=== PATIENT | male | born 1945 | race Caucasian/White ===

== ENCOUNTER → 2018-06-23 | Outpatient (CLI) | payer MEDICARE, BC ==
[2018-06-23 16:16] LABS: Blood Urea Nitrogen 17 mg/dL (9-20)
--- NOTE | 2018-06-24 00:30 | CT ---
EXAMINATION TYPE: CT angio chest DATE OF EXAM: 06/23/2018 COMPARISON: NONE HISTORY: Patient complains of difficulty breathing. Pleural effusion per order. CT DLP: 228.1 mGycm. Automated Exposure Control for Dose Reduction was Utilized. CONTRAST: CTA scan of the thorax is performed with IV Contrast, patient injected with 100 mL of Isovue 370, pul monary embolism protocol. MIP Images are created on CT scanner and reviewed. FINDINGS: LUNGS: There is background underlying emphysematous change. There is moderate to large size left pleu ral effusion confirmed. There is associated compressive atelectasis in the left lung base. There is n onsimple or nonlayering component anteriorly in the left lung base axial image 107 for reference. Sup erior to this there is curvilinear hyperdensity possible pleural consolidation or atelectasis axial i mage 93 extending along the shoulder. There is mosaic attenuation consistent with mild alveolar edema bilaterally. No significant mediastinal shift is present. Right lung is clear. Mild central bronchia l wall thickening is noted. MEDIASTINUM: There is satisfactory enhancement of the pulmonary artery and its branches, there is no CT evidence for pulmonary embolism. There are no greater than 1 cm hilar or mediastinal lymph nodes. No cardiomegaly or pericardial effusion is seen. Coronary artery calcification is present which is noted marker for coronary artery disease. Ascending aorta measures up to 3.5 cm in diameter. OTHER: There are a few simple appearing cysts scattered throughout visualized portion of both kidneys . There is mild multilevel spurring in the thoracic spine. IMPRESSION: 1. No CTA evidence for acute pulmonary embolism. 2. Background underlying mild to moderate emphysematous change with mild bilateral alveolar edema and asymmetric moderate to large size left pleural effusion. Imaging guided thoracentesis for diagnostic and/or therapeutic benefits can be performed to further evaluate. Neoplasm needs to be excluded in u nilateral effusion.
== END | disposition home or self-care (01) ==
LOC: RADCTMAIN 15:41
PROVIDERS: ATTEND Internal Medicine
DX: J90 Pleural effusion, not elsewhere classified (principal); J43.9 Emphysema, unspecified; J81.1 Chronic pulmonary edema
CPT/HCPCS: 82565; 84520; 71275; 36415; Q9967

== ENCOUNTER 2018-06-28 10:44 | Inpatient (IN) | payer MEDICARE, BC ==
[2018-06-28 11:08] LABS: Glucose,Whole Blood 145 mg/dL (75-99)
[2018-06-28] MEDS ORDERED: SODIUM CHLORIDE 0.9% 500 ML IV STA (11:11)
--- NOTE | 2018-06-28 11:17 | ED ---
General Adult HPI - General Chief complaint: Neuro Symptoms/Deficit Stated complaint: Neurological Symptoms Time Seen by Provider: 06/28/18 10:55 Source: patient, RN notes reviewed Mode of arrival: wheelchair Limitations: no limitations - History of Present Illness Initial comments: This is a 72-year-old male who presents emergency Department and family is stating that he has had abnormal movements of his facial muscles and left arm. Patient has had the symptoms for 2-3 days. Patient is not on any new medications. According to family he takes no medications on a regular basis. Family states that jerking of the arm and twitching of facial muscles has never been seen before with this patient. Patient is a smoker. Patient denies any chest pain difficulty breathing shortness of breath. Patient himself does not notice any of these movements and he denies any numbness or weakness. Family denies any speech disturbance. Patient denies any facial droop. Patient denies any fever chills or cough - Related Data Allergies Allergy/AdvReac Type Severity Reaction Status Date / Time No Known Allergies Allergy Verified 06/28/18 11:00 Review of Systems ROS Statement: Those systems with pertinent positive or pertinent negative responses have been documented in the HPI. ROS Other: All systems not noted in ROS Statement are negative. Past Medical History Past Medical History: COPD History of Any Multi-Drug Resistant Organisms: None Reported Past Surgical History: Orthopedic Surgery Additional Past Surgical History / Comment(s): HIP REPLACEMENT Past Psychological History: No Psychological Hx Reported Smoking Status: Current every day smoker Past Alcohol Use History: None Reported Past Drug Use History: None Reported General Exam - General Exam Comments Initial Comments: NGENERAL: Patient is well-developed and well-nourished. Patient is nontoxic and well- hydrated and is in no acute distress. ENT: Neck is soft and supple. No significant lymphadenopathy is noted. Oropharynx is clear. Moist mucous membranes. Neck has full range of motion without eliciting any pain. EYES: The sclera were anicteric and conjunctiva were pink and moist. Extraocular movements were intact and pupils were equal round and reactive to light. Eyelids were unremarkable. PULMONARY: Unlabored respirations. Good breath sounds bilaterally. No audible rales rhonchi or wheezing was noted. CARDIOVASCULAR: There is a regular rate and rhythm without any murmurs gallops or rubs. ABDOMEN: Soft and nontender with normal bowel sounds. No palpable organomegaly was noted. There is no palpable pulsatile mass. SKIN: Skin is clear with no lesions or rashes and otherwise unremarkable. NEUROLOGIC: Patient is alert and oriented x3. Cranial nerves II through XII are grossly intact. Motor and sensory are also intact. Normal speech, volume and content. Symmetrical smile. MUSCULOSKELETAL: Normal extremities with adequate strength and full range of motion. No lower extremity swelling or edema. No calf tenderness. Patient does appear to have involuntary facial movements and left arm movements. LYMPHATICS: No significant lymphadenopathy is noted PSYCHIATRIC: Normal psychiatric evaluation. Limitations: no limitations Course Vital Signs 06/28/18 10:54 Temperature 98.8 F Pulse Rate 85 Respiratory 18 Rate Blood Pressure 134/82 O2 Sat by Pulse 95 Oximetry Medical Decision Making - Medical Decision Making EKG shows sinus rhythm with occasional PVCs at 90 bpm ID interval is 134 QRS is 90 QT interval 352 QTC is 4:30. Patient's EKG shows no ST segment elevation or depression or T wave abnormalities are noted. CT of the brain shows no acute abnormality. Chest x-ray shows no acute abnormality. I spoke with Dr. Brambila she agreed to admit the patient admitted the patient wrote admitting orders I consult the neurology. - Lab Data Result diagrams: 06/28/18 11:09 06/28/18 11:09 Lab Results 06/28/18 06/28/18 06/28/18 Range/Units 11:07 11:09 11:09 WBC 11.4 H (3.8-10.6) k/uL RBC 5.42 (4.30-5.90) m/uL Hgb 16.5 (13.0-17.5) gm/dL Hct 50.6 (39.0-53.0) % MCV 93.3 (80.0-100.0) fL MCH 30.4 (25.0-35.0) pg MCHC 32.6 (31.0-37.0) g/dL RDW 13.3 (11.5-15.5) % Plt Count 198 (150-450) k/uL Neutrophils % 75 % Lymphocytes % 12 % Monocytes % 8 % Eosinophils % 3 % Basophils % 0 % Neutrophils # 8.5 H (1.3-7.7) k/uL Lymphocytes # 1.3 (1.0-4.8) k/uL Monocytes # 0.9 (0-1.0) k/uL Eosinophils # 0.4 (0-0.7) k/uL Basophils # 0.0 (0-0.2) k/uL PT (9.0-12.0) sec INR (<1.2) APTT (22.0-30.0) sec Sodium (137-145) mmol/L Potassium (3.5-5.1) mmol/L Chloride (98-107) mmol/L Carbon Dioxide (22-30) mmol/L Anion Gap mmol/L BUN (9-20) mg/dL Creatinine (0.66-1.25) mg/dL Est GFR (CKD-EPI)AfAm (>60 ml/min/1.73 sqM) Est GFR (CKD-EPI)NonAf (>60 ml/min/1.73 sqM) Glucose (74-99) mg/dL POC Glucose (mg/dL) 145 H (75-99) mg/dL POC Glu Gang Mower Operator ID Joy Marroquin Calcium (8.4-10.2) mg/dL Total Bilirubin (0.2-1.3) mg/dL AST (17-59) U/L ALT (21-72) U/L Alkaline Phosphatase (38-126) U/L Total Creatine Kinase 87 (55-170) U/L CK-MB (CK-2) 2.4 (0.0-2.4) ng/mL CK-MB (CK-2) Rel Index 2.8 Troponin I <0.012 (0.000-0.034) ng/mL Total Protein (6.3-8.2) g/dL Albumin (3.5-5.0) g/dL 06/28/18 06/28/18 Range/Units 11:09 11:09 WBC (3.8-10.6) k/uL RBC (4.30-5.90) m/uL Hgb (13.0-17.5) gm/dL Hct (39.0-53.0) % MCV (80.0-100.0) fL MCH (25.0-35.0) pg MCHC (31.0-37.0) g/dL RDW (11.5-15.5) % Plt Count (150-450) k/uL Neutrophils % % Lymphocytes % % Monocytes % % Eosinophils % % Basophils % % Neutrophils # (1.3-7.7) k/uL Lymphocytes # (1.0-4.8) k/uL Monocytes # (0-1.0) k/uL Eosinophils # (0-0.7) k/uL Basophils # (0-0.2) k/uL PT 10.1 (9.0-12.0) sec INR 1.0 (<1.2) APTT 25.5 (22.0-30.0) sec Sodium 137 (137-145) mmol/L Potassium 4.7 (3.5-5.1) mmol/L Chloride 107 (98-107) mmol/L Carbon Dioxide 23 (22-30) mmol/L Anion Gap 7 mmol/L BUN 16 (9-20) mg/dL Creatinine 0.86 (0.66-1.25) mg/dL Est GFR (CKD-EPI)AfAm >90 (>60 ml/min/1.73 sqM) Est GFR (CKD-EPI)NonAf 88 (>60 ml/min/1.73 sqM) Glucose 148 H (74-99) mg/dL POC Glucose (mg/dL) (75-99) mg/dL POC Glu Gang Mower Operator ID Calcium 9.1 (8.4-10.2) mg/dL Total Bilirubin 0.5 (0.2-1.3) mg/dL AST 24 (17-59) U/L ALT 23 (21-72) U/L Alkaline Phosphatase 88 (38-126) U/L Total Creatine Kinase (55-170) U/L CK-MB (CK-2) (0.0-2.4) ng/mL CK-MB (CK-2) Rel Index Troponin I (0.000-0.034) ng/mL Total Protein 6.1 L (6.3-8.2) g/dL Albumin 3.6 (3.5-5.0) g/dL Disposition Clinical Impression: Involuntary movements Disposition: ADMITTED IP TO THIS HOSP Referrals: Feliciano Motta MD [Primary Care Provider] - 1-2 days Time of Disposition: 12:10
[2018-06-28 11:26] LABS: Basophils % (A) 0 %; Eosinophils # (A) 0.4 k/uL (0-0.7); Eosinophils % (A) 3 %; HCT 50.6 % (39.0-53.0); HGB 16.5 gm/dL (13.0-17.5); Lymphocytes # (A) 1.3 k/uL (1.0-4.8); Lymphocytes % (A) 12 %; MCH 30.4 pg (25.0-35.0); MCHC 32.6 g/dL (31.0-37.0); MCV 93.3 fL (80.0-100.0); Mean Platelet Volume 7.5; Monocytes # (A) 0.9 k/uL (0-1.0); Monocytes % (A) 8 %; Neutrophils # (A) 8.5 k/uL (1.3-7.7); Neutrophils % (A) 75 %; Platelet Count 198 k/uL (150-450); RBC 5.42 m/uL (4.30-5.90); RDW 13.3 % (11.5-15.5); WBC 11.4 k/uL (3.8-10.6)
[2018-06-28 11:41] LABS: ALT 23 U/L (21-72); AST 24 U/L (17-59); Albumin 3.6 g/dL (3.5-5.0); Alkaline Phosphatase 88 U/L (38-126); Anion Gap 7 mmol/L; Blood Urea Nitrogen 16 mg/dL (9-20); Calcium 9.1 mg/dL (8.4-10.2); Carbon Dioxide 23 mmol/L (22-30); Chloride 107 mmol/L (98-107); Glucose 148 mg/dL (74-99); Potassium 4.7 mmol/L (3.5-5.1); Sodium 137 mmol/L (137-145); Total Bilirubin 0.5 mg/dL (0.2-1.3); Total Protein 6.1 g/dL (6.3-8.2)
[2018-06-28 11:45] LABS: Partial Thromboplastin Time 25.5 sec (22.0-30.0); Prothrombin Time 10.1 sec (9.0-12.0)
--- NOTE | 2018-06-28 11:55 | CT ---
EXAMINATION TYPE: CT brain wo con DATE OF EXAM: 06/28/2018 COMPARISON: NONE HISTORY: Lt sided numbness CT DLP: 929.3 mGycm Automated exposure control for dose reduction was used. FINDINGS: There are mild, generalized changes of sulcal prominence and ventriculomegaly, compatible with mild a trophy. There is diffuse periventricular white matter lucency, compatible with small vessel ischemic change. There is no acute focal lesion, mass effect or midline shift identified. I do not see evidenc e of intracranial blood. Visualized portions of the paranasal sinuses and mastoids are clear. The bony calvarium is intact. IMPRESSION: 1. NO ACUTE INTRACRANIAL ABNORMALITY. 2. MILD DEGENERATIVE CHANGE.
[2018-06-28 11:57] LABS: Creatine Kinase 87 U/L (55-170)
--- NOTE | 2018-06-28 11:59 | XR ---
EXAMINATION TYPE: XR chest 2V DATE OF EXAM: 06/28/2018 HISTORY: altered mental status. REFERENCE: NONE. FINDINGS: There is a prominent left-sided pleural effusion. There is associated atelectatic change. T he right lung is overinflated. Heart size appears to be normal. IMPRESSION: 1. COPD. 2. MODERATE LEFT-SIDED PLEURAL EFFUSION WITH CONCOMITANT ATELECTASIS.
[2018-06-28] MEDS ORDERED: diphenhydrAMINE 50 MG/ML 1 ML VIAL IVP STA (12:04)
[2018-06-28 12:09] LABS: Creatine Kinase MB 2.4 ng/mL (0.0-2.4); Troponin I <0.012 ng/mL (0.000-0.034)
[2018-06-28] MEDS ORDERED: ASPIRIN 325 MG TAB PO STA (12:10)
--- NOTE | 2018-06-28 14:46 | P.HPIM ---
History of Present Illness H&P Date: 06/28/18 Chief Complaint: Facial twitching 72-year-old male with past medical history of COPD presents to the ED with complaints of involuntary movement in his left upper extremity and slow speech. Patient reports the symptoms began several days ago. Patient reports the left upper extremity twitching as "something playing with it". Patient denies any dysphagia, difficulty articulating words, facial droop. He denies numbness , weakness, tingling of all 4 extremities. Patient reports no new medications. He denies headache, lower extremity edema, nausea, vomiting, fever, chills, chest pain, palpitations, changes in urination or bowel habits. Patient does currently endorse SOB and cough, ongoing for the past 2 weeks. Patient reports going to his PCP 2 weeks ago for a COPD exacerbation. Patient reports being treated with by prednisone at that time. CTA Chest was ordered when patient didn't show improvement, which revealed no evidence of PE but mild to moderate emphysematous changes with mild bilateral alveolar edema and asymmetric moderate to large size left pleural effusion. In the ED, brain CT showed no acute intracranial abnormality. Chest x-ray showed COPD, moderate left-sided pleural effusion. Patient was loaded with aspirin and admitted for further workup. Review of Systems All systems: negative Past Medical History Past Medical History: COPD History of Any Multi-Drug Resistant Organisms: None Reported Past Surgical History: Orthopedic Surgery Additional Past Surgical History / Comment(s): HIP REPLACEMENT Past Psychological History: No Psychological Hx Reported Smoking Status: Current every day smoker Past Alcohol Use History: None Reported Past Drug Use History: None Reported Medications and Allergies Home Medications Medication Instructions Recorded Confirmed Type Aclidinium Oracle [Tudorza 1 puff INHALATION RT-BID 06/28/18 06/28/18 History Pressair] Albuterol Inhaler [Ventolin Hfa 2 puff INHALATION RT-QID PRN 06/28/18 06/28/18 History Inhaler] Cholecalciferol [Vitamin D3] 1,000 unit PO DAILY 06/28/18 06/28/18 History Mometasone/Formoterol [Dulera 200 2 puff INHALATION RT-BID 06/28/18 06/28/18 History Mcg/5 Mcg Inhaler] Allergies Allergy/AdvReac Type Severity Reaction Status Date / Time No Known Allergies Allergy Verified 06/28/18 12:26 Physical Exam Vitals: Vital Signs Temp Pulse Resp BP Pulse Ox 06/28/18 12:40 97.7 F 69 18 136/74 99 06/28/18 12:11 75 18 128/68 99 06/28/18 10:54 98.8 F 85 18 134/82 95 Intake and Output 06/27/18 06/28/18 06/28/18 22:59 06:59 14:59 Other: Weight 71.214 kg General: non toxic, no distress, appears at stated age Derm: warm, dry Head: atraumatic, normocephalic, symmetric Eyes: EOMI, no lid lag, anicteric sclera Mouth: no lip lesion, mucus membranes moist Cardiovascular: S1S2 reg, no murmur, positive posterior tibial pulse bilateral, Lungs: Decreased breath sounds bilaterally, no rhonchi, no rales , no accessory muscle use Abdominal: soft, nontender to palpation, no guarding, no appreciable organomegaly Ext: no gross muscle atrophy, no edema, no contractures Neuro: CN II-XI grossly intact, strength 5 out of 5 in all 4 extremities, sensation intact to touch in all 4 extremities, finger to nose okay, heel-to- parsons okay. Psych: Alert, oriented, appropriate affect Results CBC & Chem 7: 06/28/18 11:09 06/28/18 11:09 Labs: Abnormal Lab Results - Last 24 Hours (Table) 06/28/18 06/28/18 06/28/18 Range/Units 11:07 11:09 11:09 WBC 11.4 H (3.8-10.6) k/uL Neutrophils # 8.5 H (1.3-7.7) k/uL Glucose 148 H (74-99) mg/dL POC Glucose (mg/dL) 145 H (75-99) mg/dL Total Protein 6.1 L (6.3-8.2) g/dL CT scan - chest: report reviewed CT Scan - head: report reviewed Thrombosis Risk Factor Assmnt - Choose All That Apply Any of the Below Risk Factors Present?: Yes Each Factor Represents 1 point: Abnormal pulmonary function (COPD) Other Risk Factors: Yes Each Risk Factor Represents 2 Points: Age 61-74 years Other congenital or acquired thrombophilia - If yes, enter type in comment: No Thrombosis Risk Factor Assessment Total Risk Factor Score: 3 Thrombosis Risk Factor Assessment Level: Moderate Risk Assessment and Plan Assessment: Assessment and Plan 1. Focal dystonia + Slurred speech: Given long h/o smoking, will need to r/o CVA. Also possible paraneoplastic syndrome given long smoking history. Given Benadryl IV in the ED without much relief. CT brain shows no acute intracranial abnormalities. Telemetry monitoring. FU MRI brain, CUS neck, Echocardiogram, A1c , Lipid panel. Neurochecks Q4H. FU PT/OT/ST, Neurology 2. Pleural effusion: Seen on CTA Chest 06/23. Moderate to large on left side. Given h/o smoking, will need thoracentesis to r/o CA. FU Pulmonology 3. COPD: Stable. DuoNeb Q6 PRN. 4. DVT/GI Prophylaxis: Protonix 40 mg PO QD, Lovenox 40 mg SUBCUT QD.
[2018-06-28 16:08] VITALS: BMI 24.7
--- NOTE | 2018-06-28 17:04 | US ---
EXAMINATION TYPE: US carotid duplex BILAT DATE OF EXAM: 06/28/2018 COMPARISON: NONE CLINICAL HISTORY: Stenosis. Involuntary movements, slurred speech EXAM MEASUREMENTS: RIGHT: Peak Systolic Velocity (PSV) cm/sec ----- Right CCA: 61.1 ----- Right ICA: 103.0 ----- Right ECA: 78.9 ICA/CCA ratio: 1.7 RIGHT: End Diastole cm/sec ----- Right CCA: 21.5 ----- Right ICA: 42.2 ----- Right ECA: 19.0 LEFT: Peak Systolic Velocity (PSV) cm/sec ----- Left CCA: 77.9 ----- Left ICA: 67.2 ----- Left ECA: 74.5 ICA/CCA ratio: 0.9 LEFT: End Diastole cm/sec ----- Left CCA: 24.1 ----- Left ICA: 17.9 ----- Left ECA: 15.2 VERTEBRALS (direction of flow): Right Vertebral: Antegrade Left Vertebral: Antegrade Rhythm: Arrhythmia Bilateral intimal thickening, plaque right bulb, no elevated velocities, no significant stenosis. IMPRESSION: 1. Mild degree of grayscale atheromatous plaquing with no sonographically evident hemodynamically si gnificant stenosis within either visualized carotid arterial system. 2. Incidentally noted cardiac arrhythmia. Correlate with EKG.
[2018-06-28] MEDS: IPRATROPIUM-ALBUTEROL 3 ML NEB INHALATION PRN (21:03)
[2018-06-28 23:54] LABS: Cholesterol 160 mg/dL (<200); HDL Cholesterol 49 mg/dL (40-60); LDL Cholesterol,Calculated 91 mg/dL (0-99); Triglycerides 100 mg/dL (<150)
--- NOTE | 2018-06-29 00:11 | P.CNNES ---
History of Present Illness Consult date: 06/28/18 Reason for Consult: Patient admitted for abnormal involuntary muscle movements. History of Present Illness: This patient is a 72-year-old right-handed white male was brought into the emergency room at [facility] today for evaluation of abnormal movements of his left upper extremity. Patient states that over the past week he has been having uncontrolled involuntary movements of the left arm. He describes it as a twitch which can be quite visible at times. The patient states the symptoms have been progressing over the past 2 weeks. He has no previous history of any left arm difficulties or pain. The patient also today noticing increasing difficulty with his speech and language in that his speech was becoming slurred. He describes it as a type of dysarthria. He had some difficulty with articulation of words which was also noted by his at home over the last week. The patient did not seek medical attention for this condition 2 weeks ago but since his symptoms seem to be worsening today he decided to come to the emergency room. His primary care physician is Dr. Motta who apparently monitors him on a regular basis. The patient denies being started on any new medications by his primary care physician or new antipsychotic medications. He denied any headache or focal weakness but did complain of the left arm movements. The patient is also been having symptoms of shortness of breath for the past 2 weeks. He underwent a CTA of the chest which reveals a large left pleural effusion. Pulmonary medicine has been consulted. The patient was given an aspirin in the emergency room after being evaluated by Dr. Sung. He was sent for a computed tomography scan of the brain which revealed no acute intracranial abnormality. There was mild degenerative change noted. He underwent a carotid Doppler ultrasound which revealed mild degree of plaquing with no significant hemodynamically significant stenosis of either carotid system. Patient denies any previous history of TIA or stroke. He states these involuntary movements have only been noticed by him in the past 2 weeks. He denies ever having these movements previously. The patient states that there is no family history of abnormal movement disorders. He had only one sibling who has passed on. He has no other history of any movement disorders running in the family. The patient was examined at bedside and is noted to have some facial grimacing. He does have occasional movements of the left upper extremity. He seems to be quite restless in bed. He has no evidence on neurological examination of cogwheel rigidity. He does have dysmetria on finger-nose testing in the left upper extremity. The patient will require further evaluation with MRI of the brain as well as a complete stroke evaluation. The patient is now admitted and neurology has been consulted for further evaluation and recommendations. Review of Systems Constitutional: Denies chills, Denies fever Eyes: denies blurred vision, denies pain Ears, nose, mouth and throat: Denies headache, Denies sore throat Cardiovascular: Denies chest pain, Denies shortness of breath Respiratory: Denies cough Gastrointestinal: Denies abdominal pain, Denies diarrhea, Denies nausea, Denies vomiting Musculoskeletal: Reports muscle cramps, Denies myalgias Integumentary: Denies pruritus, Denies rash Neurological: Reports change in mentation, Reports lack of coordination, Reports tingling, Denies numbness, Denies weakness Psychiatric: Denies anxiety, Denies depression Endocrine: Denies fatigue, Denies weight change Past Medical History Past Medical History: COPD History of Any Multi-Drug Resistant Organisms: None Reported Past Surgical History: Orthopedic Surgery Additional Past Surgical History / Comment(s): HIP REPLACEMENT Past Psychological History: No Psychological Hx Reported Smoking Status: Current every day smoker Past Alcohol Use History: None Reported Past Drug Use History: None Reported - Past Family History Mother Family Medical History: Cancer Additional Family Medical History / Comment(s): lung cancer pass away 90 years old Medications and Allergies Home Medications Medication Instructions Recorded Confirmed Type Aclidinium [place] [Tudorza 1 puff INHALATION RT-BID 06/28/18 06/28/18 History Pressair] Albuterol Inhaler [Ventolin Hfa 2 puff INHALATION RT-QID PRN 06/28/18 06/28/18 History Inhaler] Cholecalciferol [Vitamin D3] 1,000 unit PO DAILY 06/28/18 06/28/18 History Mometasone/Formoterol [Dulera 200 2 puff INHALATION RT-BID 06/28/18 06/28/18 History Mcg/5 Mcg Inhaler] Allergies Allergy/AdvReac Type Severity Reaction Status Date / Time No Known Allergies Allergy Verified 06/28/18 12:26 Physical Examination - Vital Signs Vital Signs: Vital Signs Temp Pulse Resp BP Pulse Ox 06/28/18 12:40 97.7 F 69 18 136/74 99 06/28/18 12:11 75 18 128/68 99 06/28/18 10:54 98.8 F 85 18 134/82 95 Intake and Output 06/27/18 06/28/18 06/28/18 22:59 06:59 14:59 Other: Weight 71.214 kg - Constitutional General appearance: average body habitus, cooperative - EENT EENT: PERRL, mucous membranes moist - Respiratory Respiratory: lungs clear, normal breath sounds - Cardiovascular Cardiovascular: regular rate, normal S1, normal S2 Extremities: no peripheral edema bilaterally - Gastrointestinal Gastrointestinal: normoactive bowel sounds - Integumentary Integumentary: normal - Neurologic Cranial nerve examination: PERRL, EOMI, VFF, V1/V2/V3 grossly intact, face symmetric, intact gag reflex, intact corneal reflex, normal palatal elevation Speech examination: intact Sensorimotor examination: intact Motor examination - right side: 4/5: biceps, triceps, wrist flexion, wrist extension, inspector repairer sandstone, hip flexors, knee extensors, dorsiflexion, toe extension (EHL) , plantarflexion Motor examination - left side: 4/5: biceps, triceps, wrist flexion, wrist extension, inspector repairer sandstone, hip flexors, knee extensors, dorsiflexion, toe extension (EHL) , plantarflexion Detailed sensory examination: intact Reflex and gait examination: intact Reflexes: 1+: ankle, bicep, knee, tricep - Musculoskeletal Musculoskeletal: no pain - Psychiatric Psychiatric: mood/affect appropriate, cooperative Results - Laboratory Findings CBC and BMP: 06/28/18 11:09 06/28/18 11:09 Abnormal Lab Findings: Abnormal Labs 06/28/18 06/28/18 06/28/18 11:07 11:09 11:09 WBC 11.4 H Neutrophils # 8.5 H Glucose 148 H POC Glucose (mg/dL) 145 H Total Protein 6.1 L Assessment and Plan (1) Tourette's syndrome Current Visit: Yes Status: Acute Code(s): F95.2 - TOURETTE'S DISORDER SNOMED Code(s): 4583846 (2) TIA (transient ischemic attack) Current Visit: Yes Status: Acute Code(s): G45.9 - TRANSIENT CEREBRAL ISCHEMIC ATTACK, UNSPECIFIED SNOMED Code(s): 525600276 (3) Pleural effusion Current Visit: Yes Status: Acute Code(s): J90 - PLEURAL EFFUSION, NOT ELSEWHERE CLASSIFIED SNOMED Code(s): 58089074 (4) Involuntary movements Current Visit: Yes Status: Acute Code(s): R25.9 - UNSPECIFIED ABNORMAL INVOLUNTARY MOVEMENTS SNOMED Code(s): 764564217 Plan: This patient is a 72-year-old right-handed white male who is being evaluated for recent onset of left arm movements and slurred speech. Symptoms began about a week ago at home which the patient describes as twitching of his left arm. His symptoms worsened and he was brought into the emergency room today for further evaluation. He was seen in the ER by Dr. Sung who ordered a computed tomography scan of the brain which was negative for any acute changes. He was noted to have some involuntary movements and some facial grimacing in the ER and was subsequent admitted to Hospital. His neurological examination at this time suggest possibility of Tourette syndrome given his current clinical findings and symptoms. He may benefit from a trial of treatment with Klonopin to see if this would help alleviate some of the involuntary movements. We would recommend a complete stroke evaluation for this patient as he does have slurred speech as well. He does also demonstrate evidence of dysmetria on his left upper extremity suggesting possibility of cerebellar involvement. Would recommend an MRI of the brain and a complete stroke evaluation for the patient. Patient also has evidence of left pleural effusion and we will await further recommendations from pulmonary medicine. We will continue close neurological follow-up with this patient during this admission. His overall prognosis at this time remains very guarded. We will continue close neurological follow-up for this patient during this admission. Time with Patient: Greater than 30
[2018-06-29] MEDS: PANTOPRAZOLE 40 MG TABLET PO SCH (06:34)
[2018-06-29] MEDS: IPRATROPIUM-ALBUTEROL 3 ML NEB INHALATION PRN (07:35)
[2018-06-29] MEDS ORDERED: ASPIRIN 325 MG TAB PO SCH (09:00)
[2018-06-29] MEDS ORDERED: ENOXAPARIN 40 MG/0.4 ML SYRINGE SQ SCH (09:00)
[2018-06-29] MEDS: clonazePAM 0.5 MG TAB PO SCH ×2 (09:58→21:46)
--- NOTE | 2018-06-29 12:11 | ECHOF ---
Referral Reason:Thrombus MEASUREMENTS -------- HEIGHT: 170.2 cm WEIGHT: 68.0 kg BP: 110/74 RVIDd: 2.9 cm (< 3.3) IVSd: 1.3 cm (0.6 - 1.1) LVIDd: 3.5 cm (3.9 - 5.3) LVPWd: 1.3 cm (0.6 - 1.1) IVSs: 1.5 cm LVIDs: 2.7 cm LVPWs: 1.9 cm LA Diam: 3.6 cm (2.7 - 3.8) LAESV Index (A-L): 27.32 ml/m Ao Diam: 2.2 cm (2.0 - 3.7) MV EXCURSION: 17.570 mm (> 18.000) MV EF SLOPE: 65 mm/s (70 - 150) EPSS: 0.3 cm MV E Dwayne: 1.05 m/s MV DecT: 251 ms MV A Dwayne: 1.07 m/s MV E/A Ratio: 0.98 AV maxP.44 mmHg AV meanP.02 mmHg RAP: 5.00 mmHg RVSP: 51.18 mmHg FINDINGS -------- Sinus rhythm. This was a technically good study. The left ventricular size is normal. There is mild concentric left ventricular hypertrophy. Overa ll left ventricular systolic function is normal with, an EF between 60 - 65 %. The right ventricle is normal in size. Normal LA size by volume 22+/-6 ml/m2. The right atrium is normal in size. There is moderate to severe aortic valve sclerosis. There is severe aortic stenosis present. Peak /mean gradient across the Aortic Valve is 82.44mmHg / 46.02mmHg. Can't exclude possible Bicuspid Ao v. Mild mitral annular calcification present. Mild tricuspid regurgitation present. There is moderate pulmonary hypertension. The right ventric ular systolic pressure, as measured by Doppler, is 51.18mmHg. The pulmonic valve was not well visualized. The aortic root size is normal. Normal inferior vena cava with normal inspiratory collapse consistent with estimated right atrial pre ssure of 5 mmHg. There is no pericardial effusion. Moderate Pleural Effusion. CONCLUSIONS -------- 1. Sinus rhythm. 2. This was a technically good study. 3. The left ventricular size is normal. 4. There is mild concentric left ventricular hypertrophy. 5. Overall left ventricular systolic function is normal with, an EF between 60 - 65 %. 6. The right ventricle is normal in size. 7. Normal LA size by volume 22+/-6 ml/m2. 8. The right atrium is normal in size. 9. There is moderate to severe aortic valve sclerosis. 10. There is severe aortic stenosis present. 11. Peak/mean gradient across the Aortic Valve is 82.44mmHg / 46.02mmHg. 12. Can't exclude possible Bicuspid Aov. 13. Mild mitral annular calcification present. 14. Mild tricuspid regurgitation present. 15. There is moderate pulmonary hypertension. 16. The right ventricular systolic pressure, as measured by Doppler, is 51.18mmHg. 17. The pulmonic valve was not well visualized. 18. The aortic root size is normal. 19. Normal inferior vena cava with normal inspiratory collapse consistent with estimated right atrial pressure of 5 mmHg. 20. There is no pericardial effusion. 21. Moderate Pleural Effusion. COAL GRADER: Taisha Hicks RDCS
--- NOTE | 2018-06-29 12:41 | P.PN ---
Subjective Progress Note Date: 06/29/18 Principal diagnosis: speech difficulties, numbness of the left upper extremity. patient was seen and examined. No acute events overnight. Patient reports no changes in his symptoms since 06/28/2018. Objective - Vital Signs Vital signs: Vital Signs Temp 97.1 F L 06/29/18 12:00 Pulse 82 06/29/18 12:00 Resp 20 06/29/18 12:00 BP 127/62 06/29/18 12:00 Pulse Ox 93 L 06/29/18 12:00 Intake & Output 06/28/18 06/29/18 06/29/18 18:59 06:59 18:59 Intake Total 360 360 Output Total 500 Balance -140 360 Weight 71.5 kg 68.4 kg Intake: Oral 360 360 Output: Urine 500 Other: # Voids 1 - Exam General: non toxic, no distress, appears at stated age Derm: warm, dry Head: atraumatic, normocephalic, symmetric Eyes: EOMI, no lid lag, anicteric sclera, PERRLA Mouth: no lip lesion, mucus membranes moist Cardiovascular: S1S2 reg, no murmur, positive posterior tibial pulse bilateral Lungs: Decreased breath sounds bilaterally, no rhonchi, no rales , no accessory muscle use Abdominal: soft, nontender to palpation, no guarding, no appreciable organomegaly Ext: no gross muscle atrophy, no edema, no contractures Neuro: CN II-XI grossly intact, strength 5 out of 5 in all 4 extremities, sensation intact to touch in all 4 extremities, finger to nose okay, heel-to- parsons okay. Psych: Alert, oriented, appropriate affect - Labs CBC & Chem 7: 06/28/18 11:09 06/28/18 11:09 Assessment and Plan Assessment: Assessment and Plan 1. Focal dystonia + Slurred speech - Given long h/o smoking, will need to r/o CVA. Also possible paraneoplastic syndrome given long smoking history. - Given Benadryl IV in the ED without much relief. - r/o CVA - CT brain shows no acute intracranial abnormalities. - CUS shows no hemodynamic compromise - Lipid panel is within normal limits. - Echo is 60-65% with moderate to severe . - Neurology consult: Recommend trial of Klonopin for possible Tourette, complete CVA workup. - Telemetry monitoring with Neurochecks Q4H. Start ASA 325 mg PO QD. FU MRI brain, Echocardiogram, A1c. FU PT/OT/ST, Neurology 2. Aortic stenosis: Seen on Echo. Moderate to severe. Patient asymptomatic. FU Cardiology. 3. Pleural effusion: Seen on CTA Chest 06/23. Moderate to large on left side. Given h/o smoking, will need thoracentesis to r/o CA. FU Pulmonology 4. COPD: Stable. DuoNeb Q6 PRN. 5. DVT/GI Prophylaxis: Protonix 40 mg PO QD, Lovenox 40 mg SUBCUT QD.
--- NOTE | 2018-06-29 17:39 | P.CNPUL ---
History of Present Illness Consult date: 06/29/18 Requesting physician: Bryanna Bridges Reason for consult: dyspnea, pleural effusion, abnormal CXR/CT Chief complaint: Shortness of breath History of present illness: Mr. German is a 72-year-old white male patient of Dr. Motta, who presented to the emergency department on 06/28/2018 at 10:00 in the morning with complaints of abnormal movements of his facial muscles and left arm. This had been going on for 2-3 days. Patient was experiencing jerking movements of the arm, and twitching of the facial muscles. No facial droop, no unilateral motor weakness. Patient was noted to be dysarthric. Patient is currently undergoing neurological workup for CVA/TIA, and neurology is following. Brain CT no acute intracranial abnormality, and mild degenerative change. EKG showed sinus rhythm with occasional PVCs. Echocardiogram showed EF of 60-65%, moderate pulmonary hypertension, with right-sided pressures of 51 mmHg. There was mild tricuspid regurgitation, there was moderate to severe aortic valve sclerosis and severe aortic stenosis present. Carotid Doppler did not show any hemodynamically significant stenosis. Patient has a past medical history of COPD, chronic and ongoing nicotine dependence, he carries over 55 -pack-year smoking history, has history of service, in the [employer]. Patient is not on oxygen at his baseline, and his maintenance inhalers include Dulera, Tudorza and Ventolin inhaler. Patient has been having increased shortness of breath for the past several weeks, and outpatient CT angiogram from 06/23/2018 negative for PE, but positive for moderate to large sized left pleural effusion and associated compressive atelectasis in the left lung base. Lab work was reviewed and showed WBC of 11.4, hemoglobin of 16.5, coagulation profile was within normal limits, renal profile and electrolytes were normal, LFTs were unremarkable, troponins and cardiac enzymes were negative 1. Clinically patient is awake and alert, oriented 3, in no acute distress, room air pulse ox is 94%, he is afebrile, hemodynamically stable, he is in sinus mechanism with a controlled rate. He does admit to being short of breath, but denies any chest pain, denies any fever or chills, does have an occasional cough with clear sputum production. We are consulted in regards to a large left-sided pleural effusion, for which the patient was supposed to see Dr. Adler on 2017 in the pulmonary office as a new patient. Review of Systems All systems: negative Constitutional: Denies chills, Denies fever Eyes: denies blurred vision, denies pain Ears, nose, mouth and throat: Denies headache, Denies sore throat Cardiovascular: Denies chest pain, Denies shortness of breath Respiratory: Reports cough, Reports cough with sputum, Reports dyspnea Gastrointestinal: Denies abdominal pain, Denies diarrhea, Denies nausea, Denies vomiting Musculoskeletal: Denies myalgias Integumentary: Denies pruritus, Denies rash Neurological: Reports change in speech, Denies numbness, Denies weakness Psychiatric: Denies anxiety, Denies depression Endocrine: Denies fatigue, Denies weight change Past Medical History Past Medical History: COPD History of Any Multi-Drug Resistant Organisms: None Reported Past Surgical History: Orthopedic Surgery Additional Past Surgical History / Comment(s): HIP REPLACEMENT Past Anesthesia/Blood Transfusion Reactions: No Reported Reaction Past Psychological History: No Psychological Hx Reported Smoking Status: Current every day smoker Past Alcohol Use History: None Reported Past Drug Use History: None Reported - Past Family History Mother Family Medical History: Cancer Additional Family Medical History / Comment(s): lung cancer pass away 90 years old Medications and Allergies Home Medications Medication Instructions Recorded Confirmed Type Aclidinium [place] [Tudorza 1 puff INHALATION RT-BID 06/28/18 06/28/18 History Pressair] Albuterol Inhaler [Ventolin Hfa 2 puff INHALATION RT-QID PRN 06/28/18 06/28/18 History Inhaler] Cholecalciferol [Vitamin D3] 1,000 unit PO DAILY 06/28/18 06/28/18 History Mometasone/Formoterol [Dulera 200 2 puff INHALATION RT-BID 06/28/18 06/28/18 History Mcg/5 Mcg Inhaler] Allergies Allergy/AdvReac Type Severity Reaction Status Date / Time No Known Allergies Allergy Verified 06/28/18 12:26 Physical Exam Vitals: Vital Signs Temp Pulse Pulse Resp BP Pulse Ox 06/29/18 16:00 97.5 F L 87 20 125/77 94 L 06/29/18 12:00 97.1 F L 82 20 127/62 93 L 06/29/18 08:00 97.2 F L 93 20 115/70 95 08/13/18 07:45 80 06/29/18 07:35 90 06/29/18 05:10 97.4 F L 89 18 110/74 94 L 06/28/18 23:10 75 16 110/72 94 L 06/28/18 21:14 88 06/28/18 21:05 87 06/28/18 20:30 97.7 F 88 16 131/71 93 L Intake and Output 06/29/18 06/29/18 06/29/18 06:59 14:59 22:59 Intake Total 1017 Balance 1017 Intake: Oral 1017 Other: # Voids 1 3 Weight 68.4 kg GENERAL EXAM: Alert, pleasant 72-year-old white male, tanned, comfortable in no apparent distress. HEAD: Normocephalic/atraumatic. EYES: Normal reaction of pupils, equal size. Conjunctiva pink, sclera white. NOSE: Clear with pink turbinates. THROAT: No erythema or exudates. NECK: No masses, no JVD, no thyroid enlargement, no adenopathy. CHEST: No chest wall deformity. Symmetrical expansion. LUNGS: Diminished breath sounds bilaterally, especially over left lower lobe, and dullness to percussion on the left CVS: Regular rate and rhythm, normal S1 and S2, no gallops, no murmurs, no rubs ABDOMEN: Soft, nontender. No hepatosplenomegaly, normal bowel sounds, no guarding or rigidity. EXTREMITIES: No clubbing, no edema, no cyanosis, 2+ pulses and upper and lower extremities. MUSCULOSKELETAL: Muscle strength and tone normal. SPINE: No scoliosis or deformity SKIN: No rashes CENTRAL NERVOUS SYSTEM: Alert and oriented -3. No focal deficits, tone is normal in all 4 extremities. PSYCHIATRIC: Alert and oriented -3. Appropriate affect. Intact judgment and insight. Results - Laboratory Findings CBC and BMP: 06/28/18 11:09 06/28/18 11:09 PT/INR, D-dimer PT 10.1 sec (9.0-12.0) 06/28/18 11:09 INR 1.0 (<1.2) 06/28/18 11:09 Abnormal lab findings: Abnormal Labs 06/28/18 06/28/18 06/28/18 11:07 11:09 11:09 WBC 11.4 H Neutrophils # 8.5 H Glucose 148 H POC Glucose (mg/dL) 145 H Total Protein 6.1 L - Diagnostic Findings Chest x-ray: report reviewed, image reviewed CT scan - chest: report reviewed, image reviewed Additional studies: EKG, CT brain, carotid ultrasound reviewed Assessment and Plan Plan: Assessment: #1. Dyspnea related to a large left pleural effusion #2. COPD, the severity of which is unknown at this time, appears to be stable #3. TIA, undergoing neurologic evaluation #4. Dysarthria, and involuntary movements secondary to above #5. Moderate to severe aortic stenosis #6. Moderate pulmonary hypertension, with right-sided pressures of 51 mmHg #7. Chronic and ongoing nicotine dependence, carries [id number] smoking history Plan: We'll obtain ultrasound the left chest with markings. We'll set up the patient for left-sided thoracentesis on 06/30/[address] Beck. We will hold morning dose of Lovenox and aspirin, dose can be given after the procedure as long as there is no bleeding. He COPD seems to be stable for now, he can continue with nebulized treatments on an as-needed basis. We will start Symbicort in place of patient is Dulera. We will send the pleural fluid for pleural fluid analysis , cultures, and cytology. This was discussed with the patient and his , who are in agreement with the plan I performed a history & physical examination of the patient and discussed their management with my nurse practitioner, Franny Major. I reviewed the nurse practitioner's note and agree with the documented findings and plan of care. Lung sounds are diminished, with dullness to percussion over left lower base. The findings and the impression was discussed with the patient. I attest to the documentation by the nurse practitioner. Time with Patient: Greater than 30
[2018-06-29] MEDS: NICOTINE 21MG/24HR PATCH TRANSDERM SCH (18:11)
--- NOTE | 2018-06-29 18:20 | CONS ---
CONSULTATION Mr. German is a 72-year-old gentleman who is seen for cardiac evaluation. The patient's medical record is reviewed. This patient came to the emergency room with primary complaint of involuntary movement of his left upper extremity and some slow speech on and off for the last few days. The patient denied any weakness or facial droop. Denied any headache. CT scan was unremarkable. The patient also has a history of COPD and smoking for the last 55 years. The patient had been complaining of exertional shortness of breath for some time and patient had a CTA of the chest done last week which showed a moderate to large-sized pleural effusion. The patient has a known history of heart murmur for many years. Patient denies any definite history of congestive cardiac failure or angina, denies any history of diabetes or hypertension. PAST MEDICAL HISTORY: 1. History of hip replacement. 2. Smoking history. Patient has a history of smoking 1 pack per day for the last 55 years. HOME MEDICATIONS: 1. Tudorza. 2. Ventolin. 3. Vitamin D3. PHYSICAL EXAMINATION: Physical examination at present reveals a 72-year-old gentleman who does not appear to be in any acute distress. Patient's blood pressure is 127/62 mmHg. Patient is afebrile. Oxygen saturation is 93%. Head/ENT examination is negative. NECK: Supple. Jugular venous pressure is not elevated. Both the carotid pulses are felt. There is no bruit. Chest is symmetrical. HEART: The PMI is not felt. First heart sound is normal. Second heart sound is soft. There is a grade 2 to 3 over 6 ejection systolic murmur which peaks in mid systole noted. Lungs reveal significant diminished air entry in left lower and mid lung guzman. Abdomen is negative. EXTREMITIES: There is no evidence of any leg edema. Patient's electrolytes are normal. Patient's echocardiogram shows evidence of calcified aortic valve; possibly bicuspid aortic valve with a peak gradient of 84, and a mean gradient of 46 mmHg is noted, suggestive of severe aortic stenosis. Patient does have some pulmonary hypertension. Patient's left atrium was not significantly dilated. FINAL IMPRESSION: 1. This patient is admitted with involuntary movement of the left upper extremity, for which neurological evaluation is being performed. 2. Patient has evidence of moderate to severe aortic stenosis with a peak gradient of 84 and mean gradient of 46 mmHg, possibly bicuspid aortic valve. 3. Evidence of chronic obstructive pulmonary disease as well as a significant large- sized pleural effusion which needs to be further evaluated. Underlying malignancy needs to be ruled out. After the pulmonary workup is completed, we recommend evaluating the patient with a transesophageal echocardiogram. MMODL / IJN: [id number] /
--- NOTE | 2018-06-29 18:36 | MR ---
EXAMINATION TYPE: MR brain wo/w con DATE OF EXAM: 06/29/2018 COMPARISON: None HISTORY: Speech loss TECHNIQUE: Multiplanar, multisequence images of the brain and brainstem is performed without and with IV contras t, utilizing 7.5 mL intravenous . Gadolinium FINDINGS: There is cerebral cortical atrophy. There is no mass effect nor midline shift. There is no sign of intracranial hemorrhage. There are multiple scattered foci of increased signal at the rodriguez-wh ite matter junction of both cerebral hemispheres. These measure up to 8 mm. Total number is less than 20. The brainstem is intact. The corpus callosum is intact. There is no sellar mass.. There is mild mucosal thickening in the right maxillary sinus. The contrast images show no pathologic enhancement. There is normal contrast appearance of the venous sinuses. The contrast images show some deviation of the pituitary stalk to the left side. There is suggestion of a 5 mm area of decreased enhancement in the sella turcica to the right of midline. IMPRESSION: Mild cerebral atrophy. White matter signal changes likely related to chronic small vessel ischemia. No evidence of cortical infarct. Demyelinating diseases in the differential diagnosis. Possible microadenoma in the right side of the pituitary gland. Dedicated pituitary study would BE us eful for further evaluation if clinically indicated.
[2018-06-29] MEDS: SYMBICORT 160-4.5 MCG INHALER INHALATION SCH (19:27)
--- NOTE | 2018-06-29 20:12 | US ---
EXAMINATION TYPE: US chest DATE OF EXAM: 06/29/2018 COMPARISON: NONE CLINICAL HISTORY: left pleural effusion. SOB TECHNIQUE: Targeted ultrasound of the posterior lower left pleural space EXAM MEASUREMENTS: Left Pleural Effusion pocket size: 10.0 cm Left skin surface to fluid distance: 3.7 cm Left side marked for possible thoracentesis outside the dept. Pulmonologists are able to review the images in the patient?s EMR. IMPRESSIONS: Moderate sized left pleural effusion is demonstrated.
--- NOTE | 2018-06-29 21:34 | P.PN ---
Subjective Progress Note Date: 06/28/18 This patient is a 72-year-old male being evaluated for left-sided movement disorder and tic-like symptoms. He was evaluated yesterday for neurological consultation. His differential diagnosis suggested possibility of Tourette syndrome and he was started on low-dose Klonopin. Patient was sent for MRI of the brain today and results will be reviewed. He also underwent carotid Doppler ultrasound which failed to reveal any carotid artery disease. The patient was started on low-dose Klonopin yesterday evening. There is some slight improvement in his overall condition today. Patient was sent for MRI of the brain which revealed cerebral atrophy with no evidence of cortical infarction or stroke. There was a possible microadenoma noted on the right side of the pituitary gland. The patient seems to have less movement of the left upper extremity today. He did undergo a routine EEG today which is reviewed and fails to reveal any evidence of epileptiform discharges. We reviewed the results of the MRI and EEG today with the patient. He was seen by pulmonary medicine earlier today and is being scheduled for thoracentesis tomorrow for treatment of large pleural effusion. He will need further workup for underlying malignancy as well. He was also seen by cardiology with diagnosed him with moderate to severe aortic stenosis. We will await further recommendations from cardiology. His overall prognosis at this time remains very guarded. Objective - Vital Signs Vital signs: Vital Signs Temp 97.5 F L 06/29/18 16:00 Pulse 87 06/29/18 16:00 Resp 20 06/29/18 16:00 BP 125/77 06/29/18 16:00 Pulse Ox 94 L 06/29/18 16:00 Intake & Output 06/29/18 06/29/18 06/30/18 06:59 18:59 06:59 Intake Total 1017 Balance 1017 Weight 68.4 kg Intake: Oral 1017 Other: # Voids 1 3 - Exam Physical examination: PHYSICAL EXAMINATION: Patient is resting comfortably in bed. VITAL SIGNS: Blood pressure is [125/77]. Heart rate is [87]. Respiration is [20] . Temperature is [97.5]. HEENT: Head is atraumatic, neck is supple, there were no carotid bruits. CHEST: Lungs are clear to auscultation and percussion. CARDIAC: S1, S2 normal rate and rhythm. There is no murmur. ABDOMEN: Soft and nontender. Bowel sounds are present. EXTREMITIES: There is no pedal edema. Peripheral pulses are present. Neurological examination: Patient has a nonfocal neurological examination today. Patient seems to have less involuntary movement of the left upper extremity today on examination. - Labs CBC & Chem 7: 06/28/18 11:09 06/28/18 11:09 Assessment and Plan (1) Tourette's syndrome Current Visit: Yes Status: Acute Code(s): F95.2 - TOURETTE'S DISORDER SNOMED Code(s): 5579661 (2) TIA (transient ischemic attack) Current Visit: Yes Status: Acute Code(s): G45.9 - TRANSIENT CEREBRAL ISCHEMIC ATTACK, UNSPECIFIED SNOMED Code(s): 874053332 (3) Pleural effusion Current Visit: Yes Status: Acute Code(s): J90 - PLEURAL EFFUSION, NOT ELSEWHERE CLASSIFIED SNOMED Code(s): 80552811 (4) Involuntary movements Current Visit: Yes Status: Acute Code(s): R25.9 - UNSPECIFIED ABNORMAL INVOLUNTARY MOVEMENTS SNOMED Code(s): 492018585 Plan: This patient is a 72-year-old right-handed white male who is being evaluated for recent onset of left arm movements and slurred speech. Symptoms began about a week ago at home which the patient describes as twitching of his left arm. His symptoms worsened and he was brought into the emergency room today for further evaluation. He was seen in the ER by Dr. Sung who ordered a computed tomography scan of the brain which was negative for any acute changes. He was noted to have some involuntary movements and some facial grimacing in the ER and was subsequent admitted to Hospital. His neurological examination at this time suggest possibility of Tourette syndrome given his current clinical findings and symptoms. He may benefit from a trial of treatment with Klonopin to see if this would help alleviate some of the involuntary movements. We would recommend a complete stroke evaluation for this patient as he does have slurred speech as well. He does also demonstrate evidence of dysmetria on his left upper extremity suggesting possibility of cerebellar involvement. Would recommend an MRI of the brain and a complete stroke evaluation for the patient. Patient underwent MRI of the brain results of which are noted above. MRI fails to reveal any evidence of acute stroke. There is evidence of a possible microadenoma on the right side of the pituitary gland. Further workup as needed. Patient was seen by cardiology for moderate to severe aortic stenosis. He is also being scheduled for thoracentesis procedure tomorrow by pulmonary medicine. Patient also has evidence of left pleural effusion and we will await further recommendations from pulmonary medicine. We will continue close neurological follow-up with this patient during this admission. We have reviewed the results of the MRI and EEG today with the patient. As noted EEG was negative for any evidence of epileptiform discharges. At this time would recommend to continue the patient on low-dose Klonopin with close monitoring. His overall prognosis at this time remains very guarded. We will continue close neurological follow-up for this patient during this admission.
--- NOTE | 2018-06-29 21:48 | EEG ---
ELECTROENCEPHALOGRAM REPORT DATE OF EE06/29/2018 ELECTROENCEPHALOGRAPHIC EXAMINATION REPORT: INDICATION FOR EXAMINATION: This patient is a 72-year-old male being evaluated for involuntary movements of the left upper extremity. AGE: 72. EEG FINDINGS: A routine 21-channel awake digital EEG recording was accomplished utilizing the 10-20 international system with bipolar and referential montages. The background activity in the most alert resting state consists of a low to medium amplitude, fairly well developed and well sustained 6 Hz activity over the posterior head regions. This posterior rhythm attenuates to eye opening. There is a small amount of low amplitude 18-20 Hz beta activity seen maximally over the anterior head regions. Muscle and movement artifact was observed on a few occasions during the tracing. Hyperventilation was not performed. Photic stimulation at flash frequencies of 2-30 Hz produced a minimal occipital driving response. No epileptiform discharges were seen. IMPRESSION: This EEG is moderately abnormal in a diffuse fashion due to slowing of the EEG background. The EEG failed to reveal any focal, lateralized, or epileptiform abnormalities. Clinical correlation is recommended. MMKATIEL / GÓMEZN: [id number] /
[2018-06-30] MEDS: PANTOPRAZOLE 40 MG TABLET PO SCH (06:33)
[2018-06-30] MEDS: SYMBICORT 160-4.5 MCG INHALER INHALATION SCH (08:21)
[2018-06-30] MEDS: IPRATROPIUM-ALBUTEROL 3 ML NEB INHALATION PRN (08:21)
--- NOTE | 2018-06-30 09:08 | P.PN ---
Subjective Progress Note Date: 06/30/18 Principal diagnosis: Speech difficulties, involuntary movement. Patient seen and examined. No acute events overnight. Condition unchanged from 06/29/2018. Objective - Vital Signs Vital signs: Vital Signs Temp 97.6 F 06/30/18 04:00 Pulse 96 06/30/18 08:35 Resp 16 06/30/18 04:00 BP 113/67 06/30/18 04:00 Pulse Ox 95 06/30/18 04:00 Intake & Output 06/29/18 06/30/18 06/30/18 18:59 06:59 18:59 Intake Total 1017 850 Balance 1017 850 Weight 68.2 kg Intake: Oral 1017 850 Other: # Voids 3 1 - Exam General: non toxic, no distress, appears at stated age Derm: warm, dry Head: atraumatic, normocephalic, symmetric Eyes: EOMI, no lid lag, anicteric sclera, PERRLA Mouth: no lip lesion, mucus membranes moist Cardiovascular: S1S2 reg, no murmur Lungs: Decreased breath sounds bilaterally, no rhonchi, no rales , no accessory muscle use Abdominal: soft, nontender to palpation, no guarding, no appreciable organomegaly Ext: no gross muscle atrophy, no edema, no contractures Neuro: CN II-XI grossly intact, strength 5 out of 5 in all 4 extremities, sensation intact to touch in all 4 extremities, finger to nose okay, heel-to- parsons okay. Psych: Alert, oriented, appropriate affect - Labs CBC & Chem 7: 06/28/18 11:09 06/28/18 11:09 Assessment and Plan Assessment: Assessment and Plan 1. Focal dystonia + Slurred speech - Given long h/o smoking, will need to r/o CVA. Also possible paraneoplastic syndrome given long smoking history. - Given Benadryl IV in the ED without much relief. - r/o CVA - CT brain shows no acute intracranial abnormalities. - CUS shows no hemodynamic compromise - Lipid panel is within normal limits. - A1c 6.0 preDM range - Echo is 60-65% with moderate to severe . - MRI brain: Possible microadenoma R pituitary gland. - EEG: No elliptiform activity. - Neurology consult: Recommend trial of Klonopin for possible Tourette, complete CVA workup. - Telemetry monitoring with Neurochecks Q4H. Continue ASA 325 mg PO QD, Klonopin 0.25 mg PO BID. FU PT/OT/ST, Neurology 2. Pleural effusion: Seen on CTA Chest 06/23. Moderate to large on left side. For thoracentesis today. FU Pulmonology 3. Aortic stenosis: Seen on Echo. Moderate to severe. Patient asymptomatic. FU Cardiology. 4. COPD: Stable. DuoNeb Q6 PRN. Symbicort 2 puff BID. 5. DVT/GI Prophylaxis: Protonix 40 mg PO QD, Lovenox 40 mg SUBCUT QD.
[2018-06-30] MEDS: NICOTINE 21MG/24HR PATCH TRANSDERM SCH (09:24)
[2018-06-30] MEDS: clonazePAM 0.5 MG TAB PO SCH (09:24)
[2018-06-30 10:41] VITALS: RESP 20
[2018-06-30] MEDS ORDERED: LIDOCAINE 1% (PF) 10MG/ML VIAL SQ STA (11:08)
[2018-06-30] MEDS ORDERED: LIDOCAINE 1% INJ 10MG/ML (20 ML MDV) SQ STA (11:42)
[2018-06-30 12:13] LABS: Total Protein 5.6 g/dL (6.3-8.2)
--- NOTE | 2018-06-30 12:41 | XR ---
EXAMINATION TYPE: XR chest 1V portable DATE OF EXAM: 06/30/2018 HISTORY: Status post left-sided thoracentesis. COMPARISON: June 28, 2018 TECHNIQUE: Single view of the chest is submitted. FINDINGS: There is left-sided pneumothorax noted estimated at 15%. No evidence for mediastinal shift. Left basilar atelectasis. The heart is stable. Hilar and mediastinal structures are within normal limits. Degenerative changes are seen of the dorsal spine. IMPRESSION: 1. Left-sided pneumothorax estimated at approximately 15%. A [place] critical message alert has been initiated for Loree Brambila DO via the [facility] Results System on 06/30/2018 12:39 PM. This message alert has been sent to Loree olivera DO via the preferences provided by the clinician for the receipt of Radiology Critical Findings. Mukesh essage ID [id number].
--- NOTE | 2018-06-30 12:43 | PCN ---
PROCEDURE NOTE PROCEDURE: Left thoracentesis. Indication Pleural effusion. A time-out was completed verifying correct patient, procedure, site, positioning, and implant (s) or special equipment if applicable. Ultrasound guidance was used and appropriate fluid pocket was identified and marked. Patient was positioned, prepped and draped in usual sterile fashion. Lidocaine was used to anesthetize the area. A Thoracentesis catheter was introduced into the pleural space and fluid was removed. Blood loss was none. A chest x-ray was ordered to evaluate for pneumothorax. Total Fluid Removed 1650 mL Color of Fluid Fluid was sent for appropriate laboratory tests. Patient tolerated the procedure well and there were no complications. There was 1650 mL removed from the left pleural space. The fluid was sent for analysis. The patient will get a chest x-ray afterwards. There was no immediate complication. Again, the patient tolerated the procedure well and the family members were in the room at the time of the procedure. MMODL / IJN: [id number] /
--- NOTE | 2018-06-30 13:04 | P.PN ---
Subjective Progress Note Date: 06/30/18 Principal diagnosis: Large left pleural effusion Mr. German is a 72-year-old white male patient of Dr. Motta, who presented to the emergency department on 06/28/2018 at 10:00 in the morning with complaints of abnormal movements of his facial muscles and left arm. This had been going on for 2-3 days. Patient was experiencing jerking movements of the arm, and twitching of the facial muscles. No facial droop, no unilateral motor weakness. Patient was noted to be dysarthric. Patient is currently undergoing neurological workup for CVA/TIA, and neurology is following. Brain CT no acute intracranial abnormality, and mild degenerative change. EKG showed sinus rhythm with occasional PVCs. Echocardiogram showed EF of 60-65%, moderate pulmonary hypertension, with right-sided pressures of 51 mmHg. There was mild tricuspid regurgitation, there was moderate to severe aortic valve sclerosis and severe aortic stenosis present. Carotid Doppler did not show any hemodynamically significant stenosis. Patient has a past medical history of COPD, chronic and ongoing nicotine dependence, he carries over 55 -pack-year smoking history, has history of service, in the [employer]. Patient is not on oxygen at his baseline, and his maintenance inhalers include Dulera, Tudorza and Ventolin inhaler. Patient has been having increased shortness of breath for the past several weeks, and outpatient CT angiogram from 06/23/2018 negative for PE, but positive for moderate to large sized left pleural effusion and associated compressive atelectasis in the left lung base. Lab work was reviewed and showed WBC of 11.4, hemoglobin of 16.5, coagulation profile was within normal limits, renal profile and electrolytes were normal, LFTs were unremarkable, troponins and cardiac enzymes were negative 1. Clinically patient is awake and alert, oriented 3, in no acute distress, room air pulse ox is 94%, he is afebrile, hemodynamically stable, he is in sinus mechanism with a controlled rate. He does admit to being short of breath, but denies any chest pain, denies any fever or chills, does have an occasional cough with clear sputum production. We are consulted in regards to a large left-sided pleural effusion, for which the patient was supposed to see Dr. Adler on 2017 in the pulmonary office as a new patient. The patient is seen today 06/30/2018 in follow-up on the selective care unit. He is awake and alert in no acute distress. He did undergo thoracentesis of the left chest this morning by Dr. Beck. 650 MLS of dark serosanguineous fluid was drained. He denies any worsening shortness of breath, cough or congestion. Follow-up chest x-ray shows improvement with no evidence of pneumothorax. He is maintaining good O2 saturations in the 90s on room air. He 's been afebrile. Hemodynamically stable. He is quite anxious to go home. Objective - Vital Signs Vital signs: Vital Signs Temp 96.2 F L 06/30/18 11:25 Pulse 93 06/30/18 11:25 Resp 20 06/30/18 11:25 BP 134/94 06/30/18 11:25 Pulse Ox 93 L 06/30/18 11:25 Intake & Output 06/29/18 06/30/18 06/30/18 18:59 06:59 18:59 Intake Total 1017 850 Balance 1017 850 Weight 68.2 kg Intake: Oral 1017 850 Other: # Voids 3 1 - Exam GENERAL EXAM: Alert, pleasant 72-year-old white male, comfortable in no apparent distress. HEAD: Normocephalic/atraumatic. EYES: Normal reaction of pupils, equal size. Conjunctiva pink, sclera white. NOSE: Clear with pink turbinates. THROAT: No erythema or exudates. NECK: No masses, no JVD, no thyroid enlargement, no adenopathy. CHEST: No chest wall deformity. Symmetrical expansion. LUNGS: Diminished breath sounds bilaterally, especially over left lower lobe, and dullness to percussion on the left CVS: Regular rate and rhythm, normal S1 and S2, no gallops, no murmurs, no rubs ABDOMEN: Soft, nontender. No hepatosplenomegaly, normal bowel sounds, no guarding or rigidity. EXTREMITIES: No clubbing, no edema, no cyanosis, 2+ pulses and upper and lower extremities. MUSCULOSKELETAL: Muscle strength and tone normal. SPINE: No scoliosis or deformity SKIN: No rashes CENTRAL NERVOUS SYSTEM: Alert and oriented -3. No focal deficits, tone is normal in all 4 extremities. PSYCHIATRIC: Alert and oriented -3. Appropriate affect. Intact judgment and insight. - Labs CBC & Chem 7: 06/28/18 11:09 06/28/18 11:09 Labs: Abnormal Lab Results - Last 24 Hours (Table) 06/30/18 Range/Units 05:59 Lactate Dehydrogenase 677 H (313-618) U/L Total Protein 5.6 L (6.3-8.2) g/dL Assessment and Plan Assessment: Assessment: #1. Dyspnea related to a large left pleural effusion, status post thoracentesis with 1650 MLS dark serosanguineous fluid returned. #2. COPD, the severity of which is unknown at this time, appears to be stable #3. TIA, undergoing neurologic evaluation #4. Dysarthria, and involuntary movements secondary to above #5. Moderate to severe aortic stenosis #6. Moderate pulmonary hypertension, with right-sided pressures of 51 mmHg #7. Chronic and ongoing nicotine dependence, carries [id number] smoking history Plan: The patient was seen and evaluated by Dr. Beck. He did go ahead and perform a left-sided thoracentesis with 1650 mL of dark serosanguineous fluid returned. He is currently stable from the pulmonary standpoint. The patient is quite anxious to go home. He'll keep his appointment with Dr. Adler on 07/03/2018. Resume his home pulmonary medications. We should have the results of the pleural fluid back then.
--- NOTE | 2018-06-30 14:01 | P.PN ---
Subjective Progress Note Date: 06/30/18 This is a 72-year-old gentleman who presented to the hospital with slowness of speech and involuntary movements. He has history of COPD, also history of smoking for the past 55 years. On presentation here patient has been quite short of breath as well. A CTA of the chest was performed last week which revealed a moderate to large pleural effusion. Today the patient underwent a thoracentesis by Dr. Beck, total fluid removed 1650. Fluid was dark bloody in appearance. Patient was seen following the procedure, up ambulating in the hallway without any difficulty. He is eager to be discharged home today. From cardiology's perspective, he may be able to be discharged, follow-up appointment will be made in the office for him to see Dr. VC Sprague post discharge. Objective - Vital Signs Vital signs: Vital Signs Temp 96.2 F L 06/30/18 11:25 Pulse 93 06/30/18 11:25 Resp 20 06/30/18 11:25 BP 134/94 06/30/18 11:25 Pulse Ox 93 L 06/30/18 11:25 Intake & Output 06/29/18 06/30/18 06/30/18 18:59 06:59 18:59 Intake Total 1017 850 Balance 1017 850 Weight 68.2 kg Intake: Oral 1017 850 Other: # Voids 3 1 - Exam PHYSICAL EXAMINATION: GENERAL: 72-year-old gentleman in no acute distress at the time of my examination HEENT: Head is atraumatic, normocephalic. Pupils equal, round. Sclera anicteric. Conjunctiva are clear. Mucous membranes of the mouth are moist. Neck is supple. There is no elevated jugular venous pressure.] bruit is heard. HEART EXAMINATION: Heart S1, S2 there is a grade 3/6 systolic ejection murmur normal. No murmur or gallop heard. CHEST EXAMINATION: Lungs reveal diminished breath sounds bilaterally, more so on the left. .] ABDOMEN: Soft, nontender. Bowel sounds are heard. No organomegaly noted. EXTREMITIES: 2+ peripheral pulses with no evidence of peripheral edema and no calf tenderness noted. NEUROLOGIC patient is awake, alert and oriented ?-3. . - Labs CBC & Chem 7: 06/28/18 11:09 06/28/18 11:09 Labs: Abnormal Lab Results - Last 24 Hours (Table) 08/14/18 Range/Units 05:59 Lactate Dehydrogenase 677 H (313-618) U/L Total Protein 5.6 L (6.3-8.2) g/dL Assessment and Plan Plan: Assessment and plan #1 dyspnea, likely secondary to large left-sided pleural effusion, status post thoracentesis with 1650 mils of dark serosanguineous fluid returned #2 COPD #3 TIA #4 moderate to severe aortic stenosis #5 nicotine dependence Plan Patient will be able to be discharged home today from cardiology's perspective, a follow-up appointment will be made with Dr. VC Sprague in the office post discharge. DNP note has been reviewed, I agree with a documented findings and plan of care. Patient was seen and examined.
[2018-06-30 15:11] LABS: Appearance,BF Cloudy; Nucleated Cells, Body Fluid 840 /uL; RBC, Body Fluid 15360 /uL
[2018-06-30 15:14] LABS: Mononuclear WBC,Body Fluid 77 %; Polynuclear WBC,Body Fluid 2 %; Total Cells Counted,Body Fluid 100
--- NOTE | 2018-06-30 15:32 | P.DS ---
Providers Date of admission: 06/30/18 11:40 Expected date of discharge: 06/30/18 Attending physician: Loree Brambila, DO Consults: 06/28/18 12:11 Consult Physician Routine Consulting Provider: Ricardo Pierre Consult Reason/Comments: CVA Do you want consulting provider notified?: Yes 06/28/18 15:45 Consult Physician Routine Consulting Provider: Klaus Pool Consult Reason/Comments: Large pleural effusion on CTA Do you want consulting provider notified?: Yes 06/29/18 12:35 Consult Physician Urgent Consulting Provider: Kari Sprague Consult Reason/Comments: Moderate to severe aortic stenosis seen on Echo Do you want consulting provider notified?: Yes Primary care physician: Feliciano Duncan Diagnosis(es) (1) Focal dystonia Current Visit: Yes Status: Acute (2) Aortic stenosis Current Visit: Yes Status: Acute (3) COPD (chronic obstructive pulmonary disease) Current Visit: Yes Status: Acute (4) Pleural effusion Current Visit: Yes Status: Acute Hospital Course: 72-year-old male with past medical history of COPD presents to the ED with complaints of involuntary movement in his left upper extremity and slow speech. Patient reports the symptoms began several days ago. Patient reports the left upper extremity twitching as "something playing with it". Patient denies any dysphagia, difficulty articulating words, facial droop. He denies numbness , weakness, tingling of all 4 extremities. Patient reports no new medications. He denies headache, lower extremity edema, nausea, vomiting, fever, chills, chest pain, palpitations, changes in urination or bowel habits. Patient does currently endorse SOB and cough, ongoing for the past 2 weeks. Patient reports going to his PCP 2 weeks ago for a COPD exacerbation. Patient reports being treated with by prednisone at that time. CTA Chest was ordered when patient didn't show improvement, which revealed no evidence of PE but mild to moderate emphysematous changes with mild bilateral alveolar edema and asymmetric moderate to large size left pleural effusion. In the ED, brain CT showed no acute intracranial abnormality. Chest x-ray showed COPD, moderate left-sided pleural effusion. For his focal dystonia and slurred speech stroke workup was initiated and neurology was consulted. Given his long history of smoking, there is also a possibility of paraneoplastic syndrome. Patient was given Benadryl IV in the ED without much relief. CT brain showed no acute intracranial abnormality. Carotid ultrasound showed no hemodynamic compromise. Lipid panel was within normal limits. A1c was 6.0 in the prediabetic range. Echocardiogram is 60-65% with moderate to severe aortic stenosis. EEG showed no elliptic form activity. 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 Urology was consulted at this time and recommended a trial of clonazepam for possible Tourette syndrome. Patient was noted to have a large pleural effusion on chest x-ray. Pulmonology was consulted at this time, and patient underwent thoracocentesis which rosaura 1650 mL of seroussanguinous fluid. Cardiology was consulted for the moderate to severe aortic stenosis that was seen on echocardiogram. He remained asymptomatic through his hospital admission. Patient was advised to follow up outpatient. His home medications were resumed for COPD. Patient was advised to follow-up with his primary care provider within one to 2 days of discharge. Patient was advised to follow-up with Dr. Sprague, cardiology within 1 week of discharge. Patient is advised to follow-up with Dr. Pierre, neurologist within 3 weeks of discharge. Patient was advised to follow-up with Dr. Morton, gluing machine operator automatic within 1 week of discharge for results of this pleural fluid analysis. General: non toxic, no distress, appears at stated age Derm: warm, dry Head: atraumatic, normocephalic, symmetric Eyes: EOMI, no lid lag, anicteric sclera, PERRLA Mouth: no lip lesion, mucus membranes moist Cardiovascular: S1S2 reg, no murmur Lungs: Decreased breath sounds bilaterally, no rhonchi, no rales , no accessory muscle use Abdominal: soft, nontender to palpation, no guarding, no appreciable organomegaly Ext: no gross muscle atrophy, no edema, no contractures Neuro: CN II-XI grossly intact, strength 5 out of 5 in all 4 extremities, sensation intact to touch in all 4 extremities, finger to nose okay, heel-to- parsons okay. Psych: Alert, oriented, appropriate affect This complex discharge took greater than 30 minutes. Pertinent Studies: CT brain MRI brain CUS Echo EEG Patient Condition at Discharge: Stable Plan - Discharge Summary Discharge Rx Participant: No New Discharge Prescriptions: New clonazePAM [KlonoPIN] 0.5 mg PO BID #60 tab Continue Mometasone/Formoterol [Dulera 200 Mcg/5 Mcg Inhaler] 2 puff INHALATION RT-BID Albuterol Inhaler [Ventolin Hfa Inhaler] 2 puff INHALATION RT-QID PRN PRN Reason: Shortness Of Breath Aclidinium Challis [Tudorza Pressair] 1 puff INHALATION RT-BID Discontinued Cholecalciferol [Vitamin D3] 1,000 unit PO DAILY Discharge Medication List Aclidinium Challis [Tudorza Pressair] 1 puff INHALATION RT-BID 06/28/18 [History ] Albuterol Inhaler [Ventolin Hfa Inhaler] 2 puff INHALATION RT-QID PRN 06/28/18 [ History] Mometasone/Formoterol [Dulera 200 Mcg/5 Mcg Inhaler] 2 puff INHALATION RT-BID [History] clonazePAM [KlonoPIN] 0.5 mg PO BID #60 tab 06/30/18 [Rx] Follow up Appointment(s)/Referral(s): Ricardo Pierre MD [STAFF PHYSICIAN] - 3 Weeks Ky Beck DO [Doctor of Osteopathic Medicine] - 1 Week Feliciano Motta MD [Primary Care Provider] - 07/08/18 11:00 am (Friday) Kari Sprague MD [STAFF PHYSICIAN] - 1 Week Activity/Diet/Wound Care/Special Instructions: Diet: Regular diet. Please follow-up with your primary care provider within one to 2 days of discharge. Please follow-up with Dr. Sprague, Solidworks Designer within 1 week of discharge for your moderate to severe aortic stenosis. Please follow-up with Dr. Beck, pulmonology regarding the thoracocentesis and analysis of your pleural fluid Please follow-up with Dr. Pierre, neurologist in 3 weeks with regard to your involuntary muscle twitching and slowed speech. Please take all medications as advised. Discharge Disposition: HOME SELF-CARE Pending Studies Pending Results: Patient is to follow-up with Dr. Morton, pulmonology for results of his pleural fluid analysis. He will need follow-up with his primary care provider to evaluate for microadenoma seen in his pituitary on the MRI brain. He will need follow-up with Dr. Sprague, cardiology for evaluation of moderate to severe aortic stenosis.
[2018-06-30 15:59] VITALS: BP 112/63; PULSE 80; TEMP 98.2
--- NOTE | 2018-06-30 16:45 | P.PN ---
Subjective Progress Note Date: 06/30/18 This patient is a 72-year-old male being evaluated for left-sided movement disorder and tic-like symptoms. He was evaluated yesterday for neurological consultation. His differential diagnosis suggested possibility of Tourette syndrome and he was started on low-dose Klonopin. Patient was sent for MRI of the brain today and results will be reviewed. He also underwent carotid Doppler ultrasound which failed to reveal any carotid artery disease. The patient was started on low-dose Klonopin yesterday evening. There is some slight improvement in his overall condition today. Patient was sent for MRI of the brain which revealed cerebral atrophy with no evidence of cortical infarction or stroke. There was a possible microadenoma noted on the right side of the pituitary gland. The patient seems to have less movement of the left upper extremity today. He did undergo a routine EEG today which is reviewed and fails to reveal any evidence of epileptiform discharges. We reviewed the results of the MRI and EEG today with the patient. He was seen by pulmonary medicine earlier today and is being scheduled for thoracentesis tomorrow for treatment of large pleural effusion. He will need further workup for underlying malignancy as well. He was also seen by cardiology with diagnosed him with moderate to severe aortic stenosis. The patient continues to do about the same overall today with no new changes to report. We would recommend the patient to increase his dose of Klonopin to 0.5 mg twice a day. He was evaluated by cardiology for moderate to severe aortic stenosis and does not require any further hospital intervention at this time. Patient is advised to follow-up in the outpatient neurology clinic in 3-4 weeks. All of this testing thus far has come back negative. As mentioned we will follow-up with the patient in the outpatient neurology clinic in 3-4 weeks. The patient underwent a left-sided thoracentesis today and is to follow-up with pulmonary medicine in the outpatient clinic. His overall prognosis at this time remains guarded. We have discussed all of our findings today in detail with the patient. We will continue to follow his progress during this admission. Objective - Vital Signs Vital signs: Vital Signs Temp 98.2 F 06/30/18 14:00 Pulse 80 06/30/18 14:00 Resp 20 06/30/18 14:00 BP 112/63 06/30/18 14:00 Pulse Ox 95 06/30/18 14:00 Intake & Output 06/29/18 06/30/18 06/30/18 18:59 06:59 18:59 Intake Total 1017 975 Balance 1017 975 Weight 68.2 kg Intake: Oral 1017 975 Other: # Voids 3 1 - Exam Physical examination: PHYSICAL EXAMINATION: Patient is resting comfortably in bed. VITAL SIGNS: Blood pressure is [112/63]. Heart rate is [80]. Respiration is [20] . Temperature is [98.2]. HEENT: Head is atraumatic, neck is supple, there were no carotid bruits. CHEST: Lungs are clear to auscultation and percussion. CARDIAC: S1, S2 normal rate and rhythm. There is no murmur. ABDOMEN: Soft and nontender. Bowel sounds are present. EXTREMITIES: There is no pedal edema. Peripheral pulses are present. Neurological examination: Patient has a nonfocal neurological examination today. Patient seems to have less involuntary movement of the left upper extremity today on examination. - Labs CBC & Chem 7: 06/28/18 11:09 06/28/18 11:09 Labs: Abnormal Lab Results - Last 24 Hours (Table) 06/30/18 Range/Units 05:59 Lactate Dehydrogenase 677 H (313-618) U/L Total Protein 5.6 L (6.3-8.2) g/dL Assessment and Plan (1) Tourette's syndrome Status: Acute Code(s): F95.2 - TOURETTE'S DISORDER SNOMED Code(s): 6544345 (2) TIA (transient ischemic attack) Status: Acute Code(s): G45.9 - TRANSIENT CEREBRAL ISCHEMIC ATTACK, UNSPECIFIED SNOMED Code(s): 145401841 (3) Pleural effusion Status: Acute Code(s): J90 - PLEURAL EFFUSION, NOT ELSEWHERE CLASSIFIED SNOMED Code(s): 40492216 (4) Involuntary movements Status: Acute Code(s): R25.9 - UNSPECIFIED ABNORMAL INVOLUNTARY MOVEMENTS SNOMED Code(s): 699883660 Plan: This patient is a 72-year-old right-handed white male who is being evaluated for recent onset of left arm movements and slurred speech. Symptoms began about a week ago at home which the patient describes as twitching of his left arm. His symptoms worsened and he was brought into the emergency room today for further evaluation. He was seen in the ER by Dr. Sung who ordered a computed tomography scan of the brain which was negative for any acute changes. He was noted to have some involuntary movements and some facial grimacing in the ER and was subsequent admitted to Hospital. His neurological examination at this time suggest possibility of Tourette syndrome given his current clinical findings and symptoms. He may benefit from a trial of treatment with Klonopin to see if this would help alleviate some of the involuntary movements. We would recommend a complete stroke evaluation for this patient as he does have slurred speech as well. He does also demonstrate evidence of dysmetria on his left upper extremity suggesting possibility of cerebellar involvement. Would recommend an MRI of the brain and a complete stroke evaluation for the patient. Patient underwent MRI of the brain results of which are noted above. MRI fails to reveal any evidence of acute stroke. There is evidence of a possible microadenoma on the right side of the pituitary gland. Further workup as needed. Patient was seen by cardiology for moderate to severe aortic stenosis. He is also being scheduled for thoracentesis procedure tomorrow by pulmonary medicine. Patient also has evidence of left pleural effusion and we will await further recommendations from pulmonary medicine. We will continue close neurological follow-up with this patient during this admission. We have reviewed the results of the MRI and EEG today with the patient. As noted EEG was negative for any evidence of epileptiform discharges. At this time would recommend to continue the patient on low-dose Klonopin with close monitoring. The patient is advised to try a higher dose of Klonopin today 0.5 mg twice a day with close monitoring. He is being considered for discharge home later today. He did undergo a left-sided thoracentesis due to his pleural effusion. He is to follow up with pulmonary medicine as well. His overall prognosis at this time remains very guarded. Patient advised to follow-up in the outpatient neurology clinic in 3-4 weeks. We will continue close neurological follow-up for this patient during this admission.
[2018-06-30 18:59] LABS: Total Protein, Body Fluid 3800 mg/dL
[2018-06-30 19:15] LABS: Cholesterol,Body Fluid 98 mg/dL
== END 2018-06-30 16:26 | disposition home or self-care (01) | DRG 187 ==
LOC: EC 10:44 → 6SEL 12:10 → INTOOBSV 12:10 → 6SEL 06-29 22:08 → OBSVTOIN 06-30 11:40
PROVIDERS: ADMIT Internal Medicine; ATTEND Internal Medicine
PROC: 0W9B3ZX Drainage of Left Pleural Cavity, Percutaneous Approach, Diagnostic (ICD-10-PCS; principal; 2018-06-30)
DX: J90 Pleural effusion, not elsewhere classified (principal); G24.8 Other dystonia; J93.9 Pneumothorax, unspecified; J98.11 Atelectasis; G45.9 Transient cerebral ischemic attack, unspecified; F17.200 Nicotine dependence, unspecified, uncomplicated; F95.2 Tourette's disorder; I08.2 Rheumatic disorders of both aortic and tricuspid valves; I27.20 Pulmonary hypertension, unspecified; I49.3 Ventricular premature depolarization; J44.9 Chronic obstructive pulmonary disease, unspecified; R73.03 Prediabetes; Z79.51 Long term (current) use of inhaled steroids; Z79.82 Long term (current) use of aspirin; Z80.1 Family history of malignant neoplasm of trachea, bronchus and lung; Z96.649 Presence of unspecified artificial hip joint; D35.2 Benign neoplasm of pituitary gland; R47.1 Dysarthria and anarthria; R47.81 Slurred speech
CPT/HCPCS: 36415; 70450; 70553; 71045; 71046; 76604; 80053; 80061; 82150; 82465; 82550; 82553; 82945; 83036; 83615; 83880; 84155; 84157; 84484; 85025; 85610; 85730; 87070; 87102; 87116; 87205; 87206; 87252; 87496; 87498; 87502; 87529; 87634; 87798; 88108; 88305; 89050; 93005; 93306; 93880; 94640; 95816; 96374; 99285

== ENCOUNTER → 2018-07-22 | Outpatient (CLI) | payer MEDICARE, BC ==
--- NOTE | 2018-07-22 13:54 | XR ---
EXAMINATION TYPE: XR chest 2V DATE OF EXAM: 07/22/2018 COMPARISON: 06/30/2018 INDICATION: COPD, thoracentesis TECHNIQUE: Frontal and lateral views of the chest are obtained. FINDINGS: The heart size is normal. The pulmonary vasculature is normal. There is a small left pleural effusion. Lungs otherwise appear clear. Previous loculated pneumothorax is likely resolved. Fluid or reexpansion of the left pneumothorax likely present. Minimal 5% medial left apical pneumothorax may be present. IMPRESSION: 1. Small left pleural effusion. 2. Minimal apical pneumothorax on the left may be present. 3. Previous loculated pneumothorax left base not clearly identified.
== END | disposition home or self-care (01) ==
LOC: RADXRMAIN 13:31
PROVIDERS: ATTEND Internal Medicine
DX: J90 Pleural effusion, not elsewhere classified (principal); J93.9 Pneumothorax, unspecified; J44.9 Chronic obstructive pulmonary disease, unspecified
CPT/HCPCS: 71046

== ENCOUNTER → 2018-08-06 | Outpatient (CLI) | payer MEDICARE, BC | END | disposition home or self-care (01) | LOC: LABWHC1 11:25 | PROVIDERS: ATTEND Psychiatry & Neurology Neurology | DX: G24.8 Other dystonia (principal); G25.81 Restless legs syndrome | CPT/HCPCS: 36415; 82306 ==

== ENCOUNTER → 2018-08-06 | Outpatient (CLI) | payer MEDICARE, BC ==
[2018-08-06 12:14] LABS: HCT 43.9 % (39.0-53.0); HGB 14.3 gm/dL (13.0-17.5); MCH 30.1 pg (25.0-35.0); MCHC 32.5 g/dL (31.0-37.0); MCV 92.7 fL (80.0-100.0); Mean Platelet Volume 7.6; Platelet Count 215 k/uL (150-450); RBC 4.74 m/uL (4.30-5.90); RDW 13.6 % (11.5-15.5)
[2018-08-06 12:30] LABS: Anion Gap 8 mmol/L; Blood Urea Nitrogen 15 mg/dL (9-20); Carbon Dioxide 25 mmol/L (22-30); Chloride 105 mmol/L (98-107); Potassium 5.1 mmol/L (3.5-5.1); Sodium 138 mmol/L (137-145)
== END | disposition home or self-care (01) ==
LOC: LABPAT 11:23
PROVIDERS: ATTEND Internal Medicine Cardiovascular Disease
DX: Z01.812 Encounter for preprocedural laboratory examination (principal); I35.0 Nonrheumatic aortic (valve) stenosis
CPT/HCPCS: 36415; 80051; 82565; 84520; 85027

== ENCOUNTER 2018-08-11 09:51 | Day surgery (SDC) | payer MEDICARE, BC ==
[2018-08-06 14:39] VITALS: BMI 25.3
[~2018-08-11 09:51] MED LIST: ALPRAZolam 0.25 MG TAB PO PRN; ALPRAZolam 0.5 MG TAB PO PRN; ASPIRIN 325 MG TAB PO STA; ATORVASTATIN 80 MG TAB PO STA; NITROGLYCERIN SL TABS 0.4 MG TAB SUBLINGUAL PRN; SODIUM CHLORIDE 0.9% 1,000 ML in EMPTY BAG 1 BAG IV ONE
[2018-08-11 10:08] VITALS: TEMP 97.9
[2018-08-11] MEDS ORDERED: MIDAZOLAM 2 MG/2 ML VIAL ONE ×2 (10:12→11:10)
[2018-08-11] MEDS ORDERED: fentaNYL (PF) 50 MCG/ML 2 ML AMP ONE (10:12)
[2018-08-11] MEDS ORDERED: LIDOCAINE 1% INJ 10MG/ML (20 ML MDV) ONE (10:27)
[2018-08-11] MEDS ORDERED: MIDAZOLAM 2 MG/2 ML VIAL IVP ONE ×3 (10:37→10:39)
[2018-08-11] MEDS ORDERED: fentaNYL (PF) 50 MCG/ML 2 ML AMP IVP ONE (10:38)
[2018-08-11] MEDS ORDERED: LIDOCAINE 1% INJ 10MG/ML (20 ML MDV) SQ ONE (11:09)
[2018-08-11] MEDS ORDERED: fentaNYL (PF) 50 MCG/ML 2 ML AMP IV ONE (11:14)
[2018-08-11] MEDS ORDERED: MIDAZOLAM 2 MG/2 ML VIAL IV ONE (11:14)
--- NOTE | 2018-08-11 11:29 | ECHOT ---
TRANSESOPHAGEAL ECHOCARDIOGRAM PREOPERATIVE DIAGNOSIS: Severe aortic stenosis. POSTOPERATIVE DIAGNOSIS: Severe aortic stenosis. This transesophageal echocardiogram was performed to evaluate the patient's aortic stenosis. Patient was given intravenous sedation with Versed and fentanyl and transesophageal echocardiogram was performed without any complications. Left ventricular chamber is normal in size with a [id number] degree of left ventricular hypertrophy and normal left ventricular systolic function. Left atrium is moderately enlarged. Mitral valve morphology is normal. Mild mitral regurgitation is noted. Aortic valve is sclerotic and calcified and it is bicuspid aortic valve. The aortic valve area is calculated in the range of 0.8-0.9 cm2. There is a mild aortic regurgitation. Tricuspid valve morphology is normal. Mild tricuspid regurgitation noted. There is no evidence of thrombus in left atrial appendage. Interatrial septum is intact. Descending thoracic aorta shows mild atherosclerotic plaque. FINAL IMPRESSION: 1. This study reveals evidence of bicuspid calcified aortic wall with aortic valve area is calculated in the range of 0.8-0.9 cm2 suggestive of severe aortic stenosis. 2. There is a mild aortic regurgitation noted. 3. There is evidence of left ventricular hypertrophy with normal left ventricular systolic functions. 4. Left atrium is moderately enlarged. There is no evidence of thrombus in left atrium or atrial appendage. 5. Interatrial septum is intact without any evidence of patent foramen ovale. 6. There is a mild atherosclerotic plaque noted in the descending thoracic aorta. MMODL / IJN: [id number] /
[2018-08-11 11:43] LABS: O2 Sat Blood Gas 70.4 %
[2018-08-11 11:50] LABS: O2 Sat Blood Gas 97.1 %
[2018-08-11] MEDS ORDERED: IOPAMIDOL-370 125ML BTL INJ ONE (11:52)
[2018-08-11] MEDS ORDERED: HYDROcodone/APAP 5-325MG 1 EACH TAB PO PRN (12:13)
[2018-08-11] MEDS ORDERED: RX INFO: IV CONTRAST WAS GIVEN 1 EACH MISC MISCELLANE PRN (12:13)
[2018-08-11] MEDS ORDERED: SODIUM CHLORIDE 0.9% 1,000 ML IV SCH (12:15)
--- NOTE | 2018-08-11 12:36 | CC ---
CARDIAC CATHETERIZATION REPORT Mr. German is a 72-year-old gentleman who was recently admitted with the symptoms of shortness of breath. The patient had a pleural effusion. Patient was found to have aortic ejection systolic murmur. The patient's transthoracic echocardiogram showed evidence of severe degree of aortic stenosis. In view of that, the patient was recommended to have further evaluation with a cardiac catheterization. PROCEDURE: The right groin was prepped and draped in the usual manner and the skin was infiltrated with 2% Xylocaine. The right femoral artery was entered using Seldinger technique, a #6- Spanish sheath was placed in. Right femoral vein was entered using micropuncture needle and a #8-Spanish sheath was placed in. Initially, right heart catheterization was performed and subsequently left heart catheterization was performed. HEMODYNAMICS: Right atrial pressure a shows A and V-wave obtained to 11 mmHg. Mean right atrial pressure is 8 mmHg. Right ventricular systolic pressure is 55 mmHg with an end-diastolic pressure is 6 mmHg. Pulmonary artery systolic pressure is 50-55 mmHg with a pulmonary artery diastolic pressure is 20 mmHg. Pulmonary capillary wedge pressure is 16 to 18 mmHg. The left ventricular end-diastolic pressure is 16-20 mmHg. A peak gradient across the aortic wall is 55 - 65 mmHg. Aortic valve area by thermodilution cardiac output is 0.80 cm2. SELECTIVE CORONARY ANGIOGRAPHY: Left main coronary artery is short and there is a [id number] origin of LAD and the circumflex coronary artery. LAD is a good caliber blood vessel and is normal. Circumflex coronary artery is a good caliber blood vessel and gives rise to good size PLV branch. LAD and circumflex coronary artery and its branches are normal. Right coronary artery is relatively a small caliber blood vessel, gives rise to a small size PDA branch. It is normal. FINAL IMPRESSION: This study shows evidence of severe aortic stenosis with aortic valve area calculated in the range of 0.8 cm2. There is a moderate degree of pulmonary hypertension with a PA systolic pressure in the range of 50-55 mmHg. The patient's cardiac output by thermodilution was 6.2. Patient's coronary arteries are normal. RECOMMENDATIONS: In view of the patient's bicuspid valve and severe degree of aortic stenosis, patient would have a surgical evaluation for aortic valve replacement. Moderate sedation was used. Total sedation time is 46 minutes. MMODL / IJN: [id number] /
[2018-08-11 13:02] VITALS: RESP 18
[2018-08-11 14:04] VITALS: BP 142/67; PULSE 87
== END 2018-08-11 16:53 | disposition home or self-care (01) ==
LOC: CATHCVL 09:51
PROVIDERS: ATTEND Internal Medicine Cardiovascular Disease
DX: I35.2 Nonrheumatic aortic (valve) stenosis with insufficiency (principal); J44.9 Chronic obstructive pulmonary disease, unspecified; Z79.51 Long term (current) use of inhaled steroids; Z79.899 Other long term (current) drug therapy
CPT/HCPCS: 93312; 93320; 93325; 93460; 85018; 82810; C1760; C1769 ×4; C1894 ×2; J2250; J2001; J3010; Q9967

== ENCOUNTER → 2018-08-21 | Outpatient (CLI) | payer MEDICARE, BC ==
--- NOTE | 2018-08-21 09:05 | MR ---
EXAMINATION TYPE: MR cervical spine wo con DATE OF EXAM: 08/21/2018 COMPARISON: None HISTORY: Radiculopathy, cervical region TECHNIQUE: Multiplanar, multisequence images of the cervical spine were acquired. C2-C3: No evidence for degenerative disc disease. No disc bulge/herniation or protrusion. No Canal stenosis. Foramina are patent bilaterally. C3-C4: There is posterior broad-based disc bulge, extension of endplate disc complex contacting the a nterior thecal sac, no significant central canal stenosis. Lateral extension endplate disc complex re sults in bilateral foraminal encroachment. C4-C5: Posterior extension endplate disc complex causes anterior mass effect on the thecal sac. No si gnificant central stenosis. Bilateral foraminal encroachment due to hypertrophic changes. C5-C6: Posterior extension of endplate disc complex causes anterior mass effect on the thecal sac, no significant central stenosis, there is bilateral foraminal encroachment due to hypertrophic change. C6-C7: Posterior extension endplate disc complex causes mild anterior mass effect on the thecal sac, lateral extension endplate disc complex causes bilateral foraminal encroachment. C7-T1: No evidence for degenerative disc disease. No disc bulge/herniation or protrusion. No Canal stenosis. Foramina are patent bilaterally. Cervical segments are intact. Cervical vertebral bodies show preserved height. Minimal anterolisthesi s grade 1 C2-3, retrolisthesis grade 1 C3-4, C4-5. There is loss of disc height signal present at C3- 4, C4-5, C5-6 and C6-7, endplate discogenic marrow signal change is present compatible disc desiccati on and degenerative disc disease. Cervical spinal cord is of normal signal. Craniovertebral junction relationships are within normal limits. IMPRESSION: Degenerative disc disease, multilevel foraminal encroachment.
== END ==
LOC: RADMRIMAIN 06:29
PROVIDERS: ATTEND Psychiatry & Neurology Neurology
DX: M50.10 Cervical disc disorder with radiculopathy, unspecified cervical region (principal)
CPT/HCPCS: 72141

== ENCOUNTER → 2018-09-17 | Outpatient (CLI) | payer MEDICARE, BC ==
[2018-09-17 09:31] LABS: Appearance,Urine Clear (Clear); Bilirubin,Urine Negative (Negative); Blood,Urine Negative (Negative); Color,Urine Light Yellow; Glucose,Urine (UA) Negative (Negative); Ketones,Urine Negative (Negative); Leukocyte Esterase,Urine Negative (Negative); Nitrite,Urine Negative (Negative); Protein,Urine Negative (Negative); Specific Gravity,Urine 1.003 (1.001-1.035); Urobilinogen,Urine <2.0 mg/dL (<2.0)
[2018-09-17 09:49] LABS: HCT 43.6 % (39.0-53.0); HGB 13.9 gm/dL (13.0-17.5); MCH 30.3 pg (25.0-35.0); MCHC 31.9 g/dL (31.0-37.0); MCV 95.1 fL (80.0-100.0); Mean Platelet Volume 7.3; Platelet Count 237 k/uL (150-450); RBC 4.59 m/uL (4.30-5.90); RDW 13.8 % (11.5-15.5)
[2018-09-17 09:58] LABS: Partial Thromboplastin Time 25.2 sec (22.0-30.0)
[2018-09-17 10:13] LABS: ALT 39 U/L (21-72); AST 30 U/L (17-59); Albumin 3.8 g/dL (3.5-5.0); Alkaline Phosphatase 101 U/L (38-126); Anion Gap 4 mmol/L; Blood Urea Nitrogen 16 mg/dL (9-20); Calcium 9.4 mg/dL (8.4-10.2); Carbon Dioxide 29 mmol/L (22-30); Chloride 106 mmol/L (98-107); Cholesterol 173 mg/dL (<200); Glucose 85 mg/dL (74-99); HDL Cholesterol 53 mg/dL (40-60); LDL Cholesterol,Calculated 100 mg/dL (0-99); Sodium 139 mmol/L (137-145); Total Bilirubin 0.6 mg/dL (0.2-1.3); Total Protein 6.6 g/dL (6.3-8.2); Triglycerides 98 mg/dL (<150)
--- NOTE | 2018-09-17 14:02 | P.PN ---
Progress Note - Text Progress Note Date: 09/17/18 5 meter walk test done 09/17/18: #1 3.89 sec #2 4.05 sec #3 3.70 sec
--- NOTE | 2018-09-17 15:00 | XR ---
EXAMINATION TYPE: XR chest 2V DATE OF EXAM: 09/17/2018 COMPARISON: Prior chest x-ray 07/22/2018 HISTORY: Preop cardiac surgery TECHNIQUE: Frontal and lateral views of the chest are obtained. FINDINGS: There is blunting of the left costophrenic angle, obscured left hemidiaphragm. No pneumoth orax. Cardiac mediastinal silhouette, pulmonary vascularity and owen are stable. IMPRESSION: Persistent left pleural effusion or pleural reaction with associated atelectasis, correl ate to exclude pneumonia.
[2018-09-17 19:03] LABS: Hepatitis A Antibody IgM Non-Reactive (Non-Reactive); Hepatitis B Core IgM Non-Reactive (Non-Reactive)
[2018-09-17 19:19] LABS: Hemoglobin A1C 5.8 % (4.0-6.0)
--- NOTE | 2018-09-22 09:26 | P.VSCSTY ---
Greater Saphenous Vein Mapping This is bilateral lower extremity greater saphenous vein mapping. Date of service 09/17/2018 Vein quality and ultrasound appearance no visualize intraluminal thrombus or wall changes. Vein size groin right 4 x 5 groin left 6 x 5 High thigh right 4 x 4 high thigh left 5 x 5 Mid thigh right 3 x 3 mid thigh left 5 x 5 Above-knee right 3 x 4 above-knee left 5 x 5 Below knee right 3 x 3 below-knee left 3 x 3 Mid calf right 3 x 3 mid calf left 4 x 4 Ankle right 2 x 3 ankle left 2 x 2 Impression usable bilateral greater saphenous vein.
== END | disposition home or self-care (01) ==
LOC: LABPAT 07:27
PROVIDERS: ATTEND Surgery
DX: Z01.810 Encounter for preprocedural cardiovascular examination (principal); Z01.818 Encounter for other preprocedural examination; J90 Pleural effusion, not elsewhere classified
CPT/HCPCS: 36415; 71046; 80053; 80061; 80074; 81003; 83036; 83735; 84443; 85027; 85610; 85730; 86850; 86900; 86901; 86920; 87070; 87086; 93005; 93970

== ENCOUNTER 2018-09-22 08:00 | Inpatient (IN) | payer MEDICARE, BC ==
[~2018-09-22 08:00] MED LIST changes: -ALPRAZolam 0.25 MG TAB PO PRN; -ALPRAZolam 0.5 MG TAB PO PRN; -ASPIRIN 325 MG TAB PO STA; -ATORVASTATIN 80 MG TAB PO STA; +LIDOCAINE 1% 20 ML VIAL (10MG/ML) FOR IV START INTRADERMA PRN; +MIDAZOLAM 2 MG/2 ML VIAL IV PRN; -NITROGLYCERIN SL TABS 0.4 MG TAB SUBLINGUAL PRN; -SODIUM CHLORIDE 0.9% 1,000 ML in EMPTY BAG 1 BAG IV ONE; +fentaNYL (PF) 50 MCG/ML 2 ML AMP IVP PRN
[2018-09-29] MEDS ORDERED: CHLORHEXIDINE GLUCONATE 15 ML CUP MUCOUS MEM ONE (05:00)
[2018-09-29] MEDS ORDERED: NOREPINEPHRINE 4 MG in SODIUM CHLORIDE 0.9% 250 ML IV ONE (05:00)
[2018-09-29] MEDS ORDERED: ALBUMIN HUMAN 5% 500 ML IVPB ONE (05:00)
[2018-09-29] MEDS ORDERED: DEXTROSE 5% IN WATER 1,000 ML with POTASSIUM CHLORIDE 110 MEQ, MAGNESIUM SULFATE 16 MEQ... IV ONE ×5 (05:00)
[2018-09-29] MEDS ORDERED: ceFAZolin 1,000 MG in DEXTROSE/WATER 1 50ML.BAG IVPB ONE (05:00)
[2018-09-29] MEDS ORDERED: CLEVIDIPINE BUTYRATE 25 MG in EMPTY BAG 1 BAG IV ONE (05:00)
[2018-09-29] MEDS ORDERED: HEPARIN SODIUM 1,000 UN/ML (10ML VL) IV ONE (05:00)
[2018-09-29] MEDS ORDERED: INSULIN REGULAR 100 UNIT in SODIUM CHLORIDE 0.9% 100 ML IV ONE (05:00)
[2018-09-29] MEDS ORDERED: DEXTROSE 5% IN WATER 1,000 ML with POTASSIUM CHLORIDE 25 MEQ, SODIUM CHLORIDE 2.5MEQ/ML... IRRIGATION ONE ×6 (05:00)
[2018-09-29] MEDS ORDERED: SODIUM CHLORIDE IRRIG IRRIGATION ONE (05:00)
[2018-09-29] MEDS ORDERED: CEFAZOLIN IRRIGATION ONE (05:00)
[2018-09-29] MEDS ORDERED: ceFAZolin 2,000 MG in SODIUM CHLORIDE 0.9% 30 ML IVPB ONE ×4 (05:00)
[2018-09-29] MEDS ORDERED: NITROGLYCERIN-D5W PMX 50 MG in DEXTROSE/WATER 1 250ML.BAG IV ONE (05:00)
[2018-09-29] MEDS ORDERED: NITROGLYCERIN-D5W PMX 25 MG/250 ML BTL IV ONE (05:00)
[2018-09-29] MEDS ORDERED: ATORVASTATIN 10 MG TAB PO ONE (05:00)
[2018-09-29] MEDS ORDERED: PROTAMINE SULFATE 10 MG/ML 25 ML VIAL IV ONE ×2 (05:00→08:05)
[2018-09-29] MEDS ORDERED: ASPIRIN 325 MG TAB PO ONE (05:00)
[2018-09-29] MEDS ORDERED: TRANEXAMIC ACID 2,000 MG in SODIUM CHLORIDE 0.9% 180 ML IV ONE (05:00)
[2018-09-29] MEDS ORDERED: LACTATED RINGERS 1,000 ML IV ONE (05:00)
[2018-09-29] MEDS ORDERED: SODIUM BICARB 8.4% 50 ML SYR (1 MEQ/ML) IV ONE (05:00)
[2018-09-29] MEDS ORDERED: PROTAMINE SULFATE 250 MG in EMPTY BAG 1 BAG IV ONE (05:00)
[2018-09-29] MEDS ORDERED: PHENYLEPHRINE 40 MG in SODIUM CHLORIDE 0.9% 250 ML IV ONE (05:00)
[2018-09-29] MEDS ORDERED: PHENYLEPHRINE-0.9% NACL SYG 1 MG/10 ML SYRINGE IV ONE (05:00)
[2018-09-29] MEDS ORDERED: PROPOFOL 1,000 MG/100 ML VIAL IV ONE (05:00)
[2018-09-29] MEDS ORDERED: MAGNESIUM SULFATE MG 500 MG/ML IV ONE (05:00)
[2018-09-29] MEDS ORDERED: MANNITOL 25% 12.5 GM/50 ML VIAL IV ONE (05:00)
[2018-09-29] MEDS ORDERED: METOPROLOL TARTRATE 12.5 MG TAB PO ONE (05:00)
[2018-09-29] MEDS ORDERED: CALCIUM CHLORIDE 100 MG/ML 10 ML SYRINGE IV ONE (05:00)
[2018-09-29] MEDS ORDERED: SODIUM CHLORIDE 0.9% 1,000 ML IV ONE (05:00)
[2018-09-29] MEDS ORDERED: HEPARIN SODIUM,PORCINE 5,000 UNIT in SODIUM CHLORIDE 0.9% 500 ML 500 ML IV ONE (05:00)
[2018-09-29] MEDS ORDERED: ALBUMIN HUMAN 25% 50 ML IV ONE (05:00)
[2018-09-29] MEDS ORDERED: LACTATED RINGERS 1,000 ML IV SCH (05:22)
[2018-09-29] MEDS ORDERED: MIDAZOLAM 2 MG/2 ML VIAL IV PRN (05:22)
[2018-09-29] MEDS ORDERED: LIDOCAINE 2% SYG (PF) 100 MG/5 ML ONE (08:05)
[2018-09-29] MEDS ORDERED: HEPARIN SODIUM,PORCINE 10,000 UNIT/ML 1 ML VIAL ONE (08:05)
[2018-09-29] MEDS ORDERED: TRANEXAMIC ACID 1,000 MG/10 ML VIAL ONE (08:05)
[2018-09-29] MEDS ORDERED: MAGNESIUM SULFATE 4 MEQ/ML 10ML VIAL ONE (08:05)
[2018-09-29] MEDS ORDERED: PROPOFOL 10 MG/ML 20 ML VIAL IV ONE (08:05)
[2018-09-29] MEDS ORDERED: fentaNYL (PF) 50 MCG/ML 2 ML AMP ONE (08:05)
[2018-09-29] MEDS ORDERED: SODIUM CHLORIDE 0.9% 250 ML BAG ONE (08:05)
[2018-09-29] MEDS ORDERED: MIDAZOLAM 2 MG/2 ML VIAL ONE (08:05)
[2018-09-29] MEDS ORDERED: WATER FOR INJECTION, STERILE 10 ML VIAL IV ONE (08:05)
[2018-09-29] MEDS ORDERED: VECURONIUM 10 MG VIAL IV ONE (08:05)
[2018-09-29] MEDS ORDERED: SODIUM CHLORIDE 0.9% IRRIG 1,000 ML BTL IRRIGATION ONE (08:05)
[2018-09-29] MEDS ORDERED: fentaNYL (PF) 50 MCG/ML 50 ML VIAL ONE (08:05)
[2018-09-29] MEDS ORDERED: ELECTROLYTE-R (PH 7.4) 1,000 ML IV.SOLN IV ONE (08:05)
[2018-09-29 08:41] LABS: ABG Base Excess 1.6 mmol/L; ABG HCO3 27 mmol/L (21-25); ABG PCO2 44 mmHg (35-45); ABG PH 7.39 (7.35-7.45); ABG PO2 311 mmHg (83-108); ABG Potassium Whole Blood 4.6 mmol/L (3.4-4.5); ABG Sodium Whole Blood 139 mmol/L (135-146); ABG TCO2 28 mmol/L (19-24)
[2018-09-29 09:14] LABS: ABG Base Excess -1.7 mmol/L; ABG HCO3 24 mmol/L (21-25); ABG Oxygen Saturation 99.9 % (94-97); ABG PCO2 44 mmHg (35-45); ABG PH 7.35 (7.35-7.45); ABG PO2 255 mmHg (83-108); ABG Potassium Whole Blood 4.2 mmol/L (3.4-4.5); ABG Sodium Whole Blood 140 mmol/L (135-146); ABG TCO2 25 mmol/L (19-24)
[2018-09-29 09:44] LABS: ABG Base Excess 0.2 mmol/L; ABG HCO3 26 mmol/L (21-25); ABG PCO2 45 mmHg (35-45); ABG PH 7.37 (7.35-7.45); ABG PO2 295 mmHg (83-108); ABG Sodium Whole Blood 130 mmol/L (135-146); ABG TCO2 27 mmol/L (19-24)
[2018-09-29 10:14] LABS: ABG Base Excess -0.5 mmol/L; ABG HCO3 25 mmol/L (21-25); ABG Oxygen Saturation 99.9 % (94-97); ABG PCO2 43 mmHg (35-45); ABG PH 7.37 (7.35-7.45); ABG PO2 289 mmHg (83-108); ABG Potassium Whole Blood 5.2 mmol/L (3.4-4.5); ABG Sodium Whole Blood 135 mmol/L (135-146); ABG TCO2 26 mmol/L (19-24)
[2018-09-29 10:32] LABS: ABG Potassium Whole Blood 6.8 mmol/L (3.4-4.5)
[2018-09-29 10:39] LABS: ABG Base Excess -0.4 mmol/L; ABG HCO3 25 mmol/L (21-25); ABG PCO2 45 mmHg (35-45); ABG PH 7.36 (7.35-7.45); ABG PO2 362 mmHg (83-108); ABG Potassium Whole Blood 5.4 mmol/L (3.4-4.5); ABG Sodium Whole Blood 136 mmol/L (135-146); ABG TCO2 27 mmol/L (19-24)
[2018-09-29 11:50] LABS: ABG Base Excess -2.1 mmol/L; ABG HCO3 24 mmol/L (21-25); ABG Oxygen Saturation 99.9 % (94-97); ABG PCO2 46 mmHg (35-45); ABG PH 7.33 (7.35-7.45); ABG PO2 381 mmHg (83-108); ABG Potassium Whole Blood 4.6 mmol/L (3.4-4.5); ABG Sodium Whole Blood 139 mmol/L (135-146); ABG TCO2 25 mmol/L (19-24)
[2018-09-29] MEDS ORDERED: Phosphorus Replacement Protoco 1 EACH MISC MISCELLANE PRN (12:26)
[2018-09-29] MEDS ORDERED: ONDANSETRON 4 MG/2 ML VIAL IVP PRN (12:26)
[2018-09-29] MEDS ORDERED: Magnesium Replacement Protocol 1 EACH MISC MISCELLANE PRN (12:26)
[2018-09-29] MEDS ORDERED: MORPHINE SULFATE 2 MG/ML SYRINGE IVP PRN (12:26)
[2018-09-29] MEDS ORDERED: Potassium Replacement Protocol 1 EACH MISC MISCELLANE PRN (12:26)
[2018-09-29] MEDS ORDERED: IPRATROPIUM-ALBUTEROL 3 ML NEB INHALATION PRN (12:26)
[2018-09-29] MEDS ORDERED: BENZOCAINE/MENTHOL LOZENG 1 EACH LOZENGE MUCOUS MEM PRN (12:26)
[2018-09-29] MEDS ORDERED: CALCIUM CHLORIDE 1,000 MG in SODIUM CHLORIDE 0.9% 100 ML IV PRN (12:26)
[2018-09-29] MEDS ORDERED: METOCLOPRAMIDE 5 MG/ML 2 ML VIAL IVP PRN (12:26)
[2018-09-29] MEDS ORDERED: INSULIN REGULAR 100 UNIT in SODIUM CHLORIDE 0.9% 100 ML IV SCH (12:30)
[2018-09-29] MEDS ORDERED: PROPOFOL 1,000 MG in EMPTY BAG 1 BAG IV SCH (12:30)
[2018-09-29 13:00] LABS: Glucose,Whole Blood 86 mg/dL (75-99)
--- NOTE | 2018-09-29 13:09 | OP ---
OPERATIVE REPORT DATE OF SURGERY: 09/29/2018 SURGEON: Dr. Mitul Wadsworth. STAMPING OPERATOR: 1. Xavier Leong, Physician Plasma Processing Centrifuge Operator. 2. Saurabh Ribeiro, Nurse Practitioner. PREOPERATIVE DIAGNOSES: Severely stenotic bicuspid aortic valve, COPD, osteoarthritis, congestive heart failure. POSTOPERATIVE DIAGNOSES: Severely stenotic bicuspid aortic valve, COPD, osteoarthritis, congestive heart failure. PROCEDURE: 1. Aortic valve replacement using a 23 mm Inspiris-Resilia bovine pericardial bioprosthesis. 2. Exclusion of the left atrial appendage using a 35 mm AtriClip. 3. Intraoperative transesophageal echocardiogram and epiaortic scanning. INDICATION FOR SURGERY: Patient is a 72-year-old gentleman with history of severe COPD, who has severe bicuspid aortic valve stenosis. The patient is brought in today for surgical aortic valve replacement. The SDS risk was discussed with him. He understood it and agreed to proceed. A TAVR procedure was deemed relatively contraindicated in view of his severely bicuspid aortic valve stenosis. DESCRIPTION OF THE PROCEDURE: Patient in supine position. Right internal jugular Bradford-Ila catheter and right radial arterial line were placed. His opening PA pressure was 44/19 and cardiac index of 3.1. Subsequently, general endotracheal anesthesia was induced uneventfully. Patient received 2 g of cefazolin intravenously. Reveles catheter was inserted. The chest, abdomen and both lower extremities were prepped and draped using ChloraPrep. Ioban was used to cover the skin. Transesophageal echocardiogram confirmed the preoperative finding of severe aortic valve stenosis with preserved left ventricular function. Midline sternotomy was performed and the bone was very mildly osteoporotic. Both pleura were opened on either side and there was no effusion at this point, and each pleura was drained with a 19-[place] Jon drain. Mediastinal fat was transected between 2 ties and epiaortic scanning revealed concentric thickening mainly posteriorly, but no protruding atheroma in the ascending aorta. Pericardium was opened in an inverted T-fashion and a pericardial cradle was created. Findings included a normal soft aorta and a normal size heart. After systemic heparinization and after placement of respective pledgeted pursestring, aortic cannulation with a 21-[place] soft flow cannula and venous cannulation via the right atrial appendage was performed. Antegrade as well as retrograde cardioplegia catheter were placed respectively. Cardiopulmonary bypass was initiated and the patient temperature was allowed to drift down to 34 degrees Celsius. During aortic clamping, myocardial protection was achieved during the initial dose of 800 mL of antegrade cold blood cardioplegia with adequate arrest at 200 mL. followed by 400 mL of retrograde cold blood cardioplegia. All subsequent doses were given retrograde at 15 minute interval. We started by excluding the left atrial appendage by deploying an AtriClip 35 mm at its base. Aorta was opened in a transverse fashion around 1 cm above the sinotubular junction. Inspection revealed severely stenotic bicuspid aortic valve with fusion off the right and the noncoronary cusp. We proceeded at resecting that valve and removing all the calcium that extended deep into the septum especially at the level of the RFA between the right and non coronary. Thorough irrigation was 1 L of cold saline was performed. The anulus was sized to a 23 mm bovine pericardial bioprosthesis inspires which was pulled and prepared on the back table. We passed a total of 15 sutures of pledgeted Tycron 2-0 in a horizontal mattress fashion with the pledgets on the ventricular side. All the sutures were passed symmetrically into the valve cuff, which seated nicely in a supra-annular position. All the needles cut and the suture tied using the Cor-Knot device. Both coronary ostia were clear. Thorough irrigation performed. There was no obvious paravalvular gap. Mitral valve was intact. Rewarming was started as we closed the aorta using Prolene 3-0 in 2 layers, first layer in a horizontal mattress pledgeted on each corner and the second layer in an over and over technique. . CO2 was flowing over the field as long as the aorta was opened. Patient was given lidocaine and magnesium. Standard de-airing maneuvers were performed and the aorta was unclamped with the head down. The patient regained spontaneous slow junctional rhythm. Two monopolar atrial pacing wires were affixed to the respective pursing of the right atrium and 1 bipolar ventricular pacing wire was driven via the inferior aspect of the right ventricle. Two Blakes 19-Sen[place]e were placed, one in the posterior pericardium and one substernally. After a period of reperfusion and DDD paced at 80 and after checking with SHIRLEY, the aortic valve showing no paravalvular leak. We were able to wean off cardiopulmonary bypass. De-airing was adequate. Test was then full dose protamine was given. There was no paravalvular leak and no VSD. There was minimal gradient across the valve. Left ventricular function was preserved. There was no air. If decannulation followed. The venous cannulation site required running Prolene 4-0 to close the appendage. The pericardium was loosely approximated over the right ventricle. After ensuring adequate hemostasis and hemodynamic and after correct sponge, instrument, and needle count, the sternum was closed using 6 [id number] pineal cable after interposing fibular between the sternal edges. Thorough irrigation of cefazolin followed. The rest of the closure proceeded in layers. Skin glue was applied. Patient did not receive any blood bank product but received 900 mL of Cell Saver blood. He was transferred to the ICU AV paced at 80 with a baseline of junctional rhythm and a mean arterial pressure of 78, PA pressure 38/15 and cardiac index of 2.5. MMESTEFANIA / GÓMEZN: [id number] /
--- NOTE | 2018-09-29 13:17 | XR ---
EXAMINATION TYPE: XR chest 1V portable DATE OF EXAM: 09/29/2018 COMPARISON: 09/17/2018 HISTORY: Postop. TECHNIQUE: Single frontal view of the chest is obtained. FINDINGS: ET tube is somewhat low approximately 1 cm above tea. NG tube seen coursing into the ab domen. Numerous leads or wires are overlying the mediastinum some of which are likely superficial loc ation should be correlated clinically. Chest tube is noted with no sizable pneumothorax. [place]la ca theter the tip overlying the pulmonary proximal outflow tract. There are areas of bilateral solid aeration. Underlying COPD suspected. Small bilateral effusions gre ater on the left. Arthropathy of the shoulders. IMPRESSION: 1. Postsurgical change with suspected postoperative atelectasis. Bilateral small effusions and basila r consolidation are noted. 2. ET tube is somewhat low in position approximately 1 cm above tea.
[2018-09-29 13:25] LABS: Glucose,Whole Blood 111 mg/dL (75-99)
[2018-09-29 13:36] LABS: ABG Base Excess -2.4 mmol/L; ABG HCO3 25 mmol/L (21-25); ABG Oxygen Saturation 99.3 % (94-97); ABG PCO2 60 mmHg (35-45); ABG PH 7.25 (7.35-7.45); ABG PO2 414 mmHg (83-108)
[2018-09-29] MEDS: CLEVIDIPINE BUTYRATE 25 MG in EMPTY BAG 1 BAG IV SCH ×2 (14:07→15:02)
[2018-09-29 14:29] LABS: ABG Base Excess -1.9 mmol/L; ABG HCO3 24 mmol/L (21-25); ABG Oxygen Saturation 97.1 % (94-97); ABG PCO2 45 mmHg (35-45); ABG PH 7.34 (7.35-7.45); ABG PO2 96 mmHg (83-108); ABG TCO2 25 mmol/L (19-24)
[2018-09-29 14:39] LABS: Glucose,Whole Blood 129 mg/dL (75-99)
[2018-09-29 14:47] LABS: Ionized Calcium 5.3 mg/dL (4.5-5.3)
[2018-09-29 14:48] LABS: Basophils % (A) 0 %; Eosinophils # (A) 0.1 k/uL (0-0.7); Eosinophils % (A) 1 %; HCT 30.6 % (39.0-53.0); Lymphocytes # (A) 0.7 k/uL (1.0-4.8); Lymphocytes % (A) 7 %; MCH 31.2 pg (25.0-35.0); MCHC 32.7 g/dL (31.0-37.0); MCV 95.3 fL (80.0-100.0); Mean Platelet Volume 7.3; Monocytes # (A) 0.5 k/uL (0-1.0); Monocytes % (A) 5 %; Neutrophils # (A) 7.9 k/uL (1.3-7.7); Neutrophils % (A) 85 %; Platelet Count 128 k/uL (150-450); RBC 3.21 m/uL (4.30-5.90); RDW 13.4 % (11.5-15.5); WBC 9.4 k/uL (3.8-10.6)
[2018-09-29 14:57] LABS: INR 1.3 (<1.2); Partial Thromboplastin Time 33.5 sec (22.0-30.0); Prothrombin Time 12.1 sec (9.0-12.0)
[2018-09-29 14:59] LABS: ALT 35 U/L (21-72); AST 25 U/L (17-59); Alkaline Phosphatase 41 U/L (38-126); Anion Gap 4 mmol/L; Blood Urea Nitrogen 18 mg/dL (9-20); Calcium 8.4 mg/dL (8.4-10.2); Carbon Dioxide 25 mmol/L (22-30); Chloride 110 mmol/L (98-107); Glucose 91 mg/dL (74-99); Magnesium 2.8 mg/dL (1.6-2.3); Sodium 139 mmol/L (137-145); Total Bilirubin 0.6 mg/dL (0.2-1.3); Total Protein 4.7 g/dL (6.3-8.2)
[2018-09-29] MEDS: DEXMEDETOMIDINE/0.9% NACL(PMX) 400 MCG in EMPTY BAG 1 BAG IV SCH ×2 (15:05→21:57)
[2018-09-29] MEDS: IPRATROPIUM-ALBUTEROL 3 ML NEB INHALATION SCH ×4 (15:17→19:27)
[2018-09-29 15:19] LABS: Glucose,Whole Blood 138 mg/dL (75-99)
--- NOTE | 2018-09-29 15:32 | P.CNPUL ---
<Franny Major M - Last Filed: 09/29/18 14:51> History of Present Illness Consult date: 09/29/18 Requesting physician: Mitul Wadsworth Reason for consult: other Chief complaint: Aortic valve stenosis, bicuspid aortic valve, s/p aortic valve replacement History of present illness: This is 72-year-old white male patient of Dr. Adler with a known history of aortic valve stenosis. SHIRLEY by Dr. Sprague showed a bicuspid calcified aortic valve with severe stenosis. Previous echocardiogram showed EF between 60 and 65 % and moderate pulmonary hypertension with right-sided pressures at 51 mmHg. Recent heart catheterization was negative for any significant coronary artery disease. Patient had a recent hospitalization in June 2018 for neurological symptoms and his workup for CVA and TIA was negative negative brain CAT scan, and MRI. During that same admission patient was found to have a large left pleural effusion and he is status post left thoracentesis, cytology ruled out malignancy, but it showed an exudative effusion, with negative cultures, likely parapneumonic in nature. Patient has a [id number] smoking history, has underlying COPD, his preop PFT showed severe COPD with FEV1 of 1.19 L or 43% of predicted, FVC of 1.99 L or 53%, and diffusion capacity of 45%, the response to bronchodilators indicated reversible component. Patient was recommended to undergo surgical intervention for aortic valve stenosis, and patient underwent elective aortic valve replacement using ovine pericardial bioprosthetic valve, exclusion of left atrial appendage today on 09/29/[address] Wadsworth. Patient is seen postoperative period in the intensive care unit, he is intubated, on mechanical ventilator. His maintenance IV fluid is LR iterated 50 ML per hour, clear proximal is currently at 4 mg per hour, Diprivan at 50 mics per kilo per minute. PA pressures 48/26, CVP of 14, cardiac output and cardiac index is 5.9 3.2. Postop blood gas showed pO2 414, pCO2 of 60, pH of 7.25, and this was done on SIMV of 12, tidal volume 550, FiO2 of 100%, and PEEP of 5. We switched the ventilator settings to assist control mode with a rate of 20, same tidal volume, FiO2 down to 50%, and PEEP of 5. And subsequent blood gases showed improvement with pO2 of 96, pCO2 45, and pH of 7.34. Patient has 2 mediastinal and right and left pleural chest tubes in place with moderate amount of sanguinous drainage. Stop labs showed WBC of 9.4, hemoglobin of 10.0, platelet count was 128, INR of 1.3, electrolytes were unremarkable, BUN of 18, creatinine 0.73. Postoperative chest x-ray has been reviewed by Dr. Pool, and showed postsurgical changes with suspected postop atelectasis, small bilateral pleural effusions. Review of Systems All systems: negative Constitutional: Denies chills, Denies fever Eyes: denies blurred vision, denies pain Ears, nose, mouth and throat: Denies headache, Denies sore throat Cardiovascular: Denies chest pain, Denies shortness of breath Respiratory: Reports dyspnea, Denies cough Gastrointestinal: Denies abdominal pain, Denies diarrhea, Denies nausea, Denies vomiting Musculoskeletal: Denies myalgias Integumentary: Denies pruritus, Denies rash Neurological: Denies numbness, Denies weakness Psychiatric: Denies anxiety, Denies depression Endocrine: Denies fatigue, Denies weight change Past Medical History Past Medical History: COPD Additional Past Medical History / Comment(s): "stroke-like" episode 06-28-18, jerky type movements left arm & leg, mostly resolved, recent hx. pleural effusion, left shoulder pain-hasn't had evaluated yet, accidentally put screw through nose over weekend-dr. sebastian, mostly healed History of Any Multi-Drug Resistant Organisms: None Reported Past Surgical History: Heart Catheterization, Orthopedic Surgery Additional Past Surgical History / Comment(s): left HIP REPLACEMENT Past Anesthesia/Blood Transfusion Reactions: No Reported Reaction Past Psychological History: No Psychological Hx Reported Smoking Status: Former smoker Past Alcohol Use History: None Reported Additional Past Alcohol Use History / Comment(s): quit smoking June 2018, smoked 1ppd for 50 yrs., quit drinking 20 yrs. ago Past Drug Use History: None Reported - Past Family History Mother Family Medical History: Cancer Additional Family Medical History / Comment(s): lung cancer pass away 90 years old Medications and Allergies Home Medications Medication Instructions Recorded Confirmed Type Aclidinium [place] [Tudorza 1 puff INHALATION RT-BID 06/28/18 09/29/18 History Pressair] Mometasone/Formoterol [Dulera 200 2 puff INHALATION RT-BID 06/28/18 09/29/18 History Mcg/5 Mcg Inhaler] Ibuprofen [Motrin] 800 mg PO Q6H PRN 08/06/18 09/29/18 History Aspirin EC [Ecotrin Low Dose] 81 mg PO DAILY 09/17/18 09/29/18 History Cholecalciferol [Vitamin D3] 2,000 unit PO DAILY 09/17/18 09/29/18 History Ipratropium-Albuterol Nebulize 3 ml INHALATION RT-QID PRN 09/17/18 09/29/18 History [Duoneb 0.5 mg-3 mg/3 ml Soln] Tetrabenazine 12.5 mg PO BID 09/17/18 09/29/18 History Allergies Allergy/AdvReac Type Severity Reaction Status Date / Time No Known Allergies Allergy Verified 09/29/18 15:28 Physical Exam Vitals: Vital Signs Temp Pulse Pulse Resp BP BP Pulse Ox 09/29/18 14:15 80 20 100 09/29/18 14:00 80 20 99 09/29/18 13:45 80 7 L 100 09/29/18 13:30 80 14 100 09/29/18 13:15 80 12 100 09/29/18 13:00 80 13 100 09/29/18 12:45 80 14 100 09/29/18 12:30 82 18 09/29/18 12:26 100 09/29/18 05:57 97.8 F 62 18 123/68 126/83 94 L Intake and Output 09/28/18 09/29/18 09/29/18 22:59 06:59 14:59 Intake Total 126.415 Output Total 3187 Balance -3060.585 Intake: IV 120 Lactated Ringers @ 50 ML/ 100 HR Pressure Bag 18 Intake, IV Titration 6.415 Amount Clevidipine Butyrate 25 0.9 mg In Empty Bag 1 bag @ 1 MG/HR 2 mls/hr IV .Q24H [facility] Rx#:[id number] Propofol 1,000 mg In 5.515 Empty Bag 1 bag @ Titrate IV .Q0M [facility] Rx#: [id number] Output: Chest Tube Drainage 512 Left Pleural 194 Mediastinal X 2 174 Right Pleural 144 Urine 675 Estimated Blood Loss 1999 Other: Weight 73.573 kg ABP, PAP, CO, CI - Last 8 Hours Arterial Blood Pressure 126/61 Arterial Blood Pressure 119/62 Arterial Blood Pressure 118/62 Arterial Blood Pressure 120/60 Arterial Blood Pressure 121/59 Arterial Blood Pressure 143/66 Arterial Blood Pressure 127/59 Pulmonary Artery Pressure 46/25 Pulmonary Artery Pressure 46/25 Pulmonary Artery Pressure 47/30 Pulmonary Artery Pressure 49/26 Pulmonary Artery Pressure 48/26 Pulmonary Artery Pressure 48/23 Pulmonary Artery Pressure 41/20 Cardiac Output 7.2 Cardiac Output 7.2 Cardiac Output 6.0 Cardiac Output 7.2 Cardiac Output 6.6 Cardiac Output 5.9 Cardiac Index 3.3 Cardiac Index 3.9 Cardiac Index 3.6 Cardiac Index 3.2 GENERAL EXAM: Sedated, 72-year-old white male patient, intubated, comfortable in no apparent distress. HEAD: Normocephalic/atraumatic. EYES: Normal reaction of pupils, equal size. Conjunctiva pink, sclera white. NOSE: Clear with pink turbinates. THROAT: No erythema or exudates. NECK: No masses, no JVD, no thyroid enlargement, no adenopathy. CHEST: No chest wall deformity. Symmetrical expansion. Midsternal incision is clean dry and intact, 2 mediastinal, right pleural and left pleural chest tubes are in place with moderate amount of sanguinous output in the Pleur-evac, epicardial wires in place, and patient is being externally paced at a mode of AAI with a rate of 80, underlying rhythm is junctional bradycardia LUNGS: Equal air entry with no crackles, wheeze, rhonchi or dullness. CVS: Regular rate and rhythm, normal S1 and S2, no gallops, no murmurs, no rubs ABDOMEN: Soft, nontender. No hepatosplenomegaly, normal bowel sounds, no guarding or rigidity. EXTREMITIES: No clubbing, no edema, no cyanosis, 2+ pulses and upper and lower extremities. MUSCULOSKELETAL: Muscle strength and tone normal. SPINE: No scoliosis or deformity SKIN: No rashes CENTRAL NERVOUS SYSTEM: Sedated, intubated on mechanical ventilator No focal deficits, tone is normal in all 4 extremities. Results - Laboratory Findings ABG ABG pH 7.34 (7.35-7.45) L 09/29/18 14:21 ABG pCO2 45 mmHg (35-45) 09/29/18 14:21 ABG pO2 96 mmHg (83-108) 09/29/18 14:21 ABG O2 Saturation 97.1 % (94-97) H 09/29/18 14:21 Abnormal lab findings: Abnormal Labs 09/17/18 09/29/18 09/29/18 09:00 08:39 09:12 ABG pH ABG pCO2 ABG pO2 311 H 255 H ABG HCO3 27 H ABG Total CO2 28 H 25 H ABG O2 Saturation 100.0 H 99.9 H ABG Hematocrit ABG Sodium ABG Potassium 4.6 H ABG Ionized Calcium 4.3 L ABG Glucose 103 H 111 H ABG Lactic Acid Hemoglobin 12.9 L 11.4 L POC Glucose (mg/dL) Arterial Blood Potassium 4.6 H Arterial Blood Glucose 103 H 111 H Crossmatch See Detail 09/29/18 09/29/18 09/29/18 09:42 10:12 10:37 ABG pH ABG pCO2 ABG pO2 295 H 289 H 362 H ABG HCO3 26 H ABG Total CO2 27 H 26 H 27 H ABG O2 Saturation 100.0 H 99.9 H 100.0 H ABG Hematocrit 27 L 28 L 29 L ABG Sodium 130 L ABG Potassium 6.8 H* 5.2 H 5.4 H ABG Ionized Calcium 4.2 L 4.1 L 4.3 L ABG Glucose 245 H 169 H 131 H ABG Lactic Acid 1.7 H Hemoglobin 8.6 L 9.1 L 9.3 L POC Glucose (mg/dL) Arterial Blood Potassium 6.8 H* 5.2 H 5.4 H Arterial Blood Glucose 245 H 169 H 131 H Crossmatch 09/29/18 09/29/18 09/29/18 11:48 13:23 13:24 ABG pH 7.33 L 7.25 L ABG pCO2 46 H 60 H ABG pO2 381 H 414 H ABG HCO3 ABG Total CO2 25 H ABG O2 Saturation 99.9 H 99.3 H ABG Hematocrit 29 L ABG Sodium ABG Potassium 4.6 H ABG Ionized Calcium ABG Glucose 104 H ABG Lactic Acid Hemoglobin 9.4 L POC Glucose (mg/dL) 111 H Arterial Blood Potassium 4.6 H Arterial Blood Glucose 104 H Crossmatch 09/29/18 09/29/18 14:05 14:21 ABG pH 7.34 L ABG pCO2 ABG pO2 ABG HCO3 ABG Total CO2 25 H ABG O2 Saturation 97.1 H ABG Hematocrit ABG Sodium ABG Potassium ABG Ionized Calcium ABG Glucose ABG Lactic Acid Hemoglobin POC Glucose (mg/dL) 129 H Arterial Blood Potassium Arterial Blood Glucose Crossmatch - Diagnostic Findings Chest x-ray: report reviewed, image reviewed Assessment and Plan Plan: Assessment: #1. Severe symptomatic aortic valve stenosis, with bicuspid aortic valve, status post aortic valve replacement with bioprosthetic valve, left atrial appendage exclusion, postop day 0 #2. Acute blood loss anemia, an expected outcome of cardiothoracic surgery #3. Routine postoperative ventilator management #4. Severe COPD, gold stage III, with preop FEV1 of 43% of predicted #5. History of nicotine dependence, currently in remission, patient carries 55- pack-year smoking history, quit in June 2018 #6. Previous left-sided thoracentesis, that showed exudative pleural effusion, cytology negative for malignancy, cultures were negative, was likely parapneumonic in nature #7. Moderate pulmonary hypertension, with right-sided pressures of 51 mmHg #8. Left upper extremity neurological dysfunction and patient is following with neurology. Previous workup for CVA/TIA in June 2018 was negative for the brain scan and MRI of the brain Plan: Ventilator settings were adjusted, and subsequent blood gases showed improvement in respiratory acidosis, hypercapnia. Chest x-ray has been reviewed by Dr. Pool, just showed postoperative changes, atelectasis, and small pleural effusions. We'll proceed with weaning and extubation once the patient is awake and following commands, hemodynamically patient is stable. Edema close hemodynamic monitoring, continue chest tube output, urine output, heart rhythm. Continue with nebulized bronchodilators, and a spirometry to the bedside after extubation. Continue to closely follow I performed a history & physical examination of the patient and discussed their management with my nurse practitioner, Franny Major. I reviewed the nurse practitioner's note and agree with the documented findings and plan of care. Lung sounds are positive for clear lungs. The findings and the impression was discussed with the patient. I attest to the documentation by the nurse practitioner. Time with Patient: Greater than 30 <Klaus Pool - Last Filed: 09/30/18 09:53> Physical Exam Vitals: Vital Signs Pulse Resp Pulse Ox 09/30/18 08:07 80 09/30/18 07:56 80 09/30/18 07:30 80 20 97 11/14/18 07:00 80 18 98 14/18 06:30 80 20 97 14/18 06:00 80 20 93 L 14/18 05:30 80 16 96 14/18 05:00 80 26 H 96 14/18 04:30 80 16 98 14/18 04:00 80 15 99 14/18 03:30 80 15 99 14/18 03:00 80 15 99 14/18 02:30 80 15 99 14/18 02:00 80 15 99 14/18 01:30 80 16 98 14/18 01:00 80 16 99 14/18 00:30 80 20 98 14/18 00:00 80 18 100 09/29/18 23:30 80 16 100 09/29/18 23:00 80 22 97 09/29/18 22:45 80 21 98 09/29/18 22:30 80 13 98 18 22:15 80 17 98 18 22:00 80 18 98 09/29/18 21:45 80 19 97 09/29/18 21:30 80 17 97 18 21:15 80 17 97 18 21:00 80 18 96 18 20:45 80 17 96 18 20:30 80 26 H 95 09/29/18 20:15 80 20 96 09/29/18 20:00 80 24 94 L 18 19:45 80 13 94 L 18 19:37 79 09/29/18 19:30 80 20 99 09/29/18 19:28 80 09/29/18 19:15 80 23 98 09/29/18 19:00 80 16 99 13/18 18:45 80 16 99 13/18 18:30 80 15 99 13/18 18:15 80 17 98 13/18 18:00 80 15 99 13/18 17:45 80 16 97 13/18 17:30 80 17 97 13/18 17:15 80 15 92 L 13/18 17:00 79 20 99 13/18 16:45 80 19 99 13/18 16:30 80 19 99 11/13/18 16:15 80 15 99 09/29/18 16:00 80 20 100 09/29/18 15:45 80 20 100 09/29/18 15:36 80 09/29/18 15:30 80 20 100 09/29/18 15:22 80 09/29/18 15:15 80 20 99 09/29/18 15:00 80 20 100 09/29/18 14:45 80 20 98 09/29/18 14:30 80 20 99 09/29/18 14:15 80 20 100 09/29/18 14:00 80 20 99 09/29/18 13:45 80 7 L 100 09/29/18 13:30 80 14 100 09/29/18 13:15 80 12 100 09/29/18 13:00 80 13 100 09/29/18 12:45 80 14 100 09/29/18 12:30 82 18 09/29/18 12:26 100 Intake and Output 09/29/18 09/30/18 09/30/18 22:59 06:59 14:59 Intake Total 748.976 1436.810 862.166 Output Total 1276 795 30 Balance -479.422 683.810 832.166 Intake: IV 592 1372 839 ACETAMINOPHEN IV (For NPO 200 ) 1,000 mg In Empty Bag 1 bag @ 400 mls/hr IVPB Q6HR [facility] Rx#:[id number] Albumin Human 5% 250 ml 500 750 In Empty Bag 1 bag @ 250 mls/hr IVPB Q1HR PRN Rx#: [id number] CO/CI 120 180 30 Lactated Ringers @ 50 ML/ 400 400 50 HR Pressure Bag 72 72 9 ceFAZolin 2,000 mg In 20 Sodium Chloride 0.9% 30 ml @ Per Protocol IVPB ONCE ONE Rx#:[id number] Intake, IV Titration 204.578 106.810 23.166 Amount Clevidipine Butyrate 25 51.734 mg In Empty Bag 1 bag @ 1 MG/HR 2 mls/hr IV .Q24H [facility] Rx#:[id number] Dexmedetomidine/0.9% NaCl 79.481 99.743 23.166 (Pmx) 400 mcg In Empty Bag 1 bag @ Titrate IV . Q0M [facility] Rx#:[id number] Insulin Regular 100 unit 7.676 7.067 In Sodium Chloride 0.9% 100 ml @ Per Protocol IV .Q0M [facility] Rx#:[id number] Propofol 1,000 mg In 65.687 Empty Bag 1 bag @ Titrate IV .Q0M [facility] Rx#: [id number] Output: Chest Tube Drainage 296 370 10 Left Pleural 68 80 0 Mediastinal X 2 156 170 10 Right Pleural 72 120 0 Urine 980 425 20 Other: Voiding Method Indwelling Catheter Indwelling Catheter Weight 73.573 kg 78.2 kg ABP, PAP, CO, CI - Last 8 Hours Arterial Blood Pressure 104/51 Arterial Blood Pressure 110/53 Arterial Blood Pressure 97/46 Arterial Blood Pressure 94/43 Arterial Blood Pressure 110/49 Arterial Blood Pressure 102/51 Arterial Blood Pressure 104/48 Arterial Blood Pressure 104/46 Arterial Blood Pressure 104/44 Arterial Blood Pressure 107/45 Arterial Blood Pressure 103/47 Pulmonary Artery Pressure 47/19 Pulmonary Artery Pressure 30/13 Pulmonary Artery Pressure 35/14 Pulmonary Artery Pressure 27/14 Pulmonary Artery Pressure 35/17 Pulmonary Artery Pressure 40/22 Pulmonary Artery Pressure 31/13 Pulmonary Artery Pressure 31/15 Pulmonary Artery Pressure 31/14 Pulmonary Artery Pressure 24/9 Pulmonary Artery Pressure 33/13 Pulmonary Artery Pressure 27/12 Cardiac Output 4.9 Cardiac Output 5.1 Cardiac Output 6.2 Cardiac Output 5.8 Cardiac Output 4.7 Cardiac Index 2.6 Cardiac Index 2.8 Cardiac Index 3.4 Cardiac Index 3.2 Cardiac Index 2.6 Results - Laboratory Findings CBC and BMP: 09/30/18 04:30 09/30/18 04:30 ABG ABG pH 7.36 (7.35-7.45) 09/29/18 16:51 ABG pCO2 44 mmHg (35-45) 09/29/18 16:51 ABG pO2 121 mmHg (83-108) H 09/29/18 16:51 ABG O2 Saturation 99.1 % (94-97) H 09/29/18 16:51 PT/INR, D-dimer PT 11.1 sec (9.0-12.0) 09/30/18 04:30 INR 1.2 (<1.2) H 09/30/18 04:30 Abnormal lab findings: Abnormal Labs 09/17/18 09/29/18 09/29/18 09:00 08:39 09:12 WBC RBC Hgb Hct Plt Count Neutrophils # Lymphocytes # PT INR APTT ABG pH ABG pCO2 ABG pO2 311 H 255 H ABG HCO3 27 H ABG Total CO2 28 H 25 H ABG O2 Saturation 100.0 H 99.9 H ABG Hematocrit ABG Sodium ABG Potassium 4.6 H ABG Ionized Calcium 4.3 L ABG Glucose 103 H 111 H ABG Lactic Acid Hemoglobin 12.9 L 11.4 L Chloride Glucose POC Glucose (mg/dL) Magnesium Total Protein Albumin Arterial Blood Potassium 4.6 H Arterial Blood Glucose 103 H 111 H Crossmatch See Detail 09/29/18 09/29/18 09/29/18 09:42 10:12 10:37 WBC RBC Hgb Hct Plt Count Neutrophils # Lymphocytes # PT INR APTT ABG pH ABG pCO2 ABG pO2 295 H 289 H 362 H ABG HCO3 26 H ABG Total CO2 27 H 26 H 27 H ABG O2 Saturation 100.0 H 99.9 H 100.0 H ABG Hematocrit 27 L 28 L 29 L ABG Sodium 130 L ABG Potassium 6.8 H* 5.2 H 5.4 H ABG Ionized Calcium 4.2 L 4.1 L 4.3 L ABG Glucose 245 H 169 H 131 H ABG Lactic Acid 1.7 H Hemoglobin 8.6 L 9.1 L 9.3 L Chloride Glucose POC Glucose (mg/dL) Magnesium Total Protein Albumin Arterial Blood Potassium 6.8 H* 5.2 H 5.4 H Arterial Blood Glucose 245 H 169 H 131 H Crossmatch 09/29/18 09/29/18 09/29/18 11:48 12:45 12:45 WBC RBC 3.21 L Hgb 10.0 L D Hct 30.6 L Plt Count 128 L Neutrophils # 7.9 H Lymphocytes # 0.7 L PT INR APTT ABG pH 7.33 L ABG pCO2 46 H ABG pO2 381 H ABG HCO3 ABG Total CO2 25 H ABG O2 Saturation 99.9 H ABG Hematocrit 29 L ABG Sodium ABG Potassium 4.6 H ABG Ionized Calcium ABG Glucose 104 H ABG Lactic Acid Hemoglobin 9.4 L Chloride 110 H Glucose POC Glucose (mg/dL) Magnesium 2.8 H Total Protein 4.7 L Albumin 3.0 L Arterial Blood Potassium 4.6 H Arterial Blood Glucose 104 H Crossmatch 09/29/18 09/29/18 09/29/18 12:45 13:23 13:24 WBC RBC Hgb Hct Plt Count Neutrophils # Lymphocytes # PT 12.1 H INR 1.3 H APTT 33.5 H ABG pH 7.25 L ABG pCO2 60 H ABG pO2 414 H ABG HCO3 ABG Total CO2 ABG O2 Saturation 99.3 H ABG Hematocrit ABG Sodium ABG Potassium ABG Ionized Calcium ABG Glucose ABG Lactic Acid Hemoglobin Chloride Glucose POC Glucose (mg/dL) 111 H Magnesium Total Protein Albumin Arterial Blood Potassium Arterial Blood Glucose Crossmatch 09/29/18 09/29/18 09/29/18 14:05 14:21 15:17 WBC RBC Hgb Hct Plt Count Neutrophils # Lymphocytes # PT INR APTT ABG pH 7.34 L ABG pCO2 ABG pO2 ABG HCO3 ABG Total CO2 25 H ABG O2 Saturation 97.1 H ABG Hematocrit ABG Sodium ABG Potassium ABG Ionized Calcium ABG Glucose ABG Lactic Acid Hemoglobin Chloride Glucose POC Glucose (mg/dL) 129 H 138 H Magnesium Total Protein Albumin Arterial Blood Potassium Arterial Blood Glucose Crossmatch 09/29/18 09/29/18 09/29/18 15:45 15:46 16:51 WBC 12.0 H RBC 3.55 L Hgb 11.1 L Hct 33.5 L Plt Count 146 L Neutrophils # 10.4 H Lymphocytes # 0.7 L PT INR APTT ABG pH ABG pCO2 ABG pO2 121 H ABG HCO3 ABG Total CO2 26 H ABG O2 Saturation 99.1 H ABG Hematocrit ABG Sodium ABG Potassium ABG Ionized Calcium ABG Glucose ABG Lactic Acid Hemoglobin Chloride Glucose POC Glucose (mg/dL) 133 H Magnesium Total Protein Albumin Arterial Blood Potassium Arterial Blood Glucose Crossmatch 09/29/18 09/29/18 09/29/18 16:51 18:27 18:30 WBC RBC 3.33 L Hgb 10.3 L Hct 31.2 L Plt Count 138 L Neutrophils # 8.7 H Lymphocytes # 0.6 L PT INR APTT ABG pH ABG pCO2 ABG pO2 ABG HCO3 ABG Total CO2 ABG O2 Saturation ABG Hematocrit ABG Sodium ABG Potassium ABG Ionized Calcium ABG Glucose ABG Lactic Acid Hemoglobin Chloride Glucose POC Glucose (mg/dL) 136 H 123 H Magnesium Total Protein Albumin Arterial Blood Potassium Arterial Blood Glucose Crossmatch 09/29/18 09/29/18 09/29/18 18:30 18:30 19:18 WBC RBC Hgb Hct Plt Count Neutrophils # Lymphocytes # PT INR 1.2 H APTT ABG pH ABG pCO2 ABG pO2 ABG HCO3 ABG Total CO2 ABG O2 Saturation ABG Hematocrit ABG Sodium ABG Potassium ABG Ionized Calcium ABG Glucose ABG Lactic Acid Hemoglobin Chloride 108 H Glucose 119 H POC Glucose (mg/dL) 114 H Magnesium Total Protein Albumin Arterial Blood Potassium Arterial Blood Glucose Crossmatch 09/29/18 09/29/18 09/29/18 21:20 22:03 23:09 WBC RBC Hgb Hct Plt Count Neutrophils # Lymphocytes # PT INR APTT ABG pH ABG pCO2 ABG pO2 ABG HCO3 ABG Total CO2 ABG O2 Saturation ABG Hematocrit ABG Sodium ABG Potassium ABG Ionized Calcium ABG Glucose ABG Lactic Acid Hemoglobin Chloride Glucose POC Glucose (mg/dL) 138 H 140 H 129 H Magnesium Total Protein Albumin Arterial Blood Potassium Arterial Blood Glucose Crossmatch 09/30/18 09/30/18 09/30/18 00:26 01:15 02:13 WBC RBC Hgb Hct Plt Count Neutrophils # Lymphocytes # PT INR APTT ABG pH ABG pCO2 ABG pO2 ABG HCO3 ABG Total CO2 ABG O2 Saturation ABG Hematocrit ABG Sodium ABG Potassium ABG Ionized Calcium ABG Glucose ABG Lactic Acid Hemoglobin Chloride Glucose POC Glucose (mg/dL) 121 H 117 H 116 H Magnesium Total Protein Albumin Arterial Blood Potassium Arterial Blood Glucose Crossmatch 09/30/18 09/30/18 09/30/18 03:13 04:30 04:30 WBC RBC 2.97 L Hgb 9.3 L Hct 27.9 L Plt Count 127 L Neutrophils # Lymphocytes # 0.7 L PT INR 1.2 H APTT 34.9 H ABG pH ABG pCO2 ABG pO2 ABG HCO3 ABG Total CO2 ABG O2 Saturation ABG Hematocrit ABG Sodium ABG Potassium ABG Ionized Calcium ABG Glucose ABG Lactic Acid Hemoglobin Chloride Glucose POC Glucose (mg/dL) 121 H Magnesium Total Protein Albumin Arterial Blood Potassium Arterial Blood Glucose Crossmatch 09/30/18 09/30/18 09/30/18 04:30 04:30 05:20 WBC RBC Hgb Hct Plt Count Neutrophils # Lymphocytes # PT INR APTT ABG pH ABG pCO2 ABG pO2 ABG HCO3 ABG Total CO2 ABG O2 Saturation ABG Hematocrit ABG Sodium ABG Potassium ABG Ionized Calcium ABG Glucose ABG Lactic Acid Hemoglobin Chloride Glucose 113 H POC Glucose (mg/dL) 118 H 126 H Magnesium Total Protein 4.8 L Albumin 2.9 L Arterial Blood Potassium Arterial Blood Glucose Crossmatch 09/30/18 09/30/18 09/30/18 06:54 08:09 09:14 WBC RBC Hgb Hct Plt Count Neutrophils # Lymphocytes # PT INR APTT ABG pH ABG pCO2 ABG pO2 ABG HCO3 ABG Total CO2 ABG O2 Saturation ABG Hematocrit ABG Sodium ABG Potassium ABG Ionized Calcium ABG Glucose ABG Lactic Acid Hemoglobin Chloride Glucose POC Glucose (mg/dL) 111 H 111 H 117 H Magnesium Total Protein Albumin Arterial Blood Potassium Arterial Blood Glucose Crossmatch Assessment and Plan Plan: This is a joint evaluation was done along with a nurse practitioner. The patient is doing well. The patient is hemodynamically stable. Anticipate extubation within the next 6 hours.
[2018-09-29 15:47] LABS: Glucose,Whole Blood 133 mg/dL (75-99)
[2018-09-29] MEDS: ceFAZolin IN SWFI 2 GM/20 ML SYRINGE IVP SCH (15:48)
[2018-09-29 16:29] LABS: Basophils % (A) 0 %; Eosinophils % (A) 0 %; HCT 33.5 % (39.0-53.0); HGB 11.1 gm/dL (13.0-17.5); Lymphocytes # (A) 0.7 k/uL (1.0-4.8); Lymphocytes % (A) 6 %; MCH 31.3 pg (25.0-35.0); MCHC 33.2 g/dL (31.0-37.0); MCV 94.3 fL (80.0-100.0); Mean Platelet Volume 7.5; Monocytes # (A) 0.7 k/uL (0-1.0); Monocytes % (A) 6 %; Neutrophils # (A) 10.4 k/uL (1.3-7.7); Neutrophils % (A) 87 %; Platelet Count 146 k/uL (150-450); RBC 3.55 m/uL (4.30-5.90); RDW 13.6 % (11.5-15.5)
[2018-09-29 16:52] LABS: Glucose,Whole Blood 136 mg/dL (75-99)
[2018-09-29 16:54] LABS: ABG HCO3 25 mmol/L (21-25); ABG Oxygen Saturation 99.1 % (94-97); ABG PCO2 44 mmHg (35-45); ABG PH 7.36 (7.35-7.45); ABG PO2 121 mmHg (83-108); ABG TCO2 26 mmol/L (19-24)
[2018-09-29] MEDS: ACETAMINOPHEN IV (For NPO) 1,000 MG in EMPTY BAG 1 BAG IVPB SCH (17:25)
[2018-09-29 18:45] LABS: Basophils % (A) 0 %; Eosinophils % (A) 0 %; HCT 31.2 % (39.0-53.0); HGB 10.3 gm/dL (13.0-17.5); Lymphocytes # (A) 0.6 k/uL (1.0-4.8); Lymphocytes % (A) 6 %; MCHC 33.1 g/dL (31.0-37.0); MCV 93.6 fL (80.0-100.0); Mean Platelet Volume 7.5; Monocytes # (A) 0.6 k/uL (0-1.0); Monocytes % (A) 6 %; Neutrophils # (A) 8.7 k/uL (1.3-7.7); Neutrophils % (A) 87 %; Platelet Count 138 k/uL (150-450); RBC 3.33 m/uL (4.30-5.90); RDW 13.4 % (11.5-15.5)
[2018-09-29 18:46] LABS: Glucose,Whole Blood 123 mg/dL (75-99)
[2018-09-29 18:49] LABS: Ionized Calcium 5.1 mg/dL (4.5-5.3)
[2018-09-29 19:00] LABS: Anion Gap 4 mmol/L; Blood Urea Nitrogen 19 mg/dL (9-20); Calcium 8.5 mg/dL (8.4-10.2); Carbon Dioxide 25 mmol/L (22-30); Chloride 108 mmol/L (98-107); Glucose 119 mg/dL (74-99); Magnesium 2.3 mg/dL (1.6-2.3); Phosphorus 3.7 mg/dL (2.5-4.5); Sodium 137 mmol/L (137-145)
[2018-09-29 19:21] LABS: Glucose,Whole Blood 114 mg/dL (75-99)
[2018-09-29 19:23] LABS: INR 1.2 (<1.2); Prothrombin Time 11.1 sec (9.0-12.0)
[2018-09-29] MEDS: MUPIROCIN 2% OINT 22 GM TUBE NASAL SCH (20:20)
[2018-09-29 21:21] LABS: Glucose,Whole Blood 138 mg/dL (75-99)
[2018-09-29 22:06] LABS: Glucose,Whole Blood 140 mg/dL (75-99)
[2018-09-29 23:11] LABS: Glucose,Whole Blood 129 mg/dL (75-99)
[2018-09-29] MEDS ORDERED: MUPIROCIN 2% OINT 22 GM TUBE NASAL ONE (23:30)
[2018-09-30] MEDS: ACETAMINOPHEN IV (For NPO) 1,000 MG in EMPTY BAG 1 BAG IVPB SCH ×4 (00:33→17:39)
[2018-09-30 00:34] LABS: Glucose,Whole Blood 121 mg/dL (75-99)
[2018-09-30] MEDS: ceFAZolin IN SWFI 2 GM/20 ML SYRINGE IVP SCH ×2 (00:41→08:46)
[2018-09-30] MEDS: HEPARIN SODIUM,PORCINE 5,000 UNIT/ML 1 ML VIAL SQ SCH ×3 (00:43→16:21)
[2018-09-30 01:19] LABS: Glucose,Whole Blood 117 mg/dL (75-99)
[2018-09-30] MEDS: ALBUMIN HUMAN 5% 250 ML in EMPTY BAG 1 BAG IVPB PRN ×8 (02:10→08:32)
[2018-09-30 02:14] LABS: Glucose,Whole Blood 116 mg/dL (75-99)
[2018-09-30 03:15] LABS: Glucose,Whole Blood 121 mg/dL (75-99)
[2018-09-30 04:32] LABS: Glucose,Whole Blood 118 mg/dL (75-99)
[2018-09-30 05:15] LABS: INR 1.2 (<1.2); Partial Thromboplastin Time 34.9 sec (22.0-30.0); Prothrombin Time 11.1 sec (9.0-12.0)
[2018-09-30 05:20] LABS: Ionized Calcium 4.9 mg/dL (4.5-5.3)
[2018-09-30 05:26] LABS: Glucose,Whole Blood 126 mg/dL (75-99)
[2018-09-30 05:30] LABS: ALT 30 U/L (21-72); AST 28 U/L (17-59); Albumin 2.9 g/dL (3.5-5.0); Alkaline Phosphatase 38 U/L (38-126); Anion Gap 5 mmol/L; Blood Urea Nitrogen 18 mg/dL (9-20); Calcium 8.4 mg/dL (8.4-10.2); Carbon Dioxide 25 mmol/L (22-30); Chloride 107 mmol/L (98-107); Glucose 113 mg/dL (74-99); Potassium 4.8 mmol/L (3.5-5.1); Sodium 137 mmol/L (137-145); Total Bilirubin 0.7 mg/dL (0.2-1.3); Total Protein 4.8 g/dL (6.3-8.2)
[2018-09-30] MEDS: DEXMEDETOMIDINE/0.9% NACL(PMX) 400 MCG in EMPTY BAG 1 BAG IV SCH (05:42)
[2018-09-30 05:45] LABS: Basophils % (A) 0 %; Eosinophils % (A) 0 %; HCT 27.9 % (39.0-53.0); HGB 9.3 gm/dL (13.0-17.5); Lymphocytes # (A) 0.7 k/uL (1.0-4.8); Lymphocytes % (A) 9 %; MCH 31.3 pg (25.0-35.0); MCHC 33.4 g/dL (31.0-37.0); MCV 93.9 fL (80.0-100.0); Mean Platelet Volume 7.8; Monocytes # (A) 0.5 k/uL (0-1.0); Monocytes % (A) 7 %; Neutrophils # (A) 6.4 k/uL (1.3-7.7); Neutrophils % (A) 83 %; Platelet Count 127 k/uL (150-450); RBC 2.97 m/uL (4.30-5.90); RDW 13.3 % (11.5-15.5); WBC 7.8 k/uL (3.8-10.6)
[2018-09-30 07:14] LABS: Glucose,Whole Blood 111 mg/dL (75-99)
[2018-09-30] MEDS: IPRATROPIUM-ALBUTEROL 3 ML NEB INHALATION SCH ×4 (07:55→19:37)
[2018-09-30] MEDS ORDERED: NON-FORMULARY DRUG (Aclidinium Bromide [Tudorza Pressair] 1 PUFF) INHALATION SCH (08:00)
[2018-09-30 08:11] LABS: Glucose,Whole Blood 111 mg/dL (75-99)
--- NOTE | 2018-09-30 08:14 | CONS ---
CONSULTATION DATE OF CONSULTATION: 09/29/2018 REASON FOR CONSULTATION: Medical management requested by Dr. Wadsworth. CONSULTATION: This is a 72-year-old patient of Dr. Feliciano Motta. He was in the hospital about 3 months ago, then he had some movement disorder of the left arm was neurologically worked up by Dr. Pierre. No definitive cause was found. It could have been a Tourette syndrome. Patient also had a large pleural effusion, 1.4 L was removed. Patient's cytology was negative for malignancy. Did follow up with Dr. Adler in the office. Patient is a long-standing smoker, stop smoking, then has underlying COPD. Patient today underwent replacement of the bicuspid aortic valve and was extubated later in the day. Current drips include insulin, Cleviprex and Precedex. Patient has got a 2 mediastinal and 2 chest tubes. Patient is awake, answering simple questions. Some pain is present. Telemetry shows sinus rhythm is in the ICU. REVIEW OF SYSTEMS: CONSTITUTIONAL: Tired. HEENT: None. RESPIRATORY: Some shortness of breath. CARDIOVASCULAR: Pain at the operative site. DERMATOLOGICAL; None. HEMATOLOGICAL: None. LYMPHATIC: None. PSYCHIATRY: None. NEUROLOGICAL: None. PAST MEDICAL HISTORY: COPD, episode of abnormal movement in the left arm, cause unclear. Questionable Tourette syndrome was diagnosed with large left pleural effusion, cause unknown, being worked up by Dr. Adler. PAST SURGICAL HISTORY: Left hip replacement. SOCIAL HISTORY: Patient smoked about a pack a day for close to 50 years, stopped 3 months ago. . Works in the farm. Patient quit drinking 20 years ago. FAMILY HISTORY: Lung cancer. HOME MEDICATIONS: Tetra, benzene, start on 10/18 p.o. b.i.d., Dulera 200/5 two puffs b.i.d., DuoNeb q.i.d. p.r.n., Motrin, vitamin two thousand units p.o. daily, aspirin 81 mg p.o. daily, Tudorza 1 puff b.i.d. ALLERGIES: None. PHYSICAL EXAMINATION: Afebrile, pulse 80, respiration 16, blood pressure 126/75, pulse ox 99%. GENERAL APPEARANCE: Average build, sitting up, awake. EYES: Pupils equal, conjunctivae normal. HEENT: External appearance of nose and ears normal. Oral cavity normal. NECK: JVD not raised. Mass not palpable. RESPIRATORY: Effort increased. LUNGS: Diminished breath sounds. CARDIOVASCULAR: First and second sounds, no edema. ABDOMEN: So ft, nontender. Liver and spleen not palpable. CHEST: Patient has got two mediastinal chest tubes. PSYCHIATRY: Alert and oriented x3. Mood and affect normal. NEUROLOGICAL: Pupils equal, grossly intact. Power and sensation grossly intact. INVESTIGATIONS: White count 10, hemoglobin 10.3, platelets 138, potassium 5, BUN 19, creatinine 0.68. Presurgical hemoglobin was 13.9, platelets was 237. ASSESSMENT: 1. Aortic valve replacement of bicuspid, severe aortic stenosis. 2. Recent left pleural effusion that had thoracentesis, cause unknown. 3. Chronic obstructive pulmonary disease in an ex-smoker. 4. Moderate secondary pulmonary hypertension secondary to chronic obstructive pulmonary disease. 5. Acute postoperative blood loss anemia expected from surgery. 6. Dilutional thrombocytopenia. PLAN: Patient is on DuoNeb, also on IV insulin, Catapres, Precedex, has got 2 mediastinal tubes and 2 chest tubes are present. Patient is also on insulin drip, Venodyne boots and IV Protonix for GI prophylaxis. Care was discussed with the patient. Thank you Dr. Wadsworth. MMODL / IJN: [id number] /
[2018-09-30] MEDS: KETOROLAC 30 MG/ML 1 ML VIAL IVP SCH ×4 (08:49→23:10)
[2018-09-30] MEDS: ATORVASTATIN 40 MG TAB PO SCH (08:51)
[2018-09-30] MEDS: ASPIRIN 325 MG TAB PO SCH (08:51)
[2018-09-30] MEDS: CHOLECALCIFEROL 1,000 UNIT TAB PO SCH (08:51)
[2018-09-30] MEDS: MUPIROCIN 2% OINT 22 GM TUBE NASAL SCH ×2 (08:51→20:20)
[2018-09-30] MEDS ORDERED: PANTOPRAZOLE 40 MG/10 ML VIAL IVP SCH (09:00)
--- NOTE | 2018-09-30 09:06 | XR ---
EXAMINATION TYPE: XR chest 1V portable DATE OF EXAM: 09/30/2018 COMPARISON: 09/29/2018 INDICATION: Postoperative cardiac surgery TECHNIQUE: Single frontal view of the chest is obtained. FINDINGS: The heart size is mildly prominent. The pulmonary vasculature is mildly prominent.. Right-sided chest tube is present. Left-sided chest tube is present. There appears to be a mediastina l tube present. Buckhannon-Ila catheter is present with tip in the right main pulmonary artery. Sternotomy wires are in th e midline. Some mild infiltrate may be through the right mid lung likely atelectasis. No pneumothorax is evident . IMPRESSION: 1. Mild right basilar atelectasis. 2. Borderline prominence of pulmonary vascular markings. 3. Multiple lines and catheters present.
[2018-09-30 09:16] LABS: Glucose,Whole Blood 117 mg/dL (75-99)
--- NOTE | 2018-09-30 09:29 | P.PN ---
<Franny Major M - Last Filed: 09/30/18 09:16> Subjective Progress Note Date: 09/30/18 Principal diagnosis: Aortic valve stenosis, bicuspid aortic valve, status post aortic valve replacement This is 72-year-old white male patient of Dr. Adler with a known history of aortic valve stenosis. SHIRLEY by Dr. Sprague showed a bicuspid calcified aortic valve with severe stenosis. Previous echocardiogram showed EF between 60 and 65 % and moderate pulmonary hypertension with right-sided pressures at 51 mmHg. Recent heart catheterization was negative for any significant coronary artery disease. Patient had a recent hospitalization in June 2018 for neurological symptoms and his workup for CVA and TIA was negative negative brain CAT scan, and MRI. During that same admission patient was found to have a large left pleural effusion and he is status post left thoracentesis, cytology ruled out malignancy, but it showed an exudative effusion, with negative cultures, likely parapneumonic in nature. Patient has a 85-cpop-hahu smoking history, has underlying COPD, his preop PFT showed severe COPD with FEV1 of 1.19 L or 43% of predicted, FVC of 1.99 L or 53%, and diffusion capacity of 45%, the response to bronchodilators indicated reversible component. Patient was recommended to undergo surgical intervention for aortic valve stenosis, and patient underwent elective aortic valve replacement using ovine pericardial bioprosthetic valve, exclusion of left atrial appendage today on 09/29/[address] Wadsworth. Patient is seen postoperative period in the intensive care unit, he is intubated, on mechanical ventilator. His maintenance IV fluid is LR iterated 50 ML per hour, clear proximal is currently at 4 mg per hour, Diprivan at 50 mics per kilo per minute. PA pressures 48/26, CVP of 14, cardiac output and cardiac index is 5.9 3.2. Postop blood gas showed pO2 414, pCO2 of 60, pH of 7.25, and this was done on SIMV of 12, tidal volume 550, FiO2 of 100%, and PEEP of 5. We switched the ventilator settings to assist control mode with a rate of 20, same tidal volume, FiO2 down to 50%, and PEEP of 5. And subsequent blood gases showed improvement with pO2 of 96, pCO2 45, and pH of 7.34. Patient has 2 mediastinal and right and left pleural chest tubes in place with moderate amount of sanguinous drainage. Stop labs showed WBC of 9.4, hemoglobin of 10.0, platelet count was 128, INR of 1.3, electrolytes were unremarkable, BUN of 18, creatinine 0.73. Postoperative chest x-ray has been reviewed by Dr. Pool, and showed postsurgical changes with suspected postop atelectasis, small bilateral pleural effusions. On 09/30/2018 patient seen in follow-up. Postop day 1 status post aortic valve replacement with a bioprosthetic valve. Patient was extubated at 1715 yesterday on 09/29/2018. This morning he is sitting up in the recliner, currently on 2 L per nasal cannula his pulse ox is 97%, he is having mild to moderate amount of incisional discomfort in his midsternal area. He states his it hurts for him to breathe. His incentive spirometer effort is 500 mL. This morning patient was assisted up out of bed, and she did become hypotensive afterwards, he received a total of 2 L of 5% albumin, and subsequently his blood pressure recovered, and currently his PA pressures 54/22, with the CVP 19- 20, serial and CO and CI is 5.4 and 2.2 respectively. Today's chest x-ray showed mild right basilar atelectasis, mild prominence of pulmonary vascular markings. Current IV fluids include lactated Ringer's at a rate of 50 ML per hour, insulin drip at 1 unit per hour. No other drips. Lung sounds are clear, with a few bibasilar crackles. Midsternal incisions clean dry and intact, covered with a surgical dressing, 2 mediastinal and left and right pleural chest tubes are with small amount of serosanguineous output. Today's labs have been reviewed, and show WBC of 7.8, hemoglobin is 9.3, electrolytes and renal profile are within normal limits. Objective - Vital Signs Vital signs: Vital Signs Temp 97.8 F 09/29/18 05:57 Pulse 80 09/30/18 08:07 Resp 20 09/30/18 07:30 BP 126/83 09/29/18 05:57 Pulse Ox 97 09/30/18 07:30 Intake & Output 09/29/18 09/30/18 09/30/18 18:59 06:59 18:59 Intake Total 106.904 9554.758 862.166 Output Total 3988 1270 30 Balance -3365.955 569.758 832.166 Weight 73.573 kg 78.2 kg Intake: IV 476 1668 839 ACETAMINOPHEN IV (For NPO 200 ) 1,000 mg In Empty Bag 1 bag @ 400 mls/hr IVPB Q6HR [facility] Rx#:[id number] Albumin Human 5% 250 ml 500 750 In Empty Bag 1 bag @ 250 mls/hr IVPB Q1HR PRN Rx#: [id number] CO/CI 120 240 30 Lactated Ringers @ 50 ML/ 300 600 50 HR Pressure Bag 54 108 9 ceFAZolin 2,000 mg In 20 Sodium Chloride 0.9% 30 ml @ Per Protocol IVPB ONCE ONE Rx#:[id number] Intake, IV Titration 146.045 171.758 23.166 Amount Clevidipine Butyrate 25 52.634 0 mg In Empty Bag 1 bag @ 1 MG/HR 2 mls/hr IV .Q24H [facility] Rx#:[id number] Dexmedetomidine/0.9% NaCl 22.209 157.015 23.166 (Pmx) 400 mcg In Empty Bag 1 bag @ Titrate IV . Q0M [facility] Rx#:[id number] Insulin Regular 100 unit 14.743 In Sodium Chloride 0.9% 100 ml @ Per Protocol IV .Q0M [facility] Rx#:[id number] Propofol 1,000 mg In 71.202 Empty Bag 1 bag @ Titrate IV .Q0M [facility] Rx#: [id number] Output: Chest Tube Drainage 718 460 10 Left Pleural 252 90 0 Mediastinal X 2 280 220 10 Right Pleural 186 150 0 Urine 1270 810 20 Estimated Blood Loss 1999 Other: Voiding Method Indwelling Catheter Indwelling Catheter ABP, PAP, CO, CI - Last Documented Arterial Blood Pressure 104/51 Pulmonary Artery Pressure 47/19 Cardiac Output 4.9 Cardiac Index 2.6 - Exam GENERAL EXAM: Awake, alert 72-year-old white male patient, on 2 L per nasal cannula, having mild to moderate amount of midsternal incisional discomfort HEAD: Normocephalic/atraumatic. EYES: Normal reaction of pupils, equal size. Conjunctiva pink, sclera white. NOSE: Clear with pink turbinates. THROAT: No erythema or exudates. NECK: No masses, no JVD, no thyroid enlargement, no adenopathy. CHEST: No chest wall deformity. Symmetrical expansion. Midsternal incision is clean dry and intact, 2 mediastinal, right pleural and left pleural chest tubes are in place with moderate amount of sanguinous output in the Pleur-evac, epicardial wires in place, and patient is being externally paced at a mode of AAI with a rate of 80, underlying rhythm is junctional bradycardia LUNGS: Equal air entry with fine bibasilar crackles, no wheeze, rhonchi or dullness. CVS: Regular rate and rhythm, normal S1 and S2, no gallops, no murmurs, no rubs ABDOMEN: Soft, nontender. No hepatosplenomegaly, normal bowel sounds, no guarding or rigidity. EXTREMITIES: No clubbing, no edema, no cyanosis, 2+ pulses and upper and lower extremities. MUSCULOSKELETAL: Muscle strength and tone normal. SPINE: No scoliosis or deformity SKIN: No rashes - Labs CBC & Chem 7: 09/30/18 04:30 09/30/18 04:30 Labs: Abnormal Lab Results - Last 24 Hours (Table) 09/17/18 09/29/18 09/29/18 Range/Units 09:00 08:39 09:12 WBC (3.8-10.6) k/uL RBC (4.30-5.90) m/uL Hgb (13.0-17.5) gm/dL Hct (39.0-53.0) % Plt Count (150-450) k/uL Neutrophils # (1.3-7.7) k/uL Lymphocytes # (1.0-4.8) k/uL PT (9.0-12.0) sec INR (<1.2) APTT (22.0-30.0) sec ABG pH (7.35-7.45) ABG pCO2 (35-45) mmHg ABG pO2 311 H 255 H (83-108) mmHg ABG HCO3 27 H (21-25) mmol/L ABG Total CO2 28 H 25 H (19-24) mmol/L ABG O2 Saturation 100.0 H 99.9 H (94-97) % ABG Hematocrit (34.0-46.0) % ABG Sodium (135-146) mmol/L ABG Potassium 4.6 H (3.4-4.5) mmol/L ABG Ionized Calcium 4.3 L (4.5-5.3) mg/dL ABG Glucose 103 H 111 H (75-99) mg/dL ABG Lactic Acid (0.5-1.6) mmol/L Hemoglobin 12.9 L 11.4 L (13.0-17.5) gm/dL Chloride (98-107) mmol/L Glucose (74-99) mg/dL POC Glucose (mg/dL) (75-99) mg/dL Magnesium (1.6-2.3) mg/dL Total Protein (6.3-8.2) g/dL Albumin (3.5-5.0) g/dL Arterial Blood Potassium 4.6 H (3.4-4.5) mmol/L Arterial Blood Glucose 103 H 111 H (75-99) mg/dL Crossmatch See Detail 09/29/18 09/29/18 09/29/18 Range/Units 09:42 10:12 10:37 WBC (3.8-10.6) k/uL RBC (4.30-5.90) m/uL Hgb (13.0-17.5) gm/dL Hct (39.0-53.0) % Plt Count (150-450) k/uL Neutrophils # (1.3-7.7) k/uL Lymphocytes # (1.0-4.8) k/uL PT (9.0-12.0) sec INR (<1.2) APTT (22.0-30.0) sec ABG pH (7.35-7.45) ABG pCO2 (35-45) mmHg ABG pO2 295 H 289 H 362 H (83-108) mmHg ABG HCO3 26 H (21-25) mmol/L ABG Total CO2 27 H 26 H 27 H (19-24) mmol/L ABG O2 Saturation 100.0 H 99.9 H 100.0 H (94-97) % ABG Hematocrit 27 L 28 L 29 L (34.0-46.0) % ABG Sodium 130 L (135-146) mmol/L ABG Potassium 6.8 H* 5.2 H 5.4 H (3.4-4.5) mmol/L ABG Ionized Calcium 4.2 L 4.1 L 4.3 L (4.5-5.3) mg/dL ABG Glucose 245 H 169 H 131 H (75-99) mg/dL ABG Lactic Acid 1.7 H (0.5-1.6) mmol/L Hemoglobin 8.6 L 9.1 L 9.3 L (13.0-17.5) gm/dL Chloride (98-107) mmol/L Glucose (74-99) mg/dL POC Glucose (mg/dL) (75-99) mg/dL Magnesium (1.6-2.3) mg/dL Total Protein (6.3-8.2) g/dL Albumin (3.5-5.0) g/dL Arterial Blood Potassium 6.8 H* 5.2 H 5.4 H (3.4-4.5) mmol/L Arterial Blood Glucose 245 H 169 H 131 H (75-99) mg/dL Crossmatch 09/29/18 09/29/18 09/29/18 Range/Units 11:48 12:45 12:45 WBC (3.8-10.6) k/uL RBC 3.21 L (4.30-5.90) m/uL Hgb 10.0 L D (13.0-17.5) gm/dL Hct 30.6 L (39.0-53.0) % Plt Count 128 L (150-450) k/uL Neutrophils # 7.9 H (1.3-7.7) k/uL Lymphocytes # 0.7 L (1.0-4.8) k/uL PT (9.0-12.0) sec INR (<1.2) APTT (22.0-30.0) sec ABG pH 7.33 L (7.35-7.45) ABG pCO2 46 H (35-45) mmHg ABG pO2 381 H (83-108) mmHg ABG HCO3 (21-25) mmol/L ABG Total CO2 25 H (19-24) mmol/L ABG O2 Saturation 99.9 H (94-97) % ABG Hematocrit 29 L (34.0-46.0) % ABG Sodium (135-146) mmol/L ABG Potassium 4.6 H (3.4-4.5) mmol/L ABG Ionized Calcium (4.5-5.3) mg/dL ABG Glucose 104 H (75-99) mg/dL ABG Lactic Acid (0.5-1.6) mmol/L Hemoglobin 9.4 L (13.0-17.5) gm/dL Chloride 110 H (98-107) mmol/L Glucose (74-99) mg/dL POC Glucose (mg/dL) (75-99) mg/dL Magnesium 2.8 H (1.6-2.3) mg/dL Total Protein 4.7 L (6.3-8.2) g/dL Albumin 3.0 L (3.5-5.0) g/dL Arterial Blood Potassium 4.6 H (3.4-4.5) mmol/L Arterial Blood Glucose 104 H (75-99) mg/dL Crossmatch 09/29/18 09/29/18 09/29/18 Range/Units 12:45 13:23 13:24 WBC (3.8-10.6) k/uL RBC (4.30-5.90) m/uL Hgb (13.0-17.5) gm/dL Hct (39.0-53.0) % Plt Count (150-450) k/uL Neutrophils # (1.3-7.7) k/uL Lymphocytes # (1.0-4.8) k/uL PT 12.1 H (9.0-12.0) sec INR 1.3 H (<1.2) APTT 33.5 H (22.0-30.0) sec ABG pH 7.25 L (7.35-7.45) ABG pCO2 60 H (35-45) mmHg ABG pO2 414 H (83-108) mmHg ABG HCO3 (21-25) mmol/L ABG Total CO2 (19-24) mmol/L ABG O2 Saturation 99.3 H (94-97) % ABG Hematocrit (34.0-46.0) % ABG Sodium (135-146) mmol/L ABG Potassium (3.4-4.5) mmol/L ABG Ionized Calcium (4.5-5.3) mg/dL ABG Glucose (75-99) mg/dL ABG Lactic Acid (0.5-1.6) mmol/L Hemoglobin (13.0-17.5) gm/dL Chloride (98-107) mmol/L Glucose (74-99) mg/dL POC Glucose (mg/dL) 111 H (75-99) mg/dL Magnesium (1.6-2.3) mg/dL Total Protein (6.3-8.2) g/dL Albumin (3.5-5.0) g/dL Arterial Blood Potassium (3.4-4.5) mmol/L Arterial Blood Glucose (75-99) mg/dL Crossmatch 09/29/18 09/29/18 09/29/18 Range/Units 14:05 14:21 15:17 WBC (3.8-10.6) k/uL RBC (4.30-5.90) m/uL Hgb (13.0-17.5) gm/dL Hct (39.0-53.0) % Plt Count (150-450) k/uL Neutrophils # (1.3-7.7) k/uL Lymphocytes # (1.0-4.8) k/uL PT (9.0-12.0) sec INR (<1.2) APTT (22.0-30.0) sec ABG pH 7.34 L (7.35-7.45) ABG pCO2 (35-45) mmHg ABG pO2 (83-108) mmHg ABG HCO3 (21-25) mmol/L ABG Total CO2 25 H (19-24) mmol/L ABG O2 Saturation 97.1 H (94-97) % ABG Hematocrit (34.0-46.0) % ABG Sodium (135-146) mmol/L ABG Potassium (3.4-4.5) mmol/L ABG Ionized Calcium (4.5-5.3) mg/dL ABG Glucose (75-99) mg/dL ABG Lactic Acid (0.5-1.6) mmol/L Hemoglobin (13.0-17.5) gm/dL Chloride (98-107) mmol/L Glucose (74-99) mg/dL POC Glucose (mg/dL) 129 H 138 H (75-99) mg/dL Magnesium (1.6-2.3) mg/dL Total Protein (6.3-8.2) g/dL Albumin (3.5-5.0) g/dL Arterial Blood Potassium (3.4-4.5) mmol/L Arterial Blood Glucose (75-99) mg/dL Crossmatch 09/29/18 09/29/18 09/29/18 Range/Units 15:45 15:46 16:51 WBC 12.0 H (3.8-10.6) k/uL RBC 3.55 L (4.30-5.90) m/uL Hgb 11.1 L (13.0-17.5) gm/dL Hct 33.5 L (39.0-53.0) % Plt Count 146 L (150-450) k/uL Neutrophils # 10.4 H (1.3-7.7) k/uL Lymphocytes # 0.7 L (1.0-4.8) k/uL PT (9.0-12.0) sec INR (<1.2) APTT (22.0-30.0) sec ABG pH (7.35-7.45) ABG pCO2 (35-45) mmHg ABG pO2 121 H (83-108) mmHg ABG HCO3 (21-25) mmol/L ABG Total CO2 26 H (19-24) mmol/L ABG O2 Saturation 99.1 H (94-97) % ABG Hematocrit (34.0-46.0) % ABG Sodium (135-146) mmol/L ABG Potassium (3.4-4.5) mmol/L ABG Ionized Calcium (4.5-5.3) mg/dL ABG Glucose (75-99) mg/dL ABG Lactic Acid (0.5-1.6) mmol/L Hemoglobin (13.0-17.5) gm/dL Chloride (98-107) mmol/L Glucose (74-99) mg/dL POC Glucose (mg/dL) 133 H (75-99) mg/dL Magnesium (1.6-2.3) mg/dL Total Protein (6.3-8.2) g/dL Albumin (3.5-5.0) g/dL Arterial Blood Potassium (3.4-4.5) mmol/L Arterial Blood Glucose (75-99) mg/dL Crossmatch 09/29/18 09/29/18 09/29/18 Range/Units 16:51 18:27 18:30 WBC (3.8-10.6) k/uL RBC 3.33 L (4.30-5.90) m/uL Hgb 10.3 L (13.0-17.5) gm/dL Hct 31.2 L (39.0-53.0) % Plt Count 138 L (150-450) k/uL Neutrophils # 8.7 H (1.3-7.7) k/uL Lymphocytes # 0.6 L (1.0-4.8) k/uL PT (9.0-12.0) sec INR (<1.2) APTT (22.0-30.0) sec ABG pH (7.35-7.45) ABG pCO2 (35-45) mmHg ABG pO2 (83-108) mmHg ABG HCO3 (21-25) mmol/L ABG Total CO2 (19-24) mmol/L ABG O2 Saturation (94-97) % ABG Hematocrit (34.0-46.0) % ABG Sodium (135-146) mmol/L ABG Potassium (3.4-4.5) mmol/L ABG Ionized Calcium (4.5-5.3) mg/dL ABG Glucose (75-99) mg/dL ABG Lactic Acid (0.5-1.6) mmol/L Hemoglobin (13.0-17.5) gm/dL Chloride (98-107) mmol/L Glucose (74-99) mg/dL POC Glucose (mg/dL) 136 H 123 H (75-99) mg/dL Magnesium (1.6-2.3) mg/dL Total Protein (6.3-8.2) g/dL Albumin (3.5-5.0) g/dL Arterial Blood Potassium (3.4-4.5) mmol/L Arterial Blood Glucose (75-99) mg/dL Crossmatch 09/29/18 09/29/18 09/29/18 Range/Units 18:30 18:30 19:18 WBC (3.8-10.6) k/uL RBC (4.30-5.90) m/uL Hgb (13.0-17.5) gm/dL Hct (39.0-53.0) % Plt Count (150-450) k/uL Neutrophils # (1.3-7.7) k/uL Lymphocytes # (1.0-4.8) k/uL PT (9.0-12.0) sec INR 1.2 H (<1.2) APTT (22.0-30.0) sec ABG pH (7.35-7.45) ABG pCO2 (35-45) mmHg ABG pO2 (83-108) mmHg ABG HCO3 (21-25) mmol/L ABG Total CO2 (19-24) mmol/L ABG O2 Saturation (94-97) % ABG Hematocrit (34.0-46.0) % ABG Sodium (135-146) mmol/L ABG Potassium (3.4-4.5) mmol/L ABG Ionized Calcium (4.5-5.3) mg/dL ABG Glucose (75-99) mg/dL ABG Lactic Acid (0.5-1.6) mmol/L Hemoglobin (13.0-17.5) gm/dL Chloride 108 H (98-107) mmol/L Glucose 119 H (74-99) mg/dL POC Glucose (mg/dL) 114 H (75-99) mg/dL Magnesium (1.6-2.3) mg/dL Total Protein (6.3-8.2) g/dL Albumin (3.5-5.0) g/dL Arterial Blood Potassium (3.4-4.5) mmol/L Arterial Blood Glucose (75-99) mg/dL Crossmatch 09/29/18 09/29/18 09/29/18 Range/Units 21:20 22:03 23:09 WBC (3.8-10.6) k/uL RBC (4.30-5.90) m/uL Hgb (13.0-17.5) gm/dL Hct (39.0-53.0) % Plt Count (150-450) k/uL Neutrophils # (1.3-7.7) k/uL Lymphocytes # (1.0-4.8) k/uL PT (9.0-12.0) sec INR (<1.2) APTT (22.0-30.0) sec ABG pH (7.35-7.45) ABG pCO2 (35-45) mmHg ABG pO2 (83-108) mmHg ABG HCO3 (21-25) mmol/L ABG Total CO2 (19-24) mmol/L ABG O2 Saturation (94-97) % ABG Hematocrit (34.0-46.0) % ABG Sodium (135-146) mmol/L ABG Potassium (3.4-4.5) mmol/L ABG Ionized Calcium (4.5-5.3) mg/dL ABG Glucose (75-99) mg/dL ABG Lactic Acid (0.5-1.6) mmol/L Hemoglobin (13.0-17.5) gm/dL Chloride (98-107) mmol/L Glucose (74-99) mg/dL POC Glucose (mg/dL) 138 H 140 H 129 H (75-99) mg/dL Magnesium (1.6-2.3) mg/dL Total Protein (6.3-8.2) g/dL Albumin (3.5-5.0) g/dL Arterial Blood Potassium (3.4-4.5) mmol/L Arterial Blood Glucose (75-99) mg/dL Crossmatch 09/30/18 09/30/18 09/30/18 Range/Units 00:26 01:15 02:13 WBC (3.8-10.6) k/uL RBC (4.30-5.90) m/uL Hgb (13.0-17.5) gm/dL Hct (39.0-53.0) % Plt Count (150-450) k/uL Neutrophils # (1.3-7.7) k/uL Lymphocytes # (1.0-4.8) k/uL PT (9.0-12.0) sec INR (<1.2) APTT (22.0-30.0) sec ABG pH (7.35-7.45) ABG pCO2 (35-45) mmHg ABG pO2 (83-108) mmHg ABG HCO3 (21-25) mmol/L ABG Total CO2 (19-24) mmol/L ABG O2 Saturation (94-97) % ABG Hematocrit (34.0-46.0) % ABG Sodium (135-146) mmol/L ABG Potassium (3.4-4.5) mmol/L ABG Ionized Calcium (4.5-5.3) mg/dL ABG Glucose (75-99) mg/dL ABG Lactic Acid (0.5-1.6) mmol/L Hemoglobin (13.0-17.5) gm/dL Chloride (98-107) mmol/L Glucose (74-99) mg/dL POC Glucose (mg/dL) 121 H 117 H 116 H (75-99) mg/dL Magnesium (1.6-2.3) mg/dL Total Protein (6.3-8.2) g/dL Albumin (3.5-5.0) g/dL Arterial Blood Potassium (3.4-4.5) mmol/L Arterial Blood Glucose (75-99) mg/dL Crossmatch 09/30/18 09/30/18 09/30/18 Range/Units 03:13 04:30 04:30 WBC (3.8-10.6) k/uL RBC 2.97 L (4.30-5.90) m/uL Hgb 9.3 L (13.0-17.5) gm/dL Hct 27.9 L (39.0-53.0) % Plt Count 127 L (150-450) k/uL Neutrophils # (1.3-7.7) k/uL Lymphocytes # 0.7 L (1.0-4.8) k/uL PT (9.0-12.0) sec INR 1.2 H (<1.2) APTT 34.9 H (22.0-30.0) sec ABG pH (7.35-7.45) ABG pCO2 (35-45) mmHg ABG pO2 (83-108) mmHg ABG HCO3 (21-25) mmol/L ABG Total CO2 (19-24) mmol/L ABG O2 Saturation (94-97) % ABG Hematocrit (34.0-46.0) % ABG Sodium (135-146) mmol/L ABG Potassium (3.4-4.5) mmol/L ABG Ionized Calcium (4.5-5.3) mg/dL ABG Glucose (75-99) mg/dL ABG Lactic Acid (0.5-1.6) mmol/L Hemoglobin (13.0-17.5) gm/dL Chloride (98-107) mmol/L Glucose (74-99) mg/dL POC Glucose (mg/dL) 121 H (75-99) mg/dL Magnesium (1.6-2.3) mg/dL Total Protein (6.3-8.2) g/dL Albumin (3.5-5.0) g/dL Arterial Blood Potassium (3.4-4.5) mmol/L Arterial Blood Glucose (75-99) mg/dL Crossmatch 09/30/18 09/30/18 09/30/18 Range/Units 04:30 04:30 05:20 WBC (3.8-10.6) k/uL RBC (4.30-5.90) m/uL Hgb (13.0-17.5) gm/dL Hct (39.0-53.0) % Plt Count (150-450) k/uL Neutrophils # (1.3-7.7) k/uL Lymphocytes # (1.0-4.8) k/uL PT (9.0-12.0) sec INR (<1.2) APTT (22.0-30.0) sec ABG pH (7.35-7.45) ABG pCO2 (35-45) mmHg ABG pO2 (83-108) mmHg ABG HCO3 (21-25) mmol/L ABG Total CO2 (19-24) mmol/L ABG O2 Saturation (94-97) % ABG Hematocrit (34.0-46.0) % ABG Sodium (135-146) mmol/L ABG Potassium (3.4-4.5) mmol/L ABG Ionized Calcium (4.5-5.3) mg/dL ABG Glucose (75-99) mg/dL ABG Lactic Acid (0.5-1.6) mmol/L Hemoglobin (13.0-17.5) gm/dL Chloride (98-107) mmol/L Glucose 113 H (74-99) mg/dL POC Glucose (mg/dL) 118 H 126 H (75-99) mg/dL Magnesium (1.6-2.3) mg/dL Total Protein 4.8 L (6.3-8.2) g/dL Albumin 2.9 L (3.5-5.0) g/dL Arterial Blood Potassium (3.4-4.5) mmol/L Arterial Blood Glucose (75-99) mg/dL Crossmatch 11/14/18 11/14/18 Range/Units 06:54 08:09 WBC (3.8-10.6) k/uL RBC (4.30-5.90) m/uL Hgb (13.0-17.5) gm/dL Hct (39.0-53.0) % Plt Count (150-450) k/uL Neutrophils # (1.3-7.7) k/uL Lymphocytes # (1.0-4.8) k/uL PT (9.0-12.0) sec INR (<1.2) APTT (22.0-30.0) sec ABG pH (7.35-7.45) ABG pCO2 (35-45) mmHg ABG pO2 (83-108) mmHg ABG HCO3 (21-25) mmol/L ABG Total CO2 (19-24) mmol/L ABG O2 Saturation (94-97) % ABG Hematocrit (34.0-46.0) % ABG Sodium (135-146) mmol/L ABG Potassium (3.4-4.5) mmol/L ABG Ionized Calcium (4.5-5.3) mg/dL ABG Glucose (75-99) mg/dL ABG Lactic Acid (0.5-1.6) mmol/L Hemoglobin (13.0-17.5) gm/dL Chloride (98-107) mmol/L Glucose (74-99) mg/dL POC Glucose (mg/dL) 111 H 111 H (75-99) mg/dL Magnesium (1.6-2.3) mg/dL Total Protein (6.3-8.2) g/dL Albumin (3.5-5.0) g/dL Arterial Blood Potassium (3.4-4.5) mmol/L Arterial Blood Glucose (75-99) mg/dL Crossmatch Assessment and Plan Plan: Assessment: #1. Severe symptomatic aortic valve stenosis, with bicuspid aortic valve, status post aortic valve replacement with bioprosthetic valve, left atrial appendage exclusion, postop day 1 #2. Acute blood loss anemia, an expected outcome of cardiothoracic surgery #3. Routine postoperative ventilator management #4. Severe COPD, gold stage III, with preop FEV1 of 43% of predicted #5. History of nicotine dependence, currently in remission, patient carries 55- pack-year smoking history, quit in June 2018 #6. Previous left-sided thoracentesis, that showed exudative pleural effusion, cytology negative for malignancy, cultures were negative, was likely parapneumonic in nature #7. Moderate pulmonary hypertension, with right-sided pressures of 51 mmHg #8. Left upper extremity neurological dysfunction and patient is following with neurology. Previous workup for CVA/TIA in June 2018 was negative for the brain scan and MRI of the brain Plan: Continue with deep breathing and coughing, incentive spirometry use. Patient is having some pain issues this morning, mild to moderate amount of midsternal incisional discomfort. Maintain pain control. Continue nebulized bronchodilators, Symbicort was restarted. Today's chest x-ray has been reviewed , showed mild right basilar atelectasis, and mild prominence of pulmonary vascular markings. Patient is maintaining good oxygenation on 2 L per nasal cannula. Patient did have episode of hypotension, requiring bolus of albumin, he is currently oliguric, blood pressure has recovered, continue close monitoring of urine output, chest tube output, and hemodynamics. We'll continue to follow with CT surgery. Patient will remain in the intensive care unit today. I performed a history & physical examination of the patient and discussed their management with my nurse practitioner, Franny Major. I reviewed the nurse practitioner's note and agree with the documented findings and plan of care. Lung sounds are positive for bibasilar crackles. The findings and the impression was discussed with the patient. I attest to the documentation by the nurse practitioner. Time with Patient: Greater than 30 <Klaus Pool - Last Filed: 09/30/18 09:52> Objective - Vital Signs Vital signs: Vital Signs Temp 97.8 F 09/29/18 05:57 Pulse 80 09/30/18 08:07 Resp 20 09/30/18 07:30 BP 126/83 09/29/18 05:57 Pulse Ox 97 09/30/18 07:30 Intake & Output 09/29/18 09/30/18 09/30/18 18:59 06:59 18:59 Intake Total 581.867 6925.758 862.166 Output Total 3988 1270 30 Balance -3365.955 569.758 832.166 Weight 73.573 kg 78.2 kg Intake: IV 476 1668 839 ACETAMINOPHEN IV (For NPO 200 ) 1,000 mg In Empty Bag 1 bag @ 400 mls/hr IVPB Q6HR [facility] Rx#:[id number] Albumin Human 5% 250 ml 500 750 In Empty Bag 1 bag @ 250 mls/hr IVPB Q1HR PRN Rx#: [id number] CO/CI 120 240 30 Lactated Ringers @ 50 ML/ 300 600 50 HR Pressure Bag 54 108 9 ceFAZolin 2,000 mg In 20 Sodium Chloride 0.9% 30 ml @ Per Protocol IVPB ONCE ONE Rx#:[id number] Intake, IV Titration 146.045 171.758 23.166 Amount Clevidipine Butyrate 25 52.634 0 mg In Empty Bag 1 bag @ 1 MG/HR 2 mls/hr IV .Q24H [facility] Rx#:[id number] Dexmedetomidine/0.9% NaCl 22.209 157.015 23.166 (Pmx) 400 mcg In Empty Bag 1 bag @ Titrate IV . Q0M [facility] Rx#:[id number] Insulin Regular 100 unit 14.743 In Sodium Chloride 0.9% 100 ml @ Per Protocol IV .Q0M [facility] Rx#:[id number] Propofol 1,000 mg In 71.202 Empty Bag 1 bag @ Titrate IV .Q0M [facility] Rx#: [id number] Output: Chest Tube Drainage 718 460 10 Left Pleural 252 90 0 Mediastinal X 2 280 220 10 Right Pleural 186 150 0 Urine 1270 810 20 Estimated Blood Loss 2000 Other: Voiding Method Indwelling Catheter Indwelling Catheter ABP, PAP, CO, CI - Last Documented Arterial Blood Pressure 104/51 Pulmonary Artery Pressure 47/19 Cardiac Output 4.9 Cardiac Index 2.6 - Labs CBC & Chem 7: 09/30/18 04:30 09/30/18 04:30 Labs: Abnormal Lab Results - Last 24 Hours (Table) 09/17/18 09/29/18 09/29/18 Range/Units 09:00 08:39 09:12 WBC (3.8-10.6) k/uL RBC (4.30-5.90) m/uL Hgb (13.0-17.5) gm/dL Hct (39.0-53.0) % Plt Count (150-450) k/uL Neutrophils # (1.3-7.7) k/uL Lymphocytes # (1.0-4.8) k/uL PT (9.0-12.0) sec INR (<1.2) APTT (22.0-30.0) sec ABG pH (7.35-7.45) ABG pCO2 (35-45) mmHg ABG pO2 311 H 255 H (83-108) mmHg ABG HCO3 27 H (21-25) mmol/L ABG Total CO2 28 H 25 H (19-24) mmol/L ABG O2 Saturation 100.0 H 99.9 H (94-97) % ABG Hematocrit (34.0-46.0) % ABG Sodium (135-146) mmol/L ABG Potassium 4.6 H (3.4-4.5) mmol/L ABG Ionized Calcium 4.3 L (4.5-5.3) mg/dL ABG Glucose 103 H 111 H (75-99) mg/dL ABG Lactic Acid (0.5-1.6) mmol/L Hemoglobin 12.9 L 11.4 L (13.0-17.5) gm/dL Chloride (98-107) mmol/L Glucose (74-99) mg/dL POC Glucose (mg/dL) (75-99) mg/dL Magnesium (1.6-2.3) mg/dL Total Protein (6.3-8.2) g/dL Albumin (3.5-5.0) g/dL Arterial Blood Potassium 4.6 H (3.4-4.5) mmol/L Arterial Blood Glucose 103 H 111 H (75-99) mg/dL Crossmatch See Detail 09/29/18 09/29/18 09/29/18 Range/Units 09:42 10:12 10:37 WBC (3.8-10.6) k/uL RBC (4.30-5.90) m/uL Hgb (13.0-17.5) gm/dL Hct (39.0-53.0) % Plt Count (150-450) k/uL Neutrophils # (1.3-7.7) k/uL Lymphocytes # (1.0-4.8) k/uL PT (9.0-12.0) sec INR (<1.2) APTT (22.0-30.0) sec ABG pH (7.35-7.45) ABG pCO2 (35-45) mmHg ABG pO2 295 H 289 H 362 H (83-108) mmHg ABG HCO3 26 H (21-25) mmol/L ABG Total CO2 27 H 26 H 27 H (19-24) mmol/L ABG O2 Saturation 100.0 H 99.9 H 100.0 H (94-97) % ABG Hematocrit 27 L 28 L 29 L (34.0-46.0) % ABG Sodium 130 L (135-146) mmol/L ABG Potassium 6.8 H* 5.2 H 5.4 H (3.4-4.5) mmol/L ABG Ionized Calcium 4.2 L 4.1 L 4.3 L (4.5-5.3) mg/dL ABG Glucose 245 H 169 H 131 H (75-99) mg/dL ABG Lactic Acid 1.7 H (0.5-1.6) mmol/L Hemoglobin 8.6 L 9.1 L 9.3 L (13.0-17.5) gm/dL Chloride (98-107) mmol/L Glucose (74-99) mg/dL POC Glucose (mg/dL) (75-99) mg/dL Magnesium (1.6-2.3) mg/dL Total Protein (6.3-8.2) g/dL Albumin (3.5-5.0) g/dL Arterial Blood Potassium 6.8 H* 5.2 H 5.4 H (3.4-4.5) mmol/L Arterial Blood Glucose 245 H 169 H 131 H (75-99) mg/dL Crossmatch 09/29/18 09/29/18 09/29/18 Range/Units 11:48 12:45 12:45 WBC (3.8-10.6) k/uL RBC 3.21 L (4.30-5.90) m/uL Hgb 10.0 L D (13.0-17.5) gm/dL Hct 30.6 L (39.0-53.0) % Plt Count 128 L (150-450) k/uL Neutrophils # 7.9 H (1.3-7.7) k/uL Lymphocytes # 0.7 L (1.0-4.8) k/uL PT (9.0-12.0) sec INR (<1.2) APTT (22.0-30.0) sec ABG pH 7.33 L (7.35-7.45) ABG pCO2 46 H (35-45) mmHg ABG pO2 381 H (83-108) mmHg ABG HCO3 (21-25) mmol/L ABG Total CO2 25 H (19-24) mmol/L ABG O2 Saturation 99.9 H (94-97) % ABG Hematocrit 29 L (34.0-46.0) % ABG Sodium (135-146) mmol/L ABG Potassium 4.6 H (3.4-4.5) mmol/L ABG Ionized Calcium (4.5-5.3) mg/dL ABG Glucose 104 H (75-99) mg/dL ABG Lactic Acid (0.5-1.6) mmol/L Hemoglobin 9.4 L (13.0-17.5) gm/dL Chloride 110 H (98-107) mmol/L Glucose (74-99) mg/dL POC Glucose (mg/dL) (75-99) mg/dL Magnesium 2.8 H (1.6-2.3) mg/dL Total Protein 4.7 L (6.3-8.2) g/dL Albumin 3.0 L (3.5-5.0) g/dL Arterial Blood Potassium 4.6 H (3.4-4.5) mmol/L Arterial Blood Glucose 104 H (75-99) mg/dL Crossmatch 09/29/18 09/29/18 09/29/18 Range/Units 12:45 13:23 13:24 WBC (3.8-10.6) k/uL RBC (4.30-5.90) m/uL Hgb (13.0-17.5) gm/dL Hct (39.0-53.0) % Plt Count (150-450) k/uL Neutrophils # (1.3-7.7) k/uL Lymphocytes # (1.0-4.8) k/uL PT 12.1 H (9.0-12.0) sec INR 1.3 H (<1.2) APTT 33.5 H (22.0-30.0) sec ABG pH 7.25 L (7.35-7.45) ABG pCO2 60 H (35-45) mmHg ABG pO2 414 H (83-108) mmHg ABG HCO3 (21-25) mmol/L ABG Total CO2 (19-24) mmol/L ABG O2 Saturation 99.3 H (94-97) % ABG Hematocrit (34.0-46.0) % ABG Sodium (135-146) mmol/L ABG Potassium (3.4-4.5) mmol/L ABG Ionized Calcium (4.5-5.3) mg/dL ABG Glucose (75-99) mg/dL ABG Lactic Acid (0.5-1.6) mmol/L Hemoglobin (13.0-17.5) gm/dL Chloride (98-107) mmol/L Glucose (74-99) mg/dL POC Glucose (mg/dL) 111 H (75-99) mg/dL Magnesium (1.6-2.3) mg/dL Total Protein (6.3-8.2) g/dL Albumin (3.5-5.0) g/dL Arterial Blood Potassium (3.4-4.5) mmol/L Arterial Blood Glucose (75-99) mg/dL Crossmatch 09/29/18 09/29/18 09/29/18 Range/Units 14:05 14:21 15:17 WBC (3.8-10.6) k/uL RBC (4.30-5.90) m/uL Hgb (13.0-17.5) gm/dL Hct (39.0-53.0) % Plt Count (150-450) k/uL Neutrophils # (1.3-7.7) k/uL Lymphocytes # (1.0-4.8) k/uL PT (9.0-12.0) sec INR (<1.2) APTT (22.0-30.0) sec ABG pH 7.34 L (7.35-7.45) ABG pCO2 (35-45) mmHg ABG pO2 (83-108) mmHg ABG HCO3 (21-25) mmol/L ABG Total CO2 25 H (19-24) mmol/L ABG O2 Saturation 97.1 H (94-97) % ABG Hematocrit (34.0-46.0) % ABG Sodium (135-146) mmol/L ABG Potassium (3.4-4.5) mmol/L ABG Ionized Calcium (4.5-5.3) mg/dL ABG Glucose (75-99) mg/dL ABG Lactic Acid (0.5-1.6) mmol/L Hemoglobin (13.0-17.5) gm/dL Chloride (98-107) mmol/L Glucose (74-99) mg/dL POC Glucose (mg/dL) 129 H 138 H (75-99) mg/dL Magnesium (1.6-2.3) mg/dL Total Protein (6.3-8.2) g/dL Albumin (3.5-5.0) g/dL Arterial Blood Potassium (3.4-4.5) mmol/L Arterial Blood Glucose (75-99) mg/dL Crossmatch 09/29/18 09/29/18 09/29/18 Range/Units 15:45 15:46 16:51 WBC 12.0 H (3.8-10.6) k/uL RBC 3.55 L (4.30-5.90) m/uL Hgb 11.1 L (13.0-17.5) gm/dL Hct 33.5 L (39.0-53.0) % Plt Count 146 L (150-450) k/uL Neutrophils # 10.4 H (1.3-7.7) k/uL Lymphocytes # 0.7 L (1.0-4.8) k/uL PT (9.0-12.0) sec INR (<1.2) APTT (22.0-30.0) sec ABG pH (7.35-7.45) ABG pCO2 (35-45) mmHg ABG pO2 121 H (83-108) mmHg ABG HCO3 (21-25) mmol/L ABG Total CO2 26 H (19-24) mmol/L ABG O2 Saturation 99.1 H (94-97) % ABG Hematocrit (34.0-46.0) % ABG Sodium (135-146) mmol/L ABG Potassium (3.4-4.5) mmol/L ABG Ionized Calcium (4.5-5.3) mg/dL ABG Glucose (75-99) mg/dL ABG Lactic Acid (0.5-1.6) mmol/L Hemoglobin (13.0-17.5) gm/dL Chloride (98-107) mmol/L Glucose (74-99) mg/dL POC Glucose (mg/dL) 133 H (75-99) mg/dL Magnesium (1.6-2.3) mg/dL Total Protein (6.3-8.2) g/dL Albumin (3.5-5.0) g/dL Arterial Blood Potassium (3.4-4.5) mmol/L Arterial Blood Glucose (75-99) mg/dL Crossmatch 09/29/18 09/29/18 09/29/18 Range/Units 16:51 18:27 18:30 WBC (3.8-10.6) k/uL RBC 3.33 L (4.30-5.90) m/uL Hgb 10.3 L (13.0-17.5) gm/dL Hct 31.2 L (39.0-53.0) % Plt Count 138 L (150-450) k/uL Neutrophils # 8.7 H (1.3-7.7) k/uL Lymphocytes # 0.6 L (1.0-4.8) k/uL PT (9.0-12.0) sec INR (<1.2) APTT (22.0-30.0) sec ABG pH (7.35-7.45) ABG pCO2 (35-45) mmHg ABG pO2 (83-108) mmHg ABG HCO3 (21-25) mmol/L ABG Total CO2 (19-24) mmol/L ABG O2 Saturation (94-97) % ABG Hematocrit (34.0-46.0) % ABG Sodium (135-146) mmol/L ABG Potassium (3.4-4.5) mmol/L ABG Ionized Calcium (4.5-5.3) mg/dL ABG Glucose (75-99) mg/dL ABG Lactic Acid (0.5-1.6) mmol/L Hemoglobin (13.0-17.5) gm/dL Chloride (98-107) mmol/L Glucose (74-99) mg/dL POC Glucose (mg/dL) 136 H 123 H (75-99) mg/dL Magnesium (1.6-2.3) mg/dL Total Protein (6.3-8.2) g/dL Albumin (3.5-5.0) g/dL Arterial Blood Potassium (3.4-4.5) mmol/L Arterial Blood Glucose (75-99) mg/dL Crossmatch 09/29/18 09/29/18 09/29/18 Range/Units 18:30 18:30 19:18 WBC (3.8-10.6) k/uL RBC (4.30-5.90) m/uL Hgb (13.0-17.5) gm/dL Hct (39.0-53.0) % Plt Count (150-450) k/uL Neutrophils # (1.3-7.7) k/uL Lymphocytes # (1.0-4.8) k/uL PT (9.0-12.0) sec INR 1.2 H (<1.2) APTT (22.0-30.0) sec ABG pH (7.35-7.45) ABG pCO2 (35-45) mmHg ABG pO2 (83-108) mmHg ABG HCO3 (21-25) mmol/L ABG Total CO2 (19-24) mmol/L ABG O2 Saturation (94-97) % ABG Hematocrit (34.0-46.0) % ABG Sodium (135-146) mmol/L ABG Potassium (3.4-4.5) mmol/L ABG Ionized Calcium (4.5-5.3) mg/dL ABG Glucose (75-99) mg/dL ABG Lactic Acid (0.5-1.6) mmol/L Hemoglobin (13.0-17.5) gm/dL Chloride 108 H (98-107) mmol/L Glucose 119 H (74-99) mg/dL POC Glucose (mg/dL) 114 H (75-99) mg/dL Magnesium (1.6-2.3) mg/dL Total Protein (6.3-8.2) g/dL Albumin (3.5-5.0) g/dL Arterial Blood Potassium (3.4-4.5) mmol/L Arterial Blood Glucose (75-99) mg/dL Crossmatch 09/29/18 09/29/18 09/29/18 Range/Units 21:20 22:03 23:09 WBC (3.8-10.6) k/uL RBC (4.30-5.90) m/uL Hgb (13.0-17.5) gm/dL Hct (39.0-53.0) % Plt Count (150-450) k/uL Neutrophils # (1.3-7.7) k/uL Lymphocytes # (1.0-4.8) k/uL PT (9.0-12.0) sec INR (<1.2) APTT (22.0-30.0) sec ABG pH (7.35-7.45) ABG pCO2 (35-45) mmHg ABG pO2 (83-108) mmHg ABG HCO3 (21-25) mmol/L ABG Total CO2 (19-24) mmol/L ABG O2 Saturation (94-97) % ABG Hematocrit (34.0-46.0) % ABG Sodium (135-146) mmol/L ABG Potassium (3.4-4.5) mmol/L ABG Ionized Calcium (4.5-5.3) mg/dL ABG Glucose (75-99) mg/dL ABG Lactic Acid (0.5-1.6) mmol/L Hemoglobin (13.0-17.5) gm/dL Chloride (98-107) mmol/L Glucose (74-99) mg/dL POC Glucose (mg/dL) 138 H 140 H 129 H (75-99) mg/dL Magnesium (1.6-2.3) mg/dL Total Protein (6.3-8.2) g/dL Albumin (3.5-5.0) g/dL Arterial Blood Potassium (3.4-4.5) mmol/L Arterial Blood Glucose (75-99) mg/dL Crossmatch 09/30/18 09/30/18 09/30/18 Range/Units 00:26 01:15 02:13 WBC (3.8-10.6) k/uL RBC (4.30-5.90) m/uL Hgb (13.0-17.5) gm/dL Hct (39.0-53.0) % Plt Count (150-450) k/uL Neutrophils # (1.3-7.7) k/uL Lymphocytes # (1.0-4.8) k/uL PT (9.0-12.0) sec INR (<1.2) APTT (22.0-30.0) sec ABG pH (7.35-7.45) ABG pCO2 (35-45) mmHg ABG pO2 (83-108) mmHg ABG HCO3 (21-25) mmol/L ABG Total CO2 (19-24) mmol/L ABG O2 Saturation (94-97) % ABG Hematocrit (34.0-46.0) % ABG Sodium (135-146) mmol/L ABG Potassium (3.4-4.5) mmol/L ABG Ionized Calcium (4.5-5.3) mg/dL ABG Glucose (75-99) mg/dL ABG Lactic Acid (0.5-1.6) mmol/L Hemoglobin (13.0-17.5) gm/dL Chloride (98-107) mmol/L Glucose (74-99) mg/dL POC Glucose (mg/dL) 121 H 117 H 116 H (75-99) mg/dL Magnesium (1.6-2.3) mg/dL Total Protein (6.3-8.2) g/dL Albumin (3.5-5.0) g/dL Arterial Blood Potassium (3.4-4.5) mmol/L Arterial Blood Glucose (75-99) mg/dL Crossmatch 09/30/18 09/30/18 09/30/18 Range/Units 03:13 04:30 04:30 WBC (3.8-10.6) k/uL RBC 2.97 L (4.30-5.90) m/uL Hgb 9.3 L (13.0-17.5) gm/dL Hct 27.9 L (39.0-53.0) % Plt Count 127 L (150-450) k/uL Neutrophils # (1.3-7.7) k/uL Lymphocytes # 0.7 L (1.0-4.8) k/uL PT (9.0-12.0) sec INR 1.2 H (<1.2) APTT 34.9 H (22.0-30.0) sec ABG pH (7.35-7.45) ABG pCO2 (35-45) mmHg ABG pO2 (83-108) mmHg ABG HCO3 (21-25) mmol/L ABG Total CO2 (19-24) mmol/L ABG O2 Saturation (94-97) % ABG Hematocrit (34.0-46.0) % ABG Sodium (135-146) mmol/L ABG Potassium (3.4-4.5) mmol/L ABG Ionized Calcium (4.5-5.3) mg/dL ABG Glucose (75-99) mg/dL ABG Lactic Acid (0.5-1.6) mmol/L Hemoglobin (13.0-17.5) gm/dL Chloride (98-107) mmol/L Glucose (74-99) mg/dL POC Glucose (mg/dL) 121 H (75-99) mg/dL Magnesium (1.6-2.3) mg/dL Total Protein (6.3-8.2) g/dL Albumin (3.5-5.0) g/dL Arterial Blood Potassium (3.4-4.5) mmol/L Arterial Blood Glucose (75-99) mg/dL Crossmatch 09/30/18 09/30/18 09/30/18 Range/Units 04:30 04:30 05:20 WBC (3.8-10.6) k/uL RBC (4.30-5.90) m/uL Hgb (13.0-17.5) gm/dL Hct (39.0-53.0) % Plt Count (150-450) k/uL Neutrophils # (1.3-7.7) k/uL Lymphocytes # (1.0-4.8) k/uL PT (9.0-12.0) sec INR (<1.2) APTT (22.0-30.0) sec ABG pH (7.35-7.45) ABG pCO2 (35-45) mmHg ABG pO2 (83-108) mmHg ABG HCO3 (21-25) mmol/L ABG Total CO2 (19-24) mmol/L ABG O2 Saturation (94-97) % ABG Hematocrit (34.0-46.0) % ABG Sodium (135-146) mmol/L ABG Potassium (3.4-4.5) mmol/L ABG Ionized Calcium (4.5-5.3) mg/dL ABG Glucose (75-99) mg/dL ABG Lactic Acid (0.5-1.6) mmol/L Hemoglobin (13.0-17.5) gm/dL Chloride (98-107) mmol/L Glucose 113 H (74-99) mg/dL POC Glucose (mg/dL) 118 H 126 H (75-99) mg/dL Magnesium (1.6-2.3) mg/dL Total Protein 4.8 L (6.3-8.2) g/dL Albumin 2.9 L (3.5-5.0) g/dL Arterial Blood Potassium (3.4-4.5) mmol/L Arterial Blood Glucose (75-99) mg/dL Crossmatch 09/30/18 09/30/18 09/30/18 Range/Units 06:54 08:09 09:14 WBC (3.8-10.6) k/uL RBC (4.30-5.90) m/uL Hgb (13.0-17.5) gm/dL Hct (39.0-53.0) % Plt Count (150-450) k/uL Neutrophils # (1.3-7.7) k/uL Lymphocytes # (1.0-4.8) k/uL PT (9.0-12.0) sec INR (<1.2) APTT (22.0-30.0) sec ABG pH (7.35-7.45) ABG pCO2 (35-45) mmHg ABG pO2 (83-108) mmHg ABG HCO3 (21-25) mmol/L ABG Total CO2 (19-24) mmol/L ABG O2 Saturation (94-97) % ABG Hematocrit (34.0-46.0) % ABG Sodium (135-146) mmol/L ABG Potassium (3.4-4.5) mmol/L ABG Ionized Calcium (4.5-5.3) mg/dL ABG Glucose (75-99) mg/dL ABG Lactic Acid (0.5-1.6) mmol/L Hemoglobin (13.0-17.5) gm/dL Chloride (98-107) mmol/L Glucose (74-99) mg/dL POC Glucose (mg/dL) 111 H 111 H 117 H (75-99) mg/dL Magnesium (1.6-2.3) mg/dL Total Protein (6.3-8.2) g/dL Albumin (3.5-5.0) g/dL Arterial Blood Potassium (3.4-4.5) mmol/L Arterial Blood Glucose (75-99) mg/dL Crossmatch Assessment and Plan Plan: This is a joint evaluation along with a nurse practitioner. The patient was seen in follow-up today. The patient's postop day #1. Awake and alert. Cardiac output is appropriate at 2.9. Hemodynamically stable. No pressors of been provided. Extubated without any major difficulties yesterday. Adequate pain control. Keep the chest tube in place. We'll continue to follow. His underlying cardiac rhythm is sinus bradycardia. The patient is paced at the rate of 80. We'll keep the pacing for now.
[2018-09-30 10:08] LABS: Glucose,Whole Blood 123 mg/dL (75-99)
[2018-09-30] MEDS ORDERED: FUROSEMIDE 10 MG/ML 2 ML VIAL IV ONE ×2 (10:45→16:02)
[2018-09-30] MEDS: TETRABENAZINE 12.5 MG PO SCH ×2 (10:56→20:19)
[2018-09-30 11:15] LABS: Glucose,Whole Blood 122 mg/dL (75-99)
[2018-09-30] MEDS: SYMBICORT 160-4.5 MCG INHALER INHALATION SCH ×2 (11:22→19:36)
[2018-09-30] MEDS: METOPROLOL TARTRATE 12.5 MG TAB PO SCH ×2 (11:57→20:16)
[2018-09-30] MEDS ORDERED: HYDROcodone/APAP 5-325MG 1 EACH TAB PO PRN (12:18)
[2018-09-30] MEDS ORDERED: BISACODYL 10 MG SUPP RECTAL PRN (12:19)
[2018-09-30] MEDS ORDERED: MAGNESIUM HYDROXIDE 2,400 MG/10 ML CUP PO PRN (12:20)
[2018-09-30 12:22] LABS: Glucose,Whole Blood 127 mg/dL (75-99)
[2018-09-30 13:12] LABS: Glucose,Whole Blood 195 mg/dL (75-99)
--- NOTE | 2018-09-30 14:22 | P.PN ---
Subjective Progress Note Date: 09/30/18 Principal diagnosis: Severely stenotic bicuspid aortic valve. Medical history of previous tobacco dependence, severe COPD with preoperative FEV1 43% of predicted, Savage's chorea, osteoarthritis, congestive heart failure, left sided exudative pleural effusion status post thoracentesis. POD #1 aortic valve replacement using a #23 mm Inspiris-Resilia bovine pericardial bioprosthesis. Exclusion of the left atrial appendage using a 35 mm AtriClip. Intraoperative transesophageal echocardiogram and epi-aortic scanning. The patient is currently sitting up in a recliner in no acute distress. He was successfully extubated last night 5. He had a little issue with hypotension this morning, however he currently remains hemodynamically stable on no inotropes or pressors. He does complain of incisional, surgical type pain, denies shortness of breath. No new complaints. Objective - Vital Signs Vital signs: Vital Signs Temp 98.2 F 09/30/18 12:00 Pulse 81 09/30/18 12:00 Resp 21 09/30/18 12:00 BP 86/51 09/30/18 08:00 Pulse Ox 97 09/30/18 12:00 Intake & Output 09/29/18 09/30/18 09/30/18 18:59 06:59 18:59 Intake Total 975.155 1125.758 2590.249 Output Total 3988 1270 277 Balance -3365.955 725.550 9244.249 Weight 73.573 kg 78.2 kg Intake: IV 476 1668 1965 ACETAMINOPHEN IV (For NPO 200 100 ) 1,000 mg In Empty Bag 1 bag @ 400 mls/hr IVPB Q6HR MEI Rx#:[id number] Albumin Human 5% 250 ml 500 1500 In Empty Bag 1 bag @ 250 mls/hr IVPB Q1HR PRN Rx#: [id number] CO/CI 120 240 40 Lactated Ringers @ 50 ML/ 300 600 250 HR Pressure Bag 54 108 45 ceFAZolin 2,000 mg In 20 30 Sodium Chloride 0.9% 30 ml @ Per Protocol IVPB ONCE ONE Rx#:[id number] Intake, IV Titration 146.045 171.758 25.249 Amount Clevidipine Butyrate 25 52.634 0 mg In Empty Bag 1 bag @ 1 MG/HR 2 mls/hr IV .Q24H MEI Rx#:[id number] Dexmedetomidine/0.9% NaCl 22.209 157.015 23.166 (Pmx) 400 mcg In Empty Bag 1 bag @ Titrate IV . Q0M MEI Rx#:[id number] Insulin Regular 100 unit 14.743 2.083 In Sodium Chloride 0.9% 100 ml @ Per Protocol IV .Q0M MEI Rx#:[id number] Propofol 1,000 mg In 71.202 Empty Bag 1 bag @ Titrate IV .Q0M MEI Rx#: [id number] Tube Feeding 600 Output: Chest Tube Drainage 718 460 160 Left Pleural 252 90 30 Mediastinal X 2 280 220 60 Right Pleural 186 150 70 Urine 1270 810 117 Estimated Blood Loss 1999 Other: Voiding Method Indwelling Catheter Indwelling Catheter Indwelling Catheter ABP, PAP, CO, CI - Last Documented Arterial Blood Pressure 127/45 Pulmonary Artery Pressure 50/18 Cardiac Output 5.4 Cardiac Index 2.9 - Constitutional General appearance: Present: cooperative, no acute distress - Respiratory Details: Lung sounds diminished bilaterally. Respirations even, nonlabored. Currently on 2 L nasal cannula with oxygen saturation 97%. Only able to achieve 500 mL on his incentive spirometry. Weak cough. Mediastinal chest tube to continuous wall suction, 170 mL serosanguineous drainage overnight, 520 mL since surgery. Right pleural chest tube to continuous wall suction, 120 mL serosanguineous drainage overnight, 350 mL since surgery. Left pleural chest tube to continuous wall suction, 80 mL serosanguineous drainage overnight, 350 mL since surgery. No air leaks present. - Cardiovascular Details: S1, S2 present. Regular rate and rhythm, sinus rhythm on telemetry. Sternum stable. A/V epicardial pacemaker wires present, connected to generator, AAI mode with rate 80 bpm this morning, generator currently turned off as patient is in normal sinus rhythm with occasional PACs. Palpable peripheral pulses bilaterally. No edema present. No calf pain or tenderness noted. Right internal jugular [place], right radial arterial line present. Last CO/CI 5.4/2.9 on no inotropes or pressors. Heart hugger in place with patient demonstrating appropriate use. Antiembolism stockings, SCDs present. - Gastrointestinal Gastrointestinal Comment(s): Abdomen soft, nontender, nondistended. Hypoactive bowel sounds present 4 quadrants. Tolerating clear liquids. Positive belching, negative flatus. - Genitourinary Genitourinary Comment(s): Reveles present draining clear, yellow urine. Output 30-60 mL/h overnight. - Integumentary Integumentary Comment(s): Skin is warm and dry with evidence of good perfusion. Anterior chest incision well approximated and covered with dry intact dressing. - Neurologic Neurologic: Present: CNII-XII intact - Musculoskeletal Musculoskeletal: Present: gait normal, strength equal bilaterally - Psychiatric Psychiatric: Present: A&O x's 3, appropriate affect, intact judgment & insight - Allied health notes Allied health notes reviewed: nursing - Labs CBC & Chem 7: 09/30/18 04:30 09/30/18 04:30 Labs: Abnormal Lab Results - Last 24 Hours (Table) 09/17/18 09/29/18 09/29/18 Range/Units 09:00 12:45 12:45 WBC (3.8-10.6) k/uL RBC 3.21 L (4.30-5.90) m/uL Hgb 10.0 L D (13.0-17.5) gm/dL Hct 30.6 L (39.0-53.0) % Plt Count 128 L (150-450) k/uL Neutrophils # 7.9 H (1.3-7.7) k/uL Lymphocytes # 0.7 L (1.0-4.8) k/uL PT (9.0-12.0) sec INR (<1.2) APTT (22.0-30.0) sec ABG pH (7.35-7.45) ABG pCO2 (35-45) mmHg ABG pO2 (83-108) mmHg ABG Total CO2 (19-24) mmol/L ABG O2 Saturation (94-97) % Chloride 110 H (98-107) mmol/L Glucose (74-99) mg/dL POC Glucose (mg/dL) (75-99) mg/dL Magnesium 2.8 H (1.6-2.3) mg/dL Total Protein 4.7 L (6.3-8.2) g/dL Albumin 3.0 L (3.5-5.0) g/dL Crossmatch See Detail 09/29/18 09/29/18 09/29/18 Range/Units 12:45 13:24 14:05 WBC (3.8-10.6) k/uL RBC (4.30-5.90) m/uL Hgb (13.0-17.5) gm/dL Hct (39.0-53.0) % Plt Count (150-450) k/uL Neutrophils # (1.3-7.7) k/uL Lymphocytes # (1.0-4.8) k/uL PT 12.1 H (9.0-12.0) sec INR 1.3 H (<1.2) APTT 33.5 H (22.0-30.0) sec ABG pH 7.25 L (7.35-7.45) ABG pCO2 60 H (35-45) mmHg ABG pO2 414 H (83-108) mmHg ABG Total CO2 (19-24) mmol/L ABG O2 Saturation 99.3 H (94-97) % Chloride (98-107) mmol/L Glucose (74-99) mg/dL POC Glucose (mg/dL) 129 H (75-99) mg/dL Magnesium (1.6-2.3) mg/dL Total Protein (6.3-8.2) g/dL Albumin (3.5-5.0) g/dL Crossmatch 09/29/18 09/29/18 09/29/18 Range/Units 14:21 15:17 15:45 WBC 12.0 H (3.8-10.6) k/uL RBC 3.55 L (4.30-5.90) m/uL Hgb 11.1 L (13.0-17.5) gm/dL Hct 33.5 L (39.0-53.0) % Plt Count 146 L (150-450) k/uL Neutrophils # 10.4 H (1.3-7.7) k/uL Lymphocytes # 0.7 L (1.0-4.8) k/uL PT (9.0-12.0) sec INR (<1.2) APTT (22.0-30.0) sec ABG pH 7.34 L (7.35-7.45) ABG pCO2 (35-45) mmHg ABG pO2 (83-108) mmHg ABG Total CO2 25 H (19-24) mmol/L ABG O2 Saturation 97.1 H (94-97) % Chloride (98-107) mmol/L Glucose (74-99) mg/dL POC Glucose (mg/dL) 138 H (75-99) mg/dL Magnesium (1.6-2.3) mg/dL Total Protein (6.3-8.2) g/dL Albumin (3.5-5.0) g/dL Crossmatch 09/29/18 09/29/18 09/29/18 Range/Units 15:46 16:51 16:51 WBC (3.8-10.6) k/uL RBC (4.30-5.90) m/uL Hgb (13.0-17.5) gm/dL Hct (39.0-53.0) % Plt Count (150-450) k/uL Neutrophils # (1.3-7.7) k/uL Lymphocytes # (1.0-4.8) k/uL PT (9.0-12.0) sec INR (<1.2) APTT (22.0-30.0) sec ABG pH (7.35-7.45) ABG pCO2 (35-45) mmHg ABG pO2 121 H (83-108) mmHg ABG Total CO2 26 H (19-24) mmol/L ABG O2 Saturation 99.1 H (94-97) % Chloride (98-107) mmol/L Glucose (74-99) mg/dL POC Glucose (mg/dL) 133 H 136 H (75-99) mg/dL Magnesium (1.6-2.3) mg/dL Total Protein (6.3-8.2) g/dL Albumin (3.5-5.0) g/dL Crossmatch 09/29/18 09/29/18 09/29/18 Range/Units 18:27 18:30 18:30 WBC (3.8-10.6) k/uL RBC 3.33 L (4.30-5.90) m/uL Hgb 10.3 L (13.0-17.5) gm/dL Hct 31.2 L (39.0-53.0) % Plt Count 138 L (150-450) k/uL Neutrophils # 8.7 H (1.3-7.7) k/uL Lymphocytes # 0.6 L (1.0-4.8) k/uL PT (9.0-12.0) sec INR 1.2 H (<1.2) APTT (22.0-30.0) sec ABG pH (7.35-7.45) ABG pCO2 (35-45) mmHg ABG pO2 (83-108) mmHg ABG Total CO2 (19-24) mmol/L ABG O2 Saturation (94-97) % Chloride (98-107) mmol/L Glucose (74-99) mg/dL POC Glucose (mg/dL) 123 H (75-99) mg/dL Magnesium (1.6-2.3) mg/dL Total Protein (6.3-8.2) g/dL Albumin (3.5-5.0) g/dL Crossmatch 09/29/18 09/29/18 09/29/18 Range/Units 18:30 19:18 21:20 WBC (3.8-10.6) k/uL RBC (4.30-5.90) m/uL Hgb (13.0-17.5) gm/dL Hct (39.0-53.0) % Plt Count (150-450) k/uL Neutrophils # (1.3-7.7) k/uL Lymphocytes # (1.0-4.8) k/uL PT (9.0-12.0) sec INR (<1.2) APTT (22.0-30.0) sec ABG pH (7.35-7.45) ABG pCO2 (35-45) mmHg ABG pO2 (83-108) mmHg ABG Total CO2 (19-24) mmol/L ABG O2 Saturation (94-97) % Chloride 108 H (98-107) mmol/L Glucose 119 H (74-99) mg/dL POC Glucose (mg/dL) 114 H 138 H (75-99) mg/dL Magnesium (1.6-2.3) mg/dL Total Protein (6.3-8.2) g/dL Albumin (3.5-5.0) g/dL Crossmatch 09/29/18 09/29/18 09/30/18 Range/Units 22:03 23:09 00:26 WBC (3.8-10.6) k/uL RBC (4.30-5.90) m/uL Hgb (13.0-17.5) gm/dL Hct (39.0-53.0) % Plt Count (150-450) k/uL Neutrophils # (1.3-7.7) k/uL Lymphocytes # (1.0-4.8) k/uL PT (9.0-12.0) sec INR (<1.2) APTT (22.0-30.0) sec ABG pH (7.35-7.45) ABG pCO2 (35-45) mmHg ABG pO2 (83-108) mmHg ABG Total CO2 (19-24) mmol/L ABG O2 Saturation (94-97) % Chloride (98-107) mmol/L Glucose (74-99) mg/dL POC Glucose (mg/dL) 140 H 129 H 121 H (75-99) mg/dL Magnesium (1.6-2.3) mg/dL Total Protein (6.3-8.2) g/dL Albumin (3.5-5.0) g/dL Crossmatch 09/30/18 09/30/18 09/30/18 Range/Units 01:15 02:13 03:13 WBC (3.8-10.6) k/uL RBC (4.30-5.90) m/uL Hgb (13.0-17.5) gm/dL Hct (39.0-53.0) % Plt Count (150-450) k/uL Neutrophils # (1.3-7.7) k/uL Lymphocytes # (1.0-4.8) k/uL PT (9.0-12.0) sec INR (<1.2) APTT (22.0-30.0) sec ABG pH (7.35-7.45) ABG pCO2 (35-45) mmHg ABG pO2 (83-108) mmHg ABG Total CO2 (19-24) mmol/L ABG O2 Saturation (94-97) % Chloride (98-107) mmol/L Glucose (74-99) mg/dL POC Glucose (mg/dL) 117 H 116 H 121 H (75-99) mg/dL Magnesium (1.6-2.3) mg/dL Total Protein (6.3-8.2) g/dL Albumin (3.5-5.0) g/dL Crossmatch 09/30/18 09/30/18 09/30/18 Range/Units 04:30 04:30 04:30 WBC (3.8-10.6) k/uL RBC 2.97 L (4.30-5.90) m/uL Hgb 9.3 L (13.0-17.5) gm/dL Hct 27.9 L (39.0-53.0) % Plt Count 127 L (150-450) k/uL Neutrophils # (1.3-7.7) k/uL Lymphocytes # 0.7 L (1.0-4.8) k/uL PT (9.0-12.0) sec INR 1.2 H (<1.2) APTT 34.9 H (22.0-30.0) sec ABG pH (7.35-7.45) ABG pCO2 (35-45) mmHg ABG pO2 (83-108) mmHg ABG Total CO2 (19-24) mmol/L ABG O2 Saturation (94-97) % Chloride (98-107) mmol/L Glucose 113 H (74-99) mg/dL POC Glucose (mg/dL) (75-99) mg/dL Magnesium (1.6-2.3) mg/dL Total Protein 4.8 L (6.3-8.2) g/dL Albumin 2.9 L (3.5-5.0) g/dL Crossmatch 09/30/18 09/30/18 09/30/18 Range/Units 04:30 05:20 06:54 WBC (3.8-10.6) k/uL RBC (4.30-5.90) m/uL Hgb (13.0-17.5) gm/dL Hct (39.0-53.0) % Plt Count (150-450) k/uL Neutrophils # (1.3-7.7) k/uL Lymphocytes # (1.0-4.8) k/uL PT (9.0-12.0) sec INR (<1.2) APTT (22.0-30.0) sec ABG pH (7.35-7.45) ABG pCO2 (35-45) mmHg ABG pO2 (83-108) mmHg ABG Total CO2 (19-24) mmol/L ABG O2 Saturation (94-97) % Chloride (98-107) mmol/L Glucose (74-99) mg/dL POC Glucose (mg/dL) 118 H 126 H 111 H (75-99) mg/dL Magnesium (1.6-2.3) mg/dL Total Protein (6.3-8.2) g/dL Albumin (3.5-5.0) g/dL Crossmatch 09/30/18 09/30/18 09/30/18 Range/Units 08:09 09:14 10:05 WBC (3.8-10.6) k/uL RBC (4.30-5.90) m/uL Hgb (13.0-17.5) gm/dL Hct (39.0-53.0) % Plt Count (150-450) k/uL Neutrophils # (1.3-7.7) k/uL Lymphocytes # (1.0-4.8) k/uL PT (9.0-12.0) sec INR (<1.2) APTT (22.0-30.0) sec ABG pH (7.35-7.45) ABG pCO2 (35-45) mmHg ABG pO2 (83-108) mmHg ABG Total CO2 (19-24) mmol/L ABG O2 Saturation (94-97) % Chloride (98-107) mmol/L Glucose (74-99) mg/dL POC Glucose (mg/dL) 111 H 117 H 123 H (75-99) mg/dL Magnesium (1.6-2.3) mg/dL Total Protein (6.3-8.2) g/dL Albumin (3.5-5.0) g/dL Crossmatch 09/30/18 09/30/18 09/30/18 Range/Units 11: 12:19 13:10 WBC (3.8-10.6) k/uL RBC (4.30-5.90) m/uL Hgb (13.0-17.5) gm/dL Hct (39.0-53.0) % Plt Count (150-450) k/uL Neutrophils # (1.3-7.7) k/uL Lymphocytes # (1.0-4.8) k/uL PT (9.0-12.0) sec INR (<1.2) APTT (22.0-30.0) sec ABG pH (7.35-7.45) ABG pCO2 (35-45) mmHg ABG pO2 (83-108) mmHg ABG Total CO2 (19-24) mmol/L ABG O2 Saturation (94-97) % Chloride (98-107) mmol/L Glucose (74-99) mg/dL POC Glucose (mg/dL) 122 H 127 H 195 H (75-99) mg/dL Magnesium (1.6-2.3) mg/dL Total Protein (6.3-8.2) g/dL Albumin (3.5-5.0) g/dL Crossmatch - Imaging and Cardiology Chest x-ray: report reviewed, image reviewed Assessment and Plan (1) Severe aortic stenosis Current Visit: Yes Status: Chronic Code(s): I35.0 - NONRHEUMATIC AORTIC ( VALVE) STENOSIS SNOMED Code(s): 98026465 (2) COPD (chronic obstructive pulmonary disease) Current Visit: Yes Status: Chronic Code(s): J44.9 - CHRONIC OBSTRUCTIVE PULMONARY DISEASE, UNSPECIFIED SNOMED Code(s): 02695574 (3) [place] chorea Current Visit: Yes Status: Chronic Code(s): G10 - SAVAGE'S DISEASE SNOMED Code(s): 89642630 (4) Tobacco dependence in remission Current Visit: No Status: Resolved Code(s): F17.201 - NICOTINE DEPENDENCE, UNSPECIFIED, IN REMISSION SNOMED Code(s): 009693041 (5) History of pleural effusion Current Visit: No Status: Resolved Code(s): Z87.09 - PERSONAL HISTORY OF OTHER DISEASES OF THE RESPIRATORY SYSTEM SNOMED Code(s): 437126407 (6) History of thoracentesis Current Visit: No Status: Resolved Code(s): Z98.890 - OTHER SPECIFIED POSTPROCEDURAL STATES SNOMED Code(s): 539532633 Plan: 1. Continue aspirin, statin. Will add low-dose beta millie and increase as tolerated. 2. Wean O2 as tolerated. Encourage incentive spirometry use 10 times every hour while awake. 3. Increase activity, ambulate as tolerated. PT/OT/cardiac rehab following. 4. DC [place]. Cannot [place] to continue CVP monitoring. 5. Will give Lasix 20 mg IV push 1 today. 6. Bronchodilators, steroids per pulmonology. 7. Will monitor daily labs and x-rays. 8. Insulin management per primary care service. 9. Pain control with current medication regimen. Will add Toradol. 10. Encourage continued smoking cessation. 11. More recommendations to follow. Time with Patient: Greater than 30
[2018-09-30 14:24] LABS: Glucose,Whole Blood 156 mg/dL (75-99)
--- NOTE | 2018-09-30 14:52 | P.CRDCN ---
History of Present Illness Consult date: 09/30/18 Consult reason: aortic stenosis History of present illness: Mr. Gonzales is a 72-year-old gentleman who is seen in the postop period for cardiac evaluation. His patient is known to me patient recently was seen in the hospital with the symptoms of shortness of breath and large pleural effusion. The patient went and analysis of revealed the patient to have a severe degree of aortic stenosis which was a bicuspid aortic valve and did not had any significant coronary artery disease sent to has a moderate to severe COPD is and underwent aortic valve replacement to with using #23 mm bovine pericardial bioprosthesis is patient remains stable overnight. As been extubated. Patient had issues with the hypotension received intravenous fluids and his blood pressure is improved. Past Medical History Past Medical History: COPD Additional Past Medical History / Comment(s): Ina (does not believe that he has); "stroke-like" episode 06-28-18, jerky type movements left arm & leg , mostly resolved, recent hx. pleural effusion, left shoulder pain-hasn't had evaluated yet, accidentally put screw through nose over weekend-dr. sebastian, mostly healed History of Any Multi-Drug Resistant Organisms: None Reported Past Surgical History: Heart Catheterization, Orthopedic Surgery Additional Past Surgical History / Comment(s): left HIP REPLACEMENT Past Anesthesia/Blood Transfusion Reactions: No Reported Reaction Past Psychological History: No Psychological Hx Reported Smoking Status: Former smoker Past Alcohol Use History: None Reported Additional Past Alcohol Use History / Comment(s): quit smoking June 2018, smoked 1ppd for 50 yrs., quit drinking 20 yrs. ago Past Drug Use History: None Reported - Past Family History Mother Family Medical History: Cancer Additional Family Medical History / Comment(s): lung cancer pass away 90 years old Medications and Allergies Home Medications Medication Instructions Recorded Confirmed Type Aclidinium [place] [Tudorza 1 puff INHALATION RT-BID 06/28/18 09/29/18 History Pressair] Mometasone/Formoterol [Dulera 200 2 puff INHALATION RT-BID 06/28/18 09/29/18 History Mcg/5 Mcg Inhaler] Ibuprofen [Motrin] 800 mg PO Q6H PRN 08/06/18 09/29/18 History Aspirin EC [Ecotrin Low Dose] 81 mg PO DAILY 09/17/18 09/29/18 History Cholecalciferol [Vitamin D3] 2,000 unit PO DAILY 09/17/18 09/29/18 History Ipratropium-Albuterol Nebulize 3 ml INHALATION RT-QID PRN 09/17/18 09/29/18 History [Duoneb 0.5 mg-3 mg/3 ml Soln] Tetrabenazine 12.5 mg PO BID 09/17/18 09/29/18 History Allergies Allergy/AdvReac Type Severity Reaction Status Date / Time No Known Allergies Allergy Verified 09/29/18 15:28 Physical Exam Vitals: Vital Signs Temp Pulse Resp BP Pulse Ox 09/30/18 12:00 98.2 F 81 21 97 09/30/18 11:32 84 09/30/18 11:30 75 21 100 09/30/18 11:22 82 09/30/18 11:00 78 31 H 97 09/30/18 10:30 96 27 H 80 L 09/30/18 10:00 80 20 98 09/30/18 09:30 80 27 H 97 09/30/18 09:00 80 22 98 09/30/18 08:30 82 23 97 09/30/18 08:07 80 09/30/18 08:00 97.0 F L 80 16 86/51 100 09/30/18 07:56 80 09/30/18 07:30 80 20 97 09/30/18 07:00 80 18 98 09/30/18 06:30 80 20 97 09/30/18 06:00 80 20 93 L 09/30/18 05:30 80 16 96 09/30/18 05:00 80 26 H 96 09/30/18 04:30 80 16 98 09/30/18 04:00 80 15 99 09/30/18 03:30 80 15 99 09/30/18 03:00 80 15 99 09/30/18 02:30 80 15 99 09/30/18 02:00 80 15 99 09/30/18 01:30 80 16 98 09/30/18 01:00 80 16 99 09/30/18 00:30 80 20 98 09/30/18 00:00 80 18 100 09/29/18 23:30 80 16 100 09/29/18 23:00 80 22 97 09/29/18 22:45 80 21 98 09/29/18 22:30 80 13 98 09/29/18 22:15 80 17 98 09/29/18 22:00 80 18 98 09/29/18 21:45 80 19 97 09/29/18 21:30 80 17 97 09/29/18 21:15 80 17 97 09/29/18 21:00 80 18 96 09/29/18 20:45 80 17 96 09/29/18 20:30 80 26 H 95 09/29/18 20:15 80 20 96 09/29/18 20:00 80 24 94 L 09/29/18 19:45 80 13 94 L 09/29/18 19:37 79 09/29/18 19:30 80 20 99 09/29/18 19:28 80 09/29/18 19:15 80 23 98 09/29/18 19:00 80 16 99 09/29/18 18:45 80 16 99 09/29/18 18:30 80 15 99 09/29/18 18:15 80 17 98 09/29/18 18:00 80 15 99 09/29/18 17:45 80 16 97 09/29/18 17:30 80 17 97 09/29/18 17:15 80 15 92 L 09/29/18 17:00 79 20 99 09/29/18 16:45 80 19 99 09/29/18 16:30 80 19 99 09/29/18 16:15 80 15 99 09/29/18 16:00 80 20 100 09/29/18 15:45 80 20 100 09/29/18 15:36 80 09/29/18 15:30 80 20 100 09/29/18 15:22 80 09/29/18 15:15 80 20 99 09/29/18 15:00 80 20 100 Intake and Output 09/29/18 09/30/18 09/30/18 22:59 06:59 14:59 Intake Total 233.005 0810.810 2593.124 Output Total 1276 795 277 Balance -479.422 633.375 9271.124 Intake: IV 592 1372 1965 ACETAMINOPHEN IV (For NPO 200 100 ) 1,000 mg In Empty Bag 1 bag @ 400 mls/hr IVPB Q6HR [facility] Rx#:[id number] Albumin Human 5% 250 ml 500 1500 In Empty Bag 1 bag @ 250 mls/hr IVPB Q1HR PRN Rx#: [id number] CO/CI 120 180 40 Lactated Ringers @ 50 ML/ 400 400 250 HR Pressure Bag 72 72 45 ceFAZolin 2,000 mg In 20 30 Sodium Chloride 0.9% 30 ml @ Per Protocol IVPB ONCE ONE Rx#:[id number] Intake, IV Titration 204.578 106.810 28.124 Amount Clevidipine Butyrate 25 51.734 mg In Empty Bag 1 bag @ 1 MG/HR 2 mls/hr IV .Q24H [facility] Rx#:[id number] Dexmedetomidine/0.9% NaCl 79.481 99.743 23.166 (Pmx) 400 mcg In Empty Bag 1 bag @ Titrate IV . Q0M [facility] Rx#:[id number] Insulin Regular 100 unit 7.676 7.067 4.958 In Sodium Chloride 0.9% 100 ml @ Per Protocol IV .Q0M [facility] Rx#:[id number] Propofol 1,000 mg In 65.687 Empty Bag 1 bag @ Titrate IV .Q0M [facility] Rx#: [id number] Tube Feeding 600 Output: Chest Tube Drainage 296 370 160 Left Pleural 68 80 30 Mediastinal X 2 156 170 60 Right Pleural 72 120 70 Urine 980 425 117 Other: Voiding Method Indwelling Catheter Indwelling Catheter Indwelling Catheter Weight 73.573 kg 78.2 kg ABP, PAP, CO, CI - Last 8 Hours Arterial Blood Pressure 127/45 Arterial Blood Pressure 131/47 Arterial Blood Pressure 114/43 Arterial Blood Pressure 126/59 Arterial Blood Pressure 130/45 Arterial Blood Pressure 127/45 Arterial Blood Pressure 93/49 Arterial Blood Pressure 108/45 Arterial Blood Pressure 81/42 Arterial Blood Pressure 104/51 Arterial Blood Pressure 110/53 Pulmonary Artery Pressure 50/18 Pulmonary Artery Pressure 44/17 Pulmonary Artery Pressure 50/19 Pulmonary Artery Pressure 64/31 Pulmonary Artery Pressure 48/17 Pulmonary Artery Pressure 53/20 Pulmonary Artery Pressure 58/27 Pulmonary Artery Pressure 55/20 Pulmonary Artery Pressure 43/19 Pulmonary Artery Pressure 47/19 Pulmonary Artery Pressure 30/13 Cardiac Output 5.4 Cardiac Output 5.4 Cardiac Output 5.4 Cardiac Output 5.4 Cardiac Output 4.9 Cardiac Index 2.9 Cardiac Index 2.6 This patient is comfortable currently sitting in a recliner position without any acute distress Patient's vital signs are reviewed. The patient is alert awake and in no acute distress. HEENT negative. Neck-supple no increase in JVP noted no carotid bruits noted. Chest-symmetrical. Heart-first and second heart sounds are normal. No S3 or S4 is noted. No significant murmurs are noted. Lungs bilateral good at entry is noted. Few scattered rhonchi are noted Abdomen-soft. Liver and spleen are not enlarged. The bowel sounds are normal. No tenderness noted Extremities-peripheral pulses since are 2+. No significant leg edema noted. Neuro-no significant gross abnormality noted. Results 09/30/18 04:30 09/30/18 04:30 Cardiac Enzymes 09/29/18 09/30/18 Range/Units 12:45 04:30 AST 25 28 (17-59) U/L Coagulation 09/29/18 09/29/18 09/30/18 Range/Units 12:45 18:30 04:30 PT 12.1 H 11.1 11.1 (9.0-12.0) sec APTT 33.5 H 34.9 H (22.0-30.0) sec CBC 09/29/18 09/29/18 09/29/18 Range/Units 12:45 15:45 18:30 WBC 9.4 12.0 H 10.0 (3.8-10.6) k/uL RBC 3.21 L 3.55 L 3.33 L (4.30-5.90) m/uL Hgb 10.0 L D 11.1 L 10.3 L (13.0-17.5) gm/dL Hct 30.6 L 33.5 L 31.2 L (39.0-53.0) % Plt Count 128 L 146 L 138 L (150-450) k/uL 09/30/18 Range/Units 04:30 WBC 7.8 (3.8-10.6) k/uL RBC 2.97 L (4.30-5.90) m/uL Hgb 9.3 L (13.0-17.5) gm/dL Hct 27.9 L (39.0-53.0) % Plt Count 127 L (150-450) k/uL Comprehensive Metabolic Panel 09/29/18 09/29/18 09/30/18 Range/Units 12:45 18:30 04:30 Sodium 139 137 137 (137-145) mmol/L Potassium 5.0 5.0 4.8 (3.5-5.1) mmol/L Chloride 110 H 108 H 107 (98-107) mmol/L Carbon Dioxide 25 25 25 (22-30) mmol/L BUN 18 19 18 (9-20) mg/dL Creatinine 0.73 0.68 0.71 (0.66-1.25) mg/dL Glucose 91 119 H 113 H (74-99) mg/dL Calcium 8.4 8.5 8.4 (8.4-10.2) mg/dL AST 25 28 (17-59) U/L ALT 35 30 (21-72) U/L Alkaline Phosphatase 41 38 (38-126) U/L Total Protein 4.7 L 4.8 L (6.3-8.2) g/dL Albumin 3.0 L 2.9 L (3.5-5.0) g/dL Current Medications Generic Name Dose Route Start Last Admin Trade Name Freq PRN Reason Stop Dose Admin Hydrocodone Bitart/Acetaminophen 2 each 09/30/18 12:18 [place] 5-325 PO Q4HR PRN Severe Pain Hydrocodone Bitart/Acetaminophen 1 each 09/30/18 12:19 [place] 5-325 PO Q4HR PRN Moderate Pain Albuterol/Ipratropium 3 ml 09/29/18 12:26 Duoneb 0.5 Mg-3 Mg/3 Ml Soln INHALATION RT-Q2H PRN Shortness Of Breath Or Wheezing Albuterol/Ipratropium 3 ml 09/30/18 08:00 09/30/18 11:21 Duoneb 0.5 Mg-3 Mg/3 Ml Soln INHALATION 3 ml RT-QID [facility] Administration Aspirin 325 mg 09/30/18 09:00 09/30/18 08:51 Aspirin PO 325 mg DAILY [facility] Administration Atorvastatin Calcium 40 mg 09/30/18 09:00 09/30/18 08:51 Lipitor PO 40 mg DAILY [facility] Administration Benzocaine/Menthol 1 each 09/29/18 12:26 Cepacol Lozenge MUCOUS MEM Q2H PRN Sore Throat Bisacodyl 10 mg 09/30/18 12:19 Dulcolax RECTAL DAILY PRN Constipation Budesonide/Formoterol Fumarate 2 puff 09/30/18 08:00 09/30/18 11:22 Symbicort 160-4.5 Mcg Inhaler INHALATION 2 puff RT-BID [facility] Administration Cholecalciferol 2,000 unit 09/30/18 09:00 09/30/18 08:51 Vitamin D3 PO 2,000 unit DAILY [facility] Administration Heparin Sodium (Porcine) 5,000 unit 09/30/18 00:00 09/30/18 08:49 Heparin SQ 5,000 unit Q8HR [facility] Administration Acetaminophen 1,000 mg/ IV 100 mls @ 400 mls/hr 09/29/18 18:00 09/30/18 11:22 Solution IVPB 09/30/18 18:01 400 mls/hr Q6HR [facility] Administration Albumin Human 250 ml/ IV 250 mls @ 250 mls/hr 09/29/18 12:26 09/30/18 08:32 Solution IVPB 10/01/18 12:27 250 mls/hr Q1HR PRN Administration For Volume Amiodarone HCl 150 mg/ 103 mls @ 618 mls/hr 09/29/18 12:26 Dextrose/Water IV .Q10M PRN Per protocol Protocol Amiodarone HCl 450 mg/ 259 mls @ 34.53 mls/hr 09/29/18 12:26 Dextrose/Water IV .Q7H31M PRN Per Protocol Protocol 1 MG/MIN Calcium Chloride 1,000 mg/ 110 mls @ 100 mls/hr 09/29/18 12:26 Sodium Chloride IV 10/29/18 12:27 ONCE PRN Ionized Calcium less than 4.4 Clevidipine 25 mg/ IV Solution 50 mls @ 2 mls/hr 09/29/18 12:26 09/29/18 19: 30 IV 8 mg/hr .Q24H [facility] 16 mls/hr Titration Protocol 1 MG/HR Insulin Human Regular 100 unit 101 mls @ 0 mls/hr 09/29/18 12:30 09/30/18 14: 24 / Sodium Chloride IV 0.99 units/hr .Q0M [facility] 1 mls/hr Titration Protocol Per Protocol Ketorolac Tromethamine 15 mg 09/30/18 08:00 09/30/18 13:11 Toradol IVP 10/05/18 08:01 15 mg Q6HR [facility] Administration Magnesium Hydroxide 2,400 mg 09/30/18 12:20 Milk Of Magnesia PO BID PRN Constipation Metoclopramide HCl 10 mg 09/29/18 12:26 Reglan IVP Q4H PRN Nausea And Vomiting Metoprolol Tartrate 12.5 mg 09/30/18 11:00 09/30/18 11:57 Lopressor PO 12.5 mg BID [facility] Administration Miscellaneous Information 1 each 09/29/18 12:26 Magnesium Per Protocol MISCELLANE DAILY PRN Per Protocol Protocol Miscellaneous Information 1 each 09/29/18 12:26 Phosphorus Per Protocol MISCELLANE DAILY PRN Per Protocol Protocol Miscellaneous Information 1 each 09/29/18 12:26 Potassium Per Protocol MISCELLANE DAILY PRN Per Protocol Protocol Mupirocin 1 applic 09/29/18 21:00 09/30/18 08:51 Bactroban Oint NASAL 10/02/18 21:01 1 applic BID [facility] Administration Non-Formulary Medication 12.5 mg 09/30/18 09:00 09/30/18 10:56 Tetrabenazine [Tetrabenazine] PO 12.5 mg BID [facility] Administration Ondansetron HCl 4 mg 09/29/18 12:26 09/30/18 10:33 Zofran IVP 4 mg Q6HR PRN Administration Nausea And Vomiting Pantoprazole Sodium 40 mg 10/01/18 07:30 Protonix PO AC-BRKFST [facility] Senna/Docusate Sodium 2 each 09/30/18 21:00 Senokot-S PO HS [facility] Sodium Chloride 10 ml 09/29/18 21:00 09/30/18 08:48 Saline Flush IV 10 ml BID [facility] Administration Intake and Output 09/29/18 09/30/18 09/30/18 22:59 06:59 14:59 Intake Total 746.225 7740.810 2593.124 Output Total 1276 795 277 Balance -479.422 619.977 3865.124 Intake: IV 592 1372 1965 ACETAMINOPHEN IV (For NPO 200 100 ) 1,000 mg In Empty Bag 1 bag @ 400 mls/hr IVPB Q6HR [facility] Rx#:[id number] Albumin Human 5% 250 ml 500 1500 In Empty Bag 1 bag @ 250 mls/hr IVPB Q1HR PRN Rx#: [id number] CO/CI 120 180 40 Lactated Ringers @ 50 ML/ 400 400 250 HR Pressure Bag 72 72 45 ceFAZolin 2,000 mg In 20 30 Sodium Chloride 0.9% 30 ml @ Per Protocol IVPB ONCE ONE Rx#:[id number] Intake, IV Titration 204.578 106.810 28.124 Amount Clevidipine Butyrate 25 51.734 mg In Empty Bag 1 bag @ 1 MG/HR 2 mls/hr IV .Q24H [facility] Rx#:[id number] Dexmedetomidine/0.9% NaCl 79.481 99.743 23.166 (Pmx) 400 mcg In Empty Bag 1 bag @ Titrate IV . Q0M [facility] Rx#:[id number] Insulin Regular 100 unit 7.676 7.067 4.958 In Sodium Chloride 0.9% 100 ml @ Per Protocol IV .Q0M [facility] Rx#:[id number] Propofol 1,000 mg In 65.687 Empty Bag 1 bag @ Titrate IV .Q0M [facility] Rx#: [id number] Tube Feeding 600 Output: Chest Tube Drainage 296 370 160 Left Pleural 68 80 30 Mediastinal X 2 156 170 60 Right Pleural 72 120 70 Urine 980 425 117 Other: Voiding Method Indwelling Catheter Indwelling Catheter Indwelling Catheter Weight 73.573 kg 78.2 kg 09/30/18 04:30 09/30/18 04:30 EKG Interpretations (text) EKG shows normal sinus rhythm with left ventricular hypertrophy without any acute ischemic changes Assessment and Plan Assessment: This patient is status post aortic valve replacement. His and is hemodynamically stable. No dysrhythmias are noted. We will continue the current medications. Yessy dose will be increased as the patient tolerates.
[2018-09-30 14:53] VITALS: BMI 27.8
[2018-09-30 16:33] LABS: Glucose,Whole Blood 151 mg/dL (75-99)
[2018-09-30 17:06] LABS: Glucose,Whole Blood 149 mg/dL (75-99)
[2018-09-30] MEDS: LACTATED RINGERS 1,000 ML IV SCH (17:47)
[2018-09-30 18:17] LABS: Glucose,Whole Blood 117 mg/dL (75-99)
[2018-09-30 19:24] LABS: Glucose,Whole Blood 106 mg/dL (75-99)
[2018-09-30] MEDS: CLEVIDIPINE BUTYRATE 25 MG in EMPTY BAG 1 BAG IV SCH (19:53)
[2018-09-30 20:06] LABS: Glucose,Whole Blood 115 mg/dL (75-99)
[2018-09-30] MEDS: HYDROcodone/APAP 5-325MG 1 EACH TAB PO PRN (20:17)
[2018-09-30] MEDS: SENNOSIDES-DOCUSATE SODIUM 1 EACH TAB PO SCH (20:17)
--- NOTE | 2018-09-30 20:32 | PN ---
PROGRESS NOTE DATE OF SERVICE: 09/30/18. PRESENTING COMPLAINT: Patient is status post aortic valve replacement. Sitting up on a chair. Did tolerate a liquid diet. The patient did get 2 L of IV fluids earlier for low blood pressure, then got some IV IV Lasix. REVIEW OF SYSTEMS: Done for constitutional, cardiovascular, GI, pulmonary; relevant findings as above. Slightly short of breath. CURRENT MEDICATIONS: Reviewed that include DuoNeb. EXAMINATION: Afebrile, pulse 72, respiration 22, blood pressure 139/47, pulse ox 98% on 2 L. GENERAL APPEARANCE: Sitting up in a chair, tired-appearing. EYES: Pupils equal. Conjunctivae pale. HEENT: External appearance of nose and ears normal. Oral cavity normal. NECK: JVD unable to assess. Mass not palpable. LUNGS: Decreased breath sounds. CARDIOVASCULAR: First and second sounds, no edema. ABDOMEN: Soft, nontender. Liver and spleen not palpable. PSYCHIATRY: Alert and oriented x3. Mood and affect normal. INVESTIGATION: White count 7.8, hemoglobin 9.3, potassium 4.8. ASSESSMENT: 1. Aortic valve replacement, bicuspid, severe aortic stenosis. 2. Recent left pleural effusion that had thoracentesis done, cause undetermined. Negative for malignant cells. 3. Chronic obstructive pulmonary disease in an ex-smoker. 4. Moderate secondary pulmonary hypertension secondary to chronic obstructive pulmonary disease. 5. Acute postoperative blood loss anemia expected from surgery. 6. Dilutional thrombocytopenia. PLAN: Patient is doing better. Continue current medication and treatment plan. Care was discussed with the patient. MMODL / IJN: [id number] /
[2018-09-30 21:04] LABS: Glucose,Whole Blood 130 mg/dL (75-99)
[2018-09-30 22:02] LABS: Glucose,Whole Blood 138 mg/dL (75-99)
[2018-09-30 23:15] LABS: Glucose,Whole Blood 113 mg/dL (75-99)
[2018-10-01 00:17] LABS: Glucose,Whole Blood 111 mg/dL (75-99)
[2018-10-01] MEDS: HEPARIN SODIUM,PORCINE 5,000 UNIT/ML 1 ML VIAL SQ SCH ×4 (00:38→23:09)
[2018-10-01 01:15] LABS: Glucose,Whole Blood 115 mg/dL (75-99)
[2018-10-01 02:11] LABS: Glucose,Whole Blood 117 mg/dL (75-99)
[2018-10-01 03:14] LABS: Glucose,Whole Blood 127 mg/dL (75-99)
[2018-10-01 04:06] LABS: Glucose,Whole Blood 125 mg/dL (75-99)
[2018-10-01] MEDS: HYDROcodone/APAP 5-325MG 1 EACH TAB PO PRN (04:08)
[2018-10-01 04:21] LABS: Basophils % (A) 0 %; Eosinophils # (A) 0.1 k/uL (0-0.7); Eosinophils % (A) 1 %; HCT 26.3 % (39.0-53.0); HGB 8.7 gm/dL (13.0-17.5); Lymphocytes # (A) 0.8 k/uL (1.0-4.8); Lymphocytes % (A) 9 %; MCH 31.3 pg (25.0-35.0); MCHC 33.2 g/dL (31.0-37.0); MCV 94.4 fL (80.0-100.0); Monocytes # (A) 0.6 k/uL (0-1.0); Monocytes % (A) 7 %; Neutrophils # (A) 7.1 k/uL (1.3-7.7); Neutrophils % (A) 81 %; Platelet Count 100 k/uL (150-450); RBC 2.79 m/uL (4.30-5.90); RDW 13.6 % (11.5-15.5); WBC 8.8 k/uL (3.8-10.6)
[2018-10-01 05:14] LABS: Glucose,Whole Blood 124 mg/dL (75-99)
[2018-10-01 05:24] LABS: ALT 29 U/L (21-72); AST 28 U/L (17-59); Albumin 3.4 g/dL (3.5-5.0); Alkaline Phosphatase 40 U/L (38-126); Anion Gap 7 mmol/L; Blood Urea Nitrogen 28 mg/dL (9-20); Calcium 8.8 mg/dL (8.4-10.2); Carbon Dioxide 25 mmol/L (22-30); Chloride 101 mmol/L (98-107); Glucose 117 mg/dL (74-99); Magnesium 2.2 mg/dL (1.6-2.3); Potassium 4.3 mmol/L (3.5-5.1); Sodium 133 mmol/L (137-145); Total Bilirubin 0.8 mg/dL (0.2-1.3); Total Protein 5.3 g/dL (6.3-8.2)
[2018-10-01 06:08] LABS: Glucose,Whole Blood 117 mg/dL (75-99)
[2018-10-01] MEDS: KETOROLAC 30 MG/ML 1 ML VIAL IVP SCH ×4 (06:09→23:09)
[2018-10-01 07:01] LABS: Glucose,Whole Blood 115 mg/dL (75-99)
[2018-10-01] MEDS: PANTOPRAZOLE 40 MG TABLET PO SCH (07:05)
--- NOTE | 2018-10-01 07:19 | XR ---
EXAMINATION TYPE: XR chest 1V portable DATE OF EXAM: 10/01/2018 HISTORY: Post Op CABG COMPARISON: 09/30/2018 TECHNIQUE: Single view of the chest is submitted. FINDINGS: [place]-Ila catheter has been removed. Right IJ sheath is in place. Bilateral chest tubes remain. Post operative changes of CABG. No sizeable pneumothorax. Scattered Pleural-parenchymal opacities may reflect atelectasis. The heart is mildly enlarged. Pulmonary venous congestion persists with scattered areas of atelectasi s. IMPRESSION: 1. Post operative changes of CABG Are essentially stable
[2018-10-01] MEDS: IPRATROPIUM-ALBUTEROL 3 ML NEB INHALATION SCH ×4 (07:31→18:59)
[2018-10-01] MEDS: SYMBICORT 160-4.5 MCG INHALER INHALATION SCH ×2 (07:31→18:59)
[2018-10-01] MEDS: CHOLECALCIFEROL 1,000 UNIT TAB PO SCH (08:11)
[2018-10-01] MEDS: ASPIRIN 325 MG TAB PO SCH (08:11)
[2018-10-01] MEDS: ATORVASTATIN 40 MG TAB PO SCH (08:11)
[2018-10-01] MEDS: METOPROLOL TARTRATE 12.5 MG TAB PO SCH (08:12)
[2018-10-01] MEDS: TETRABENAZINE 12.5 MG PO SCH ×2 (08:14→20:41)
[2018-10-01] MEDS: MUPIROCIN 2% OINT 22 GM TUBE NASAL SCH ×2 (08:14→20:42)
[2018-10-01 12:21] LABS: Glucose,Whole Blood 132 mg/dL (75-99)
[2018-10-01] MEDS: CLEVIDIPINE BUTYRATE 25 MG in EMPTY BAG 1 BAG IV SCH (12:37)
[2018-10-01] MEDS: INSULIN ASPART 100 UNIT/ML 1 ML 10 ML VIAL SQ SCH ×3 (12:39→22:09)
--- NOTE | 2018-10-01 13:08 | P.PN ---
Subjective Progress Note Date: 10/01/18 Principal diagnosis: Aortic valve stenosis, bicuspid aortic valve, status post aortic valve replacement This is 72-year-old white male patient of Dr. Adler with a known history of aortic valve stenosis. SHIRLEY by Dr. Sprague showed a bicuspid calcified aortic valve with severe stenosis. Previous echocardiogram showed EF between 60 and 65 % and moderate pulmonary hypertension with right-sided pressures at 51 mmHg. Recent heart catheterization was negative for any significant coronary artery disease. Patient had a recent hospitalization in June 2018 for neurological symptoms and his workup for CVA and TIA was negative negative brain CAT scan, and MRI. During that same admission patient was found to have a large left pleural effusion and he is status post left thoracentesis, cytology ruled out malignancy, but it showed an exudative effusion, with negative cultures, likely parapneumonic in nature. Patient has a [id number] smoking history, has underlying COPD, his preop PFT showed severe COPD with FEV1 of 1.19 L or 43% of predicted, FVC of 1.99 L or 53%, and diffusion capacity of 45%, the response to bronchodilators indicated reversible component. Patient was recommended to undergo surgical intervention for aortic valve stenosis, and patient underwent elective aortic valve replacement using ovine pericardial bioprosthetic valve, exclusion of left atrial appendage today on 09/29/[address] Wadsworth. Patient is seen postoperative period in the intensive care unit, he is intubated, on mechanical ventilator. His maintenance IV fluid is LR iterated 50 ML per hour, clear proximal is currently at 4 mg per hour, Diprivan at 50 mics per kilo per minute. PA pressures 48/26, CVP of 14, cardiac output and cardiac index is 5.9 3.2. Postop blood gas showed pO2 414, pCO2 of 60, pH of 7.25, and this was done on SIMV of 12, tidal volume 550, FiO2 of 100%, and PEEP of 5. We switched the ventilator settings to assist control mode with a rate of 20, same tidal volume, FiO2 down to 50%, and PEEP of 5. And subsequent blood gases showed improvement with pO2 of 96, pCO2 45, and pH of 7.34. Patient has 2 mediastinal and right and left pleural chest tubes in place with moderate amount of sanguinous drainage. Stop labs showed WBC of 9.4, hemoglobin of 10.0, platelet count was 128, INR of 1.3, electrolytes were unremarkable, BUN of 18, creatinine 0.73. Postoperative chest x-ray has been reviewed by Dr. Pool, and showed postsurgical changes with suspected postop atelectasis, small bilateral pleural effusions. On 09/30/2018 patient seen in follow-up. Postop day 1 status post aortic valve replacement with a bioprosthetic valve. Patient was extubated at 1715 yesterday on 09/29/2018. This morning he is sitting up in the recliner, currently on 2 L per nasal cannula his pulse ox is 97%, he is having mild to moderate amount of incisional discomfort in his midsternal area. He states his it hurts for him to breathe. His incentive spirometer effort is 500 mL. This morning patient was assisted up out of bed, and she did become hypotensive afterwards, he received a total of 2 L of 5% albumin, and subsequently his blood pressure recovered, and currently his PA pressures 54/22, with the CVP 19- 20, serial and CO and CI is 5.4 and 2.2 respectively. Today's chest x-ray showed mild right basilar atelectasis, mild prominence of pulmonary vascular markings. Current IV fluids include lactated Ringer's at a rate of 50 ML per hour, insulin drip at 1 unit per hour. No other drips. Lung sounds are clear, with a few bibasilar crackles. Midsternal incisions clean dry and intact, covered with a surgical dressing, 2 mediastinal and left and right pleural chest tubes are with small amount of serosanguineous output. Today's labs have been reviewed, and show WBC of 7.8, hemoglobin is 9.3, electrolytes and renal profile are within normal limits. On 10/01/2018 patient seen in follow-up in the intensive care unit. He is awake and alert, in no acute distress, sitting up in the chair. Denies acute distress, denies any worsening dyspnea, spirometer effort 1000 ML. Today's chest x-ray has been reviewed by Dr. Pool, showed pulmonary venous congestion with scattered areas of atelectasis. Hemodynamically patient is stable, afebrile. Today's labs have been reviewed, WBC 8.8, hemoglobin is 8.7, sodium is 133, there is symmetrical S1 within normal limits, BUN is 28, creatinine 0.97, LFTs were within normal limits. Patient still has 2 mediastinal and right and left pleural chest tubes in place, and there has been 160 mL out of left pleural, 2:30 out of mediastinal, and right pleural was putting out 400 and last 24 hours. Current IV fluids include lactated ringer's at 25 mL an hour. He is in sinus mechanism with a controlled rate, lung sounds are clear to auscultation, and CT surgery is planning on removing the mediastinal chest tubes today. Objective - Vital Signs Vital signs: Vital Signs Temp 98.4 F 10/01/18 12:00 Pulse 76 10/01/18 12:00 Resp 16 10/01/18 12:00 BP 112/71 10/01/18 12:00 Pulse Ox 97 10/01/18 12:00 Intake & Output 09/30/18 10/01/18 10/01/18 18:59 06:59 18:59 Intake Total 3080.458 470.023 150 Output Total 957 1090 370 Balance 2123.458 -619.977 -220 Weight 78.2 kg 84.4 kg 84.4 kg Intake: IV 2446 312 150 ACETAMINOPHEN IV (For NPO 300 ) 1,000 mg In Empty Bag 1 bag @ 400 mls/hr IVPB Q6HR [facility] Rx#:[id number] Albumin Human 5% 250 ml 1500 In Empty Bag 1 bag @ 250 mls/hr IVPB Q1HR PRN Rx#: [id number] CO/CI 40 Lactated Ringers @ 50 ML/ 480 240 120 HR Pressure Bag 96 72 30 ceFAZolin 2,000 mg In 30 Sodium Chloride 0.9% 30 ml @ Per Protocol IVPB ONCE ONE Rx#:[id number] Intake, IV Titration 34.458 8.023 Amount Dexmedetomidine/0.9% NaCl 23.166 (Pmx) 400 mcg In Empty Bag 1 bag @ Titrate IV . Q0M [facility] Rx#:[id number] Insulin Regular 100 unit 11.292 8.023 In Sodium Chloride 0.9% 100 ml @ Per Protocol IV .Q0M [facility] Rx#:[id number] Oral 150 Tube Feeding 600 Output: Chest Tube Drainage 340 450 100 Left Pleural 60 100 50 Mediastinal X 2 130 100 20 Right Pleural 150 250 30 Urine 617 640 270 Other: Voiding Method Indwelling Catheter Indwelling Catheter Indwelling Catheter ABP, PAP, CO, CI - Last Documented Arterial Blood Pressure 139/62 Pulmonary Artery Pressure 48/19 Cardiac Output 5.4 Cardiac Index 2.9 - Exam GENERAL EXAM: Awake, alert 72-year-old white male patient, on 2 L per nasal cannula, having mild to moderate amount of midsternal incisional discomfort HEAD: Normocephalic/atraumatic. EYES: Normal reaction of pupils, equal size. Conjunctiva pink, sclera white. NOSE: Clear with pink turbinates. THROAT: No erythema or exudates. NECK: No masses, no JVD, no thyroid enlargement, no adenopathy. CHEST: No chest wall deformity. Symmetrical expansion. Midsternal incision is clean dry and intact, 2 mediastinal, right pleural and left pleural chest tubes are in place with moderate amount of sanguinous output in the Pleur-evac, epicardial wires in place with backup rate, patient is in sinus rhythm LUNGS: Equal air entry with fine bibasilar crackles, no wheeze, rhonchi or dullness. CVS: Regular rate and rhythm, normal S1 and S2, no gallops, no murmurs, no rubs ABDOMEN: Soft, nontender. No hepatosplenomegaly, normal bowel sounds, no guarding or rigidity. EXTREMITIES: No clubbing, no edema, no cyanosis, 2+ pulses and upper and lower extremities. MUSCULOSKELETAL: Muscle strength and tone normal. SPINE: No scoliosis or deformity SKIN: No rashes - Labs CBC & Chem 7: 10/01/18 04:05 10/01/18 04:05 Labs: Abnormal Lab Results - Last 24 Hours (Table) 09/30/18 09/30/18 09/30/18 Range/Units 13:10 14:22 16:30 RBC (4.30-5.90) m/uL Hgb (13.0-17.5) gm/dL Hct (39.0-53.0) % Plt Count (150-450) k/uL Lymphocytes # (1.0-4.8) k/uL Sodium (137-145) mmol/L BUN (9-20) mg/dL Glucose (74-99) mg/dL POC Glucose (mg/dL) 195 H 156 H 151 H (75-99) mg/dL Total Protein (6.3-8.2) g/dL Albumin (3.5-5.0) g/dL 09/30/18 09/30/18 09/30/18 Range/Units 17:04 18:15 19:22 RBC (4.30-5.90) m/uL Hgb (13.0-17.5) gm/dL Hct (39.0-53.0) % Plt Count (150-450) k/uL Lymphocytes # (1.0-4.8) k/uL Sodium (137-145) mmol/L BUN (9-20) mg/dL Glucose (74-99) mg/dL POC Glucose (mg/dL) 149 H 117 H 106 H (75-99) mg/dL Total Protein (6.3-8.2) g/dL Albumin (3.5-5.0) g/dL 09/30/18 09/30/18 09/30/18 Range/Units 20:05 21:03 22:00 RBC (4.30-5.90) m/uL Hgb (13.0-17.5) gm/dL Hct (39.0-53.0) % Plt Count (150-450) k/uL Lymphocytes # (1.0-4.8) k/uL Sodium (137-145) mmol/L BUN (9-20) mg/dL Glucose (74-99) mg/dL POC Glucose (mg/dL) 115 H 130 H 138 H (75-99) mg/dL Total Protein (6.3-8.2) g/dL Albumin (3.5-5.0) g/dL 09/30/18 10/01/18 10/01/18 Range/Units 23:13 00:15 01:14 RBC (4.30-5.90) m/uL Hgb (13.0-17.5) gm/dL Hct (39.0-53.0) % Plt Count (150-450) k/uL Lymphocytes # (1.0-4.8) k/uL Sodium (137-145) mmol/L BUN (9-20) mg/dL Glucose (74-99) mg/dL POC Glucose (mg/dL) 113 H 111 H 115 H (75-99) mg/dL Total Protein (6.3-8.2) g/dL Albumin (3.5-5.0) g/dL 10/01/18 10/01/18 10/01/18 Range/Units 02:09 03:12 04:04 RBC (4.30-5.90) m/uL Hgb (13.0-17.5) gm/dL Hct (39.0-53.0) % Plt Count (150-450) k/uL Lymphocytes # (1.0-4.8) k/uL Sodium (137-145) mmol/L BUN (9-20) mg/dL Glucose (74-99) mg/dL POC Glucose (mg/dL) 117 H 127 H 125 H (75-99) mg/dL Total Protein (6.3-8.2) g/dL Albumin (3.5-5.0) g/dL 10/01/18 10/01/18 10/01/18 Range/Units 04:05 04:05 05:13 RBC 2.79 L (4.30-5.90) m/uL Hgb 8.7 L (13.0-17.5) gm/dL Hct 26.3 L (39.0-53.0) % Plt Count 100 L (150-450) k/uL Lymphocytes # 0.8 L (1.0-4.8) k/uL Sodium 133 L (137-145) mmol/L BUN 28 H (9-20) mg/dL Glucose 117 H (74-99) mg/dL POC Glucose (mg/dL) 124 H (75-99) mg/dL Total Protein 5.3 L (6.3-8.2) g/dL Albumin 3.4 L (3.5-5.0) g/dL 10/01/18 10/01/18 10/01/18 Range/Units 06:07 06:59 12:19 RBC (4.30-5.90) m/uL Hgb (13.0-17.5) gm/dL Hct (39.0-53.0) % Plt Count (150-450) k/uL Lymphocytes # (1.0-4.8) k/uL Sodium (137-145) mmol/L BUN (9-20) mg/dL Glucose (74-99) mg/dL POC Glucose (mg/dL) 117 H 115 H 132 H (75-99) mg/dL Total Protein (6.3-8.2) g/dL Albumin (3.5-5.0) g/dL Assessment and Plan Plan: Assessment: #1. Severe symptomatic aortic valve stenosis, with bicuspid aortic valve, status post aortic valve replacement with bioprosthetic valve, left atrial appendage exclusion, postop day 2 #2. Acute blood loss anemia, an expected outcome of cardiothoracic surgery #3. Routine postoperative ventilator management #4. Severe COPD, gold stage III, with preop FEV1 of 43% of predicted #5. History of nicotine dependence, currently in remission, patient carries 55- pack-year smoking history, quit in June 2018 #6. Previous left-sided thoracentesis, that showed exudative pleural effusion, cytology negative for malignancy, cultures were negative, was likely parapneumonic in nature #7. Moderate pulmonary hypertension, with right-sided pressures of 51 mmHg #8. Left upper extremity neurological dysfunction and patient is following with neurology. Previous workup for CVA/TIA in June 2018 was negative for the brain scan and MRI of the brain Plan: Continue current medical treatment, encourage deep breathing and coughing, incentive spirometry use. Ambulation. Today's chest x-ray has been reviewed by Dr. Pool. Labs have been reviewed. Hemodynamically stable, anticipate removal of mediastinal chest tubes today. We'll continue to follow I performed a history & physical examination of the patient and discussed their management with my nurse practitioner, Franny Major. I reviewed the nurse practitioner's note and agree with the documented findings and plan of care. Lung sounds are clear, diminished. The findings and the impression was discussed with the patient. I attest to the documentation by the nurse practitioner. Time with Patient: Greater than 30
--- NOTE | 2018-10-01 14:06 | P.PN ---
Subjective Progress Note Date: 10/01/18 Principal diagnosis: Severely stenotic bicuspid aortic valve. Medical history of previous tobacco dependence, severe COPD with preoperative FEV1 43% of predicted, [place]'s chorea, osteoarthritis, congestive heart failure, left sided exudative pleural effusion status post thoracentesis. POD #2 aortic valve replacement using a #23 mm Inspiris-Resilia bovine pericardial bioprosthesis. Exclusion of the left atrial appendage using a 35 mm AtriClip. Intraoperative transesophageal echocardiogram and epi-aortic scanning. The patient is currently sitting up in a recliner in no acute distress. He does complain of incisional, surgical type pain which is controlled on current medication regimen, denies shortness of breath. No new complaints. He remains hemodynamically stable on no inotropes or pressors. Objective - Vital Signs Vital signs: Vital Signs Temp 98.4 F 10/01/18 12:00 Pulse 90 10/01/18 13:00 Resp 23 10/01/18 13:00 BP 108/71 10/01/18 13:00 Pulse Ox 92 L 10/01/18 13:00 Intake & Output 09/30/18 10/01/18 10/01/18 18:59 06:59 18:59 Intake Total 3080.458 470.023 170 Output Total 957 1090 370 Balance 2123.458 -619.977 -200 Weight 78.2 kg 84.4 kg 84.4 kg Intake: IV 2446 312 170 ACETAMINOPHEN IV (For NPO 300 ) 1,000 mg In Empty Bag 1 bag @ 400 mls/hr IVPB Q6HR [facility] Rx#:[id number] Albumin Human 5% 250 ml 1500 In Empty Bag 1 bag @ 250 mls/hr IVPB Q1HR PRN Rx#: [id number] CO/CI 40 Lactated Ringers @ 50 ML/ 480 240 140 HR Pressure Bag 96 72 30 ceFAZolin 2,000 mg In 30 Sodium Chloride 0.9% 30 ml @ Per Protocol IVPB ONCE ONE Rx#:[id number] Intake, IV Titration 34.458 8.023 Amount Dexmedetomidine/0.9% NaCl 23.166 (Pmx) 400 mcg In Empty Bag 1 bag @ Titrate IV . Q0M [facility] Rx#:[id number] Insulin Regular 100 unit 11.292 8.023 In Sodium Chloride 0.9% 100 ml @ Per Protocol IV .Q0M [facility] Rx#:[id number] Oral 150 Tube Feeding 600 Output: Chest Tube Drainage 340 450 100 Left Pleural 60 100 50 Mediastinal X 2 130 100 20 Right Pleural 150 250 30 Urine 617 640 270 Other: Voiding Method Indwelling Catheter Indwelling Catheter Indwelling Catheter ABP, PAP, CO, CI - Last Documented Arterial Blood Pressure 140/55 Pulmonary Artery Pressure 48/19 Cardiac Output 5.4 Cardiac Index 2.9 - Constitutional General appearance: Present: cooperative, no acute distress - Respiratory Details: Lung sounds diminished bilaterally. Respirations even, nonlabored. Currently on 2 L nasal cannula with oxygen saturation 100%. Able to achieve 1000 mL on his incentive spirometry. Weak cough. Mediastinal chest tube to continuous wall suction, 60 mL serosanguineous drainage overnight, 270 mL in the last 24 hours. Right pleural chest tube to continuous wall suction, 100 mL serosanguineous drainage overnight, 470 mL in the last 24 hours. Left pleural chest tube to continuous wall suction, 60 mL serosanguineous drainage overnight , 270 mL in the last 24 hours. No air leaks present. - Cardiovascular Details: S1, S2 present. Regular rate and rhythm, sinus rhythm on telemetry. Sternum stable. A/V epicardial pacemaker wires present, connected to generator, turned off. Palpable peripheral pulses bilaterally. No edema present. No calf pain or tenderness noted. Right internal jugular Cordis, right radial arterial line present. Heart hugger in place with patient demonstrating appropriate use. Antiembolism stockings, SCDs present. - Gastrointestinal Gastrointestinal Comment(s): Abdomen soft, nontender, nondistended. Active bowel sounds present 4 quadrants. Tolerating diet. Positive flatus. - Genitourinary Genitourinary Comment(s): Reveles present draining clear, yellow urine. Output 35-45 mL/h overnight. - Integumentary Integumentary Comment(s): Skin is warm and dry with evidence of good perfusion. Anterior chest incision well approximated and covered with dry intact dressing. - Neurologic Neurologic: Present: CNII-XII intact - Musculoskeletal Musculoskeletal: Present: gait normal, strength equal bilaterally - Psychiatric Psychiatric: Present: A&O x's 3, appropriate affect, intact judgment & insight - Allied health notes Allied health notes reviewed: nursing - Labs CBC & Chem 7: 10/01/18 04:05 10/01/18 04:05 Labs: Abnormal Lab Results - Last 24 Hours (Table) 09/30/18 09/30/18 09/30/18 Range/Units 14:22 16:30 17:04 RBC (4.30-5.90) m/uL Hgb (13.0-17.5) gm/dL Hct (39.0-53.0) % Plt Count (150-450) k/uL Lymphocytes # (1.0-4.8) k/uL Sodium (137-145) mmol/L BUN (9-20) mg/dL Glucose (74-99) mg/dL POC Glucose (mg/dL) 156 H 151 H 149 H (75-99) mg/dL Total Protein (6.3-8.2) g/dL Albumin (3.5-5.0) g/dL 09/30/18 09/30/18 09/30/18 Range/Units 18:15 19:22 20:05 RBC (4.30-5.90) m/uL Hgb (13.0-17.5) gm/dL Hct (39.0-53.0) % Plt Count (150-450) k/uL Lymphocytes # (1.0-4.8) k/uL Sodium (137-145) mmol/L BUN (9-20) mg/dL Glucose (74-99) mg/dL POC Glucose (mg/dL) 117 H 106 H 115 H (75-99) mg/dL Total Protein (6.3-8.2) g/dL Albumin (3.5-5.0) g/dL 09/30/18 09/30/18 09/30/18 Range/Units 21:03 22:00 23:13 RBC (4.30-5.90) m/uL Hgb (13.0-17.5) gm/dL Hct (39.0-53.0) % Plt Count (150-450) k/uL Lymphocytes # (1.0-4.8) k/uL Sodium (137-145) mmol/L BUN (9-20) mg/dL Glucose (74-99) mg/dL POC Glucose (mg/dL) 130 H 138 H 113 H (75-99) mg/dL Total Protein (6.3-8.2) g/dL Albumin (3.5-5.0) g/dL 10/01/18 10/01/18 10/01/18 Range/Units 00:15 01:14 02:09 RBC (4.30-5.90) m/uL Hgb (13.0-17.5) gm/dL Hct (39.0-53.0) % Plt Count (150-450) k/uL Lymphocytes # (1.0-4.8) k/uL Sodium (137-145) mmol/L BUN (9-20) mg/dL Glucose (74-99) mg/dL POC Glucose (mg/dL) 111 H 115 H 117 H (75-99) mg/dL Total Protein (6.3-8.2) g/dL Albumin (3.5-5.0) g/dL 10/01/18 10/01/18 10/01/18 Range/Units 03:12 04:04 04:05 RBC (4.30-5.90) m/uL Hgb (13.0-17.5) gm/dL Hct (39.0-53.0) % Plt Count (150-450) k/uL Lymphocytes # (1.0-4.8) k/uL Sodium 133 L (137-145) mmol/L BUN 28 H (9-20) mg/dL Glucose 117 H (74-99) mg/dL POC Glucose (mg/dL) 127 H 125 H (75-99) mg/dL Total Protein 5.3 L (6.3-8.2) g/dL Albumin 3.4 L (3.5-5.0) g/dL 10/01/18 10/01/18 10/01/18 Range/Units 04:05 05:13 06:07 RBC 2.79 L (4.30-5.90) m/uL Hgb 8.7 L (13.0-17.5) gm/dL Hct 26.3 L (39.0-53.0) % Plt Count 100 L (150-450) k/uL Lymphocytes # 0.8 L (1.0-4.8) k/uL Sodium (137-145) mmol/L BUN (9-20) mg/dL Glucose (74-99) mg/dL POC Glucose (mg/dL) 124 H 117 H (75-99) mg/dL Total Protein (6.3-8.2) g/dL Albumin (3.5-5.0) g/dL 10/01/18 10/01/18 Range/Units 06:59 12:19 RBC (4.30-5.90) m/uL Hgb (13.0-17.5) gm/dL Hct (39.0-53.0) % Plt Count (150-450) k/uL Lymphocytes # (1.0-4.8) k/uL Sodium (137-145) mmol/L BUN (9-20) mg/dL Glucose (74-99) mg/dL POC Glucose (mg/dL) 115 H 132 H (75-99) mg/dL Total Protein (6.3-8.2) g/dL Albumin (3.5-5.0) g/dL - Imaging and Cardiology Chest x-ray: report reviewed, image reviewed Assessment and Plan (1) Severe aortic stenosis Current Visit: Yes Status: Chronic Code(s): I35.0 - NONRHEUMATIC AORTIC ( VALVE) STENOSIS SNOMED Code(s): 31366695 (2) COPD (chronic obstructive pulmonary disease) Current Visit: Yes Status: Chronic Code(s): J44.9 - CHRONIC OBSTRUCTIVE PULMONARY DISEASE, UNSPECIFIED SNOMED Code(s): 52597644 (3) [place] chorea Current Visit: Yes Status: Chronic Code(s): G10 - SAVAGE'S DISEASE SNOMED Code(s): 60880481 (4) Tobacco dependence in remission Current Visit: No Status: Resolved Code(s): F17.201 - NICOTINE DEPENDENCE, UNSPECIFIED, IN REMISSION SNOMED Code(s): 236325825 (5) History of pleural effusion Current Visit: No Status: Resolved Code(s): Z87.09 - PERSONAL HISTORY OF OTHER DISEASES OF THE RESPIRATORY SYSTEM SNOMED Code(s): 780707170 (6) History of thoracentesis Current Visit: No Status: Resolved Code(s): Z98.890 - OTHER SPECIFIED POSTPROCEDURAL STATES SNOMED Code(s): 606148719 Plan: 1. Continue aspirin, statin, beta millie. Will increase beta millie therapy as tolerated. 2. Wean O2 as tolerated. Encourage incentive spirometry use 10 times every hour while awake. 3. Increase activity, ambulate as tolerated. PT/OT/cardiac rehab following. 4. Mediastinal, right and left pleural chest tubes discontinued without incident. 5. Epicardial pacemaker wires discontinued. 6. Bronchodilators, steroids per pulmonology. 7. Will monitor daily labs and x-rays. No Lasix today. 8. Reveles, Cordis to be discontinued. 9. Insulin management per primary care service. 10. Pain control with current medication regimen. 11. Encourage continued smoking cessation. 12. Transfer orders placed for 3 S. cardiac stepdown unit. May transfer when bed available. 13. Discharge planning in progress. Anticipate discharge to home with home care this weekend. 14. More recommendations to follow. Time with Patient: Greater than 30
--- NOTE | 2018-10-01 15:47 | P.PN ---
Subjective This patient is status post aortic valve replacement. Since medical records reviewed this and remains stable hemodynamically he's sitting in a recliner without any acute distress as any shortness of breath or any new complaints patient is not on any inotropes Objective - Vital Signs Vital signs: Vital Signs Temp 98.4 F 10/01/18 12:00 Pulse 86 10/01/18 15:24 Resp 16 10/01/18 15:24 BP 108/71 10/01/18 13:00 Pulse Ox 94 L 10/01/18 14:31 Intake & Output 09/30/18 10/01/18 10/01/18 18:59 06:59 18:59 Intake Total 3080.458 470.023 170 Output Total 957 1090 370 Balance 2123.458 -619.977 -200 Weight 78.2 kg 84.4 kg 84.4 kg Intake: IV 2446 312 170 ACETAMINOPHEN IV (For NPO 300 ) 1,000 mg In Empty Bag 1 bag @ 400 mls/hr IVPB Q6HR [facility] Rx#:[id number] Albumin Human 5% 250 ml 1500 In Empty Bag 1 bag @ 250 mls/hr IVPB Q1HR PRN Rx#: [id number] CO/CI 40 Lactated Ringers @ 50 ML/ 480 240 140 HR Pressure Bag 96 72 30 ceFAZolin 2,000 mg In 30 Sodium Chloride 0.9% 30 ml @ Per Protocol IVPB ONCE ONE Rx#:[id number] Intake, IV Titration 34.458 8.023 Amount Dexmedetomidine/0.9% NaCl 23.166 (Pmx) 400 mcg In Empty Bag 1 bag @ Titrate IV . Q0M [facility] Rx#:[id number] Insulin Regular 100 unit 11.292 8.023 In Sodium Chloride 0.9% 100 ml @ Per Protocol IV .Q0M [facility] Rx#:[id number] Oral 150 Tube Feeding 600 Output: Chest Tube Drainage 340 450 100 Left Pleural 60 100 50 Mediastinal X 2 130 100 20 Right Pleural 150 250 30 Urine 617 640 270 Other: Voiding Method Indwelling Catheter Indwelling Catheter Indwelling Catheter ABP, PAP, CO, CI - Last Documented Arterial Blood Pressure 140/55 Pulmonary Artery Pressure 48/19 Cardiac Output 5.4 Cardiac Index 2.9 - Exam Recent is not in any acute distress Patient's vital signs are reviewed. The patient is alert awake and in no acute distress. HEENT negative. Neck-supple no increase in JVP noted no carotid bruits noted. Chest-symmetrical. Heart-first and second heart sounds are normal. No S3 or S4 is noted. No significant murmurs are noted. Lungs bilateral good at entry is noted. No rales or rhonchi are noted Abdomen-soft. Liver and spleen are not enlarged. The bowel sounds are normal. No tenderness noted Extremities-peripheral pulses since are 2+. No significant leg edema noted. Neuro-no significant gross abnormality noted. - Labs CBC & Chem 7: 10/01/18 04:05 10/01/18 04:05 Labs: Abnormal Lab Results - Last 24 Hours (Table) 09/30/18 09/30/18 09/30/18 Range/Units 16:30 17:04 18:15 RBC (4.30-5.90) m/uL Hgb (13.0-17.5) gm/dL Hct (39.0-53.0) % Plt Count (150-450) k/uL Lymphocytes # (1.0-4.8) k/uL Sodium (137-145) mmol/L BUN (9-20) mg/dL Glucose (74-99) mg/dL POC Glucose (mg/dL) 151 H 149 H 117 H (75-99) mg/dL Total Protein (6.3-8.2) g/dL Albumin (3.5-5.0) g/dL 09/30/18 09/30/18 09/30/18 Range/Units 19:22 20:05 21:03 RBC (4.30-5.90) m/uL Hgb (13.0-17.5) gm/dL Hct (39.0-53.0) % Plt Count (150-450) k/uL Lymphocytes # (1.0-4.8) k/uL Sodium (137-145) mmol/L BUN (9-20) mg/dL Glucose (74-99) mg/dL POC Glucose (mg/dL) 106 H 115 H 130 H (75-99) mg/dL Total Protein (6.3-8.2) g/dL Albumin (3.5-5.0) g/dL 09/30/18 09/30/18 10/01/18 Range/Units 22:00 23:13 00:15 RBC (4.30-5.90) m/uL Hgb (13.0-17.5) gm/dL Hct (39.0-53.0) % Plt Count (150-450) k/uL Lymphocytes # (1.0-4.8) k/uL Sodium (137-145) mmol/L BUN (9-20) mg/dL Glucose (74-99) mg/dL POC Glucose (mg/dL) 138 H 113 H 111 H (75-99) mg/dL Total Protein (6.3-8.2) g/dL Albumin (3.5-5.0) g/dL 10/01/18 10/01/18 10/01/18 Range/Units 01:14 02:09 03:12 RBC (4.30-5.90) m/uL Hgb (13.0-17.5) gm/dL Hct (39.0-53.0) % Plt Count (150-450) k/uL Lymphocytes # (1.0-4.8) k/uL Sodium (137-145) mmol/L BUN (9-20) mg/dL Glucose (74-99) mg/dL POC Glucose (mg/dL) 115 H 117 H 127 H (75-99) mg/dL Total Protein (6.3-8.2) g/dL Albumin (3.5-5.0) g/dL 10/01/18 10/01/18 10/01/18 Range/Units 04:04 04:05 04:05 RBC 2.79 L (4.30-5.90) m/uL Hgb 8.7 L (13.0-17.5) gm/dL Hct 26.3 L (39.0-53.0) % Plt Count 100 L (150-450) k/uL Lymphocytes # 0.8 L (1.0-4.8) k/uL Sodium 133 L (137-145) mmol/L BUN 28 H (9-20) mg/dL Glucose 117 H (74-99) mg/dL POC Glucose (mg/dL) 125 H (75-99) mg/dL Total Protein 5.3 L (6.3-8.2) g/dL Albumin 3.4 L (3.5-5.0) g/dL 10/01/18 10/01/18 10/01/18 Range/Units 05:13 06:07 06:59 RBC (4.30-5.90) m/uL Hgb (13.0-17.5) gm/dL Hct (39.0-53.0) % Plt Count (150-450) k/uL Lymphocytes # (1.0-4.8) k/uL Sodium (137-145) mmol/L BUN (9-20) mg/dL Glucose (74-99) mg/dL POC Glucose (mg/dL) 124 H 117 H 115 H (75-99) mg/dL Total Protein (6.3-8.2) g/dL Albumin (3.5-5.0) g/dL 10/01/18 Range/Units 12:19 RBC (4.30-5.90) m/uL Hgb (13.0-17.5) gm/dL Hct (39.0-53.0) % Plt Count (150-450) k/uL Lymphocytes # (1.0-4.8) k/uL Sodium (137-145) mmol/L BUN (9-20) mg/dL Glucose (74-99) mg/dL POC Glucose (mg/dL) 132 H (75-99) mg/dL Total Protein (6.3-8.2) g/dL Albumin (3.5-5.0) g/dL Assessment and Plan Assessment: Patient is stable status post aortic valve replacement no dysrhythmias are noted continue current medications.
[2018-10-01 16:59] LABS: Glucose,Whole Blood 179 mg/dL (75-99)
[2018-10-01] MEDS: METOPROLOL TARTRATE 25 MG TAB PO SCH (20:40)
[2018-10-01] MEDS: SENNOSIDES-DOCUSATE SODIUM 1 EACH TAB PO SCH (20:41)
[2018-10-01 23:35] LABS: Glucose,Whole Blood 155 mg/dL (75-99)
[2018-10-02] MEDS: KETOROLAC 30 MG/ML 1 ML VIAL IVP SCH ×4 (06:14→23:36)
[2018-10-02] MEDS: PANTOPRAZOLE 40 MG TABLET PO SCH (06:14)
[2018-10-02] MEDS: INSULIN ASPART 100 UNIT/ML 1 ML 10 ML VIAL SQ SCH ×4 (06:56→20:50)
[2018-10-02 06:57] LABS: Glucose,Whole Blood 117 mg/dL (75-99)
--- NOTE | 2018-10-02 07:08 | XR ---
EXAMINATION TYPE: XR chest 2V DATE OF EXAM: 10/02/2018 COMPARISON: Chest x-ray from yesterday. HISTORY: Post open cardiac surgery progress study. TECHNIQUE: Frontal and lateral views of the chest are obtained. FINDINGS: Overlying sternal wires are redemonstrated. Metallic aortic valve is again seen. Cardiac c losure device posterior to this is redemonstrated. There is interval removal of right internal jugular cordis sheath and right basilar chest tube. There is background chronic parenchymal change with patchy bibasilar opacities more prominent in the right lung base on current study. Small to tiny bilateral pleural effusions are seen confirmed on lat eral view. Cardiac silhouette size is stable and mildly enlarged. Moderate degenerative change bilate ral glenohumeral joints is redemonstrated. IMPRESSION: Interval removal of right-sided chest tube without sizable pneumothorax. Chronic parench ymal changes and cardiomegaly with small to tiny bilateral pleural effusions and persistent bibasilar infiltrate and/or atelectasis. Right basilar findings slightly worsened from most recent prior.
[2018-10-02 07:21] LABS: HCT 28.9 % (39.0-53.0); HGB 9.6 gm/dL (13.0-17.5); MCH 31.4 pg (25.0-35.0); MCHC 33.1 g/dL (31.0-37.0); Platelet Count 125 k/uL (150-450); RBC 3.04 m/uL (4.30-5.90); RDW 13.6 % (11.5-15.5); WBC 9.5 k/uL (3.8-10.6)
[2018-10-02 07:34] LABS: ALT 26 U/L (21-72); AST 31 U/L (17-59); Albumin 3.4 g/dL (3.5-5.0); Alkaline Phosphatase 54 U/L (38-126); Anion Gap 8 mmol/L; Blood Urea Nitrogen 33 mg/dL (9-20); Calcium 9.1 mg/dL (8.4-10.2); Carbon Dioxide 27 mmol/L (22-30); Chloride 102 mmol/L (98-107); Glucose 117 mg/dL (74-99); Magnesium 2.3 mg/dL (1.6-2.3); Potassium 4.5 mmol/L (3.5-5.1); Sodium 137 mmol/L (137-145); Total Bilirubin 0.8 mg/dL (0.2-1.3); Total Protein 5.5 g/dL (6.3-8.2)
--- NOTE | 2018-10-02 07:46 | PN ---
PROGRESS NOTE DATE OF SERVICE: 10/01/2018 PRESENTING COMPLAINT: Aortic valve replacement. INTERVAL HISTORY: Patient is status post AVR. Saw the patient in the ICU this morning. Sitting up in a chair, doing much better. Did tolerate his diet. Did actually have a bowel movement, breathing is getting better, off any drips. Overall feeling much better. REVIEW OF SYSTEMS: Done for constitutional, cardiovascular, GI, pulmonary; relevant findings as above. CURRENT MEDICATIONS: Reviewed that include DuoNeb, IV amiodarone, Lipitor. PHYSICAL EXAMINATION: Temperature 98.4, pulse 76, respirations 16, blood pressure 112/71, pulse ox 97%,. GENERAL APPEARANCE: Sitting up, more comfortable. EYES: Pupils equal, conjunctivae are normal. HEENT: External appearance of nose and ears normal. Oral cavity normal. NECK: JVD unable to assess. Mass not palpable. LUNGS: Decreased breath sounds. CARDIOVASCULAR: First and second sounds are normal. No edema. ABDOMEN: Soft, nontender. Liver and spleen not palpable. PSYCHIATRY: Alert and oriented x3. Mood and affect was normal. INVESTIGATIONS: Accu-Cheks are noted. White count 8.8, hemoglobin 8.7, platelets 100. Potassium 4.3, BUN 28, creatinine 0.97. Chest x-ray is also noted. ASSESSMENT: 1. Aortic valve replacement, bicuspid severe for aortic severe aortic stenosis. 2. Recent left pleural effusion that had thoracentesis, cause undetermined, negative for malignant cells. 3. Chronic obstructive pulmonary disease in an ex-smoker. 4. Moderate secondary pulmonary hypertension secondary to chronic obstructive pulmonary disease. 5. Acute postoperative blood loss anemia expected from surgery. 6. Dilutional thrombocytopenia. PLAN: Overall patient doing much better. Continue current medication and treatment plan. Dr. Beck has been following up the patient for the left pleural effusion as an outpatient. MMODL / IJN: [id number] /
[2018-10-02] MEDS: TETRABENAZINE 12.5 MG PO SCH ×2 (08:32→20:59)
[2018-10-02] MEDS: CHOLECALCIFEROL 1,000 UNIT TAB PO SCH (08:32)
[2018-10-02] MEDS: METOPROLOL TARTRATE 25 MG TAB PO SCH ×2 (08:32→20:59)
[2018-10-02] MEDS: ATORVASTATIN 40 MG TAB PO SCH (08:32)
[2018-10-02] MEDS: ASPIRIN 325 MG TAB PO SCH (08:32)
[2018-10-02] MEDS: HEPARIN SODIUM,PORCINE 5,000 UNIT/ML 1 ML VIAL SQ SCH ×3 (08:33→23:35)
[2018-10-02] MEDS: MUPIROCIN 2% OINT 22 GM TUBE NASAL SCH ×2 (08:33→21:00)
[2018-10-02] MEDS: SYMBICORT 160-4.5 MCG INHALER INHALATION SCH ×2 (09:18→20:29)
[2018-10-02] MEDS: IPRATROPIUM-ALBUTEROL 3 ML NEB INHALATION SCH ×4 (09:18→20:29)
[2018-10-02 11:24] LABS: Glucose,Whole Blood 118 mg/dL (75-99)
--- NOTE | 2018-10-02 11:49 | PN ---
PROGRESS NOTE This patient is status post aortic valve replacement. Patient is feeling well. He has a mild exertional shortness of breath. Patient denies any cough with expectoration. Patient's heart rate is 100, blood pressure is 127/59 mmHg. First and second heart sounds are normal. Lungs reveal a few scattered crackles. Chest x-ray does not show any significant abnormality. We will continue the current medications. MMODL / IJN: [id number] /
--- NOTE | 2018-10-02 15:05 | P.PN ---
Subjective Progress Note Date: 10/02/18 On 10/02/2018 the patient is postop day #3. The patient is postop aortic valve replacement. The patient also underwent an appendage clipping. The patient is doing well. The patient's emulating. All of the chest tubes are removed. He is hemodynamically stable. He is afebrile. No chest pain. No tachycardia. Surgical wound site is dry clean and intact. The patient had a preop FEV1 of 43 % of predicted and is known to have COPD. No cough. No significant sputum production. Chest x-ray from today shows cardiomegaly and tiny pleural effusions. Patient himself does not have any complaints. Is using incentive spirometer. Objective - Vital Signs Vital signs: Vital Signs Temp 97.6 F 10/02/18 11:55 Pulse 94 10/02/18 12:39 Resp 20 10/02/18 11:55 BP 112/69 10/02/18 11:55 Pulse Ox 91 L 10/02/18 11:55 Intake & Output 10/01/18 10/02/18 10/02/18 18:59 06:59 18:59 Intake Total 170 240 Output Total 370 650 Balance -200 -650 240 Weight 84.4 kg 115 kg Intake: IV 170 Lactated Ringers @ 50 ML/ 140 HR Pressure Bag 30 Oral 240 Output: Chest Tube Drainage 100 Left Pleural 50 Mediastinal X 2 20 Right Pleural 30 Urine 270 650 Other: Voiding Method Indwelling Catheter # Voids 1 ABP, PAP, CO, CI - Last Documented Arterial Blood Pressure 154/55 Pulmonary Artery Pressure 48/19 Cardiac Output 5.4 Cardiac Index 2.9 - Exam - Constitutional General appearance: Present: cooperative, no acute distress - Respiratory Details: Lung sounds diminished bilaterally. Stable clean and intact and the patient's chest physical removed. Diminished breath sounds are appreciated lung bases bilaterally. - Cardiovascular Details: S1, S2 present. Regular rate and rhythm, sinus rhythm on telemetry. Sternum stable. - Gastrointestinal Gastrointestinal Comment(s): Abdomen soft, nontender, nondistended. Active bowel sounds present 4 quadrants. Tolerating diet. Positive flatus. - Genitourinary Genitourinary Comment(s): Reveles present draining clear, yellow urine. Output 35-45 mL/h overnight. - Integumentary Integumentary Comment(s): Skin is warm and dry with evidence of good perfusion. Anterior chest incision well approximated and covered with dry intact dressing. - Neurologic Neurologic: Present: CNII-XII intact - Musculoskeletal Musculoskeletal: Present: gait normal, strength equal bilaterally - Psychiatric Psychiatric: Present: A&O x's 3, appropriate affect, intact judgment & insight - Labs CBC & Chem 7: 10/02/18 06:09 10/02/18 06:09 Labs: Abnormal Lab Results - Last 24 Hours (Table) 10/01/18 10/01/18 10/02/18 Range/Units 16:57 23:34 06:09 RBC (4.30-5.90) m/uL Hgb (13.0-17.5) gm/dL Hct (39.0-53.0) % Plt Count (150-450) k/uL BUN 33 H (9-20) mg/dL Glucose 117 H (74-99) mg/dL POC Glucose (mg/dL) 179 H 155 H (75-99) mg/dL Total Protein 5.5 L (6.3-8.2) g/dL Albumin 3.4 L (3.5-5.0) g/dL 10/02/18 10/02/18 10/02/18 Range/Units 06:09 06:55 11:23 RBC 3.04 L (4.30-5.90) m/uL Hgb 9.6 L (13.0-17.5) gm/dL Hct 28.9 L (39.0-53.0) % Plt Count 125 L (150-450) k/uL BUN (9-20) mg/dL Glucose (74-99) mg/dL POC Glucose (mg/dL) 117 H 118 H (75-99) mg/dL Total Protein (6.3-8.2) g/dL Albumin (3.5-5.0) g/dL Assessment and Plan Plan: Assessment 1 severe symptomatic aortic stenosis, bicuspid aortic valve status post aortic valve replacement and the patient is postop day #3. The patient underwent also left atrial appendage clipping 2 post thoracotomy chest tube and respiratory failure, expected outcomes of surgery, chest is of minimal than the patient is doing well using incentive spirometer and the chest x-ray from today shows small atelectatic changes and small effusion the lung bases bilaterally 3 severe COPD with an FEV1 of 43% of predicted 4 [id number] smoking history 5 moderate degree of pulmonary hypertension with a preop. Pressure of around 51 6 Peri's disease Plan Continue using the incentive spirometer. Pulmonary toileting. Ambulation. DuoNeb nebulized treatments [id number]. No cough or pain control. Aspirin. Plavix. Beta blockers. Continue the statins. chest x-ray was reviewed. We'll continue to follow.
--- NOTE | 2018-10-02 15:13 | P.PN ---
Subjective Progress Note Date: 10/02/18 Principal diagnosis: Severely stenotic bicuspid aortic valve. Medical history of previous tobacco dependence, severe COPD with preoperative FEV1 43% of predicted, Belmont's chorea, osteoarthritis, congestive heart failure, left sided exudative pleural effusion status post thoracentesis in June 2018. POD #3 aortic valve replacement using a #23 mm Inspiris-Resilia bovine pericardial bioprosthesis. Exclusion of the left atrial appendage using a 35 mm AtriClip. Intraoperative transesophageal echocardiogram and epi-aortic scanning. The patient is currently sitting up in a recliner in no acute distress. He does complaints of pain at this time, he does report that he gets some shortness of breath with activity. He remains hemodynamically stable and is on the 3 self selective care unit. He reports that he ambulated already this morning with physical therapy's assistance. Objective - Vital Signs Vital signs: Vital Signs Temp 97.6 F 10/02/18 11:55 Pulse 94 10/02/18 12:39 Resp 20 10/02/18 11:55 BP 112/69 10/02/18 11:55 Pulse Ox 91 L 10/02/18 11:55 Intake & Output 10/01/18 10/02/18 10/02/18 18:59 06:59 18:59 Intake Total 170 240 Output Total 370 650 Balance -200 -650 240 Weight 84.4 kg 115 kg Intake: IV 170 Lactated Ringers @ 50 ML/ 140 HR Pressure Bag 30 Oral 240 Output: Chest Tube Drainage 100 Left Pleural 50 Mediastinal X 2 20 Right Pleural 30 Urine 270 650 Other: Voiding Method Indwelling Catheter # Voids 1 ABP, PAP, CO, CI - Last Documented Arterial Blood Pressure 154/55 Pulmonary Artery Pressure 48/19 Cardiac Output 5.4 Cardiac Index 2.9 - Constitutional General appearance: Present: cooperative, no acute distress, obese - Respiratory Details: Lung sounds are essentially clear throughout, diminished his bilateral bases. Respirations are symmetrical and nonlabored. Oxygen saturation are 98% on 2 L nasal cannula. He is achieving 1000 mL on his incentive spirometry with encouragement. - Cardiovascular Details: Regular rhythm and rate. S1 and S2 present, negative for S3, gallop or murmur. Sternum is stable. Remote telemetry showing sinus tachycardia heart rate 99. No edema is present. Knee-high TAZ hose and sequential compression devices in place was bilateral lower extremities. Heart hugger is in place and he is demonstrating appropriate use. - Gastrointestinal Gastrointestinal Comment(s): Abdomen is soft, nontender and nondistended. Active bowel sounds all 4 abdominal quadrants. Tolerating oral intake. Bowel movement this a.m. - Genitourinary Genitourinary Comment(s): Voiding clear yellow urine. 300 mL output in the last 8 hours. - Integumentary Integumentary Comment(s): Skin is warm and dry. No clubbing or cyanosis present. Midline sternal incision clean and dry and intact. No redness or drainage present. Dressing is clean, dry and intact. - Neurologic Neurologic: Present: CNII-XII intact - Musculoskeletal Musculoskeletal: Present: gait normal, strength equal bilaterally - Psychiatric Psychiatric: Present: A&O x's 3, appropriate affect, intact judgment & insight - Allied health notes Allied health notes reviewed: nursing - Labs CBC & Chem 7: 10/02/18 06:09 10/02/18 06:09 Labs: Abnormal Lab Results - Last 24 Hours (Table) 10/01/18 10/01/18 10/02/18 Range/Units 16:57 23:34 06:09 RBC (4.30-5.90) m/uL Hgb (13.0-17.5) gm/dL Hct (39.0-53.0) % Plt Count (150-450) k/uL BUN 33 H (9-20) mg/dL Glucose 117 H (74-99) mg/dL POC Glucose (mg/dL) 179 H 155 H (75-99) mg/dL Total Protein 5.5 L (6.3-8.2) g/dL Albumin 3.4 L (3.5-5.0) g/dL 10/02/18 10/02/18 10/02/18 Range/Units 06:09 06:55 11:23 RBC 3.04 L (4.30-5.90) m/uL Hgb 9.6 L (13.0-17.5) gm/dL Hct 28.9 L (39.0-53.0) % Plt Count 125 L (150-450) k/uL BUN (9-20) mg/dL Glucose (74-99) mg/dL POC Glucose (mg/dL) 117 H 118 H (75-99) mg/dL Total Protein (6.3-8.2) g/dL Albumin (3.5-5.0) g/dL - Imaging and Cardiology Chest x-ray: report reviewed, image reviewed Assessment and Plan (1) COPD (chronic obstructive pulmonary disease) Current Visit: Yes Status: Chronic Code(s): J44.9 - CHRONIC OBSTRUCTIVE PULMONARY DISEASE, UNSPECIFIED SNOMED Code(s): 28437939 (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 Code(s): G10 - SAVAGE'S DISEASE SNOMED Code(s): 62406115 (3) Severe aortic stenosis Current Visit: Yes Status: Chronic Code(s): I35.0 - NONRHEUMATIC AORTIC ( VALVE) STENOSIS SNOMED Code(s): 99195244 (4) History of pleural effusion Current Visit: No Status: Resolved Code(s): Z87.09 - PERSONAL HISTORY OF OTHER DISEASES OF THE RESPIRATORY SYSTEM SNOMED Code(s): 255664547 (5) History of thoracentesis Current Visit: No Status: Resolved Code(s): Z98.890 - OTHER SPECIFIED POSTPROCEDURAL STATES SNOMED Code(s): 250849425 (6) Tobacco dependence in remission Current Visit: No Status: Resolved Code(s): F17.201 - NICOTINE DEPENDENCE, UNSPECIFIED, IN REMISSION SNOMED Code(s): 379376150 Plan: 1. Continue aspirin, statin and beta millie. Will increase beta millie therapy as tolerated. 2. Wean O2 as tolerated. Encourage incentive spirometry use 10 times every hour while awake. 3. Increase activity and ambulate as tolerated. PT/OT/cardiac rehab following. 4. Bronchodilators, steroids per pulmonology management. 5. Will monitor daily labs and chest x-rays. 6. Pain control with current medication regimen. 7. Insulin management per primary care service. 8. Reinforced the importance of and encourage continued smoking cessation. 9. Will postoperative shower today. 10. Discharge planning in progress. Anticipate discharge to home with home care this weekend. 11. GI and DVT prophylaxis in place, continue heparin subcu, SCDs and Protonix. 12. More recommendations to follow based on patient's clinical course. Time with Patient: Greater than 30
[2018-10-02 16:34] LABS: Glucose,Whole Blood 154 mg/dL (75-99)
[2018-10-02] MEDS: LACTATED RINGERS 1,000 ML IV SCH ×3 (20:44→20:47)
[2018-10-02 20:50] LABS: Glucose,Whole Blood 119 mg/dL (75-99)
[2018-10-02] MEDS: SENNOSIDES-DOCUSATE SODIUM 1 EACH TAB PO SCH (20:59)
[2018-10-02] MEDS: AMIODARONE 450 MG in DEXTROSE 5% IN WATER 250 ML IV PRN ×2 (23:45)
[2018-10-02] MEDS: DEXTROSE 5% IN WATER 100 ML with AMIODARONE 150 MG IV PRN (23:46)
[2018-10-03 02:03] LABS: Glucose,Whole Blood 132 mg/dL (75-99)
--- NOTE | 2018-10-03 02:03 | PN ---
PROGRESS NOTE DATE OF SERVICE: October 02, 2018. PRESENTING COMPLAINT: Aortic valve replacement. INTERVAL HISTORY: Patient is status post AVR. Continues to improve. Up and about, tolerating a diet. Breathing is getting better. Tolerating a diet. REVIEW OF SYSTEMS: Done for constitutional, cardiovascular, GI, pulmonary and relevant findings as above. CURRENT MEDICATIONS: Reviewed. PHYSICAL EXAMINATION: On examination, temperature 97.8, pulse 91, respiratory 18, blood pressure 101/56, pulse ox 95 percent on 2 L. GENERAL APPEARANCE: Sitting up, appears comfortable. EYES: Pupils are equal. Conjunctivae normal. HEENT: External appearance of nose and ears normal. Oral cavity normal. NECK: JVD not raised. Mass not palpable. RESPIRATORY: Effort normal. LUNGS: Diminished breath sounds. CARDIOVASCULAR: 1st and 2nd sounds normal. No edema. ABDOMEN: Soft, nontender. Liver and spleen not palpable. PSYCHIATRY: Alert and oriented x3. Mood and affect normal. INVESTIGATIONS: White count 9.5, hemoglobin 9.6, platelets 125, potassium 4.5. Accu-Cheks are noted. ASSESSMENT: 1. Aortic valve replacement, bicuspid for severe aortic stenosis. 2. Recent left pleural effusion that had thoracentesis, cause undetermined, negative for malignancy. 3. Chronic obstructive pulmonary disease in an ex-smoker. 4. Moderate secondary pulmonary hypertension secondary to chronic obstructive pulmonary disease. 5. Acute postoperative blood loss anemia as expected from surgery. 6. Dilutional thrombocytopenia. PLAN: Patient continues to improve. Continue current medication and treatment plan. Care was discussed with the patient. MMODL / IJN: [id number] /
[2018-10-03] MEDS: DEXTROSE 5% IN WATER 100 ML with AMIODARONE 150 MG IV PRN (02:24)
[2018-10-03] MEDS: AMIODARONE 450 MG in DEXTROSE 5% IN WATER 250 ML IV PRN ×2 (02:36)
[2018-10-03] MEDS: IPRATROPIUM-ALBUTEROL 3 ML NEB INHALATION SCH ×4 (05:12→20:26)
[2018-10-03] MEDS: SYMBICORT 160-4.5 MCG INHALER INHALATION SCH ×2 (05:12→20:26)
[2018-10-03 05:51] LABS: Glucose,Whole Blood 125 mg/dL (75-99)
[2018-10-03] MEDS: INSULIN ASPART 100 UNIT/ML 1 ML 10 ML VIAL SQ SCH ×4 (06:00→20:58)
[2018-10-03] MEDS: METOPROLOL TARTRATE 25 MG TAB PO SCH ×3 (06:10→23:14)
[2018-10-03] MEDS: KETOROLAC 30 MG/ML 1 ML VIAL IVP SCH ×4 (06:10→23:11)
[2018-10-03] MEDS: PANTOPRAZOLE 40 MG TABLET PO SCH (06:10)
--- NOTE | 2018-10-03 06:31 | XR ---
EXAMINATION TYPE: XR chest 2V DATE OF EXAM: 10/03/2018 HISTORY: post cardiac surgery. REFERENCE: Previous study dated 10/02/2018. FINDINGS: There has been a midline sternotomy. There continues to be bibasilar atelectasis. There are bilateral effusions. The heart is enlarged. There is mild vascular congestion. IMPRESSION: NO SIGNIFICANT INTERVAL CHANGE IN THE APPEARANCE OF THE CHEST.
[2018-10-03 06:32] LABS: HCT 26.9 % (39.0-53.0); HGB 8.9 gm/dL (13.0-17.5); MCH 31.7 pg (25.0-35.0); MCHC 33.1 g/dL (31.0-37.0); MCV 95.7 fL (80.0-100.0); Mean Platelet Volume 8.3; Platelet Count 124 k/uL (150-450); RBC 2.81 m/uL (4.30-5.90); RDW 13.6 % (11.5-15.5); WBC 6.3 k/uL (3.8-10.6)
[2018-10-03 06:40] LABS: ALT 34 U/L (21-72); AST 34 U/L (17-59); Albumin 3.2 g/dL (3.5-5.0); Alkaline Phosphatase 61 U/L (38-126); Anion Gap 6 mmol/L; Blood Urea Nitrogen 27 mg/dL (9-20); Calcium 8.9 mg/dL (8.4-10.2); Carbon Dioxide 27 mmol/L (22-30); Chloride 103 mmol/L (98-107); Glucose 128 mg/dL (74-99); Magnesium 2.3 mg/dL (1.6-2.3); Potassium 4.5 mmol/L (3.5-5.1); Sodium 136 mmol/L (137-145); Total Bilirubin 0.9 mg/dL (0.2-1.3); Total Protein 5.3 g/dL (6.3-8.2)
[2018-10-03] MEDS: CHOLECALCIFEROL 1,000 UNIT TAB PO SCH (08:49)
[2018-10-03] MEDS: ASPIRIN 325 MG TAB PO SCH (08:49)
[2018-10-03] MEDS: ATORVASTATIN 40 MG TAB PO SCH (08:49)
[2018-10-03] MEDS: TETRABENAZINE 12.5 MG PO SCH ×2 (08:50→20:59)
[2018-10-03] MEDS: HEPARIN SODIUM,PORCINE 5,000 UNIT/ML 1 ML VIAL SQ SCH ×3 (08:50→23:10)
[2018-10-03] MEDS ORDERED: AMIODARONE 200 MG TAB PO SCH (12:15)
[2018-10-03 12:16] LABS: Glucose,Whole Blood 120 mg/dL (75-99)
--- NOTE | 2018-10-03 13:05 | P.PN ---
Subjective Progress Note Date: 10/03/18 Principal diagnosis: Severely stenotic bicuspid aortic valve. Medical history of previous tobacco dependence, severe COPD with preoperative FEV1 43% of predicted, Sumter's chorea, osteoarthritis, congestive heart failure, left sided exudative pleural effusion status post thoracentesis in June 2018. POD #4 aortic valve replacement using a #23 mm Inspiris-Resilia bovine pericardial bioprosthesis. Exclusion of the left atrial appendage using a 35 mm AtriClip. Intraoperative transesophageal echocardiogram and epi-aortic scanning. Postoperative paroxysmal atrial fibrillation, an unexpected outcome of surgery. The patient is currently sitting up in a recliner in no acute distress. He does complaints of pain at this time, he reports that his shortness of breath has improved since yesterday with activity. He remains hemodynamically stable. The patient reports that he did have 1 episode around 8:30 this morning of dizziness, which has resolved at this time. He is ambulating in the 3 self hallways with assistance from physical therapy. The patient's RN reports that he had some paroxysmal atrial fibrillation throughout the evening, currently he is in normal sinus rhythm heart rate 69. Objective - Vital Signs Vital signs: Vital Signs Temp 96.0 F L 10/03/18 11:58 Pulse 76 10/03/18 11:58 Resp 22 10/03/18 11:58 BP 118/55 10/03/18 11:58 Pulse Ox 97 10/03/18 11:58 Intake & Output 10/02/18 10/03/18 10/03/18 18:59 06:59 18:59 Intake Total 960 448.411 398.115 Output Total 550 450 Balance 960 -101.589 -51.885 Weight 79.3 kg Intake: IV 350 0.9 50 Amiodarone 450 mg In 300 Dextrose 5% in Water 250 ml @ 1 MG/MIN 34.53 mls/ hr IV .Q7H31M PRN Rx#: [id number] Intake, IV Titration 98.411 218.115 Amount Amiodarone 450 mg In 98.411 218.115 Dextrose 5% in Water 250 ml @ 1 MG/MIN 34.53 mls/ hr IV .Q7H31M PRN Rx#: [id number] Oral 960 180 Output: Urine 550 450 Other: Voiding Method Urinal # Voids 3 1 1 ABP, PAP, CO, CI - Last Documented Arterial Blood Pressure 154/55 Pulmonary Artery Pressure 48/19 Cardiac Output 5.4 Cardiac Index 2.9 - Constitutional General appearance: Present: cooperative, no acute distress, obese - Respiratory Details: Lungs sounds essentially clear throughout, diminished to his bilateral bases. Respirations are symmetrical and nonlabored. Oxygen saturation surgeon 97% on 3 L nasal cannula. He is achieving 1750 mL on his incentive spirometry with encouragement. - Cardiovascular Details: Regular rhythm and rate. S1 and S2 present, negative for S3, gallop or murmur. Sternum is stable. Remote telemetry showing normal sinus rhythm heart rate 69. No edema present. Heart hugger is in place and he is demonstrating appropriate use. Knee-high TAZ hose and sequential compression devices in place to his bilateral lower extremities. - Gastrointestinal Gastrointestinal Comment(s): Abdomen is soft, nontender and nondistended. Active bowel sounds all 4 abdominal quadrants. Tolerating oral intake. Bowel movement yesterday 2017. - Genitourinary Genitourinary Comment(s): Voiding clear yellow urine. - Integumentary Integumentary Comment(s): Skin is warm and dry. No clubbing or cyanosis present. Midline sternal incision clean, dry and approximated. No redness or drainage present. Dressing is clean, dry and intact. - Neurologic Neurologic: Present: CNII-XII intact - Musculoskeletal Musculoskeletal: Present: gait normal, strength equal bilaterally - Psychiatric Psychiatric: Present: A&O x's 3, appropriate affect, intact judgment & insight - Allied health notes Allied health notes reviewed: nursing - Labs CBC & Chem 7: 10/03/18 05:39 10/03/18 05:39 Labs: Abnormal Lab Results - Last 24 Hours (Table) 10/02/18 10/02/18 10/03/18 Range/Units 16:31 20:48 02:02 RBC (4.30-5.90) m/uL Hgb (13.0-17.5) gm/dL Hct (39.0-53.0) % Plt Count (150-450) k/uL Sodium (137-145) mmol/L BUN (9-20) mg/dL Glucose (74-99) mg/dL POC Glucose (mg/dL) 154 H 119 H 132 H (75-99) mg/dL Total Protein (6.3-8.2) g/dL Albumin (3.5-5.0) g/dL 10/03/18 10/03/18 10/03/18 Range/Units 05:39 05:39 05:50 RBC 2.81 L (4.30-5.90) m/uL Hgb 8.9 L (13.0-17.5) gm/dL Hct 26.9 L (39.0-53.0) % Plt Count 124 L (150-450) k/uL Sodium 136 L (137-145) mmol/L BUN 27 H (9-20) mg/dL Glucose 128 H (74-99) mg/dL POC Glucose (mg/dL) 125 H (75-99) mg/dL Total Protein 5.3 L (6.3-8.2) g/dL Albumin 3.2 L (3.5-5.0) g/dL 10/03/18 Range/Units 12:09 RBC (4.30-5.90) m/uL Hgb (13.0-17.5) gm/dL Hct (39.0-53.0) % Plt Count (150-450) k/uL Sodium (137-145) mmol/L BUN (9-20) mg/dL Glucose (74-99) mg/dL POC Glucose (mg/dL) 120 H (75-99) mg/dL Total Protein (6.3-8.2) g/dL Albumin (3.5-5.0) g/dL - Imaging and Cardiology Chest x-ray: report reviewed, image reviewed Assessment and Plan (1) COPD (chronic obstructive pulmonary disease) Current Visit: Yes Status: Chronic Code(s): J44.9 - CHRONIC OBSTRUCTIVE PULMONARY DISEASE, UNSPECIFIED SNOMED Code(s): 00825396 (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 Code(s): G10 - SAVAGE'S DISEASE SNOMED Code(s): 54809953 (3) Severe aortic stenosis Current Visit: Yes Status: Chronic Code(s): I35.0 - NONRHEUMATIC AORTIC ( VALVE) STENOSIS SNOMED Code(s): 01847281 (4) History of pleural effusion Current Visit: No Status: Resolved Code(s): Z87.09 - PERSONAL HISTORY OF OTHER DISEASES OF THE RESPIRATORY SYSTEM SNOMED Code(s): 982192410 (5) History of thoracentesis Current Visit: No Status: Resolved Code(s): Z98.890 - OTHER SPECIFIED POSTPROCEDURAL STATES SNOMED Code(s): 393466378 (6) Tobacco dependence in remission Current Visit: No Status: Resolved Code(s): F17.201 - NICOTINE DEPENDENCE, UNSPECIFIED, IN REMISSION SNOMED Code(s): 959796017 Plan: 1. Continue aspirin, statin and beta millie. Will increase metoprolol tartrate to 25 mg by mouth 3 times a day. 2. Wean O2 as tolerated. Encourage incentive spirometry use 10 times every hour while awake. 3. Increase activity and ambulate as tolerated. PT/OT/cardiac rehab following. 4. Bronchodilators, steroids per pulmonology management. 5. Will monitor daily labs and chest x-rays. 6. Pain control with current medication regimen. 7. Insulin management per primary care service. 8. Reinforced the importance of and encourage continued smoking cessation. 9. Amiodarone 400 mg by mouth twice a day for atrial fibrillation prophylaxis. 10. Discharge planning in progress. Anticipate discharge to home with home care within the next 24 hours. 11. GI and DVT prophylaxis in place, continue heparin subcu, SCDs and Protonix. 12. More recommendations to follow based on patient's clinical course. Time with Patient: Greater than 30
--- NOTE | 2018-10-03 13:16 | P.PN ---
Subjective This is a 72-year-old male seen and examined sitting up in the chair in no acute distress. He is status post aortic valve replacement. Last night he apparently went into atrial fibrillation and was started on IV amiodarone per CT surgery. Telemetry tracings indicate he then went into atrial flutter and had what appears to be a 3 second pause which then converted him to sinus mechanism. He denies feeling any chest pain, shortness of breath, dizziness or palpitations initially. However at the time of the pause he did feel dizzy. The dizziness has subsided. He continues to maintain sinus mechanism at this time. Blood pressure 118/55 heart rate 76 afebrile maintaining oxygen saturation on nasal cannula. Laboratory data reviewed, hemoglobin 8.9, platelets 124, sodium 136, potassium 4.5, creatinine 0.84, magnesium 2.3. Currently maintained on amiodarone 400 mg twice a day, aspirin 325 mg daily, atorvastatin 40 mg daily, metoprolol 25 mg 3 times a day. Overall he does complain of mild exertional shortness of breath that seems to be improving daily. GENERAL: Well-appearing, well-nourished and in no acute distress. NECK: Supple without JVD or thyromegaly. LUNGS: Breath sounds clear to auscultation bilaterally. Respiration equal and unlabored. No wheezes, rales or rhonchi. Diminished. HEART: Regular rate and rhythm without murmurs, rubs or gallops. S1 and S2 heard. Her current place. Dressing in the midsternal region noted clean dry and intact. EXTREMITIES: Normal range of motion, no edema. No clubbing or cyanosis. Peripheral pulses intact. ASSESSMENT Status post aortic valve replacement Severe aortic stenosis Paroxysmal atrial fibrillation overnight has converted to sinus mechanism with amiodarone infusion. Has been transitioned to oral amiodarone per CT surgery. If any further a-fib he will require anticoagulation for thromboembolic protection. COPD Chronic nicotine dependence, quit 06/2018 PLAN Ongoing medical management. Continue to watch on telemetry for any ongoing arrhythmia. We will continue to follow and make recommendations accordingly. Nurse Practitioner note has been reviewed, I agree with a documented findings and plan of care. Patient was seen and examined. Objective - Vital Signs Vital signs: Vital Signs Temp 96.0 F L 10/03/18 11:58 Pulse 92 10/03/18 12:56 Resp 22 10/03/18 11:58 BP 118/55 10/03/18 11:58 Pulse Ox 97 10/03/18 11:58 Intake & Output 10/02/18 10/03/18 10/03/18 18:59 06:59 18:59 Intake Total 960 448.411 398.115 Output Total 550 450 Balance 960 -101.589 -51.885 Weight 79.3 kg Intake: IV 350 0.9 50 Amiodarone 450 mg In 300 Dextrose 5% in Water 250 ml @ 1 MG/MIN 34.53 mls/ hr IV .Q7H31M PRN Rx#: [id number] Intake, IV Titration 98.411 218.115 Amount Amiodarone 450 mg In 98.411 218.115 Dextrose 5% in Water 250 ml @ 1 MG/MIN 34.53 mls/ hr IV .Q7H31M PRN Rx#: [id number] Oral 960 180 Output: Urine 550 450 Other: Voiding Method Urinal # Voids 3 1 1 ABP, PAP, CO, CI - Last Documented Arterial Blood Pressure 154/55 Pulmonary Artery Pressure 48/19 Cardiac Output 5.4 Cardiac Index 2.9 - Labs CBC & Chem 7: 10/03/18 05:39 10/03/18 05:39 Labs: Abnormal Lab Results - Last 24 Hours (Table) 10/02/18 10/02/18 10/03/18 Range/Units 16:31 20:48 02:02 RBC (4.30-5.90) m/uL Hgb (13.0-17.5) gm/dL Hct (39.0-53.0) % Plt Count (150-450) k/uL Sodium (137-145) mmol/L BUN (9-20) mg/dL Glucose (74-99) mg/dL POC Glucose (mg/dL) 154 H 119 H 132 H (75-99) mg/dL Total Protein (6.3-8.2) g/dL Albumin (3.5-5.0) g/dL 10/03/18 10/03/18 10/03/18 Range/Units 05:39 05:39 05:50 RBC 2.81 L (4.30-5.90) m/uL Hgb 8.9 L (13.0-17.5) gm/dL Hct 26.9 L (39.0-53.0) % Plt Count 124 L (150-450) k/uL Sodium 136 L (137-145) mmol/L BUN 27 H (9-20) mg/dL Glucose 128 H (74-99) mg/dL POC Glucose (mg/dL) 125 H (75-99) mg/dL Total Protein 5.3 L (6.3-8.2) g/dL Albumin 3.2 L (3.5-5.0) g/dL 10/03/18 Range/Units 12:09 RBC (4.30-5.90) m/uL Hgb (13.0-17.5) gm/dL Hct (39.0-53.0) % Plt Count (150-450) k/uL Sodium (137-145) mmol/L BUN (9-20) mg/dL Glucose (74-99) mg/dL POC Glucose (mg/dL) 120 H (75-99) mg/dL Total Protein (6.3-8.2) g/dL Albumin (3.5-5.0) g/dL
--- NOTE | 2018-10-03 16:17 | P.PN ---
Subjective Progress Note Date: 10/03/18 Principal diagnosis: The patient is seen again today 10/03/2018 in follow-up on the cardiac floor. This is postoperative day #4 status post aortic valve replacement. His been up ambulating in the hallway. He is doing quite well. He denies any worsening shortness of breath, cough or congestion. He is maintaining good O2 saturations in the mid to upper 90s on 3 L per nasal cannula. He continues to work well with the incentive spirometer. He remains on bronchodilators. White count 6.3. Hemoglobin 8.9. Creatinine 0.84. Objective - Vital Signs Vital signs: Vital Signs Temp 96.0 F L 10/03/18 11:58 Pulse 96 10/03/18 13:08 Resp 22 10/03/18 11:58 BP 118/55 10/03/18 11:58 Pulse Ox 97 10/03/18 11:58 Intake & Output 10/02/18 10/03/18 10/03/18 18:59 06:59 18:59 Intake Total 960 448.411 478.115 Output Total 550 450 Balance 960 -101.589 28.115 Weight 79.3 kg Intake: IV 350 80 0.9 50 80 Amiodarone 450 mg In 300 Dextrose 5% in Water 250 ml @ 1 MG/MIN 34.53 mls/ hr IV .Q7H31M PRN Rx#: [id number] Intake, IV Titration 98.411 218.115 Amount Amiodarone 450 mg In 98.411 218.115 Dextrose 5% in Water 250 ml @ 1 MG/MIN 34.53 mls/ hr IV .Q7H31M PRN Rx#: [id number] Oral 960 180 Output: Urine 550 450 Other: Voiding Method Urinal # Voids 3 1 1 ABP, PAP, CO, CI - Last Documented Arterial Blood Pressure 154/55 Pulmonary Artery Pressure 48/19 Cardiac Output 5.4 Cardiac Index 2.9 - Exam - Constitutional General appearance: Present: cooperative, no acute distress - Respiratory Details: Lung sounds diminished bilaterally. Stable clean and intact and the patient's chest physical removed. Diminished breath sounds are appreciated lung bases bilaterally. - Cardiovascular Details: S1, S2 present. Regular rate and rhythm, sinus rhythm on telemetry. Sternum stable. - Gastrointestinal Gastrointestinal Comment(s): Abdomen soft, nontender, nondistended. Active bowel sounds present 4 quadrants. Tolerating diet. Positive flatus. - Genitourinary Genitourinary Comment(s): Reveles present draining clear, yellow urine. Output 35-45 mL/h overnight. - Integumentary Integumentary Comment(s): Skin is warm and dry with evidence of good perfusion. Anterior chest incision well approximated and covered with dry intact dressing. - Neurologic Neurologic: Present: CNII-XII intact - Musculoskeletal Musculoskeletal: Present: gait normal, strength equal bilaterally - Psychiatric Psychiatric: Present: A&O x's 3, appropriate affect, intact judgment & insight - Labs CBC & Chem 7: 10/03/18 05:39 10/03/18 05:39 Labs: Abnormal Lab Results - Last 24 Hours (Table) 10/02/18 10/02/18 10/03/18 Range/Units 16:31 20:48 02:02 RBC (4.30-5.90) m/uL Hgb (13.0-17.5) gm/dL Hct (39.0-53.0) % Plt Count (150-450) k/uL Sodium (137-145) mmol/L BUN (9-20) mg/dL Glucose (74-99) mg/dL POC Glucose (mg/dL) 154 H 119 H 132 H (75-99) mg/dL Total Protein (6.3-8.2) g/dL Albumin (3.5-5.0) g/dL 10/03/18 10/03/18 10/03/18 Range/Units 05:39 05:39 05:50 RBC 2.81 L (4.30-5.90) m/uL Hgb 8.9 L (13.0-17.5) gm/dL Hct 26.9 L (39.0-53.0) % Plt Count 124 L (150-450) k/uL Sodium 136 L (137-145) mmol/L BUN 27 H (9-20) mg/dL Glucose 128 H (74-99) mg/dL POC Glucose (mg/dL) 125 H (75-99) mg/dL Total Protein 5.3 L (6.3-8.2) g/dL Albumin 3.2 L (3.5-5.0) g/dL 10/03/18 Range/Units 12:09 RBC (4.30-5.90) m/uL Hgb (13.0-17.5) gm/dL Hct (39.0-53.0) % Plt Count (150-450) k/uL Sodium (137-145) mmol/L BUN (9-20) mg/dL Glucose (74-99) mg/dL POC Glucose (mg/dL) 120 H (75-99) mg/dL Total Protein (6.3-8.2) g/dL Albumin (3.5-5.0) g/dL Assessment and Plan Assessment: Assessment 1 severe symptomatic aortic stenosis, bicuspid aortic valve status post aortic valve replacement and the patient is postop day #4. The patient underwent also left atrial appendage clipping 2 post thoracotomy chest tube and respiratory failure, expected outcomes of surgery, chest is of minimal than the patient is doing well using incentive spirometer and the chest x-ray from today shows small atelectatic changes and small effusion the lung bases bilaterally 3 severe COPD with an FEV1 of 43% of predicted 4 [id number] smoking history 5 moderate degree of pulmonary hypertension with a preop. Pressure of around 51 6 [place]'s disease Plan The patient was seen and evaluated by Dr. Pool. Chest x-ray and labs reviewed. He has no pulmonary complaints. Working well with the incentive spirometer. Will continue with his current treatment plan. We'll continue to follow. Possible discharge in the morning. I, the cosigning physician, performed a history & physical examination of the patient. Lungs sounds with faint crackles in the bases. Maintaining good O2 saturations in the 90s on 3 L/m. per nasal cannula. I discussed the assessment and plan of care with my nurse practitioner, Rand Hanna. I attest to the above note as dictated by her.
[2018-10-03 17:27] LABS: Glucose,Whole Blood 131 mg/dL (75-99)
[2018-10-03 20:21] LABS: Glucose,Whole Blood 142 mg/dL (75-99)
[2018-10-03] MEDS: AMIODARONE 200 MG TAB PO SCH (20:57)
[2018-10-03] MEDS: SENNOSIDES-DOCUSATE SODIUM 1 EACH TAB PO SCH (20:58)
--- NOTE | 2018-10-03 22:40 | PN ---
PROGRESS NOTE DATE OF SERVICE: October 03, 2018. PRESENTING COMPLAINT: Aortic valve replacement. INTERVAL HISTORY: Patient is status post AVR. Doing better, but last night did run into atrial fibrillation. Breathing is stable. Walking about. Tolerating a diet. REVIEW OF SYSTEMS: Done for constitutional, cardiovascular, GI, pulmonary; relevant findings as above. CURRENT MEDICATIONS: Reviewed that include p.o. amiodarone. PHYSICAL EXAMINATION: VITAL SIGNS: Temperature 97.9, pulse 80, respiratory rate 18, blood pressure 130/61, pulse ox 92 percent on 2 L. GENERAL APPEARANCE: Sitting up, comfortable. EYES: Pupils are equal. Conjunctivae normal. HEENT: External appearance of nose and ears normal. Oral cavity normal. NECK: JVD not raised. Mass not palpable. RESPIRATORY: Effort normal. LUNGS: Decreased breath sounds. CARDIOVASCULAR: 1st and 2nd sounds normal. No edema. ABDOMEN: Soft, nontender. Liver and spleen not palpable. PSYCHIATRY: Alert and oriented x3. Mood and affect normal. INVESTIGATIONS: White count 6.3, hemoglobin 8.9, potassium 4.5, BUN 27, creatinine 0.84. Accu-Cheks are noted. ASSESSMENT: 1. Severe aortic stenosis with a bicuspid valve status post replacement. 2. Recent left pleural effusion that had thoracentesis done, cause unknown. Negative for malignancy to be followed by Dr. Beck's team. 3. Chronic obstructive pulmonary disease in an ex-smoker. 4. Moderate secondary pulmonary hypertension secondary to chronic obstructive pulmonary disease. 5. Acute postoperative blood loss anemia expected from surgery. 6. Dilutional thrombocytopenia. 7. Paroxysmal atrial fibrillation. PLAN: Continue current medication and treatment plan. Discussed with Dr. Pool. Dr. Beck/Dr. Adler will follow up with the cause of pleural effusion that was rather significant. My concern is still for underlying malignancy. The patient's anticoagulation will be determined as per Cardiology. At this point, the holding off the same. MMODL / IJN: [id number] /
[2018-10-04 02:01] LABS: Glucose,Whole Blood 121 mg/dL (75-99)
[2018-10-04 05:50] LABS: Glucose,Whole Blood 138 mg/dL (75-99)
[2018-10-04] MEDS: KETOROLAC 30 MG/ML 1 ML VIAL IVP SCH ×4 (06:38→23:07)
[2018-10-04] MEDS: PANTOPRAZOLE 40 MG TABLET PO SCH (06:39)
[2018-10-04] MEDS: INSULIN ASPART 100 UNIT/ML 1 ML 10 ML VIAL SQ SCH ×4 (06:39→21:19)
[2018-10-04 06:49] LABS: HCT 26.1 % (39.0-53.0); HGB 8.6 gm/dL (13.0-17.5); MCHC 33.1 g/dL (31.0-37.0); MCV 96.7 fL (80.0-100.0); Mean Platelet Volume 7.8; Platelet Count 150 k/uL (150-450); RDW 13.5 % (11.5-15.5)
[2018-10-04 07:16] LABS: ALT 50 U/L (21-72); AST 34 U/L (17-59); Albumin 3.1 g/dL (3.5-5.0); Alkaline Phosphatase 62 U/L (38-126); Anion Gap 7 mmol/L; Blood Urea Nitrogen 26 mg/dL (9-20); Calcium 8.7 mg/dL (8.4-10.2); Carbon Dioxide 27 mmol/L (22-30); Chloride 104 mmol/L (98-107); Glucose 119 mg/dL (74-99); Magnesium 2.1 mg/dL (1.6-2.3); Potassium 4.4 mmol/L (3.5-5.1); Sodium 138 mmol/L (137-145); Total Bilirubin 0.9 mg/dL (0.2-1.3); Total Protein 5.3 g/dL (6.3-8.2)
--- NOTE | 2018-10-04 07:24 | XR ---
EXAMINATION TYPE: XR chest 1V portable DATE OF EXAM: 10/04/2018 HISTORY: Postoperative aVR. REFERENCE: Previous study dated 10/03/2018. FINDINGS: There has been a midline sternotomy. There is mild, bibasilar airspace disease. There are small effusions. The heart is enlarged. IMPRESSION: 1. MILD CARDIOMEGALY. 2. CONTINUING BIBASILAR AIRSPACE DISEASE. 3. SMALL, BILATERAL EFFUSIONS.
[2018-10-04] MEDS: SYMBICORT 160-4.5 MCG INHALER INHALATION SCH ×2 (07:56→19:43)
[2018-10-04] MEDS: IPRATROPIUM-ALBUTEROL 3 ML NEB INHALATION SCH ×4 (07:56→19:43)
[2018-10-04] MEDS: AMIODARONE 200 MG TAB PO SCH ×2 (08:33→21:34)
[2018-10-04] MEDS: CHOLECALCIFEROL 1,000 UNIT TAB PO SCH (08:33)
[2018-10-04] MEDS: HEPARIN SODIUM,PORCINE 5,000 UNIT/ML 1 ML VIAL SQ SCH ×3 (08:33→23:08)
[2018-10-04] MEDS: ATORVASTATIN 40 MG TAB PO SCH (08:33)
[2018-10-04] MEDS: TETRABENAZINE 12.5 MG PO SCH ×2 (08:33→21:35)
[2018-10-04] MEDS: ASPIRIN 325 MG TAB PO SCH (08:33)
[2018-10-04] MEDS: METOPROLOL TARTRATE 50 MG TAB PO SCH ×2 (08:33→21:34)
[2018-10-04] MEDS: METOPROLOL TARTRATE 25 MG TAB PO SCH (08:45)
--- NOTE | 2018-10-04 11:21 | P.PN ---
Subjective Progress Note Date: 10/04/18 Principal diagnosis: Aortic valve stenosis, bicuspid aortic valve, status post aortic valve replacement This is 72-year-old white male patient of Dr. Adler with a known history of aortic valve stenosis. SHIRLEY by Dr. Sprague showed a bicuspid calcified aortic valve with severe stenosis. Previous echocardiogram showed EF between 60 and 65 % and moderate pulmonary hypertension with right-sided pressures at 51 mmHg. Recent heart catheterization was negative for any significant coronary artery disease. Patient had a recent hospitalization in June 2018 for neurological symptoms and his workup for CVA and TIA was negative negative brain CAT scan, and MRI. During that same admission patient was found to have a large left pleural effusion and he is status post left thoracentesis, cytology ruled out malignancy, but it showed an exudative effusion, with negative cultures, likely parapneumonic in nature. Patient has a 55-euui-bauk smoking history, has underlying COPD, his preop PFT showed severe COPD with FEV1 of 1.19 L or 43% of predicted, FVC of 1.99 L or 53%, and diffusion capacity of 45%, the response to bronchodilators indicated reversible component. Patient was recommended to undergo surgical intervention for aortic valve stenosis, and patient underwent elective aortic valve replacement using ovine pericardial bioprosthetic valve, exclusion of left atrial appendage today on 09/29/[address] Wadsworth. Patient is seen postoperative period in the intensive care unit, he is intubated, on mechanical ventilator. His maintenance IV fluid is LR iterated 50 ML per hour, clear proximal is currently at 4 mg per hour, Diprivan at 50 mics per kilo per minute. PA pressures 48/26, CVP of 14, cardiac output and cardiac index is 5.9 3.2. Postop blood gas showed pO2 414, pCO2 of 60, pH of 7.25, and this was done on SIMV of 12, tidal volume 550, FiO2 of 100%, and PEEP of 5. We switched the ventilator settings to assist control mode with a rate of 20, same tidal volume, FiO2 down to 50%, and PEEP of 5. And subsequent blood gases showed improvement with pO2 of 96, pCO2 45, and pH of 7.34. Patient has 2 mediastinal and right and left pleural chest tubes in place with moderate amount of sanguinous drainage. Stop labs showed WBC of 9.4, hemoglobin of 10.0, platelet count was 128, INR of 1.3, electrolytes were unremarkable, BUN of 18, creatinine 0.73. Postoperative chest x-ray has been reviewed by Dr. Pool, and showed postsurgical changes with suspected postop atelectasis, small bilateral pleural effusions. On 09/30/2018 patient seen in follow-up. Postop day 1 status post aortic valve replacement with a bioprosthetic valve. Patient was extubated at 1715 yesterday on 09/29/2018. This morning he is sitting up in the recliner, currently on 2 L per nasal cannula his pulse ox is 97%, he is having mild to moderate amount of incisional discomfort in his midsternal area. He states his it hurts for him to breathe. His incentive spirometer effort is 500 mL. This morning patient was assisted up out of bed, and she did become hypotensive afterwards, he received a total of 2 L of 5% albumin, and subsequently his blood pressure recovered, and currently his PA pressures 54/22, with the CVP 19- 20, serial and CO and CI is 5.4 and 2.2 respectively. Today's chest x-ray showed mild right basilar atelectasis, mild prominence of pulmonary vascular markings. Current IV fluids include lactated Ringer's at a rate of 50 ML per hour, insulin drip at 1 unit per hour. No other drips. Lung sounds are clear, with a few bibasilar crackles. Midsternal incisions clean dry and intact, covered with a surgical dressing, 2 mediastinal and left and right pleural chest tubes are with small amount of serosanguineous output. Today's labs have been reviewed, and show WBC of 7.8, hemoglobin is 9.3, electrolytes and renal profile are within normal limits. On 10/01/2018 patient seen in follow-up in the intensive care unit. He is awake and alert, in no acute distress, sitting up in the chair. Denies acute distress, denies any worsening dyspnea, spirometer effort 1000 ML. Today's chest x-ray has been reviewed by Dr. Pool, showed pulmonary venous congestion with scattered areas of atelectasis. Hemodynamically patient is stable, afebrile. Today's labs have been reviewed, WBC 8.8, hemoglobin is 8.7, sodium is 133, there is symmetrical S1 within normal limits, BUN is 28, creatinine 0.97, LFTs were within normal limits. Patient still has 2 mediastinal and right and left pleural chest tubes in place, and there has been 160 mL out of left pleural, 2:30 out of mediastinal, and right pleural was putting out 400 and last 24 hours. Current IV fluids include lactated ringer's at 25 mL an hour. He is in sinus mechanism with a controlled rate, lung sounds are clear to auscultation, and CT surgery is planning on removing the mediastinal chest tubes today. On 10/04/2018 patient seen in follow-up on selective care unit. He is awake and alert, sitting up in the recliner, in no acute distress, his incisional pain is well controlled, currently on 2 L per nasal cannula his pulse ox is 94% , he is working on his incentive spirometry, he has been ambulating tolerating it well. Afebrile, hemodynamically stable, lung sounds are diminished, no rhonchi, no wheezes. Today's chest x-ray is been reviewed by Dr. Pool, showed mild cardiomegaly, and more bilateral pleural effusions with adjacent atelectasis. Labs have been reviewed, WBC 7.0, hemoglobin is 8.6, electrolytes and renal profile are unremarkable. Patient remains in sinus rhythm with a controlled rate. No acute events overnight, no specific complaints. Anticipate discharge home today, follow up with Dr. Pool in the office in one week. Objective - Vital Signs Vital signs: Vital Signs Temp 97.6 F 10/04/18 08:00 Pulse 84 10/04/18 08:10 Resp 18 10/04/18 08:00 BP 135/61 10/04/18 08:00 Pulse Ox 94 L 10/04/18 08:00 Intake & Output 10/03/18 10/04/18 10/04/18 18:59 06:59 18:59 Intake Total 708.115 298 Output Total 1350 Balance -641.885 298 Weight 79.2 kg Intake: IV 80 298 0.9 80 170 Amiodarone 450 mg In 128 Dextrose 5% in Water 250 ml @ 1 MG/MIN 34.53 mls/ hr IV .Q7H31M PRN Rx#: [id number] Intake, IV Titration 218.115 Amount Amiodarone 450 mg In 218.115 Dextrose 5% in Water 250 ml @ 1 MG/MIN 34.53 mls/ hr IV .Q7H31M PRN Rx#: [id number] Oral 410 Output: Urine 1350 Other: Voiding Method Toilet # Voids 1 ABP, PAP, CO, CI - Last Documented Arterial Blood Pressure 154/55 Pulmonary Artery Pressure 48/19 Cardiac Output 5.4 Cardiac Index 2.9 - Exam GENERAL EXAM: Awake, alert 72-year-old white male patient, on 2 L per nasal cannula, having mild to moderate amount of midsternal incisional discomfort HEAD: Normocephalic/atraumatic. EYES: Normal reaction of pupils, equal size. Conjunctiva pink, sclera white. NOSE: Clear with pink turbinates. THROAT: No erythema or exudates. NECK: No masses, no JVD, no thyroid enlargement, no adenopathy. CHEST: No chest wall deformity. Symmetrical expansion. Midsternal incision is clean dry and intact, mediastinal and pleural chest tubes have been removed, epicardial wires have been removed LUNGS: Equal air entry with diminished breath sounds, with no rhonchi, no wheezes or crackles CVS: Regular rate and rhythm, normal S1 and S2, no gallops, no murmurs, no rubs ABDOMEN: Soft, nontender. No hepatosplenomegaly, normal bowel sounds, no guarding or rigidity. EXTREMITIES: No clubbing, no edema, no cyanosis, 2+ pulses and upper and lower extremities. MUSCULOSKELETAL: Muscle strength and tone normal. SPINE: No scoliosis or deformity SKIN: No rashes - Labs CBC & Chem 7: 10/04/18 06:02 10/04/18 06:02 Labs: Abnormal Lab Results - Last 24 Hours (Table) 10/03/18 10/03/18 10/03/18 Range/Units 12:09 17:18 20:20 RBC (4.30-5.90) m/uL Hgb (13.0-17.5) gm/dL Hct (39.0-53.0) % BUN (9-20) mg/dL Glucose (74-99) mg/dL POC Glucose (mg/dL) 120 H 131 H 142 H (75-99) mg/dL Total Protein (6.3-8.2) g/dL Albumin (3.5-5.0) g/dL 10/04/18 10/04/1810/04/18 Range/Units 02:00 05:49 06:02 RBC 2.70 L (4.30-5.90) m/uL Hgb 8.6 L (13.0-17.5) gm/dL Hct 26.1 L (39.0-53.0) % BUN (9-20) mg/dL Glucose (74-99) mg/dL POC Glucose (mg/dL) 121 H 138 H (75-99) mg/dL Total Protein (6.3-8.2) g/dL Albumin (3.5-5.0) g/dL 10/04/18 Range/Units 06:02 RBC (4.30-5.90) m/uL Hgb (13.0-17.5) gm/dL Hct (39.0-53.0) % BUN 26 H (9-20) mg/dL Glucose 119 H (74-99) mg/dL POC Glucose (mg/dL) (75-99) mg/dL Total Protein 5.3 L (6.3-8.2) g/dL Albumin 3.1 L (3.5-5.0) g/dL Assessment and Plan Plan: Assessment: #1. Severe symptomatic aortic valve stenosis, with bicuspid aortic valve, status post aortic valve replacement with bioprosthetic valve, left atrial appendage exclusion, postop day 5 #2. Acute blood loss anemia, an expected outcome of cardiothoracic surgery #3. Routine postoperative ventilator management #4. Severe COPD, gold stage III, with preop FEV1 of 43% of predicted #5. History of nicotine dependence, currently in remission, patient carries 55- pack-year smoking history, quit in June 2018 #6. Previous left-sided thoracentesis, that showed exudative pleural effusion, cytology negative for malignancy, cultures were negative, was likely parapneumonic in nature #7. Moderate pulmonary hypertension, with right-sided pressures of 51 mmHg #8. Left upper extremity neurological dysfunction and patient is following with neurology. Previous workup for CVA/TIA in June 2018 was negative for the brain scan and MRI of the brain Plan: Patient is doing well, no acute events overnight, vital signs are stable, no shortness of breath, his pain is under good control, today's chest x-ray has been reviewed, and showed small bilateral pleural effusions with adjacent atelectasis. Patient appeared to be discharged home today, follow up with Dr. Pool in 7 days. I performed a history & physical examination of the patient and discussed their management with my nurse practitioner, Franny Major. I reviewed the nurse practitioner's note and agree with the documented findings and plan of care. Lung sounds are clear, diminished. The findings and the impression was discussed with the patient. I attest to the documentation by the nurse practitioner. Time with Patient: Less than 30
[2018-10-04 11:45] LABS: Glucose,Whole Blood 102 mg/dL (75-99)
--- NOTE | 2018-10-04 13:25 | P.PN ---
Subjective Progress Note Date: 10/04/18 This is a 72-year-old male seen and examined sitting up in the chair in no acute distress. He is status post aortic valve replacement. Last night he apparently went into atrial fibrillation and was started on IV amiodarone per CT surgery. Telemetry tracings indicate he then went into atrial flutter and had what appears to be a 3 second pause which then converted him to sinus mechanism. He denies feeling any chest pain, shortness of breath, dizziness or palpitations initially. However at the time of the pause he did feel dizzy. The dizziness has subsided. He continues to maintain sinus mechanism at this time. Blood pressure 118/55 heart rate 76 afebrile maintaining oxygen saturation on nasal cannula. Laboratory data reviewed, hemoglobin 8.9, platelets 124, sodium 136, potassium 4.5, creatinine 0.84, magnesium 2.3. Currently maintained on amiodarone 400 mg twice a day, aspirin 325 mg daily, atorvastatin 40 mg daily, metoprolol 25 mg 3 times a day. Overall he does complain of mild exertional shortness of breath that seems to be improving daily. 10/04: Patient was noted to have a conversion positive after converting from A. fib to sinus bradycardia. He has continued and sinus rhythm since yesterday morning. During the conversion he did have some dizziness with the pause. There is concern the patient will need pacemaker for possible underlying sick sinus syndrome. He has been switched over to amiodarone oral 400 mg twice daily. He states his breathing is not perfect but it never has been. He does have history of smoking for 50 years and quit in June. We will plan to discuss issue of pauses and possible need for pacemaker with cardiothoracic surgery. GENERAL: Well-appearing, well-nourished and in no acute distress. NECK: Supple without JVD or thyromegaly. LUNGS: Breath sounds clear to auscultation bilaterally. Respiration equal and unlabored. No wheezes, rales or rhonchi. Diminished. HEART: Regular rate and rhythm without murmurs, rubs or gallops. S1 and S2 heard. Her current place. Dressing in the midsternal region noted clean dry and intact. EXTREMITIES: Normal range of motion, no edema. No clubbing or cyanosis. Peripheral pulses intact. ASSESSMENT Status post aortic valve replacement Severe aortic stenosis Paroxysmal atrial fibrillation overnight has converted to sinus mechanism with amiodarone infusion. Has been transitioned to oral amiodarone per CT surgery. If any further a-fib he will require anticoagulation for thromboembolic protection. Sinus pause with concern for sick sinus syndrome and need for pacemaker. COPD Chronic nicotine dependence, quit 06/2018 PLAN Ongoing medical management. Continue to watch on telemetry for any ongoing arrhythmia. We will continue to follow and make recommendations accordingly. Nurse Practitioner note has been reviewed, I agree with a documented findings and plan of care. Patient was seen and examined. Objective - Vital Signs Vital signs: Vital Signs Temp 97.6 F 10/04/18 08:00 Pulse 84 10/04/18 08:10 Resp 18 10/04/18 08:00 BP 135/61 10/04/18 08:00 Pulse Ox 94 L 10/04/18 08:00 Intake & Output 10/03/18 10/04/18 10/04/18 18:59 06:59 18:59 Intake Total 708.115 298 Output Total 1350 Balance -641.885 298 Weight 79.2 kg Intake: IV 80 298 0.9 80 170 Amiodarone 450 mg In 128 Dextrose 5% in Water 250 ml @ 1 MG/MIN 34.53 mls/ hr IV .Q7H31M PRN Rx#: [id number] Intake, IV Titration 218.115 Amount Amiodarone 450 mg In 218.115 Dextrose 5% in Water 250 ml @ 1 MG/MIN 34.53 mls/ hr IV .Q7H31M PRN Rx#: [id number] Oral 410 Output: Urine 1350 Other: Voiding Method Toilet # Voids 1 ABP, PAP, CO, CI - Last Documented Arterial Blood Pressure 154/55 Pulmonary Artery Pressure 48/19 Cardiac Output 5.4 Cardiac Index 2.9 - Labs CBC & Chem 7: 10/04/18 06:02 10/04/18 06:02 Labs: Abnormal Lab Results - Last 24 Hours (Table) 10/03/18 10/03/18 10/03/18 Range/Units 12:09 17:18 20:20 RBC (4.30-5.90) m/uL Hgb (13.0-17.5) gm/dL Hct (39.0-53.0) % BUN (9-20) mg/dL Glucose (74-99) mg/dL POC Glucose (mg/dL) 120 H 131 H 142 H (75-99) mg/dL Total Protein (6.3-8.2) g/dL Albumin (3.5-5.0) g/dL 10/04/18 10/04/18 10/04/18 Range/Units 02:00 05:49 06:02 RBC 2.70 L (4.30-5.90) m/uL Hgb 8.6 L (13.0-17.5) gm/dL Hct 26.1 L (39.0-53.0) % BUN (9-20) mg/dL Glucose (74-99) mg/dL POC Glucose (mg/dL) 121 H 138 H (75-99) mg/dL Total Protein (6.3-8.2) g/dL Albumin (3.5-5.0) g/dL 10/04/18 Range/Units 06:02 RBC (4.30-5.90) m/uL Hgb (13.0-17.5) gm/dL Hct (39.0-53.0) % BUN 26 H (9-20) mg/dL Glucose 119 H (74-99) mg/dL POC Glucose (mg/dL) (75-99) mg/dL Total Protein 5.3 L (6.3-8.2) g/dL Albumin 3.1 L (3.5-5.0) g/dL
--- NOTE | 2018-10-04 14:29 | P.PN ---
Subjective Progress Note Date: 10/04/18 Principal diagnosis: Severely stenotic bicuspid aortic valve. Medical history of previous tobacco dependence, severe COPD with preoperative FEV1 43% of predicted, [place]'s chorea, osteoarthritis, congestive heart failure, left sided exudative pleural effusion status post thoracentesis in June 2018. POD #5 aortic valve replacement using a #23 mm Inspiris-Resilia bovine pericardial bioprosthesis. Exclusion of the left atrial appendage using a 35 mm AtriClip. Intraoperative transesophageal echocardiogram and epi-aortic scanning. Postoperative paroxysmal atrial fibrillation, an unexpected outcome of surgery. The patient is currently sitting up in a recliner in no acute distress. He does complaints of pain or shortness of breath at this time. He remains hemodynamically stable. She is no further episodes of atrial fibrillation reported, currently patient is in normal sinus rhythm on remote telemetry showing heart rate 81. He also denies any further complaints of episodes of dizziness. Objective - Vital Signs Vital signs: Vital Signs Temp 97.6 F 10/04/18 08:00 Pulse 80 10/04/18 12:10 Resp 20 10/04/18 12:00 BP 121/56 10/04/18 12:00 Pulse Ox 95 10/04/18 12:00 Intake & Output 10/03/18 10/04/18 10/04/18 18:59 06:59 18:59 Intake Total 708.115 298 Output Total 1350 Balance -641.885 298 Weight 79.2 kg Intake: IV 80 298 0.9 80 170 Amiodarone 450 mg In 128 Dextrose 5% in Water 250 ml @ 1 MG/MIN 34.53 mls/ hr IV .Q7H31M PRN Rx#: [id number] Intake, IV Titration 218.115 Amount Amiodarone 450 mg In 218.115 Dextrose 5% in Water 250 ml @ 1 MG/MIN 34.53 mls/ hr IV .Q7H31M PRN Rx#: [id number] Oral 410 Output: Urine 1350 Other: Voiding Method Toilet # Voids 1 ABP, PAP, CO, CI - Last Documented Arterial Blood Pressure 154/55 Pulmonary Artery Pressure 48/19 Cardiac Output 5.4 Cardiac Index 2.9 - Constitutional General appearance: Present: cooperative, no acute distress, obese - Respiratory Details: Lung sounds are essentially clear throughout, diminished to his bilateral bases. Respirations are symmetrical and nonlabored. Oxygen saturation are 94% on 2 L nasal cannula. He is achieving 1750 mL on his incentive spirometry with encouragement. - Cardiovascular Details: Regular rhythm and rate. S1 and S2 present, negative for S3, gallop or murmur. Sternum is stable. Heart hugger is in place and is demonstrating appropriate use. Remote telemetry showing normal sinus rhythm heart rate 81. No edema present. Knee-high TAZ hose and sequential compression devices in place was bilateral lower extremities. - Gastrointestinal Gastrointestinal Comment(s): Abdomen is soft, nontender and nondistended. Active bowel sounds present in all 4 abdominal quadrants. Tolerating oral intake. Last bowel movement 2017. - Genitourinary Genitourinary Comment(s): Voiding clear yellow urine. - Integumentary Integumentary Comment(s): skin is warm and dry. No clubbing or cyanosis present. Midline sternal incision clean, dry, and approximated. No redness or drainage is present. Dressing is clean, dry and intact. - Neurologic Neurologic: Present: CNII-XII intact - Musculoskeletal Musculoskeletal: Present: gait normal, strength equal bilaterally - Psychiatric Psychiatric: Present: A&O x's 3, appropriate affect, intact judgment & insight - Allied health notes Allied health notes reviewed: nursing - Labs CBC & Chem 7: 10/04/18 06:02 10/04/18 06:02 Labs: Abnormal Lab Results - Last 24 Hours (Table) 10/03/18 10/03/18 10/04/18 Range/Units 17:18 20:20 02:00 RBC (4.30-5.90) m/uL Hgb (13.0-17.5) gm/dL Hct (39.0-53.0) % BUN (9-20) mg/dL Glucose (74-99) mg/dL POC Glucose (mg/dL) 131 H 142 H 121 H (75-99) mg/dL Total Protein (6.3-8.2) g/dL Albumin (3.5-5.0) g/dL 10/04/18 10/04/18 10/04/18 Range/Units 05:49 06:02 06:02 RBC 2.70 L (4.30-5.90) m/uL Hgb 8.6 L (13.0-17.5) gm/dL Hct 26.1 L (39.0-53.0) % BUN 26 H (9-20) mg/dL Glucose 119 H (74-99) mg/dL POC Glucose (mg/dL) 138 H (75-99) mg/dL Total Protein 5.3 L (6.3-8.2) g/dL Albumin 3.1 L (3.5-5.0) g/dL 10/04/18 Range/Units 11:36 RBC (4.30-5.90) m/uL Hgb (13.0-17.5) gm/dL Hct (39.0-53.0) % BUN (9-20) mg/dL Glucose (74-99) mg/dL POC Glucose (mg/dL) 102 H (75-99) mg/dL Total Protein (6.3-8.2) g/dL Albumin (3.5-5.0) g/dL - Imaging and Cardiology Chest x-ray: report reviewed, image reviewed Assessment and Plan (1) COPD (chronic obstructive pulmonary disease) Current Visit: Yes Status: Chronic Code(s): J44.9 - CHRONIC OBSTRUCTIVE PULMONARY DISEASE, UNSPECIFIED SNOMED Code(s): 66390844 (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 Code(s): G10 - SAVAGE'S DISEASE SNOMED Code(s): 10157285 (3) Severe aortic stenosis Current Visit: Yes Status: Chronic Code(s): I35.0 - NONRHEUMATIC AORTIC ( VALVE) STENOSIS SNOMED Code(s): 13380405 (4) History of pleural effusion Current Visit: No Status: Resolved Code(s): Z87.09 - PERSONAL HISTORY OF OTHER DISEASES OF THE RESPIRATORY SYSTEM SNOMED Code(s): 513857124 (5) History of thoracentesis Current Visit: No Status: Resolved Code(s): Z98.890 - OTHER SPECIFIED POSTPROCEDURAL STATES SNOMED Code(s): 419487434 (6) Tobacco dependence in remission Current Visit: No Status: Resolved Code(s): F17.201 - NICOTINE DEPENDENCE, UNSPECIFIED, IN REMISSION SNOMED Code(s): 668111400 Plan: 1. Continue aspirin, statin and beta millie. Increase metoprolol tartrate 50 mg twice a day.. 2. Wean O2 as tolerated. Encourage incentive spirometry use 10 times every hour while awake. 3. Increase activity and ambulate as tolerated. PT/OT/cardiac rehab following. 4. Bronchodilators, steroids per pulmonology management. 5. Will monitor daily labs and chest x-rays. 6. Pain control with current medication regimen. 7. Insulin management per primary care service. 8. Reinforced the importance of and encourage continued smoking cessation. 9. Continue Amiodarone 400 mg by mouth twice a day for atrial fibrillation prophylaxis. 10. Discharge planning in progress. Anticipate discharge to home with home care within the next 24 hours. 11. GI and DVT prophylaxis in place, continue heparin subcu, SCDs and Protonix. 12. More recommendations to follow based on patient's clinical course. Time with Patient: Greater than 30
[2018-10-04 17:03] LABS: Glucose,Whole Blood 177 mg/dL (75-99)
[2018-10-04 20:42] LABS: Glucose,Whole Blood 124 mg/dL (75-99)
[2018-10-04] MEDS: SENNOSIDES-DOCUSATE SODIUM 1 EACH TAB PO SCH (21:35)
--- NOTE | 2018-10-04 22:58 | PN ---
PROGRESS NOTE DATE OF SERVICE: October 04, 2018. PRESENTING COMPLAINT: Aortic valve replacement. INTERVAL HISTORY: Patient is status post aortic valve replacement, up and about doing better, in and out of atrial fibrillation. Breathing is stable. Tolerating a diet. REVIEW OF SYSTEMS: Done for constitutional, cardiovascular, GI, pulmonary and relevant findings as above. CURRENT MEDICATIONS: Reviewed. PHYSICAL EXAMINATION: VITAL SIGNS: Temperature 98.2, pulse 86, respiratory rate 22, blood pressure 109/58, pulse ox 96 percent on 2 L. GENERAL APPEARANCE: Sitting up in a chair, comfortable. EYES: Pupils equal. Conjunctivae normal. HEENT: External appearance of nose and ears normal. Oral cavity normal. NECK: JVD not raised. Mass not palpable. RESPIRATORY: Effort normal. LUNGS: Decreased breath sounds. CARDIOVASCULAR: 1st and 2nd sounds normal. No edema. ABDOMEN: Soft, nontender. Liver and spleen not palpable. PSYCHIATRY: Alert and oriented x3. Mood and affect normal. INVESTIGATIONS: White count 7, hemoglobin 8.6, potassium 4.4, BUN 26, creatinine 0.92. ASSESSMENT: 1. Severe aortic stenosis with bicuspid aortic valve status post replacement. 2. Recent large left pleural effusion, 1.4 L was removed. The patient is to follow up with Dr. Adler for the same. Discussed with him today again. 3. Chronic obstructive pulmonary disease in an ex-smoker. 4. Moderate secondary pulmonary hypertension secondary to chronic obstructive pulmonary disease. 5. Acute postoperative blood-loss anemia as expected from surgery. 6. Dilutional thrombocytopenia. 7. Paroxysmal atrial fibrillation. PLAN: Continue current medication and treatment plan. The patient is already on amiodarone. No anticoagulation per Cardiology. Otherwise clinically patient is doing well. MMODL / IJN: [id number] /
[2018-10-05 01:56] LABS: Glucose,Whole Blood 155 mg/dL (75-99)
[2018-10-05 05:38] LABS: Glucose,Whole Blood 123 mg/dL (75-99)
[2018-10-05] MEDS: INSULIN ASPART 100 UNIT/ML 1 ML 10 ML VIAL SQ SCH ×2 (05:44→12:09)
[2018-10-05] MEDS: KETOROLAC 30 MG/ML 1 ML VIAL IVP SCH (06:18)
[2018-10-05] MEDS: PANTOPRAZOLE 40 MG TABLET PO SCH (06:18)
[2018-10-05] MEDS ORDERED: ACETAMINOPHEN TAB 325 MG TAB PO PRN (07:48)
[2018-10-05] MEDS: SYMBICORT 160-4.5 MCG INHALER INHALATION SCH (08:10)
[2018-10-05] MEDS: IPRATROPIUM-ALBUTEROL 3 ML NEB INHALATION SCH ×3 (08:10→15:43)
[2018-10-05] MEDS: AMIODARONE 200 MG TAB PO SCH (09:10)
[2018-10-05] MEDS: HEPARIN SODIUM,PORCINE 5,000 UNIT/ML 1 ML VIAL SQ SCH (09:10)
[2018-10-05] MEDS: METOPROLOL TARTRATE 50 MG TAB PO SCH (09:11)
[2018-10-05] MEDS: CHOLECALCIFEROL 1,000 UNIT TAB PO SCH (09:11)
[2018-10-05] MEDS: ASPIRIN 325 MG TAB PO SCH (09:11)
[2018-10-05] MEDS: ATORVASTATIN 40 MG TAB PO SCH (09:11)
[2018-10-05] MEDS: TETRABENAZINE 12.5 MG PO SCH (09:24)
[2018-10-05 09:42] LABS: Albumin 3.4 g/dL (3.5-5.0); Calcium 9.3 mg/dL (8.4-10.2); Potassium 4.6 mmol/L (3.5-5.1); Total Protein 5.7 g/dL (6.3-8.2)
[2018-10-05 09:48] LABS: Basophils % (A) 0 %; Eosinophils # (A) 0.2 k/uL (0-0.7); Eosinophils % (A) 3 %; HCT 27.7 % (39.0-53.0); Lymphocytes # (A) 0.9 k/uL (1.0-4.8); Lymphocytes % (A) 11 %; MCH 31.4 pg (25.0-35.0); MCHC 32.4 g/dL (31.0-37.0); MCV 96.7 fL (80.0-100.0); Mean Platelet Volume 7.7; Monocytes # (A) 0.7 k/uL (0-1.0); Monocytes % (A) 9 %; Neutrophils # (A) 5.6 k/uL (1.3-7.7); Neutrophils % (A) 72 %; Platelet Count 184 k/uL (150-450); RBC 2.86 m/uL (4.30-5.90); RDW 13.7 % (11.5-15.5); WBC 7.7 k/uL (3.8-10.6)
--- NOTE | 2018-10-05 10:20 | XR ---
EXAMINATION TYPE: XR chest 2V DATE OF EXAM: 10/05/2018 COMPARISON: 10/04/2018 HISTORY: 72-year-old male postop aortic valve replacement TECHNIQUE: PA and lateral views FINDINGS: Heart upper limits of normal in size. Mild atherosclerotic arch calcifications. Mild interstitial pro minence persists with continued small bilateral pleural effusions and some strandy atelectasis at the left base. Median sternotomy wires and prosthetic aortic valve. Mild hyperinflation. IMPRESSION: Borderline heart size and postop changes with aortic valve replacement. Continued small pleural effus ions with bibasilar atelectasis. Possible underlying COPD.
[2018-10-05 11:20] LABS: Glucose,Whole Blood 101 mg/dL (75-99)
[2018-10-05 12:06] VITALS: RESP 18
--- NOTE | 2018-10-05 12:40 | P.PN ---
Subjective Progress Note Date: 10/05/18 Principal diagnosis: Aortic valve stenosis, bicuspid aortic valve, status post aortic valve replacement This is 72-year-old white male patient of Dr. Adler with a known history of aortic valve stenosis. SHIRLEY by Dr. Sprague showed a bicuspid calcified aortic valve with severe stenosis. Previous echocardiogram showed EF between 60 and 65 % and moderate pulmonary hypertension with right-sided pressures at 51 mmHg. Recent heart catheterization was negative for any significant coronary artery disease. Patient had a recent hospitalization in June 2018 for neurological symptoms and his workup for CVA and TIA was negative negative brain CAT scan, and MRI. During that same admission patient was found to have a large left pleural effusion and he is status post left thoracentesis, cytology ruled out malignancy, but it showed an exudative effusion, with negative cultures, likely parapneumonic in nature. Patient has a [id number] smoking history, has underlying COPD, his preop PFT showed severe COPD with FEV1 of 1.19 L or 43% of predicted, FVC of 1.99 L or 53%, and diffusion capacity of 45%, the response to bronchodilators indicated reversible component. Patient was recommended to undergo surgical intervention for aortic valve stenosis, and patient underwent elective aortic valve replacement using ovine pericardial bioprosthetic valve, exclusion of left atrial appendage today on 09/29/[address] Wadsworth. Patient is seen postoperative period in the intensive care unit, he is intubated, on mechanical ventilator. His maintenance IV fluid is LR iterated 50 ML per hour, clear proximal is currently at 4 mg per hour, Diprivan at 50 mics per kilo per minute. PA pressures 48/26, CVP of 14, cardiac output and cardiac index is 5.9 3.2. Postop blood gas showed pO2 414, pCO2 of 60, pH of 7.25, and this was done on SIMV of 12, tidal volume 550, FiO2 of 100%, and PEEP of 5. We switched the ventilator settings to assist control mode with a rate of 20, same tidal volume, FiO2 down to 50%, and PEEP of 5. And subsequent blood gases showed improvement with pO2 of 96, pCO2 45, and pH of 7.34. Patient has 2 mediastinal and right and left pleural chest tubes in place with moderate amount of sanguinous drainage. Stop labs showed WBC of 9.4, hemoglobin of 10.0, platelet count was 128, INR of 1.3, electrolytes were unremarkable, BUN of 18, creatinine 0.73. Postoperative chest x-ray has been reviewed by Dr. Pool, and showed postsurgical changes with suspected postop atelectasis, small bilateral pleural effusions. On 09/30/2018 patient seen in follow-up. Postop day 1 status post aortic valve replacement with a bioprosthetic valve. Patient was extubated at 1715 yesterday on 09/29/2018. This morning he is sitting up in the recliner, currently on 2 L per nasal cannula his pulse ox is 97%, he is having mild to moderate amount of incisional discomfort in his midsternal area. He states his it hurts for him to breathe. His incentive spirometer effort is 500 mL. This morning patient was assisted up out of bed, and she did become hypotensive afterwards, he received a total of 2 L of 5% albumin, and subsequently his blood pressure recovered, and currently his PA pressures 54/22, with the CVP 19- 20, serial and CO and CI is 5.4 and 2.2 respectively. Today's chest x-ray showed mild right basilar atelectasis, mild prominence of pulmonary vascular markings. Current IV fluids include lactated Ringer's at a rate of 50 ML per hour, insulin drip at 1 unit per hour. No other drips. Lung sounds are clear, with a few bibasilar crackles. Midsternal incisions clean dry and intact, covered with a surgical dressing, 2 mediastinal and left and right pleural chest tubes are with small amount of serosanguineous output. Today's labs have been reviewed, and show WBC of 7.8, hemoglobin is 9.3, electrolytes and renal profile are within normal limits. On 10/01/2018 patient seen in follow-up in the intensive care unit. He is awake and alert, in no acute distress, sitting up in the chair. Denies acute distress, denies any worsening dyspnea, spirometer effort 1000 ML. Today's chest x-ray has been reviewed by Dr. Pool, showed pulmonary venous congestion with scattered areas of atelectasis. Hemodynamically patient is stable, afebrile. Today's labs have been reviewed, WBC 8.8, hemoglobin is 8.7, sodium is 133, there is symmetrical S1 within normal limits, BUN is 28, creatinine 0.97, LFTs were within normal limits. Patient still has 2 mediastinal and right and left pleural chest tubes in place, and there has been 160 mL out of left pleural, 2:30 out of mediastinal, and right pleural was putting out 400 and last 24 hours. Current IV fluids include lactated ringer's at 25 mL an hour. He is in sinus mechanism with a controlled rate, lung sounds are clear to auscultation, and CT surgery is planning on removing the mediastinal chest tubes today. On 10/04/2018 patient seen in follow-up on selective care unit. He is awake and alert, sitting up in the recliner, in no acute distress, his incisional pain is well controlled, currently on 2 L per nasal cannula his pulse ox is 94% , he is working on his incentive spirometry, he has been ambulating tolerating it well. Afebrile, hemodynamically stable, lung sounds are diminished, no rhonchi, no wheezes. Today's chest x-ray is been reviewed by Dr. Pool, showed mild cardiomegaly, and more bilateral pleural effusions with adjacent atelectasis. Labs have been reviewed, WBC 7.0, hemoglobin is 8.6, electrolytes and renal profile are unremarkable. Patient remains in sinus rhythm with a controlled rate. No acute events overnight, no specific complaints. Anticipate discharge home today, follow up with Dr. Pool in the office in one week. On 10/05/2018 patient seen in follow-up on selective care unit, she is doing well, no acute complaints, no acute events overnight, patient has been ambulating, tolerating activity well, pulse ox on 2 L per nasal cannula is 95%. Afebrile, hemodynamically stable, today's chest x-ray showed small pleural effusions with bibasilar atelectasis. Labs showed hemoglobin of 9.0, WBC of 7.7 , electrolytes and renal profile were unremarkable. Chest tubes, epicardial wires have been discontinued, sternal incision is clean dry and intact, stable. Patient has remained stable overnight, anticipate discharge home today Objective - Vital Signs Vital signs: Vital Signs Temp 97.0 F L 10/05/18 12:00 Pulse 74 10/05/18 12:00 Resp 18 10/05/18 12:00 BP 124/60 10/05/18 12:00 Pulse Ox 95 10/05/18 12:00 Intake & Output 10/04/18 10/05/18 10/05/18 18:59 06:59 18:59 Intake Total 430 720 180 Output Total 1400 750 Balance -970 -30 180 Weight 78.4 kg Intake: IV 20 10 0.9 20 10 Lactated Ringers @ 50 ML/ 0 HR Oral 410 710 180 Output: Urine 1400 750 Other: Voiding Method Toilet Toilet # Voids 1 ABP, PAP, CO, CI - Last Documented Arterial Blood Pressure 154/55 Pulmonary Artery Pressure 48/19 Cardiac Output 5.4 Cardiac Index 2.9 - Exam GENERAL EXAM: Awake, alert 72-year-old white male patient, on 2 L per nasal cannula, having mild to moderate amount of midsternal incisional discomfort HEAD: Normocephalic/atraumatic. EYES: Normal reaction of pupils, equal size. Conjunctiva pink, sclera white. NOSE: Clear with pink turbinates. THROAT: No erythema or exudates. NECK: No masses, no JVD, no thyroid enlargement, no adenopathy. CHEST: No chest wall deformity. Symmetrical expansion. Midsternal incision is clean dry and intact, mediastinal and pleural chest tubes have been removed, epicardial wires have been removed LUNGS: Equal air entry with diminished breath sounds, with no rhonchi, no wheezes or crackles CVS: Regular rate and rhythm, normal S1 and S2, no gallops, no murmurs, no rubs ABDOMEN: Soft, nontender. No hepatosplenomegaly, normal bowel sounds, no guarding or rigidity. EXTREMITIES: No clubbing, no edema, no cyanosis, 2+ pulses and upper and lower extremities. MUSCULOSKELETAL: Muscle strength and tone normal. SPINE: No scoliosis or deformity SKIN: No rashes - Labs CBC & Chem 7: 10/05/18 08:46 10/05/18 08:46 Labs: Abnormal Lab Results - Last 24 Hours (Table) 10/04/18 10/04/18 10/05/18 Range/Units 16:56 20:40 01:55 RBC (4.30-5.90) m/uL Hgb (13.0-17.5) gm/dL Hct (39.0-53.0) % Lymphocytes # (1.0-4.8) k/uL BUN (9-20) mg/dL Glucose (74-99) mg/dL POC Glucose (mg/dL) 177 H 124 H 155 H (75-99) mg/dL Total Protein (6.3-8.2) g/dL Albumin (3.5-5.0) g/dL 10/05/18 10/05/18 10/05/18 Range/Units 05:37 08:46 08:46 RBC 2.86 L (4.30-5.90) m/uL Hgb 9.0 L (13.0-17.5) gm/dL Hct 27.7 L (39.0-53.0) % Lymphocytes # 0.9 L (1.0-4.8) k/uL BUN 29 H (9-20) mg/dL Glucose 118 H (74-99) mg/dL POC Glucose (mg/dL) 123 H (75-99) mg/dL Total Protein 5.7 L (6.3-8.2) g/dL Albumin 3.4 L (3.5-5.0) g/dL 10/05/18 Range/Units 11:19 RBC (4.30-5.90) m/uL Hgb (13.0-17.5) gm/dL Hct (39.0-53.0) % Lymphocytes # (1.0-4.8) k/uL BUN (9-20) mg/dL Glucose (74-99) mg/dL POC Glucose (mg/dL) 101 H (75-99) mg/dL Total Protein (6.3-8.2) g/dL Albumin (3.5-5.0) g/dL Assessment and Plan Plan: Assessment: #1. Severe symptomatic aortic valve stenosis, with bicuspid aortic valve, status post aortic valve replacement with bioprosthetic valve, left atrial appendage exclusion, postop day 5 #2. Acute blood loss anemia, an expected outcome of cardiothoracic surgery #3. Routine postoperative ventilator management #4. Severe COPD, gold stage III, with preop FEV1 of 43% of predicted #5. History of nicotine dependence, currently in remission, patient carries 55- pack-year smoking history, quit in June 2018 #6. Previous left-sided thoracentesis, that showed exudative pleural effusion, cytology negative for malignancy, cultures were negative, was likely parapneumonic in nature #7. Moderate pulmonary hypertension, with right-sided pressures of 51 mmHg #8. Left upper extremity neurological dysfunction and patient is following with neurology. Previous workup for CVA/TIA in June 2018 was negative for the brain scan and MRI of the brain Plan: Patient remains stable, no acute events overnight, vital signs are stable, he is tolerating ambulation, today's chest x-ray has been reviewed with Dr. Ramsey , shows small bilateral pleural effusions, labs have been unremarkable, patient is anticipated to be discharged home today. Follow up with Dr. Pool in the office in one week I performed a history & physical examination of the patient and discussed their management with my nurse practitioner, Franny Major. I reviewed the nurse practitioner's note and agree with the documented findings and plan of care. Lung sounds are clear, diminished. The findings and the impression was discussed with the patient. I attest to the documentation by the nurse practitioner. Time with Patient: Less than 30
--- NOTE | 2018-10-05 14:10 | P.PN ---
Subjective Progress Note Date: 10/05/18 Principal diagnosis: Severely stenotic bicuspid aortic valve. Medical history of previous tobacco dependence, severe COPD with preoperative FEV1 43% of predicted, Stanton's chorea, osteoarthritis, congestive heart failure, left sided exudative pleural effusion status post thoracentesis in June 2018. POD #5 aortic valve replacement using a #23 mm Inspiris-Resilia bovine pericardial bioprosthesis. Exclusion of the left atrial appendage using a 35 mm AtriClip. Intraoperative transesophageal echocardiogram and epi-aortic scanning. Postoperative paroxysmal atrial fibrillation, an unexpected outcome of surgery. The patient is currently ambulating in the 3 S cardiac care unit already. He is in no acute distress. He does complaints of pain, he does report that he is having some episodes of shortness of breath with activity. He remains hemodynamically stable. No further episodes of atrial fibrillation. He is anxious to be discharged home. He remains on 2 L nasal cannula with oxygen saturations 95%. He is achieving 6521-8899 mL on his incentive spirometry. Objective - Vital Signs Vital signs: Vital Signs Temp 97.0 F L 10/05/18 12:00 Pulse 74 10/05/18 12:00 Resp 18 10/05/18 12:00 BP 124/60 10/05/18 12:00 Pulse Ox 94 L 10/05/18 12:00 Intake & Output 10/04/18 10/05/18 10/05/18 18:59 06:59 18:59 Intake Total 430 720 180 Output Total 1400 750 Balance -970 -30 180 Weight 78.4 kg Intake: IV 20 10 0.9 20 10 Lactated Ringers @ 50 ML/ 0 HR Oral 410 710 180 Output: Urine 1400 750 Other: Voiding Method Toilet Toilet # Voids 1 ABP, PAP, CO, CI - Last Documented Arterial Blood Pressure 154/55 Pulmonary Artery Pressure 48/19 Cardiac Output 5.4 Cardiac Index 2.9 - Constitutional General appearance: Present: cooperative, no acute distress, obese - Respiratory Details: Lung sounds with scattered expiratory wheezes. Diminished to his bilateral bases. Respirations are symmetrical and nonlabored. Oxygen saturation are 95% on 2 L nasal cannula. He is achieving 4392-3018 mL on his incentive spirometry with encouragement. - Cardiovascular Details: Regular rhythm and rate. S1 and S2 present, negative for S3, gallop or murmur. Remote telemetry showing normal sinus rhythm heart rate 81. Sternum is stable. No edema present. Heart hugger is in place and he is demonstrating appropriate use. Knee-high TAZ hose and sequential compression devices in place to his bilateral lower extremities. - Gastrointestinal Gastrointestinal Comment(s): Abdomen is soft, nontender and nondistended. Active bowel sounds all 4 abdominal quadrants. Tolerating oral intake. Passing flatus. - Genitourinary Genitourinary Comment(s): Voiding clear yellow urine. 400 mL output in the last 8 hours. - Integumentary Integumentary Comment(s): Skin is warm and dry. No clubbing or cyanosis present. Midline sternal incision clean, dry and approximated. No redness or drainage present. Gauze dressing clean and dry. - Neurologic Neurologic: Present: CNII-XII intact - Musculoskeletal Musculoskeletal: Present: gait normal, strength equal bilaterally - Psychiatric Psychiatric: Present: A&O x's 3, appropriate affect, intact judgment & insight - Allied health notes Allied health notes reviewed: nursing - Labs CBC & Chem 7: 10/05/18 08:46 10/05/18 08:46 Labs: Abnormal Lab Results - Last 24 Hours (Table) 10/04/18 10/04/18 10/05/18 Range/Units 16:56 20:40 01:55 RBC (4.30-5.90) m/uL Hgb (13.0-17.5) gm/dL Hct (39.0-53.0) % Lymphocytes # (1.0-4.8) k/uL BUN (9-20) mg/dL Glucose (74-99) mg/dL POC Glucose (mg/dL) 177 H 124 H 155 H (75-99) mg/dL Total Protein (6.3-8.2) g/dL Albumin (3.5-5.0) g/dL 10/05/18 10/05/18 10/05/18 Range/Units 05:37 08:46 08:46 RBC 2.86 L (4.30-5.90) m/uL Hgb 9.0 L (13.0-17.5) gm/dL Hct 27.7 L (39.0-53.0) % Lymphocytes # 0.9 L (1.0-4.8) k/uL BUN 29 H (9-20) mg/dL Glucose 118 H (74-99) mg/dL POC Glucose (mg/dL) 123 H (75-99) mg/dL Total Protein 5.7 L (6.3-8.2) g/dL Albumin 3.4 L (3.5-5.0) g/dL 10/05/18 Range/Units 11:19 RBC (4.30-5.90) m/uL Hgb (13.0-17.5) gm/dL Hct (39.0-53.0) % Lymphocytes # (1.0-4.8) k/uL BUN (9-20) mg/dL Glucose (74-99) mg/dL POC Glucose (mg/dL) 101 H (75-99) mg/dL Total Protein (6.3-8.2) g/dL Albumin (3.5-5.0) g/dL - Imaging and Cardiology Chest x-ray: report reviewed, image reviewed Assessment and Plan (1) COPD (chronic obstructive pulmonary disease) Current Visit: Yes Status: Chronic Code(s): J44.9 - CHRONIC OBSTRUCTIVE PULMONARY DISEASE, UNSPECIFIED SNOMED Code(s): 93329129 (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 Code(s): G10 - SAVAGE'S DISEASE SNOMED Code(s): 77092337 (3) Severe aortic stenosis Current Visit: Yes Status: Chronic Code(s): I35.0 - NONRHEUMATIC AORTIC ( VALVE) STENOSIS SNOMED Code(s): 86238928 (4) History of pleural effusion Current Visit: No Status: Resolved Code(s): Z87.09 - PERSONAL HISTORY OF OTHER DISEASES OF THE RESPIRATORY SYSTEM SNOMED Code(s): 863895969 (5) History of thoracentesis Current Visit: No Status: Resolved Code(s): Z98.890 - OTHER SPECIFIED POSTPROCEDURAL STATES SNOMED Code(s): 497108294 (6) Tobacco dependence in remission Current Visit: No Status: Resolved Code(s): F17.201 - NICOTINE DEPENDENCE, UNSPECIFIED, IN REMISSION SNOMED Code(s): 249436760 Plan: 1. Continue aspirin, statin and beta millie. We will increase beta millie as tolerated.. 2. Wean O2 as tolerated. Encourage incentive spirometry use 10 times every hour while awake. 3. Increase activity and ambulate as tolerated. PT/OT/cardiac rehab following. 4. Bronchodilators, steroids per pulmonology management. 5. Will monitor daily labs and chest x-rays. 6. Pain control with current medication regimen. 7. Insulin management per primary care service. 8. Reinforced the importance of and encourage continued smoking cessation. 9. Continue Amiodarone 400 mg by mouth twice a day for atrial fibrillation prophylaxis. 10. Discharge planning in progress. Anticipate discharge to home with home care today. 11. GI and DVT prophylaxis in place, continue heparin subcu, SCDs and Protonix. 12. More recommendations to follow based on patient's clinical course. Time with Patient: Greater than 30
--- NOTE | 2018-10-05 16:05 | P.DS ---
Providers Date of admission: 09/29/18 05:33 Expected date of discharge: 10/05/18 Attending physician: Mitul Wadsworth Consults: 09/29/18 12:26 Consult Physician Routine Consulting Provider: Simi Adler Consult Reason/Comments: Risk Management Consultant Consult: post cardiac surgery Do you want consulting provider notified?: Yes Consult Physician Routine Consulting Provider: Kari Sprague Consult Reason/Comments: Residential Assistant Consult: post cardiac surgery Do you want consulting provider notified?: Yes Consult Physician Routine Consulting Provider: Tahir Coy Consult Reason/Comments: med managment Do you want consulting provider notified?: Yes Primary care physician: Feliciano Motta - Perla Diagnosis(es) (1) COPD (chronic obstructive pulmonary disease) Current Visit: Yes Status: Chronic (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 Severely stenotic bicuspid aortic valve 2. Severe COPD with preoperative FEV1 of 43% of predicted value 3. Congestive heart failure 4. Left-sided exudative pleural effusion status post thoracentesis in June 2018 5. History of previous tobacco dependence quit in June 2018 6. Peri's chorea 7. Postoperative paroxysmal atrial fibrillation, an unexpected outcome of surgery. PRINCIPAL PROCEDURE: 1. Aortic valve replacement using a #23 mm Inspiris bovine pericardial bioprosthetic valve. 2. Exclusion of the left atrial appendage using a #35 mm AtriClip. 3. Intraoperative transesophageal echocardiogram and epi-aortic scanning. HISTORY OF PRESENT ILLNESS: This is a 72-year-old gentleman who is followed by Dr. Feliciano Klein on an outpatient basis. His past medical history significant for severely stenotic bicuspid aortic valve, severe COPD, history of left-sided exudative pleural effusion status post thoracentesis in June 2018, history of chronic nicotine dependence quit in 06/18/2018, and Peri's chorea. Initially, the patient has had complaints of progressive shortness of breath. He denied any complaints of chest pain, orthopnea or syncope or near syncope. 08/11/2018 the patient underwent a transesophageal echocardiogram and cardiac catheterization. The transesophageal echocardiogram showed evidence of a bicuspid calcified aortic valve with aortic valve area calculated to be in the range of 0.8-0.9 cm suggestive of severe aortic stenosis. The SHIRLEY also showed mild aortic valve regurgitation and evidence of left ventricular hypertrophy with a normal left ventricular systolic function. The heart catheterization demonstrated evidence of severe aortic stenosis with aortic valve area calculated in the range of 0.8 cm, moderate degree of pulmonary hypertension with a PA systolic pressure in the range of 50-55 mmHg and normal coronary arteries. Due to the patient's progressive shortness of breath, SHIRLEY results and cardiac catheterization results he was referred to Dr. Wadsworth from cardiothoracic surgery for further workup and evaluation. Dr. Wadsworth met with the patient and his and reviewed the above-mentioned study results. An elective aortic valve surgery was recommended, risks and benefits were discussed and the patient wished to proceed with an elective aortic valve replacement. HOSPITAL COURSE: The patient was brought to the hospital and after obtaining consent was taken to the operating room where Dr. Mitul Wadsworth performed an elective aortic valve replacement using a #23 mm Inspiris bovine pericardial bioprosthetic valve, exclusion of the left atrial appendage using a #35 mm AtriClip, and an intraoperative transesophageal echocardiogram and epi-aortic scanning. Upon completion of the surgery the patient was transferred to the cardiovascular intensive care unit where he was recovered, monitored hemodynamically, and where he progressed cardiac rehabilitation phase 1. He was extubated, all lines, tubes and supportive drips were discontinued when appropriate and he was transferred to [facility] cardiac unit for further rehabilitation and monitoring. He remains on oxygen support 2 L nasal cannula, he continued to work with physical and occupational therapy and has been tolerating an oral diet, his pain is well controlled and he is ready to be discharged home with [facility] on postoperative day #6. His received written, and verbal instructions regarding his medications, activity restrictions, signs and symptoms requiring physician notification and follow-up appointments. COMPLICATIONS: His postoperative period was complicated by some paroxysmal atrial fibrillation which was treated appropriately. CONSULTATIONS: 1. Dr. Sprague for cardiology management. 2. Dr. Pool for pulmonary and ventilator management. 3. Dr. Coy for medical management. DISCHARGE INSTRUCTIONS: 1. No driving for 4 weeks, or until physician gives their ok. 2. The patient should sleep in their own bed, no medical bed needed. 3. Stairs are not an issue. If the bedroom is upstairs, it is advised that the patient go up at night and down in the morning for the first week. Go slowly, using handrail and take 1 step at a time. 4. TAZ hose are to be worn for 30 days or until physician discontinues. 5. Heart hugger is to be worn 100% of the time until physician discontinues.( except when showering) 6. No lifting, pushing, or pulling more than 10 pounds for 12 weeks. The physician will advise of any restriction changes. 7. The patient is expected to continue the prescribed walking program. 8. Continue pain control per as needed orders. 9. Continue with incentive spirometry and splinting/heart hugger until otherwise directed by the physician. 10. Must shower daily using liquid antibacterial soap and a separate white washcloth for each individual incision. 11. Routine sternal incision care, no ointments, lotions or powders on the incisions. 12. Please notify surgeon/nurse practitioner for temperature greater than 101F or purulent drainage from incisions 13. Prescriptions for first 30 days given per cardiac surgery service. After 30 days, all prescription refills obtained through cardiology/primary care physician. 14. A red arm and has been placed on this patient it should be worn for 30 days post surgery and will be removed by the cardiothoracic surgeons. If an ER visit is necessary, please make sure the number on the red arm band is called. HOME HEALTH SERVICES TO PROVIDE: RN SKILLED HOME CARE SERVICES FOR POST-OP SURGICAL PATIENTS WITH THE FOLLOWING: Coronary Artery Bypass Surgery (CABG), Mitral Valve Replacement/ Repair ( MVR), Aortic Valve Replacement/Repair (AVR) RN TO CONTINUE EDUCATION FROM ``ROAD TO A HEALTH HEART PATIENT EDUCATION MANUAL" (GIVEN TO PATIENT IN THE HOSPITAL) MEDICATION RECONCILIATION WITH EDUCATION NEEDED ON FIRST HOME VISIT EMPHASIZE IMPORTANCE OF WEARING BREAST SUPPORT/HEART HUGGER ENCOURAGE USE OF INCENTIVE SPIROMETER 10 X EVERY HOUR WHILE AWAKE ENCOURAGE UTILIZATION OF LOWER EXTREMITY COMPRESSION STOCKINGS/TAZ HOSE and ELEVATE LEGS ABOVE LEVEL OF HEART WHILE AT REST. ENCOURAGE AMBULATION 3-5x/day INCREASING TOLERATES, WHILE AVOID EXTREMES IN TEMPERATURE FREQUENCY: RN TO OPEN THE PATIENT WITHIN 24 HOURS OF DISCHARGE FROM THE HOSPITAL WITH TELEHEALTH INSTALLED AT [facility], RN TO VISIT 2-3 X A WEEK FOR 4 WEEKS ESTABLISHED BY PATIENT NEEDS. LABORATORY: CBC, CMP TO BE DRAWN ON THE THIRD DAY HOME, , 10/08/2018 (RAN STAT) FAX RESULTS TO [phone]. TELEHEALTH PARAMETERS: WEIGHT: NOTIFY MD OF WEIGHT GAIN OF 2 LBS IN 24 HOURS OR 5 LBS IN ONE WEEK HR: NOTIFY MD OF HR <55 BPM OR HR>100 BPM BP: NOTIFY MD IF BP <90/55 OR BP>140/100 O2 SAT: NOTIFY MD IF PO2<93% ON ROOM AIR SEND TELEHEALTH REPORT TO PASTE MIXER LIQUID AND CARDIOVASCULAR SURGEON THE FIRST WEEK OF CARE AND THEN BI-WEEKLY. PLEASE ADDITIONALLY COMMUNICATE ANY ABNORMALS AND NEW FINDINGS TO THE SURGEONS OFFICE. Plan - Discharge Summary Discharge Rx Participant: Yes New Discharge Prescriptions: New Acetaminophen Tab [Tylenol] 650 mg PO Q4HR PRN tab PRN Reason: Fever And/ Or Pain Amiodarone [Cordarone] 400 mg PO BID #50 tab Aspirin 325 mg PO DAILY tab Atorvastatin [Lipitor] 40 mg PO DAILY #30 tab Metoprolol Tartrate [Lopressor] 50 mg PO BID #60 tab Pantoprazole [Protonix] 40 mg PO AC-BRKFST #30 tablet. Furosemide [Lasix] 20 mg PO DAILY 30 Days #30 tab Continue Mometasone/Formoterol [Dulera 200 Mcg/5 Mcg Inhaler] 2 puff INHALATION RT-BID Aclidinium [place] [Tudorza Pressair] 1 puff INHALATION RT-BID Tetrabenazine 12.5 mg PO BID Ipratropium-Albuterol Nebulize [Duoneb 0.5 mg-3 mg/3 ml Soln] 3 ml INHALATION RT-QID PRN PRN Reason: Dyspnea Cholecalciferol [Vitamin D3] 2,000 unit PO DAILY Discontinued Ibuprofen [Motrin] 800 mg PO Q6H PRN PRN Reason: Pain Aspirin EC [Ecotrin Low Dose] 81 mg PO DAILY Discharge Medication List Aclidinium [place] [Tudorza Pressair] 1 puff INHALATION RT-BID 06/28/18 [History ] Mometasone/Formoterol [Dulera 200 Mcg/5 Mcg Inhaler] 2 puff INHALATION RT-BID [History] Cholecalciferol [Vitamin D3] 2,000 unit PO DAILY 09/17/18 [History] Ipratropium-Albuterol Nebulize [Duoneb 0.5 mg-3 mg/3 ml Soln] 3 ml INHALATION RT -QID PRN 09/17/18 [History] Tetrabenazine 12.5 mg PO BID 09/17/18 [History] Acetaminophen Tab [Tylenol] 650 mg PO Q4HR PRN tab 10/05/18 [Rx] Amiodarone [Cordarone] 400 mg PO BID #50 tab 10/05/18 [Rx] Aspirin 325 mg PO DAILY tab 10/05/18 [Rx] Atorvastatin [Lipitor] 40 mg PO DAILY #30 tab 10/05/18 [Rx] Furosemide [Lasix] 20 mg PO DAILY 30 Days #30 tab 10/05/18 [Rx] Metoprolol Tartrate [Lopressor] 50 mg PO BID #60 tab 10/05/18 [Rx] Pantoprazole [Protonix] 40 mg PO AC-BRKFST #30 tablet. 10/05/18 [Rx] Follow up Appointment(s)/Referral(s): Mitul Wadsworth MD [STAFF PHYSICIAN] - 10/30/18 10:15 am Daryl Ribeiro NPC [Nurse Practitioner] - 10/12/18 11:00 am [facility], [NON-STAFF] - 1 Week Feliciano Motta MD [Primary Care Provider] - 10/13/18 9:30 am Klaus Pool MD [STAFF PHYSICIAN] - 10/12/18 1:00 pm Kari Sprague MD [STAFF PHYSICIAN] - 10/14/18 3:30 pm Ambulatory/Diagnostic Orders: Complete Blood Count w/diff [LAB.AMB] Time Frame: 10/08/18, Facility: [facility], Location: Laboratory [facility] Comprehensive Metabolic Panel [LAB.AMB] Time Frame: 10/08/18, Facility: [facility], Location: Laboratory [facility] Patient Instructions/Handouts: A-fib (Atrial Fibrillation) (DC), Aortic Valve Replacement (DC), Sternal Precautions (GEN) Activity/Diet/Wound Care/Special Instructions: Home Oxygen - to be delivered to room prior to discharge - [facility] [phone] DISCHARGE INSTRUCTIONS: 1. No driving for 4 weeks, or until physician gives their ok. 2. The patient should sleep in their own bed, no medical bed needed. 3. Stairs are not an issue. If the bedroom is upstairs, it is advised that the patient go up at night and down in the morning for the first week. Go slowly, using handrail and take 1 step at a time. 4. TAZ hose are to be worn for 30 days or until physician discontinues. 5. Heart hugger is to be worn 100% of the time until physician discontinues.( except when showering) 6. No lifting, pushing, or pulling more than 10 pounds for 12 weeks. The physician will advise of any restriction changes. 7. The patient is expected to continue the prescribed walking program. 8. Continue pain control per as needed orders. 9. Continue with incentive spirometry and splinting/heart hugger until otherwise directed by the physician. 10. Must shower daily using liquid antibacterial soap and a separate white washcloth for each individual incision. 11. Routine sternal incision care, no ointments, lotions or powders on the incisions. 12. Please notify surgeon/nurse practitioner for temperature greater than 101F or purulent drainage from incisions 13. Prescriptions for first 30 days given per cardiac surgery service. After 30 days, all prescription refills obtained through cardiology/primary care physician. 14. A red arm and has been placed on this patient it should be worn for 30 days post surgery and will be removed by the cardiothoracic surgeons. If an ER visit is necessary, please make sure the number on the red arm band is called. HOME HEALTH SERVICES TO PROVIDE: RN SKILLED HOME CARE SERVICES FOR POST-OP SURGICAL PATIENTS WITH THE FOLLOWING: Coronary Artery Bypass Surgery (CABG), Mitral Valve Replacement/ Repair ( MVR), Aortic Valve Replacement/Repair (AVR) RN TO CONTINUE EDUCATION FROM ``ROAD TO A HEALTH HEART PATIENT EDUCATION MANUAL" (GIVEN TO PATIENT IN THE HOSPITAL) MEDICATION RECONCILIATION WITH EDUCATION NEEDED ON FIRST HOME VISIT EMPHASIZE IMPORTANCE OF WEARING BREAST SUPPORT/HEART HUGGER ENCOURAGE USE OF INCENTIVE SPIROMETER 10 X EVERY HOUR WHILE AWAKE ENCOURAGE UTILIZATION OF LOWER EXTREMITY COMPRESSION STOCKINGS/TAZ HOSE and ELEVATE LEGS ABOVE LEVEL OF HEART WHILE AT REST. ENCOURAGE AMBULATION 3-5x/day INCREASING TOLERATES, WHILE AVOID EXTREMES IN TEMPERATURE FREQUENCY: RN TO OPEN THE PATIENT WITHIN 24 HOURS OF DISCHARGE FROM THE HOSPITAL WITH TELEHEALTH INSTALLED AT [facility], RN TO VISIT 2-3 X A WEEK FOR 4 WEEKS ESTABLISHED BY PATIENT NEEDS. LABORATORY: CBC, CMP TO BE DRAWN ON THE THIRD DAY HOME, , 10/08/2018 (RAN STAT) FAX RESULTS TO [phone]. TELEHEALTH PARAMETERS: WEIGHT: NOTIFY MD OF WEIGHT GAIN OF 2 LBS IN 24 HOURS OR 5 LBS IN ONE WEEK HR: NOTIFY MD OF HR <55 BPM OR HR>100 BPM BP: NOTIFY MD IF BP <90/55 OR BP>140/100 O2 SAT: NOTIFY MD IF PO2<93% ON ROOM AIR SEND TELEHEALTH REPORT TO PASTE MIXER LIQUID AND CARDIOVASCULAR SURGEON THE FIRST WEEK OF CARE AND THEN BI-WEEKLY. PLEASE ADDITIONALLY COMMUNICATE ANY ABNORMALS AND NEW FINDINGS TO THE SURGEONS OFFICE. Discharge Disposition: HOME WITH HOME HEALTH SERVICES
--- NOTE | 2018-10-05 16:06 | CONS ---
CONSULTATION This patient's medical record is reviewed. Please refer to the patient's EMR for any details. Patient is status post aortic valve replacement. Patient had episodes of atrial fibrillation, treated with amiodarone and beta millie. Patient had some pause with conversion to normal sinus rhythm, but otherwise he is feeling well. Patient now remains in normal sinus rhythm without any problem. Blood pressure is 124/60 mmHg. First and second heart sounds are heard. Lungs are clinically clear to auscultation and percussion. Patient's hemoglobin is 9 grams. Electrolytes and creatinine are normal. Patient is going to be discharged home today. MMODL / IJN: [id number] /
[2018-10-05 16:42] VITALS: BP 131/60; PULSE 85; TEMP 97.2
--- NOTE | 2018-10-05 18:12 | PN ---
PROGRESS NOTE DATE OF SERVICE: 10/05/2018 PRESENTING COMPLAINT: Aortic valve replacement. INTERVAL HISTORY: Patient is status post aortic valve replacement. Also has had atrial fibrillation. Has remained in sinus rhythm now. Breathing is stable. Up and about. Did have a bowel movement. Feels well. REVIEW OF SYSTEMS: Done for constitutional, cardiovascular, GI, pulmonary; relevant findings as above. CURRENT MEDICATIONS: Reviewed. PHYSICAL EXAMINATION: Temperature 97, pulse 74, respiration 18, blood pressure 124/60, pulse 95% on 2 L. GENERAL APPEARANCE: Sitting up in a chair. Comfortable. EYES: Pupils equal. Conjunctivae normal. HEENT: External appearance of nose and ears normal. Oral cavity normal. NECK: JVD not raised. Mass not palpable. RESPIRATORY: Effort normal. LUNGS: Decreased breath sounds. CARDIOVASCULAR: First and second sounds normal. No edema. ABDOMEN: Soft, non-tender. Liver and spleen not palpable. PSYCHIATRY: Alert and oriented x3. Mood and affect normal. INVESTIGATIONS: White count 7.7, hemoglobin 9, potassium 4.6. Platelets are normal. Telemetry shows normal sinus rhythm. ASSESSMENT: 1. Severe aortic stenosis from a bicuspid aortic valve, status post surgical placement. 2. Recent large left pleural effusion; 1.4 L removed, being followed by Dr. Adler as an outpatient. 3. Chronic obstructive pulmonary disease in an ex-smoker. 4. Moderate secondary pulmonary hypertension secondary to chronic obstructive pulmonary disease. 5. Acute postoperative blood loss anemia, expected from surgery. 6. Dilutional thrombocytopenia, corrected. 7. Paroxysmal atrial fibrillation. Patient has been in sinus rhythm. The patient is stable, doing well. Patient should follow up with his family doctor and also with Dr. Adler regarding the pleural effusion. MMODL / IJN: [id number] /
== END 2018-10-05 18:10 | disposition home health service (06) | DRG 220 ==
LOC: 2ORMAIN 09-29 05:33 → 2SICU 09-29 13:40 → 3SCARD 10-01 20:23
PROVIDERS: ADMIT Surgery; ATTEND Surgery
PROC: 5A1221Z Performance of Cardiac Output, Continuous (ICD-10-PCS; 2018-09-29)
PROC: 30233N0 Transfusion of Autologous Red Blood Cells into Peripheral Vein, Percutaneous Approach (ICD-10-PCS; 2018-09-29)
PROC: B246ZZ4 Ultrasonography of Right and Left Heart, Transesophageal (ICD-10-PCS; 2018-09-29)
PROC: 02RF08Z Replacement of Aortic Valve with Zooplastic Tissue, Open Approach (ICD-10-PCS; principal; 2018-09-29 08:00)
PROC: 02L70CK Occlusion of Left Atrial Appendage with Extraluminal Device, Open Approach (ICD-10-PCS; 2018-09-29 08:00)
DX: Q23.1 Congenital insufficiency of aortic valve (principal); G10 Huntington's disease; I97.190 Other postprocedural cardiac functional disturbances following cardiac surgery; D62 Acute posthemorrhagic anemia; J98.11 Atelectasis; G25.9 Extrapyramidal and movement disorder, unspecified; I48.92 Unspecified atrial flutter; I95.9 Hypotension, unspecified; I27.23 Pulmonary hypertension due to lung diseases and hypoxia; D69.59 Other secondary thrombocytopenia; I48.0 Paroxysmal atrial fibrillation; J44.9 Chronic obstructive pulmonary disease, unspecified; I50.9 Heart failure, unspecified; M81.0 Age-related osteoporosis without current pathological fracture; M19.90 Unspecified osteoarthritis, unspecified site; F17.201 Nicotine dependence, unspecified, in remission; Z79.82 Long term (current) use of aspirin; Z79.51 Long term (current) use of inhaled steroids; Z79.899 Other long term (current) drug therapy; Z96.642 Presence of left artificial hip joint; Z86.73 Personal history of transient ischemic attack (TIA), and cerebral infarction without residual deficits; Z80.1 Family history of malignant neoplasm of trachea, bronchus and lung; Y83.2 Surgical operation with anastomosis, bypass or graft as the cause of abnormal reaction of the patient, or of later complication, without mention of misadventure at the time of the procedure
CPT/HCPCS: 71045; 71046; 80048; 80053; 82330; 82805; 83735; 84100; 85025; 85027; 85520; 85610; 85730; 86850; 86891; 86900; 86901; 86920; 88305; 88311; 94002; 94640; 94760

== ENCOUNTER → 2018-10-12 | Outpatient (CLI) | payer MEDICARE, BC ==
[2018-10-12 15:16] LABS: Blood Urea Nitrogen 16 mg/dL (9-20)
--- NOTE | 2018-10-12 15:56 | CT ---
EXAMINATION TYPE: CT angio chest DATE OF EXAM: 10/12/2018 COMPARISON: 06/23/2018 HISTORY: 72-year-old male dyspnea on exertion. Hx valve replacement October 02. COPD TECHNIQUE: Contiguous axial scanning of the chest performed with IV Contrast, patient injected with 1 00 mL of Isovue 370. Coronal/sagittal MIP reconstructions performed. CT DLP: 267.10 mGycm Automated exposure control for dose reduction was used. FINDINGS: Heart borderline enlarged with small pericardial fluid. Median sternotomy changes with associated sof t tissue swelling overlying the sternotomy and also in the underlying prevascular space compatible wi th patient's relatively recent operation. Prosthetic aortic valve is demonstrated. Aorta normal caliber with conventional arch vessel branching anatomy. Prominent 8 mm but nonenlarged AP window lymph node likely reactive. Satisfactory opacification of the pulmonary artery system though with areas of respiratory motion suc h as in the right upper lobe but greatest in the left lower lobe limiting assessment. Some of the seg mental and many of the subsegmental branches of the left lower lobe are nondiagnostic for assessment of pulmonary embolus. Otherwise, no definite pulmonary embolus is identified. Moderate right and [id number] left pleural effusions with peribronchial thickening and scatter ed septal lines. Underlying moderate centrilobular emphysema. Dependent atelectasis at the right midl hilda and also along the left major fissure. 6 mm pulmonary nodule subpleural left midlung, axial image 51. Small hiatal hernia. Bones: Nonhealed median sternotomy. IMPRESSION: 1. BREATHING MOTION ARTIFACTS PARTICULARLY IN THE LEFT LOWER LOBE. SOME OF THE SEGMENTAL AND MANY OF THE SUBSEGMENTAL BRANCHES HERE IN THE LEFT LOWER LOBE ARE NONDIAGNOSTIC. OTHERWISE, NO EVIDENCE FOR P ULMONARY EMBOLUS ELSEWHERE. 2. MODERATE RIGHT AND SMALL TO MODERATE LEFT PLEURAL EFFUSIONS. THERE ARE SCATTERED SEPTAL LINES AND INTERSTITIAL THICKENING. CORRELATE FOR MILD TO MODERATE CHF. 3. SIX-MONTH FOLLOW-UP RECOMMENDED FOR THE 6 MM LEFT MIDLUNG PULMONARY NODULE.
== END | disposition home or self-care (01) ==
LOC: RADCTMAIN 14:31
PROVIDERS: ATTEND Internal Medicine Critical Care Medicine
DX: J90 Pleural effusion, not elsewhere classified (principal); J84.9 Interstitial pulmonary disease, unspecified
CPT/HCPCS: 82565; 84520; 71275; 36415; Q9967

== ENCOUNTER → 2018-12-30 | Outpatient (CLI) | payer MEDICARE ==
[2018-12-30 17:46] LABS: HCT 38.8 % (39.0-53.0); HGB 12.2 gm/dL (13.0-17.5); MCH 28.6 pg (25.0-35.0); MCHC 31.6 g/dL (31.0-37.0); MCV 90.5 fL (80.0-100.0); Mean Platelet Volume 7.2; Platelet Count 229 k/uL (150-450); RBC 4.29 m/uL (4.30-5.90); RDW 15.2 % (11.5-15.5); WBC 8.3 k/uL (3.8-10.6)
[2018-12-30 17:47] LABS: Anion Gap 5 mmol/L; Blood Urea Nitrogen 21 mg/dL (9-20); Calcium 9.4 mg/dL (8.4-10.2); Carbon Dioxide 27 mmol/L (22-30); Chloride 108 mmol/L (98-107); Glucose 96 mg/dL (74-99); Potassium 4.5 mmol/L (3.5-5.1); Sodium 140 mmol/L (137-145)
--- NOTE | 2018-12-31 09:06 | US ---
EXAMINATION TYPE: US chest DATE OF EXAM: 12/30/2018 COMPARISON: NONE CLINICAL HISTORY: J90 PLEURAL EFFUSION. SOB TECHNIQUE: Targeted ultrasound of the posterior lower right EXAM MEASUREMENTS: Right Pleural Effusion pocket size: 1.4 cm Left Pleural Effusion pocket size: 0 cm Right side NOT marked for Pulmonologists are able to review the images in the patient?s EMR. IMPRESSIONS: 1. Minimal right pleural effusion
--- NOTE | 2018-12-31 10:17 | XR ---
EXAMINATION TYPE: XR chest 2V DATE OF EXAM: 12/30/2018 COMPARISON: 10/05/2018 INDICATION: Pleural effusions, short of breath TECHNIQUE: Frontal and lateral views of the chest are obtained. FINDINGS: The heart size is normal. The pulmonary vasculature is normal. The lungs are clear. There is near complete resolution previous pleural effusions. Very minimal resi dual or small return remains best visualized on the lateral projection. IMPRESSION: 1. Minimal bilateral posterior pleural effusions
== END | disposition home or self-care (01) ==
LOC: RADUSWWP 16:14
PROVIDERS: ATTEND Internal Medicine Cardiovascular Disease
DX: J90 Pleural effusion, not elsewhere classified (principal)
CPT/HCPCS: 36415; 71046; 76604; 80048; 83880; 85027

== ENCOUNTER 2019-10-21 09:51 | Emergency (ER) | payer MEDICARE ==
[2019-10-21] MEDS ORDERED: MAGNESIUM SULFATE-D5W PMX 1 GM in DEXTROSE/WATER 1 100ML.BAG IVPB STA (10:23)
[2019-10-21] MEDS ORDERED: IPRATROPIUM-ALBUTEROL 3 ML NEB INHALATION STA ×2 (10:23→12:25)
[2019-10-21 10:49] LABS: Basophils % (A) 0 %; Eosinophils # (A) 0.2 k/uL (0-0.7); Eosinophils % (A) 2 %; HCT 38.7 % (39.0-53.0); HGB 13.2 gm/dL (13.0-17.5); Lymphocytes # (A) 1.1 k/uL (1.0-4.8); Lymphocytes % (A) 9 %; MCH 30.8 pg (25.0-35.0); MCV 90.6 fL (80.0-100.0); Mean Platelet Volume 6.7; Monocytes # (A) 0.9 k/uL (0-1.0); Monocytes % (A) 8 %; Neutrophils % (A) 77 %; Platelet Count 213 k/uL (150-450); RBC 4.27 m/uL (4.30-5.90); RDW 12.7 % (11.5-15.5); WBC 11.7 k/uL (3.8-10.6)
[2019-10-21 10:58] LABS: Partial Thromboplastin Time 27.8 sec (22.0-30.0); Prothrombin Time 10.6 sec (9.0-12.0)
--- NOTE | 2019-10-21 11:02 | XR ---
EXAMINATION TYPE: XR chest 2V DATE OF EXAM: 10/21/2019 COMPARISON: 10/29/2019 HISTORY: Difficulty breathing TECHNIQUE: Frontal and lateral views of the chest are obtained. FINDINGS: There is improved aeration of the lungs in comparison the prior. However, there remains per ibronchial cuffing most exaggerated on the lateral view. There is no focal air space opacity, pleural effusion, or pneumothorax seen. Post CABG changes of the chest are presented limits of normal size o f the aorta. The osseous structures are intact. IMPRESSION: Peribronchial cuffing remains on the lateral view. Consider bronchitis or chronic reacti ve airway disease. Overall improved aeration the prior
[2019-10-21 11:12] LABS: Albumin 3.7 g/dL (3.5-5.0); Potassium 3.9 mmol/L (3.5-5.1); Total Bilirubin 0.7 mg/dL (0.2-1.3); Total Protein 6.6 g/dL (6.3-8.2)
--- NOTE | 2019-10-21 12:32 | ED ---
SOB HPI - General Chief Complaint: Shortness of Breath Stated Complaint: AGUSTIN Time Seen by Provider: 10/21/19 10:00 Source: patient Mode of arrival: ambulatory Limitations: no limitations - History of Present Illness Initial Comments: The patient is a 73-year-old male with past history of COPD who presents to the emergency room with reported shortness of breath. He was at his primary care office today he's been having difficulty breathing since Friday. Admits to a nonproductive cough without hemoptysis. Denies any fevers or chills. No nausea or vomiting. Denies history of DVT or PE. No history of congestive heart failure however does take Lasix. No changes in his medications and has not missed any doses. Denies any lower extremity edema. No calf pain or swelling. No recent travel. He does not smoke. He has not taken any medications at home for her symptoms. At his primary care physician's office today to give him a steroid shot and a breathing treatment. When he still had increased worker breathing and they sent him to the emergency room for further evaluation. He denies being intubated for his breathing. He sees Dr. Jhaveri in office. Last breathing exacerbation was one year ago. There are no other alleviating, precipitating or modifying factors - Related Data Home Medications Medication Instructions Recorded Confirmed Aclidinium [place] [Tudorza 1 puff INHALATION RT-BID 06/28/18 10/21/19 Pressair] Mometasone/Formoterol [Dulera 200 2 puff INHALATION RT-BID 06/28/18 10/21/19 Mcg/5 Mcg Inhaler] Cholecalciferol [Vitamin D3 (25 2,000 unit PO DAILY 09/17/18 10/21/19 Mcg = 1000 Iu)] Ipratropium-Albuterol Nebulize 3 ml INHALATION RT-QID PRN 09/17/18 10/21/19 [Duoneb 0.5 mg-3 mg/3 ml Soln] Furosemide [Lasix] 40 mg PO DAILY 10/21/19 10/21/19 Previous Rx's Medication Instructions Recorded Aspirin 325 mg PO DAILY tab 10/05/18 Metoprolol Tartrate [Lopressor] 50 mg PO BID #60 tab 10/05/18 predniSONE 20 mg PO BID #10 tab 10/21/19 Allergies Allergy/AdvReac Type Severity Reaction Status Date / Time No Known Allergies Allergy Verified 10/21/19 11:07 Review of Systems ROS Statement: Those systems with pertinent positive or pertinent negative responses have been documented in the HPI. ROS Other: All systems not noted in ROS Statement are negative. Past Medical History Past Medical History: Asthma, COPD Additional Past Medical History / Comment(s): [place] (does not believe that he has); "stroke-like" episode 06-28-18, jerky type movements left arm & leg, mostly resolved, recent hx. pleural effusion, left shoulder pain-hasn't had evaluated yet, accidentally put screw through nose over weekend-dr. sebastian, mostly healed History of Any Multi-Drug Resistant Organisms: None Reported Past Surgical History: Orthopedic Surgery Additional Past Surgical History / Comment(s): HIP REPLACEMENT Past Anesthesia/Blood Transfusion Reactions: No Reported Reaction Past Psychological History: No Psychological Hx Reported Smoking Status: Former smoker Past Alcohol Use History: None Reported Past Drug Use History: None Reported - Past Family History Mother Family Medical History: Cancer Additional Family Medical History / Comment(s): lung cancer pass away 90 years old General Exam Limitations: no limitations General appearance: alert, in no apparent distress Head exam: Present: atraumatic, normocephalic, normal inspection Eye exam: Present: normal appearance, PERRL, EOMI. Absent: scleral icterus, conjunctival injection, periorbital swelling ENT exam: Present: normal exam, mucous membranes moist Neck exam: Present: normal inspection. Absent: tenderness, meningismus, lymphadenopathy Respiratory exam: Present: wheezes, accessory muscle use, decreased breath sounds. Absent: respiratory distress, rales, rhonchi, stridor Cardiovascular Exam: Present: regular rate, normal rhythm, normal heart sounds. Absent: systolic murmur, diastolic murmur, rubs, gallop, clicks GI/Abdominal exam: Present: soft, normal bowel sounds. Absent: distended, tenderness, guarding, rebound, rigid Extremities exam: Present: normal inspection, full ROM, normal capillary refill. Absent: tenderness, pedal edema, joint swelling, calf tenderness Back exam: Present: normal inspection Neurological exam: Present: alert, oriented X3, CN II-XII intact Psychiatric exam: Present: normal affect, normal mood Skin exam: Present: warm, dry, intact, normal color. Absent: rash Course Vital Signs 10/21/19 10/21/1910/21/19 10:01 10:37 10:47 Temperature 97.5 F L Pulse Rate 80 70 70 Respiratory 22 Rate Blood Pressure 134/90 O2 Sat by Pulse 96 Oximetry 10/21/19 10/21/19 10/21/19 11:00 11:30 12:00 Temperature Pulse Rate Respiratory 19 20 19 Rate Blood Pressure 109/65 117/66 127/68 O2 Sat by Pulse 98 98 96 Oximetry 10/21/19 10/21/19 10/21/19 12:41 12:53 13:14 Temperature 98.3 F Pulse Rate 75 81 85 Respiratory 20 Rate Blood Pressure 120/77 O2 Sat by Pulse 97 Oximetry Medical Decision Making - Medical Decision Making Upon arrival the patient is placed in room 5. A [facility] [place] history and physical exam is performed. The patient is given a gram of magnesium and DuoNeb breathing treatment. Here he received steroids in his primary care office. I did recommend laboratory studies and a chest x-ray. CBC shows white blood cell, 11.7. Coags are normal. CMP shows a glucose of 120. BNP is 1090. Lungs a and B are negative. Chest x-ray demonstrates peribronchial cuffing. Overall improved aeration from prior. I discussed this the patient. I did recommend a second breathing treatment. The patient is then reevaluated and appears comfortable in the exam room. I discussed diagnosis, differential and treatment options. I did offer hospital observation however the patient refused stating he wanted to go home at this time. He'll be discharged home with a course of steroids. He does have inhalers at home to use. He is to follow-up with Dr. Jhaveri in 2-4 days for reevaluation. Return to the emergency room for any new or worsening symptoms. The patient was in agreement with the treatment plan needs discharged home in stable condition - Lab Data Result diagrams: 10/21/19 10:30 10/21/19 10:30 Lab Results 10/21/19 10/21/19 10/21/19 Range/Units 10:30 10:30 10:30 WBC 11.7 H (3.8-10.6) k/uL RBC 4.27 L (4.30-5.90) m/uL Hgb 13.2 (13.0-17.5) gm/dL Hct 38.7 L (39.0-53.0) % MCV 90.6 (80.0-100.0) fL MCH 30.8 (25.0-35.0) pg MCHC 34.0 (31.0-37.0) g/dL RDW 12.7 (11.5-15.5) % Plt Count 213 (150-450) k/uL Neutrophils % 77 % Lymphocytes % 9 % Monocytes % 8 % Eosinophils % 2 % Basophils % 0 % Neutrophils # 9.0 H (1.3-7.7) k/uL Lymphocytes # 1.1 (1.0-4.8) k/uL Monocytes # 0.9 (0-1.0) k/uL Eosinophils # 0.2 (0-0.7) k/uL Basophils # 0.0 (0-0.2) k/uL PT (9.0-12.0) sec INR (<1.2) APTT (22.0-30.0) sec Sodium 138 (137-145) mmol/L Potassium 3.9 (3.5-5.1) mmol/L Chloride 102 (98-107) mmol/L Carbon Dioxide 26 (22-30) mmol/L Anion Gap 10 mmol/L BUN 17 (9-20) mg/dL Creatinine 1.05 (0.66-1.25) mg/dL Est GFR (CKD-EPI)AfAm 83 (>60 ml/min/1.73 sqM) Est GFR (CKD-EPI)NonAf 72 (>60 ml/min/1.73 sqM) Glucose 121 H (74-99) mg/dL Calcium 9.0 (8.4-10.2) mg/dL Total Bilirubin 0.7 (0.2-1.3) mg/dL AST 17 (17-59) U/L ALT 20 L (21-72) U/L Alkaline Phosphatase 86 (38-126) U/L NT-Pro-B Natriuret Pep 1090 pg/mL Total Protein 6.6 (6.3-8.2) g/dL Albumin 3.7 (3.5-5.0) g/dL Influenza Type A RNA (Not Detectd) Influenza Type B (PCR) (Not Detectd) 10/21/19 10/21/19 Range/Units 10:30 11:30 WBC (3.8-10.6) k/uL RBC (4.30-5.90) m/uL Hgb (13.0-17.5) gm/dL Hct (39.0-53.0) % MCV (80.0-100.0) fL MCH (25.0-35.0) pg MCHC (31.0-37.0) g/dL RDW (11.5-15.5) % Plt Count (150-450) k/uL Neutrophils % % Lymphocytes % % Monocytes % % Eosinophils % % Basophils % % Neutrophils # (1.3-7.7) k/uL Lymphocytes # (1.0-4.8) k/uL Monocytes # (0-1.0) k/uL Eosinophils # (0-0.7) k/uL Basophils # (0-0.2) k/uL PT 10.6 (9.0-12.0) sec INR 1.0 (<1.2) APTT 27.8 (22.0-30.0) sec Sodium (137-145) mmol/L Potassium (3.5-5.1) mmol/L Chloride (98-107) mmol/L Carbon Dioxide (22-30) mmol/L Anion Gap mmol/L BUN (9-20) mg/dL Creatinine (0.66-1.25) mg/dL Est GFR (CKD-EPI)AfAm (>60 ml/min/1.73 sqM) Est GFR (CKD-EPI)NonAf (>60 ml/min/1.73 sqM) Glucose (74-99) mg/dL Calcium (8.4-10.2) mg/dL Total Bilirubin (0.2-1.3) mg/dL AST (17-59) U/L ALT (21-72) U/L Alkaline Phosphatase (38-126) U/L NT-Pro-B Natriuret Pep pg/mL Total Protein (6.3-8.2) g/dL Albumin (3.5-5.0) g/dL Influenza Type A RNA Not Detected (Not Detectd) Influenza Type B (PCR) Not Detected (Not Detectd) - EKG Data EKG Comments: EKG demonstrates a sinus rhythm ventricular rate of 72. DE interval 152. QSR 98. QTC 413. No acute ST segment elevations or depressions concerning for ischemic changes Disposition Clinical Impression: COPD (chronic obstructive pulmonary disease) Disposition: HOME SELF-CARE Condition: Stable Instructions (If sedation given, give patient instructions): COPD (Chronic Obstructive Pulmonary Disease) (ED) Additional Instructions: Please follow-up with Dr. Jhaveri in 2-4 days. Return to the emergency room for any new worsening symptoms Prescriptions: predniSONE 20 mg PO BID #10 tab Is patient prescribed a controlled substance at d/c from ED?: No Referrals: Feliciano Motta MD [Primary Care Provider] - 1-2 days Time of Disposition: 12:31
[2019-10-21 13:16] VITALS: BP 120/77; PULSE 85; RESP 20; TEMP 98.3
== END 2019-10-21 13:16 | disposition home or self-care (01) ==
LOC: EC 09:51
DX: J44.9 Chronic obstructive pulmonary disease, unspecified (principal); R91.8 Other nonspecific abnormal finding of lung field; Z87.891 Personal history of nicotine dependence; Z79.51 Long term (current) use of inhaled steroids; Z79.899 Other long term (current) drug therapy; Z80.1 Family history of malignant neoplasm of trachea, bronchus and lung; Z53.29 Procedure and treatment not carried out because of patient's decision for other reasons
CPT/HCPCS: 99285; 96365; 36415; 94640 ×2; 93005; 83880; 80053; 85025; 85610; 85730; 87502; 71046; J3475

== ENCOUNTER → 2019-12-31 | Outpatient (CLI) | payer MEDICARE ==
--- NOTE | 2019-12-31 09:07 | FL ---
EXAMINATION TYPE: FL sniff test without CXR DATE OF EXAM: 12/31/2019 COMPARISON: 12/29/2019 chest x-ray HISTORY: Shortness of breath since prior heart surgery FINDINGS/TECHNIQUE: Real-time fluoroscopic imaging of the diaphragms was performed utilizing 42 secon ds of fluoroscopy time was 0 fluoroscopic images saved as the examination was performed real-time. Diaphragmatic excursion is symmetric bilaterally and unremarkable. No fluoroscopic evidence of diaphr agmatic paralysis. Trace left pleural effusion is redemonstrated. IMPRESSION: No evidence of diaphragmatic paralysis. Trace left pleural effusion remains.
== END | disposition home or self-care (01) ==
LOC: RADUSWWP 08:03
PROVIDERS: ATTEND Internal Medicine
DX: J90 Pleural effusion, not elsewhere classified (principal)
CPT/HCPCS: 76000

== ENCOUNTER → 2021-04-09 | Outpatient (CLI) | payer MEDICARE ==
--- NOTE | 2021-04-09 18:44 | CT ---
EXAMINATION TYPE: CT chest wo con DATE OF EXAM: 04/09/2021 COMPARISON: None HISTORY: Abnormal findings in lung field. C/o LT side pain Stat hold and call CT DLP: 346.90 mGycm Automated exposure control for dose reduction was used. Images were obtained without contrast from the thoracic inlet to the diaphragm. There is some pleural thickening in the left lung base. There is mild subsegmental atelectasis and li near infiltrate in the lingula left upper lobe. There is mild pulmonary emphysema. There are sternal wires. Heart size is normal. There is no pericardial effusion. There is no mediastinal adenopathy. Th ere are no hilar masses. The thoracic spine is intact. There is no compression fracture. Thoracic aorta is atheromatous. There is a 5 cm cortical cyst anterior right kidney. IMPRESSION: Pleural thickening with some infiltrate and atelectasis in the lingula left upper lobe. This is likel y inflammatory. Follow-up recommended to show stability or clearing. Pulmonary emphysema.
== END | disposition home or self-care (01) ==
LOC: RADCTMAIN 16:17
PROVIDERS: ATTEND Family Medicine
DX: R91.8 Other nonspecific abnormal finding of lung field (principal); J43.9 Emphysema, unspecified; J98.11 Atelectasis
CPT/HCPCS: 71250

== ENCOUNTER 2021-10-16 08:37 | Day surgery (SDC) | payer MEDICARE ==
[2021-10-16 09:02] VITALS: RESP 16; TEMP 97.4
[2021-10-16 09:22] LABS: Mean Platelet Volume 7.9; Platelet Count 417 k/uL (150-450)
[2021-10-16 09:39] LABS: Prothrombin Time 10.3 sec (9.0-12.0)
[2021-10-16 10:08] VITALS: BP 131/80; PULSE 72
--- NOTE | 2021-10-16 10:21 | US ---
ULTRASOUND GUIDED CORE BIOPSY LEFT CHEST MASS: CLINICAL HISTORY: Localized swelling, mass, lump, trunk FINDINGS: The procedure was explained to the patient. The risks, complications, benefits and alternatives were discussed and any questions were answered. Informed consent was obtained. Patient was placed supin e on the ultrasound table and prepped and draped in the usual sterile fashion. Utilizing a 18 gauge needle, three passes were made into the requested mass. Patient was stable throughout the procedure. Pathology is pending. All elements of maximal barrier technique were utilized. IMPRESSION: 1. Successful ultrasound guided core biopsy left lateral chest mass.
--- NOTE | 2021-10-16 10:31 | XR ---
EXAMINATION TYPE: XR chest 1V portable DATE OF EXAM: 10/16/2021 COMPARISON: 10/21/2019 HISTORY: post chest wall biopsy LT SIDE TECHNIQUE: Single frontal view of the chest is obtained. FINDINGS: Postoperative change with left lower lobe infiltrate and small effusion. Coarsened interst itium suggests chronic interstitial pulmonary fibrosis. Biapical pleural thickening. No sizable pneum othorax post biopsy. Rib deformity on the left noted. IMPRESSION: 1. Left lower lobe infiltrate and small effusion. No evidence of pneumothorax post lung biopsy.
== END 2021-10-16 10:30 | disposition home or self-care (01) ==
LOC: RADPROMAIN 08:37
PROVIDERS: ATTEND Family Medicine
DX: R22.2 Localized swelling, mass and lump, trunk (principal)
CPT/HCPCS: 20206; 36415; 71045; 76942; 85049; 85610; 88305; 88341; 88342

== ENCOUNTER 2021-11-12 10:27 | Day surgery (SDC) | payer MEDICARE ==
[2021-11-12 11:02] LABS: Mean Platelet Volume 8.4; Platelet Count 427 k/uL (150-450)
[2021-11-12 11:10] LABS: African American GFR (CKD) >90 (>60 ml/min/1.73 sqM); Non-African American GFR(CKD) 80 (>60 ml/min/1.73 sqM)
[2021-11-12 11:22] LABS: Prothrombin Time 10.8 sec (9.0-12.0)
[2021-11-12 11:37] VITALS: TEMP 98.1
[2021-11-12 11:38] VITALS: RESP 18
[2021-11-12 12:04] VITALS: BP 132/72; PULSE 88
--- NOTE | 2021-11-12 12:47 | US ---
Ultrasound-guided paracentesis. DATE OF EXAM: 11/12/2021 CLINICAL HISTORY: Ascites The procedure was discussed with the patient. The risks, complications, benefits, and alternatives we re discussed and any questions were answered. Informed consent was obtained. The patient was placed s upine on the ultrasound table and prepped and draped in the usual sterile fashion. All elements of maximal barrier technique were utilized. Under ultrasound guidance, access into the right lower quadrant was obtained, via the paracentesis catheter system and direct ultrasound guidanc e. Approximately 1.5 liters of straw-colored fluid was removed. The patient was stable throughout the pr ocedure and remained stable upon discharge from Department of Radiology. IMPRESSION: Successful paracentesis under ultrasound guidance.
== END 2021-11-12 12:19 | disposition home or self-care (01) ==
LOC: RADPROMAIN 10:27
PROVIDERS: ATTEND Internal Medicine Hematology & Oncology
DX: R18.8 Other ascites (principal)
CPT/HCPCS: 36415; 49083; 82565; 85049; 85610

== ENCOUNTER → 2022-01-15 | Outpatient (CLI) | payer MEDICARE ==
--- NOTE | 2022-01-15 10:31 | CT ---
EXAMINATION TYPE: CT Chest Abd Pelvis w con DATE OF EXAM: 01/15/2022 COMPARISON: CT dated 04/09/2021 HISTORY: mesothelioma CT DLP: 805.40 mGycm Automated exposure control for dose reduction was used. CONTRAST: CT scan of the chest, abdomen and pelvis is performed with Oral Contrast and with IV Contrast, patien t injected with 100 mL of Isovue 300. FINDINGS: LUNGS: Redemonstration of the previously seen focal soft tissue thickening along the inferior aspect of the left oblique fissure with adjacent atelectasis/soft tissue nodular thickening mainly seen in t he lingula and the adjacent portion of the left upper lobe. The more superior thickening along the le ft oblique fissure is smaller measuring 3 mm in thickness compared to 6 mm previously. Persistent lef t basal pleural thickening and small amount of pleural fluid. Newly seen 4 mm nodule in the right low er lobe superior segment, not well appreciated previously, attention follow-up. No other definite new lung nodule identified. Patent trachea and main bronchi. Persistent centrilobular emphysematous desouza ges in the upper lobes more on the right side. No right-sided pleural effusion MEDIASTINUM: Cardiomediastinal shift to the left side. No gross cardiomegaly. Sternotomy wire sutures , aortic atherosclerotic calcifications and coronary arterial atherosclerotic calcifications. No prog ressive lymphadenopathy in the chest. No pericardial effusion OTHER: Degenerative changes of the glenohumeral articulations more on the right side. No aggressive bone lesion. LIVER/GB: No significant abnormality is appreciated. PANCREAS: No significant abnormality is seen. SPLEEN: No significant abnormality is seen. ADRENALS: No significant abnormality is seen. KIDNEYS: Right simple cortical renal cyst without suspicious feature measuring 5 cm. Markedly distend ed left renal pelvis likely due to large extrarenal pelvis with suspected tiny calculus/calcification at its dependent portion extending for about 11 mm. Large left parapelvic cyst is unlikely. Unremark able kidneys otherwise. BOWEL: Unremarkable stomach, duodenum and small bowel. Diffuse wall thickening of the colon which co uld be related to chronic colitis, please correlate likely. No evidence of small or large bowel obstr uction. Extensive omental soft tissue thickening and irregularity, suspicious for peritoneal carcinom atosis. The largest soft tissue thickening is seen in the right side of the abdomen measuring up to 3 .2 cm. REPRODUCTIVE ORGANS: The urinary bladder and other pelvic structures are obscured by artifacts from t he left hip prosthesis. LYMPH NODES: No greater than 1 cm abdominal or pelvic lymph nodes are appreciated. OSSEOUS STRUCTURES: Left total hip arthroplasty. Severe degenerative changes of the right hip joint. No aggressive bone lesion. OTHER: Scattered arterial atherosclerotic calcification with infrarenal abdominal aortic ectasia avani uring up to 2.3 cm. Asymmetrically large inferior aspect of the right iliopsoas muscle with cystic ar ea within which could represent an intramuscular cyst/MRSA measuring up to 3.7 cm. Further MRI assess ment can be considered. IMPRESSION: In spite of the smaller soft tissue thickening along the left oblique fissure, there is newly seen 4 mm right lower lobe superior segment nodule, attention follow-up. No other new or progressive lesion seen in the chest. The abdomen demonstrates peritoneal nodularity suspicious for peritoneal carcinomatosis. No other def inite metastatic disease seen in the abdomen or the pelvis. Further PET scan assessment can be consid ered. Suspected large left extrarenal pelvis, further renal scintigraphy can be considered. Other incidenta l findings as described above.
== END | disposition home or self-care (01) ==
LOC: RADCTMAIN 07:22
PROVIDERS: ATTEND Internal Medicine Hematology & Oncology
DX: C45.0 Mesothelioma of pleura (principal); R91.1 Solitary pulmonary nodule
CPT/HCPCS: 82565; 84520; 71260; 74177; 36415; Q9967

== ENCOUNTER → 2022-01-30 | Outpatient (CLI) | payer MEDICARE ==
--- NOTE | 2022-01-30 11:04 | US ---
EXAMINATION TYPE: US liver DATE OF EXAM: 01/30/2022 COMPARISON: NONE CLINICAL HISTORY: R94.5 Abnormal LFT. EXAM MEASUREMENTS: Liver Length: 12.6 cm Gallbladder Wall: 0.1 cm CBD: 0.3 cm Right Kidney: 11.9 x 4.3 x 5.1 cm Pancreas: Obscured by bowel gas Liver: wnl Gallbladder: Tiny echogenic foci seen LLD Evidence for sonographic Galvin's sign: no CBD: wnl Right Kidney: 2 cysts adjacent to each other largest measuring 5.3 x 4.2 x 4.8cm IMPRESSION: 1. Cholelithiasis 2. Right renal cysts
== END | disposition home or self-care (01) ==
LOC: RADUSWWP 10:01
PROVIDERS: ATTEND Internal Medicine Hematology & Oncology
DX: K80.20 Calculus of gallbladder without cholecystitis without obstruction (principal); N28.1 Cyst of kidney, acquired
CPT/HCPCS: 76705

== ENCOUNTER → 2022-04-16 | Outpatient (CLI) | payer MEDICARE ==
--- NOTE | 2022-04-16 14:19 | CT ---
EXAMINATION TYPE: CT ChestAbdPelvis w con DATE OF EXAM: 04/16/2022 COMPARISON: CT January 15, 2022 and older studies. HISTORY: Mesothelioma progress study. CT DLP: 1018.1 mGycm. Automated Exposure Control for Dose Reduction was Utilized. CONTRAST: CT scan of the thorax, abdomen and pelvis is performed with oral and with IV Contrast, patient inject ed with 80cc mL of Isovue 300. FINDINGS: LUNGS: Mild to moderate underlying emphysematous changes redemonstrated. Slight focal thickening el g the left major fissure is redemonstrated. Redemonstrated is a [id number] left basilar linear scarring and/or atelectasis with adjacent small left pleural thickening and small amount of pleural f luid. Some left-sided volume loss redemonstrated. Right lung remains clear. No new or enlarging nodul es or masses. Stable 4 mm superior right lower lobe nodule image 27. MEDIASTINUM: There are no greater than 1 cm hilar or mediastinal lymph nodes. No pericardial effusi on is seen. Ascending aorta measures up to 3.7 cm. Surgical change to aortic valve redemonstrated. Left atrial appendage clip again seen. Coronary artery calcification redemonstrated. OTHER: Overlying sternal wires are redemonstrated. Degenerative change bilateral glenohumeral joints redemonstrated. LIVER/GB: No significant abnormality is appreciated. PANCREAS: No significant abnormality is seen. SPLEEN: No significant abnormality is seen. ADRENALS: No significant abnormality is seen. KIDNEYS: Stable 4.8 cm thin-walled cyst in the right kidney anteriorly upper pole level and smaller a dditional thin-walled cyst centrally in the right kidney. No right-sided hydronephrosis. Persistent s evere left-sided hydronephrosis without hydroureter suggesting proximal ureter stricture. BOWEL: Oral contrast reaches level of the splenic flexure. No suspicious small or large bowel dilatat ion. GENITAL ORGANS: Likely normal in size prostate gland. LYMPH NODES: No new greater than 1cm abdominal or pelvic lymph nodes are appreciated. Prior anterior reticulation and subtle nodularity over the mid to lower abdomen extending into the upper pelvis is n ow significantly improved with some residual involvement left midabdomen near axial image 78. OSSEOUS STRUCTURES: Metallic hardware from left hip arthroplasty causes streak artifact limiting eval uation of pelvic structures. Moderate to advanced degenerative changes in the right hip are redemonst rated. OTHER: Moderate peripheral plaque in the aorta extends into branch vessels. 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 Suspect posi tive treatment response. Correlate clinically. No new or enlarging masses or adenopathy identified.
== END | disposition home or self-care (01) ==
LOC: RADCTMAIN 11:50
PROVIDERS: ATTEND Internal Medicine Hematology & Oncology
DX: C45.9 Mesothelioma, unspecified (principal)
CPT/HCPCS: 82565; 84520; 71260; 74177; 36415; Q9967

== ENCOUNTER → 2022-07-02 | Outpatient (CLI) | payer MEDICARE ==
--- NOTE | 2022-07-02 10:01 | MR ---
EXAMINATION TYPE: MR shoulder RT wo/w con DATE OF EXAM: 07/02/2022 COMPARISON: HISTORY: MESOTHELIOMA OF PLE, RT SHOULDER PAIN TECHNIQUE: Multiplanar, multisequence images of the right shoulder is performed without and with 8 mL intravenous Gadavist gadolinium contrast. FINDINGS: There is complete loss of joint space and the glenohumeral joint and severe arthropathy of the AC joint. Atrophy of the rotator cuff musculature noted there is impingement upon the supraspinat us muscle tendon. There is ill-definition of the insertion of the subscapularis suggestive tendinopathy and partial int rasubstance tear. There is abnormal signal involving the insertion of the infraspinatus and supraspinatus tendons madisyn tible with tendinosis. Suspect a partial intrasubstance tear measuring a thickness of 5 mm involving the anterior fibers of the infraspinatus tendon near the conjoined portion. There is no evidence of r etraction. 2 mm area of intrinsic signal seen at the insertion of the posterior fibers of the suprasp inatus tendon also suspicious. A tiny intrasubstance tear. Poor definition of the inferior glenohumeral ligament. Ligamentous strain or partial tear suspected. Poor visualization of the bony labrum especially inferiorly suggests degenerative labral tears. There is a marrow edema throughout the glenoid which likely is reactive related to the severe arthropathy of the glenohumeral joint. Small amount of fluid in the joint space noted. Small amount of fluid in t he subscapularis bursa. Less likely small ganglion cysts. Bicipital tendon appears within the bicipital groove. Limited visualization of the bicipital tendon w ithin the rotator interval. No enhancing masses are seen. Benign cystic changes involving the head of the humerus likely in the basis of chronic impingement. IMPRESSION: 1. Severe arthropathy of the glenohumeral joint with complete loss of joint space and degenerative la bral tears. Abnormal marrow alteration involving the glenoid likely is reactive secondary to arthropa thy rather than metastases. 2. Tendinosis and tendinopathy involving the distal margins of the subscapularis, infraspinatus and s upraspinatus tendons with 5 mm intrasubstance partial tear of the conjoined tendon and anterior fiber s infraspinatus. No evidence of retraction. 3. inferior glenohumeral ligamentous strain or partial t ear. 4. Impingement secondary to AC joint arthropathy with atrophic change of the rotator cuff musculature .
== END | disposition home or self-care (01) ==
LOC: RADMRIMAIN 08:51
PROVIDERS: ATTEND Internal Medicine Hematology & Oncology
DX: C45.0 Mesothelioma of pleura (principal); M19.011 Primary osteoarthritis, right shoulder; M75.111 Incomplete rotator cuff tear or rupture of right shoulder, not specified as traumatic
CPT/HCPCS: 73223; A9585

== ENCOUNTER → 2022-07-30 | Outpatient (CLI) | payer MEDICARE ==
--- NOTE | 2022-07-30 11:57 | CT ---
EXAMINATION TYPE: CT ChestAbdPelvis w con DATE OF EXAM: 07/30/2022 COMPARISON: Most recent CT of April 16, [address] report HISTORY: Mesothelioma of pleura CT DLP: 1586 mGycm. Automated Exposure Control for Dose Reduction was Utilized. CONTRAST: CT scan of the thorax, abdomen and pelvis is performed with oral and with IV Contrast, patient inject ed with 100 ml mL of Isovue 300. FINDINGS: LUNGS: Mild to moderate underlying emphysematous changes are redemonstrated greatest involving the up per lungs. Slight focal thickening along the left major fissure is redemonstrated. Mild to moderate a nterior left basilar linear scarring and/or atelectasis with adjacent small left pleural thickening a nd small amount of pleural fluid is again seen. Some left-sided volume loss redemonstrated. Right danisha g remains clear. No new or enlarging greater than 5 mm nodules or masses. Stable 4 mm superior right lower lobe nodule towards the periphery axial image 29. MEDIASTINUM: There are no new greater than 1 cm hilar or mediastinal lymph nodes. No pericardial ef fusion is seen. Surgical change to aortic valve redemonstrated. Left atrial appendage clip again se en. Overlying Sternal wires redemonstrated . OTHER:Degenerative change bilateral glenohumeral joints redemonstrated. LIVER/GB: No significant abnormality is appreciated. PANCREAS: No significant abnormality is seen. SPLEEN: No significant abnormality is seen. ADRENALS: No significant abnormality is seen. KIDNEYS: Stable 4.8 cm thin-walled cyst in the right kidney anteriorly upper pole level axial image 6 5 and smaller additional thin-walled cyst centrally in the right kidney coronal image 64. No right-si ded hydronephrosis. Persistent severe left-sided hydronephrosis without hydroureter suggesting proxim al ureter stricture. No delayed excretion noted. BOWEL: Oral contrast reaches level of the proximal sigmoid colon on current study. No suspicious smal l or large bowel dilatation. Normal-appearing appendix incidentally noted. GENITAL ORGANS: Likely normal in size prostate gland. LYMPH NODES: No new greater than 1cm abdominal or pelvic lymph nodes are appreciated. Some residual r eticulation subtle tiny nodularity involving the anterior left abdomen axial image 76 for reference h as similar appearance to most recent CT. OSSEOUS STRUCTURES: Metallic hardware from left hip arthroplasty causes streak artifact limiting eval uation of pelvic structures. Moderate to advanced degenerative changes in the right hip joint is rede monstrated. Persistent advanced spurring and disc space narrowing lumbosacral junction OTHER: Moderate peripheral plaque of the aorta extends into branch vessels. 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 No new or enlargi ng masses or adenopathy identified.
== END | disposition home or self-care (01) ==
LOC: RADCTMAIN 09:24
PROVIDERS: ATTEND Internal Medicine Hematology & Oncology
DX: C45.0 Mesothelioma of pleura (principal)
CPT/HCPCS: 82565; 84520; 71260; 74177; 36415; Q9967

== ENCOUNTER → 2022-11-07 | Outpatient (CLI) | payer MEDICARE ==
--- NOTE | 2022-11-08 09:00 | CT ---
EXAMINATION TYPE: CT ChestAbdPelvis w con DATE OF EXAM: 11/07/2022 COMPARISON: 07/30/2022 HISTORY: h/o mesothelioma of plerua CT DLP: 1342.4 mGycm CONTRAST: CT scan of the chest, abdomen and pelvis is performed with Oral Contrast and with IV Contrast, patien t injected with 100 mL of Isovue 300. CT Chest: LUNGS: There is persistent left basilar pleural thickening. There is adjacent soft tissue attenuation at the 10-11 intercostal space extending into the soft tissues. Soft tissue mass is not excluded and clinical correlation is advised. This is seen best on axial image 54 sequence 3 and coronal image 69 sequence 7. There is a pleural parenchymal scarring at the level of the lingula. The remainder of th e lungs are clear. No additional areas of pleural thickening identified. MEDIASTINUM: Thoracic aorta is of normal caliber. The heart is not enlarged. No evidence for media stinal mass or adenopathy. HILAR STRUCTURES: No evidence for mass. No hilar adenopathy is appreciated. OTHER: No significant abnormality. CONTRAST CT ABDOMEN AND PELVIS FINDINGS: LIVER/GB: No calcified gallstones. No space occupying hepatic lesion. Biliary tree is of normal ca liber. PANCREAS: No inflammation. No distinct mass. SPLEEN: No splenic enlargement. No lesion seen. ADRENALS: No nodule. No thickening. 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 Stable right renal cyst. No so lid renal masses seen. Urinary bladder is unremarkable. BOWEL: Normal appendix. Normal bowel caliber. No inflammation. GENITAL ORGANS: No gross abnormality. LYMPH NODES: No greater than 1cm abdominal or pelvic lymph nodes are appreciated. AORTA: No significant abnormality. OSSEOUS STRUCTURES: There is a left hip prosthesis. Degenerative changes lower lumbar spine. OTHER: No significant additional abnormality is seen. IMPRESSION: 1. Stable left basilar pleural thickening. 2. Adjacent to the site of pleural thickening there is intervertebral increased soft tissue attenuati on at the left 10-11 intercostal space extending into the soft tissues. The appearance is unchanged a nd clinical correlation is advised.
== END | disposition home or self-care (01) ==
LOC: RADCTMAIN 13:43
PROVIDERS: ATTEND Internal Medicine Hematology & Oncology
DX: C45.0 Mesothelioma of pleura (principal)
CPT/HCPCS: 82565; 84520; 71260; 74177; 36415; Q9967

== ENCOUNTER → 2023-02-24 | Outpatient (CLI) | payer MEDICARE ==
[2023-02-24 13:32] LABS: African American GFR (CKD) >90 (>60 ml/min/1.73 sqM); Blood Urea Nitrogen 14 mg/dL (9-20); Non-African American GFR(CKD) 81 (>60 ml/min/1.73 sqM)
--- NOTE | 2023-02-25 08:31 | CT ---
EXAMINATION TYPE: CT ChestAbdPelvis w con DATE OF EXAM: 02/24/2023 INDICATION: follow up for mesothelioma COMPARISON: 11/07/2022 CT DLP: 1160.7 mGycm CONTRAST: Performed with Oral Contrast and with IV Contrast, patient injected with 70 mL of Isovue 300. TECHNIQUE: Axial images at 5 mm thick sections. Reconstructed images in the coronal plane. Delayed images through the kidneys. FINDINGS: CT CHEST: Portion of the thyroid visualized is normal. There is a minimal left pleural fluid collection laterally which may be loculated. Soft tissue densit y between the ribs is again evident. This appears stable from comparison. Example images series 4 alfie ge 59 and 52. No enlarged mediastinal or hilar adenopathy is evident. The ascending aorta diameter at the level of the main pulmonary artery is 3.3 cm. The main pulmonary artery diameter at the bifurcation is 2.[address] ABDOMEN: Liver: Normal Spleen: Normal Pancreas: Normal Adrenal glands: The adrenal glands are normal. Gallbladder: Normal Kidneys: No masses are evident. No hydronephrosis is present. There is a 4.9 cm cyst anterior infer ior pole right kidney. There is a large extrarenal pelvis left kidney. Peripelvic cysts can be consi dered previous. Some dependent calcification. Aorta: Vascular calcification is within the aorta. Inferior vena cava: Normal. CT PELVIS: Loops of bowel within the abdomen and pelvis are normal. There are a few diverticuli present within t he sigmoid colon. There are loops of bowel which are incompletely distended or lack oral contrast limiting their evaluation. Appendix: Normal as visualized. Urinary bladder: Partially obscured from beam hardening artifact from the left hip prosthesis. Genitourinary structures: Prostate appears normal. Osseous structures: No suspicious lytic or sclerotic lesions. Advanced degenerative changes to the ri ght hip appears to be present. Sacroiliac joint degenerative changes are present. IMPRESSIONS: 1. Soft tissue between the 10th and 11th ribs is stable from comparison. 2. Minimal loculated left lateral pleural effusion at the base. 3. Large extrarenal pelvis left kidney. 4. Right renal cyst
== END | disposition home or self-care (01) ==
LOC: RADCTMAIN 12:54
PROVIDERS: ATTEND Internal Medicine Hematology & Oncology
DX: C45.0 Mesothelioma of pleura (principal); J90 Pleural effusion, not elsewhere classified; N28.1 Cyst of kidney, acquired; Z03.89 Encounter for observation for other suspected diseases and conditions ruled out
CPT/HCPCS: 82565; 84520; 71260; 74177; 36415; Q9967

== ENCOUNTER 2023-03-06 09:02 | Observation (INO) | payer MEDICARE ==
[2023-03-06] MEDS ORDERED: methylPREDNISolone SOD SUCCI 125 MG/2 ML VIAL IV STA (09:22)
[2023-03-06] MEDS ORDERED: ALBUTEROL HFA INHALER INHALATION STA (09:22)
--- NOTE | 2023-03-06 09:25 | ED ---
General Adult HPI - General Chief complaint: Shortness of Breath Stated complaint: Breathing bad (COPD) sent by Dr Gomez Time Seen by Provider: 03/06/23 09:14 Source: patient, family, RN notes reviewed Mode of arrival: ambulatory Limitations: no limitations - History of Present Illness Initial comments: Patient is a pleasant 77-year-old male presenting to the emergency department with concerns for difficulty breathing. Onset of symptoms was close to week ago. Symptoms have progressively worsened. Patient does have cough with occasional clear sputum. No fever. Symptoms are similar to previous COPD. Patient also has mesothelioma left lower lung that he is treated with immunotherapy 4. No leg pain or leg swelling. - Related Data Home Medications Medication Instructions Recorded Confirmed Ipratropium-Albuterol Nebulize 3 ml INHALATION RT-QID 09/17/18 03/06/23 [Duoneb 0.5 mg-3 mg/3 ml Soln] Furosemide [Lasix] 40 mg PO DAILY 10/21/19 03/06/23 Mometasone/Formoterol [Dulera 200 2 puff PO RT-BID 10/08/21 03/06/23 Mcg-5 Mcg Inhaler] Atorvastatin Calcium [Lipitor] 40 mg PO DAILY 03/06/23 03/06/23 Azithromycin [Zithromax Z Pack] See Taper PO DIRECTED 03/06/23 03/06/23 Dapagliflozin Propanediol [Farxiga] 10 mg PO DAILY 03/06/23 03/06/23 Levothyroxine Sodium [Synthroid] 100 mcg PO MOTUWETHFRSA 03/06/23 03/06/23 Levothyroxine Sodium [Synthroid] 150 mcg PO OROURKE 03/06/23 03/06/23 Tiotropium 2.5 Mcg/Puff [Spiriva 2 puff INHALATION RT-DAILY 03/06/23 03/06/23 Respimat 2.5 Mcg] allopurinoL [Zyloprim] 100 mg PO DAILY 03/06/23 03/06/23 metFORMIN HCL [Glucophage] 500 mg PO DAILY 03/06/23 03/06/23 predniSONE See Taper PO DIRECTED 03/06/23 03/06/23 Previous Rx's Medication Instructions Recorded Metoprolol Tartrate [Lopressor] 50 mg PO BID #60 tab 10/05/18 Allergies Allergy/AdvReac Type Severity Reaction Status Date / Time No Known Allergies Allergy Verified 03/06/23 11:37 Review of Systems ROS Statement: Those systems with pertinent positive or pertinent negative responses have been documented in the HPI. ROS Other: All systems not noted in ROS Statement are negative. Constitutional: Denies: fever Eyes: Denies: eye pain ENT: Denies: ear pain Respiratory: Reports: as per HPI, cough, dyspnea Cardiovascular: Denies: chest pain Endocrine: Reports: fatigue Gastrointestinal: Denies: abdominal pain Genitourinary: Denies: dysuria Musculoskeletal: Denies: back pain Skin: Denies: rash Neurological: Denies: weakness Past Medical History Past Medical History: Asthma, Cancer, COPD, Mitral Valve Prolapse (MVP) Additional Past Medical History / Comment(s): "stroke-like" episode 06-28-18, jerky type movements left arm & leg, mostly resolved, recent hx. pleural effusion, left shoulder pain-hasn't had evaluated yet, accidentally put screw through nose in the past, malignant mesothelioma History of Any Multi-Drug Resistant Organisms: None Reported Past Surgical History: Orthopedic Surgery, Tubal Ligation Additional Past Surgical History / Comment(s): HIP REPLACEMENT, Heart valve 2018, chest wall mass biopsy Past Anesthesia/Blood Transfusion Reactions: No Reported Reaction Past Psychological History: No Psychological Hx Reported Smoking Status: Former smoker Past Alcohol Use History: None Reported Past Drug Use History: None Reported - Past Family History Mother Family Medical History: Cancer Additional Family Medical History / Comment(s): lung cancer pass away 90 years old General Exam Limitations: no limitations General appearance: alert Head exam: Present: normocephalic Eye exam: Present: normal appearance Neck exam: Present: normal inspection Respiratory exam: Present: wheezes, decreased breath sounds Cardiovascular Exam: Present: regular rate, normal rhythm GI/Abdominal exam: Present: soft. Absent: tenderness Extremities exam: Present: normal inspection. Absent: pedal edema, calf tenderness Back exam: Present: normal inspection Neurological exam: Present: alert Psychiatric exam: Present: normal affect, normal mood Skin exam: Present: normal color Course Vital Signs 03/06/23 03/06/23 03/06/23 09:09 09:15 10:13 Temperature 97.4 F L Pulse Rate 82 Respiratory 24 19 Rate Blood Pressure 108/70 O2 Sat by Pulse 93 L 93 L Oximetry 03/06/23 03/06/23 03/06/23 11:18 11:27 11:33 Temperature Pulse Rate 62 76 86 Respiratory Rate Blood Pressure O2 Sat by Pulse Oximetry 03/06/23 11:44 Temperature Pulse Rate 88 Respiratory Rate Blood Pressure O2 Sat by Pulse Oximetry EKG Findings - EKG Results: EKG: interpreted by ERMD (Septal Q waves. PVC present.), sinus rhythm, normal axis, normal ST/T Medical Decision Making - Medical Decision Making Was pt. sent in by a medical professional or institution (, PA, TEST CONSULTANT, urgent care, hospital, or assisted...) When possible be specific @ -Patient was sent over by Dr. Gomez Did you speak to anyone other than the patient for history (EMS, parent, family, police, friend...)? What history was obtained from this source @ - is present and helps provide history including history of mesothelioma in location Did you review nursing and triage notes (agree or disagree)? Why? @ -I reviewed and agree with nursing and triage notes Were old charts reviewed (outside hosp., previous admission, EMS record, old EKG, old radiological studies, urgent care reports/EKG's, assisted records)? Report findings @ -No old charts were reviewed Differential Diagnosis (chest pain, altered mental status, abdominal pain women, abdominal pain men, vaginal bleeding, weakness, fever, dyspnea, syncope, headache, dizziness, GI bleed, back pain, seizure, CVA, palpatations, mental health)? @ -Differential Dyspnea: Coronary syndrome, arrhythmia, tamponade, asthma, COPD, pulmonary embolism, pneumonia, pneumothorax, pulmonary effusion, anaphylaxis, diabetic ketoacidosis, flailed chest, pulmonary contusion, diaphragmatic rupture, anemia, neuromuscular, this is not meant to be an all-inclusive list. EKG interpreted by me (3pts min.). @ -As above X-rays interpreted by me (1pt min.). @ -Chest x-ray shows atelectasis/effusion left lower lobe similar to prior CT interpreted by me (1pt min.). @ -None done U/S interpreted by me (1pt. min.). @ -None done What testing was considered but not performed or refused? (CT, X-rays, U/S, labs)? Why? @ -None What meds were considered but not given or refused? Why? @ -None Did you discuss the management of the patient with other professionals (professionals i.e. DrBev, PA, TEST CONSULTANT, lab, RT, psych nurse, health care social worker, rug setter [place], teacher, loans officer, case packer and sealer)? Give summary @ -Case was discussed with Dr. Matta, who will admit his patient Was smoking cessation discussed for >3mins.? @ -No Was critical care preformed (if so, how long)? @ -No Were there social determinants of health that impacted care today? How? (Homelessness, low income, unemployed, alcoholism, drug addiction, transportation, low edu. Level, literacy, decrease access to med. care, halfway, rehab)? @ -No Was there de-escalation of care discussed even if they declined (Discuss DNR or withdrawal of care, Hospice)? DNR status @ -No What co-morbidities impacted this encounter? (DM, HTN, Smoking, COPD, CAD, C ancer, CVA, ARF, Chemo, Hep., AIDS, mental health diagnosis, sleep apnea, morbid obesity)? @ -History of COPD and mesothelioma Was patient admitted / discharged? Hospital course, mention meds given and route, prescriptions, significant lab abnormalities, going to OR and other pertinent info. @ -Patient reevaluated and still having some dyspnea however improved following 2 nebulizers and 1 inhaler. Patient and family are updated on results and plan. Patient be admitted with consults with pulmonary and oncology. Undiagnosed new problem with uncertain prognosis? @ -No Drug Therapy requiring intensive monitoring for toxicity (Heparin, Nitro, Insulin, Cardizem)? @ -No Were any procedures done? @ -No Diagnosis/symptom? @ -Acute COPD Acute, or Chronic, or Acute on Chronic? @ -Acute on chronic Uncomplicated (without systemic symptoms) or Complicated (systemic symptoms)? @ -default Side effects of treatment? @ -No Exacerbation, Progression, or Severe Exacerbation? @ -Exacerbation Poses a threat to life or bodily function? How? (Chest pain, [place], NM, pneumonia, PE, COPD, DKA, ARF, appy, cholecystitis, CVA, Diverticulitis, Homicidal, Suicidal, threat to staff... and all critical care pts) @ -No - Lab Data Result diagrams: 03/06/23 09:22 03/06/23 09:22 Lab Results 03/06/23 03/06/23 03/06/23 Range/Units 09:22 09:22 09:22 WBC 14.8 H (3.8-10.6) k/uL RBC 4.46 (4.30-5.90) m/uL Hgb 13.1 (13.0-17.5) gm/dL Hct 40.2 (39.0-53.0) % MCV 90.1 (80.0-100.0) fL MCH 29.3 (25.0-35.0) pg MCHC 32.5 (31.0-37.0) g/dL RDW 14.7 (11.5-15.5) % Plt Count 312 (150-450) k/uL MPV 8.1 Neutrophils % 89 % Lymphocytes % 6 % Monocytes % 3 % Eosinophils % 1 % Basophils % 0 % Neutrophils # 13.2 H (1.3-7.7) k/uL Lymphocytes # 0.9 L (1.0-4.8) k/uL Monocytes # 0.4 (0-1.0) k/uL Eosinophils # 0.1 (0-0.7) k/uL Basophils # 0.1 (0-0.2) k/uL PT 10.4 (9.0-12.0) sec INR 1.0 (<1.2) APTT 24.6 (22.0-30.0) sec VBG pH (7.31-7.41) VBG pCO2 (37-51) mmHg VBG HCO3 (24-28) mmol/L Sodium 143 (137-145) mmol/L Potassium 3.9 (3.5-5.1) mmol/L Chloride 104 (98-107) mmol/L Carbon Dioxide 28 (22-30) mmol/L Anion Gap 11 mmol/L BUN 25 H (9-20) mg/dL Creatinine 1.07 (0.66-1.25) mg/dL Est GFR (CKD-EPI)AfAm 79 (>60 ml/min/1.73 sqM) Est GFR (CKD-EPI)NonAf 68 (>60 ml/min/1.73 sqM) Glucose 151 H (74-99) mg/dL Lactic Ac Sepsis Rflx Plasma Lactic Acid Leonid (0.7-2.0) mmol/L Calcium 9.1 (8.4-10.2) mg/dL Magnesium 1.6 (1.6-2.3) mg/dL Total Bilirubin 0.4 (0.2-1.3) mg/dL AST 21 (17-59) U/L ALT 18 (4-49) U/L Alkaline Phosphatase 101 (38-126) U/L Total Protein 6.4 (6.3-8.2) g/dL Albumin 3.8 (3.5-5.0) g/dL Coronavirus (PCR) (Not Detectd) 03/06/23 03/06/23 03/06/23 Range/Units 09:22 09:50 10:04 WBC (3.8-10.6) k/uL RBC (4.30-5.90) m/uL Hgb (13.0-17.5) gm/dL Hct (39.0-53.0) % MCV (80.0-100.0) fL MCH (25.0-35.0) pg MCHC (31.0-37.0) g/dL RDW (11.5-15.5) % Plt Count (150-450) k/uL MPV Neutrophils % % Lymphocytes % % Monocytes % % Eosinophils % % Basophils % % Neutrophils # (1.3-7.7) k/uL Lymphocytes # (1.0-4.8) k/uL Monocytes # (0-1.0) k/uL Eosinophils # (0-0.7) k/uL Basophils # (0-0.2) k/uL PT (9.0-12.0) sec INR (<1.2) APTT (22.0-30.0) sec VBG pH (7.31-7.41) VBG pCO2 (37-51) mmHg VBG HCO3 (24-28) mmol/L Sodium (137-145) mmol/L Potassium (3.5-5.1) mmol/L Chloride (98-107) mmol/L Carbon Dioxide (22-30) mmol/L Anion Gap mmol/L BUN (9-20) mg/dL Creatinine (0.66-1.25) mg/dL Est GFR (CKD-EPI)AfAm (>60 ml/min/1.73 sqM) Est GFR (CKD-EPI)NonAf (>60 ml/min/1.73 sqM) Glucose (74-99) mg/dL Lactic Ac Sepsis Rflx Y Plasma Lactic Acid Leonid 2.4 H* (0.7-2.0) mmol/L Calcium (8.4-10.2) mg/dL Magnesium (1.6-2.3) mg/dL Total Bilirubin (0.2-1.3) mg/dL AST (17-59) U/L ALT (4-49) U/L Alkaline Phosphatase (38-126) U/L Total Protein (6.3-8.2) g/dL Albumin (3.5-5.0) g/dL Coronavirus (PCR) Not Detected (Not Detectd) 03/06/23 Range/Units 11:57 WBC (3.8-10.6) k/uL RBC (4.30-5.90) m/uL Hgb (13.0-17.5) gm/dL Hct (39.0-53.0) % MCV (80.0-100.0) fL MCH (25.0-35.0) pg MCHC (31.0-37.0) g/dL RDW (11.5-15.5) % Plt Count (150-450) k/uL MPV Neutrophils % % Lymphocytes % % Monocytes % % Eosinophils % % Basophils % % Neutrophils # (1.3-7.7) k/uL Lymphocytes # (1.0-4.8) k/uL Monocytes # (0-1.0) k/uL Eosinophils # (0-0.7) k/uL Basophils # (0-0.2) k/uL PT (9.0-12.0) sec INR (<1.2) APTT (22.0-30.0) sec VBG pH 7.45 H (7.31-7.41) VBG pCO2 39 (37-51) mmHg VBG HCO3 26 (24-28) mmol/L Sodium (137-145) mmol/L Potassium (3.5-5.1) mmol/L Chloride (98-107) mmol/L Carbon Dioxide (22-30) mmol/L Anion Gap mmol/L BUN (9-20) mg/dL Creatinine (0.66-1.25) mg/dL Est GFR (CKD-EPI)AfAm (>60 ml/min/1.73 sqM) Est GFR (CKD-EPI)NonAf (>60 ml/min/1.73 sqM) Glucose (74-99) mg/dL Lactic Ac Sepsis Rflx Plasma Lactic Acid Leonid (0.7-2.0) mmol/L Calcium (8.4-10.2) mg/dL Magnesium (1.6-2.3) mg/dL Total Bilirubin (0.2-1.3) mg/dL AST (17-59) U/L ALT (4-49) U/L Alkaline Phosphatase (38-126) U/L Total Protein (6.3-8.2) g/dL Albumin (3.5-5.0) g/dL Coronavirus (PCR) (Not Detectd) Disposition Clinical Impression: Acute exacerbation of chronic obstructive pulmonary disease Disposition: ADMITTED IP TO THIS HOSP Is patient prescribed a controlled substance at d/c from ED?: No Referrals: Lesli Matta MD [Primary Care Provider] - 1-2 days Time of Disposition: 13:15
--- NOTE | 2023-03-06 09:52 | XR ---
EXAMINATION TYPE: XR chest 2V DATE OF EXAM: 03/06/2023 9:48 AM COMPARISON: CT chest abdomen and pelvis 02/24/2023, chest radiograph 01/20/2023 TECHNIQUE: XR chest 2V Frontal and lateral views of the chest. CLINICAL INDICATION:Male, 77 years old with history of difficulty breathing; FINDINGS: Lungs/Pleura: Similar blunting of the left costophrenic angle with associated scarring and/or atelect asis. Chronic senescent parenchymal change. Pulmonary vascularity: Unremarkable. Heart/mediastinum: Cardiomediastinal silhouette is prominent in size. Atherosclerotic calcifications are seen in the aorta. Left atrial appendage occlusion devices present. Musculoskeletal: No acute osseous pathology. Midline sternotomy wires are noted and stable. Bilateral shoulder arthropathy. Degenerative changes of the thoracic spine. IMPRESSION: Similar trace left pleural effusion with associated atelectasis and/or scarring.
[2023-03-06 09:57] LABS: Basophils # (A) 0.1 k/uL (0-0.2); Basophils % (A) 0 %; Eosinophils # (A) 0.1 k/uL (0-0.7); Eosinophils % (A) 1 %; HCT 40.2 % (39.0-53.0); HGB 13.1 gm/dL (13.0-17.5); Lymphocytes # (A) 0.9 k/uL (1.0-4.8); Lymphocytes % (A) 6 %; MCH 29.3 pg (25.0-35.0); MCHC 32.5 g/dL (31.0-37.0); MCV 90.1 fL (80.0-100.0); Mean Platelet Volume 8.1; Monocytes # (A) 0.4 k/uL (0-1.0); Monocytes % (A) 3 %; Neutrophils # (A) 13.2 k/uL (1.3-7.7); Neutrophils % (A) 89 %; Platelet Count 312 k/uL (150-450); RBC 4.46 m/uL (4.30-5.90); RDW 14.7 % (11.5-15.5); WBC 14.8 k/uL (3.8-10.6)
[2023-03-06 10:04] LABS: Albumin 3.8 g/dL (3.5-5.0); Calcium 9.1 mg/dL (8.4-10.2); Magnesium 1.6 mg/dL (1.6-2.3); Potassium 3.9 mmol/L (3.5-5.1); Total Bilirubin 0.4 mg/dL (0.2-1.3); Total Protein 6.4 g/dL (6.3-8.2)
[2023-03-06 10:20] LABS: Partial Thromboplastin Time 24.6 sec (22.0-30.0); Prothrombin Time 10.4 sec (9.0-12.0)
[2023-03-06] MEDS ORDERED: IPRATROPIUM-ALBUTEROL 3 ML NEB INHALATION STA ×2 (11:09→11:31)
[2023-03-06 12:14] LABS: VBG PH 7.45 (7.31-7.41)
[2023-03-06] MEDS ORDERED: NALOXONE 0.4 MG/ML 1 ML VIAL IVP PRN (13:15)
[2023-03-06] MEDS ORDERED: ACETAMINOPHEN TAB 325 MG TAB PO PRN (13:15)
[2023-03-06] MEDS: IPRATROPIUM-ALBUTEROL 3 ML NEB INHALATION SCH ×2 (15:20→18:43)
--- NOTE | 2023-03-06 17:13 | P.CNPUL ---
History of Present Illness Consult date: 03/06/23 Reason for consult: dyspnea, COPD History of present illness: 87-year-old male patient with known history of COPD, maintain on a combination of Spiriva and Dulera and DuoNeb nebulized treatments [id number] and the patient was also diagnosed having mesothelioma back in October 2022 and the patient is currently on immunotherapy with Opdovi every 2 weeks and his disease has been essentially stable. The patient also has previous history of aortic valve replacement for underlying. The patient presented with difficulty breathing. He is also off sputum production. No reported fever or chills. The patient is accordingly hospitalized for an acute COPD exacerbation. His Covid 19 testing was negative. No vesicles at 14.8 with hemoglobin 13.5 and a profile. Venous blood gas was done showed a pH of 7.45 with a pCO2 of 39 and rest of the blood work in electronics are all within normal limits. Initial lactic acid level was at 2.4 dropped down to 1.4. His most recent CAT scan of the chest is from 02/24/2023 and it showed background emphysema. And there was a soft tissue between the 10th and 11th rib that has been stable and a minimal low. Left-sided pleural effusion. Review of Systems Constitutional: Reports as per HPI Eyes: denies as per HPI, denies blurred vision, denies bulging eye, denies decreased vision, denies diplopia, denies discharge, denies dry eye, denies irritation, denies itching, denies pain, denies photophobia, denies loss of peripheral vision, denies loss of vision, denies tunnel vision/blind spots Ears: deny: decreased hearing, ear discharge, earache, tinnitus Ears, nose, mouth and throat: Reports as per HPI Breasts: absent: as per HPI, gynecomastia Cardiovascular: Reports decreased exercise tolerance, Reports dyspnea on exertion Respiratory: Reports cough, Reports cough with sputum, Reports dyspnea, Reports excessive sputum, Reports wheezing Gastrointestinal: Reports as per HPI Genitourinary: Reports as per HPI Musculoskeletal: Reports as per HPI Musculoskeletal: absent: ankle pain, ankle stiffness, ankle swelling Integumentary: Reports as per HPI Neurological: Reports as per HPI Psychiatric: Reports as per HPI Endocrine: Reports as per HPI Hematologic/Lymphatic: Reports as per HPI Allergic/Immunologic: Reports as per HPI Past Medical History Past Medical History: Asthma, Cancer, COPD, Mitral Valve Prolapse (MVP) Additional Past Medical History / Comment(s): "stroke-like" episode 06-28-18, jerky type movements left arm & leg, mostly resolved, recent hx. pleural effusion, left shoulder pain-hasn't had evaluated yet, accidentally put screw through nose in the past, malignant mesothelioma History of Any Multi-Drug Resistant Organisms: None Reported Past Surgical History: Orthopedic Surgery, Tubal Ligation Additional Past Surgical History / Comment(s): HIP REPLACEMENT, Heart valve 2018, chest wall mass biopsy Past Anesthesia/Blood Transfusion Reactions: No Reported Reaction Past Psychological History: No Psychological Hx Reported Smoking Status: Former smoker Past Alcohol Use History: None Reported Past Drug Use History: None Reported - Past Family History Mother Family Medical History: Cancer Additional Family Medical History / Comment(s): lung cancer pass away 90 years old Medications and Allergies Home Medications Medication Instructions Recorded Confirmed Type Ipratropium-Albuterol Nebulize 3 ml INHALATION RT-QID 09/17/18 03/06/23 History [Duoneb 0.5 mg-3 mg/3 ml Soln] Metoprolol Tartrate [Lopressor] 50 mg PO BID #60 tab 10/05/18 03/06/23 Rx Furosemide [Lasix] 40 mg PO DAILY 10/21/19 03/06/23 History Mometasone/Formoterol [Dulera 200 2 puff PO RT-BID 10/08/21 03/06/23 History Mcg-5 Mcg Inhaler] Atorvastatin Calcium [Lipitor] 40 mg PO DAILY 03/06/23 03/06/23 History Azithromycin [Zithromax Z Pack] See Taper PO DIRECTED 03/06/23 03/06/23 History Dapagliflozin Propanediol [Farxiga] 10 mg PO DAILY 03/06/23 03/06/23 History Levothyroxine Sodium [Synthroid] 100 mcg PO MOTUWETHFRSA 03/06/23 03/06/23 History Levothyroxine Sodium [Synthroid] 150 mcg PO OROURKE 03/06/23 03/06/23 History Tiotropium 2.5 Mcg/Puff [Spiriva 2 puff INHALATION RT-DAILY 03/06/23 03/06/23 History Respimat 2.5 Mcg] allopurinoL [Zyloprim] 100 mg PO DAILY 03/06/23 03/06/23 History metFORMIN HCL [Glucophage] 500 mg PO DAILY 03/06/23 03/06/23 History predniSONE See Taper PO DIRECTED 03/06/23 03/06/23 History Allergies Allergy/AdvReac Type Severity Reaction Status Date / Time No Known Allergies Allergy Verified 03/06/23 11:37 Physical Exam Vitals: Vital Signs Temp Pulse Resp BP Pulse Ox 03/06/23 15:33 88 03/06/23 15:23 84 03/06/23 15:08 98.1 F 83 16 125/62 93 L 03/06/23 11:44 88 03/06/23 11:33 86 03/06/23 11:27 76 03/06/23 11:18 62 03/06/23 10:13 93 L 03/06/23 09:15 19 03/06/23 09:09 97.4 F L 82 24 108/70 93 L Intake and Output 03/06/23 03/06/23 03/06/23 06:59 14:59 22:59 Other: Weight 80.739 kg Gen. appearance the patient is having mildly labored breathing especially with activity. Is quite comfortable at rest and is currently on room air oxygen Head exam was generally normal. There was no scleral icterus or corneal arcus. Mucous membranes were moist. Neck was supple and without jugular venous distension, thyromegaly, or carotid bruits. Carotids were easily palpable bilaterally. There was no adenopathy. Lungs sounds show marked diminished breath sounds bilaterally along with scattered expiratory wheezes throughout the lung field bilaterally Cardiac exam revealed the PMI to be normally situated and sized. The rhythm was regular and no extrasystoles were noted during several minutes of auscultation. The first and second heart sounds were normal and physiologic splitting of the second heart sound was noted. There were no murmurs, rubs, clicks, or gallops. Abdominal exam revealed normal bowel sounds. The abdomen was soft, non-tender, and without masses, organomegaly, or appreciable enlargement of the abdominal aorta. Examination of the extremities revealed easily palpable radial, femoral and pedal pulses. There was no cyanosis, clubbing or edema. Examination of the skin revealed no evidence of significant rashes, suspicious appearing nevi or other concerning lesions. Neurologically, the patient is awake and alert and the patient does not have any focal neurological deficit. Cranial nerves are essentially intact. Results - Laboratory Findings CBC and BMP: 03/06/23 09:22 03/06/23 09:22 PT/INR, D-dimer PT 10.4 sec (9.0-12.0) 03/06/23 09:22 INR 1.0 (<1.2) 03/06/23 09:22 Abnormal lab findings: Abnormal Labs 03/06/23 03/06/23 03/06/23 09:22 09:22 09:22 WBC 14.8 H Neutrophils # 13.2 H Lymphocytes # 0.9 L VBG pH BUN 25 H Glucose 151 H Plasma Lactic Acid Leoind 2.4 H* 03/06/23 11:57 WBC Neutrophils # Lymphocytes # VBG pH 7.45 H BUN Glucose Plasma Lactic Acid Leonid - Diagnostic Findings Chest x-ray: image reviewed CT scan - chest: image reviewed Assessment and Plan Plan: Acute COPD exacerbation. The patient is actively bronchospastic and wheezy. The patient has severe COPD with a baseline FEV1 of 43% of predicted, maintain on a combination of Spiriva and Dulera on outpatient basis. Shortness of breath secondary to above History of mesothelioma, currently on immunotherapy receiving Opdivo Aortic stenosis, bicuspid aortic valve status post aortic valve replacement The patient underwent also left atrial appendage clipping severe COPD with an FEV1 of 43% of predicted [id number] smoking history, the patient is an ex-smoker and he quit smoking back 5 years ago moderate degree of pulmonary hypertension Diabetes mellitus Hyperlipidemia Hypothyroidism and thin on Synthroid Previous history of Covid 19 infection, current testing is negative Plan Treat this patient with Mirtha ruggiero [id number] IV Solu-Medrol 60 mg every 6 hours Patient was already given antibiotics on an outpatient basis, and he was given Zithromax, no need for further antibiotic regimen Check pro calcitonin level Check d-dimer I reviewed the CAT scan of the chest from 02/24/2023 and is mesothelioma is currently inactive and stable and the patient has background COPD Resume all medications Put the patient on a combination of performance on Pulmicort nebulized treatments twice a day Lovenox 40 mg subcu for DVT prophylaxis We'll continue to follow
[2023-03-06] MEDS: methylPREDNISolone SOD SUCCI 125 MG/2 ML VIAL IV SCH ×2 (18:05→23:31)
[2023-03-06] MEDS: BUDESONIDE 1 MG/2 ML NEBU INHALATION SCH (18:43)
[2023-03-06] MEDS: FORMOTEROL FUMARATE 20 MCG/2 ML NEBU INHALATION SCH (18:43)
[2023-03-06] MEDS: METOPROLOL TARTRATE 50 MG TAB PO SCH (20:57)
[2023-03-07] MEDS: IPRATROPIUM-ALBUTEROL 3 ML NEB INHALATION PRN ×2 (00:59→22:27)
[2023-03-07] MEDS: LEVOTHYROXINE 100 MCG TAB PO SCH (06:13)
[2023-03-07] MEDS: methylPREDNISolone SOD SUCCI 125 MG/2 ML VIAL IV SCH ×4 (06:13→23:11)
[2023-03-07] MEDS: metFORMIN 500 MG TAB PO SCH (08:21)
[2023-03-07] MEDS: FUROSEMIDE 40 MG TAB PO SCH (08:21)
[2023-03-07] MEDS: METOPROLOL TARTRATE 50 MG TAB PO SCH ×2 (08:21→20:01)
[2023-03-07] MEDS: ENOXAPARIN 40 MG/0.4 ML SYRINGE SQ SCH (08:21)
[2023-03-07] MEDS: allopurinoL 100 MG TAB PO SCH (08:21)
[2023-03-07] MEDS: IPRATROPIUM-ALBUTEROL 3 ML NEB INHALATION SCH ×4 (08:50→18:17)
[2023-03-07] MEDS: FORMOTEROL FUMARATE 20 MCG/2 ML NEBU INHALATION SCH ×2 (08:50→18:17)
[2023-03-07] MEDS: BUDESONIDE 1 MG/2 ML NEBU INHALATION SCH ×2 (08:50→18:17)
--- NOTE | 2023-03-07 15:39 | P.PN ---
Subjective Progress Note Date: 03/07/23 87-year-old male patient with known history of COPD, maintain on a combination of Spiriva and Dulera and DuoNeb nebulized treatments [id number] and the patient was also diagnosed having mesothelioma back in October 2022 and the patient is currently on immunotherapy with Opdovi every 2 weeks and his disease has been essentially stable. The patient also has previous history of aortic valve replacement for underlying. The patient presented with difficulty breathing. He is also off sputum production. No reported fever or chills. The patient is accordingly hospitalized for an acute COPD exacerbation. His Covid 19 testing was negative. No vesicles at 14.8 with hemoglobin 13.5 and a profil e. Venous blood gas was done showed a pH of 7.45 with a pCO2 of 39 and rest of the blood work in electronics are all within normal limits. Initial lactic acid level was at 2.4 dropped down to 1.4. His most recent CAT scan of the chest is from 02/24/2023 and it showed background emphysema. And there was a soft tissue between the 10th and 11th rib that has been stable and a minimal low. Left-si ded pleural effusion is small On today's evaluation of 03/07/2023, the patient is feeling better and the patient is less short of breath less bronchospastic. No new complaints. Is able to speak in longer sentences. Much improved compared to yesterday. Remains on bronchodilators and steroids. No fever. No chills. Pro-calcitonin level is at 0.1. Objective - Vital Signs Vital signs: Vital Signs Temp 97.5 F L 03/07/23 14:48 Pulse 86 03/07/23 14:48 Resp 16 03/07/23 14:48 BP 130/64 03/07/23 14:48 Pulse Ox 92 L 03/07/23 14:48 FiO2 Intake & Output 03/06/23 03/07/23 03/07/23 18:59 06:59 18:59 Intake Total 436 Balance 436 Weight 80.739 kg Intake: Oral 436 Other: Voiding Method Toilet Toilet # Voids 2 - Exam Gen. appearance the patient is having mildly labored breathing especially with activity. Is quite comfortable at rest and is currently on room air oxygen Head exam was generally normal. There was no scleral icterus or corneal arcus. Mucous membranes were moist. Neck was supple and without jugular venous distension, thyromegaly, or carotid bruits. Carotids were easily palpable bilaterally. There was no adenopathy. Lungs sounds show marked diminished breath sounds bilaterally along with scattered expiratory wheezes throughout the lung field bilaterally Cardiac exam revealed the PMI to be normally situated and sized. The rhythm was regular and no extrasystoles were noted during several minutes of auscultation. The first and second heart sounds were normal and physiologic splitting of the second heart sound was noted. There were no murmurs, rubs, clicks, or gallops. Abdominal exam revealed normal bowel sounds. The abdomen was soft, non-tender, and without masses, organomegaly, or appreciable enlargement of the abdominal aorta. Examination of the extremities revealed easily palpable radial, femoral and pedal pulses. There was no cyanosis, clubbing or edema. Examination of the skin revealed no evidence of significant rashes, suspicious appearing nevi or other concerning lesions. Neurologically, the patient is awake and alert and the patient does not have any focal neurological deficit. Cranial nerves are essentially intact. - Labs CBC & Chem 7: 03/06/23 09:22 03/06/23 09:22 Labs: Abnormal Lab Results - Last 24 Hours (Table) 03/06/23 Range/Units 18:45 Procalcitonin 0.10 H (0.02-0.09) ng/mL Assessment and Plan Plan: Acute COPD exacerbation. The patient is actively bronchospastic and wheezy. The patient has severe COPD with a baseline FEV1 of 43% of predicted, maintain on a combination of Spiriva and Dulera on outpatient basis. Shortness of breath secondary to above History of mesothelioma, currently on immunotherapy receiving Opdivo Aortic stenosis, bicuspid aortic valve status post aortic valve replacement The patient underwent also left atrial appendage clipping severe COPD with an FEV1 of 43% of predicted [id number] smoking history, the patient is an ex-smoker and he quit smoking back 5 years ago moderate degree of pulmonary hypertension Diabetes mellitus Hyperlipidemia Hypothyroidism and thin on Synthroid Previous history of Covid 19 infection, current testing is negative Plan Clinically improving Continue IV Solu-Medrol for another 24 hours Treat this patient with Mirtha ruggiero [id number] Patient was already given antibiotics on an outpatient basis, and he was given Zithromax, no need for further antibiotic regimen Check pro calcitonin level was low at 0.1 Check d-dimer was low at 0.5 I reviewed the CAT scan of the chest from 02/24/2023 and is mesothelioma is currently inactive and stable and the patient has background COPD Resume all medications Put the patient on a combination of performance on Pulmicort nebulized treatments twice a day Lovenox 40 mg subcu for DVT prophylaxis We'll continue to follow Possible discharge home tomorrow on a prednisone burst taper
--- NOTE | 2023-03-07 17:25 | P.CONS ---
History of Present Illness - Reason for Consult Consult date: 03/07/23 Hx mesothelioma Requesting physician: Juancarlos Doherty - Chief Complaint SOB - History of Present Illness Patient is a 77-year-old male with a significant history of mesothelioma and COPD. He is a patient of Dr. Gomez. He is currently being treated with Opdivo and received his 27th cycle on 02/20/23, and received yervoy during cycles 1 and [address] chest abdomen and pelvis on 02/24/23 which showed no evidence of disease progression. Patient presented to the emergency room for progressing shortness of breath. He is a patient of Dr. Isabel. He also reports cough for last 2-3 weeks that was initially productive and now is dry. On presentation chest x-ray revealed s imilar trace pleural effusions with atelectasis and/or scarring. Oxygen saturation 97% on 2 L nasal cannula. Hemoglobin 13.1, WBC 14.8, platelets 312,000. Patient reports feeling improved since admission, but still reports mild shortness of breath. Review of Systems 10 point ROS is negative except as stated in HPI Past Medical History Past Medical History: Asthma, Cancer, COPD, Mitral Valve Prolapse (MVP) Additional Past Medical History / Comment(s): "stroke-like" episode 06-28-18, jerky type movements left arm & leg, mostly resolved, recent hx. pleural effusion, left shoulder pain-hasn't had evaluated yet, accidentally put screw through nose in the past, malignant mesothelioma History of Any Multi-Drug Resistant Organisms: None Reported Past Surgical History: Orthopedic Surgery, Tubal Ligation Additional Past Surgical History / Comment(s): HIP REPLACEMENT, Heart valve 2018, chest wall mass biopsy Past Anesthesia/Blood Transfusion Reactions: No Reported Reaction Past Psychological History: No Psychological Hx Reported Smoking Status: Former smoker Past Alcohol Use History: None Reported Past Drug Use History: None Reported - Past Family History Mother Family Medical History: Cancer Additional Family Medical History / Comment(s): lung cancer pass away 90 years old Medications and Allergies Home Medications Medication Instructions Recorded Confirmed Type Ipratropium-Albuterol Nebulize 3 ml INHALATION RT-QID 09/17/18 03/06/23 History [Duoneb 0.5 mg-3 mg/3 ml Soln] Metoprolol Tartrate [Lopressor] 50 mg PO BID #60 tab 10/05/18 03/06/23 Rx Furosemide [Lasix] 40 mg PO DAILY 10/21/19 03/06/23 History Mometasone/Formoterol [Dulera 200 2 puff PO RT-BID 10/08/21 03/06/23 History Mcg-5 Mcg Inhaler] Atorvastatin Calcium [Lipitor] 40 mg PO DAILY 03/06/23 03/06/23 History Azithromycin [Zithromax Z Pack] See Taper PO DIRECTED 03/06/23 03/06/23 History Dapagliflozin Propanediol [Farxiga] 10 mg PO DAILY 03/06/23 03/06/23 History Levothyroxine Sodium [Synthroid] 100 mcg PO MOTUWETHFRSA 03/06/23 03/06/23 History Levothyroxine Sodium [Synthroid] 150 mcg PO OROURKE 03/06/23 03/06/23 History Tiotropium 2.5 Mcg/Puff [Spiriva 2 puff INHALATION RT-DAILY 03/06/23 03/06/23 History Respimat 2.5 Mcg] allopurinoL [Zyloprim] 100 mg PO DAILY 03/06/23 03/06/23 History metFORMIN HCL [Glucophage] 500 mg PO DAILY 03/06/23 03/06/23 History predniSONE See Taper PO DIRECTED 03/06/23 03/06/23 History predniSONE [Deltasone] 60 mg PO DAILY #30 tab 03/08/23 Rx Allergies Allergy/AdvReac Type Severity Reaction Status Date / Time No Known Allergies Allergy Verified 03/06/23 11:37 Physical Exam Vitals: Vital Signs Temp Pulse Pulse Resp BP BP Pulse Ox 03/07/23 09:22 88 03/07/23 09:05 88 03/07/23 09:04 88 03/07/23 08:50 84 97 03/07/23 06:42 97.6 F 78 18 121/71 96 03/07/23 02:26 98.5 F 91 18 138/81 95 03/07/23 01:50 16 03/07/23 01:10 91 03/07/23 01:00 87 03/06/23 20:00 16 03/06/23 19:07 98 03/06/23 19:01 96 03/06/23 19:00 96 03/06/23 18:53 97.7 F 82 16 135/70 90 L 03/06/23 18:47 100 03/06/23 18:20 80 17 101/72 91 L 03/06/23 15:33 88 03/06/23 15:23 84 03/06/23 15:08 98.1 F 83 16 125/62 93 L 03/06/23 11:44 88 03/06/23 11:33 86 03/06/23 11:27 76 03/06/23 11:18 62 03/06/23 10:13 93 L Intake and Output 03/06/23 03/07/23 03/07/23 22:59 06:59 14:59 Other: Voiding Method Toilet # Voids 2 2 - Constitutional General appearance: average body habitus, no acute distress - EENT Eyes: anicteric sclerae, EOMI - Respiratory Respiratory: right: rales, left: diminished - Cardiovascular Rhythm: regular Heart sounds: normal: S1, S2 Abnormal Heart Sounds: systolic murmur - Gastrointestinal General gastrointestinal: soft, no tenderness - Integumentary Integumentary: normal - Musculoskeletal Musculoskeletal: strength equal bilaterally - Psychiatric Psychiatric: A&O x's 3, appropriate affect, intact judgment & insight Results CBC & Chem 7: 03/06/23 09:22 03/06/23 09:22 Labs: Abnormal Lab Results - Last 24 Hours (Table) 03/06/23 03/06/23 03/06/23 Range/Units 09:22 09:22 09:22 WBC 14.8 H (3.8-10.6) k/uL Neutrophils # 13.2 H (1.3-7.7) k/uL Lymphocytes # 0.9 L (1.0-4.8) k/uL VBG pH (7.31-7.41) BUN 25 H (9-20) mg/dL Glucose 151 H (74-99) mg/dL Plasma Lactic Acid Leonid 2.4 H* (0.7-2.0) mmol/L Procalcitonin (0.02-0.09) ng/mL 03/06/23 03/06/23 Range/Units 11:57 18:45 WBC (3.8-10.6) k/uL Neutrophils # (1.3-7.7) k/uL Lymphocytes # (1.0-4.8) k/uL VBG pH 7.45 H (7.31-7.41) BUN (9-20) mg/dL Glucose (74-99) mg/dL Plasma Lactic Acid Leonid (0.7-2.0) mmol/L Procalcitonin 0.10 H (0.02-0.09) ng/mL Chest x-ray: report reviewed Assessment and Plan (1) Mesothelioma Status: Acute Priority: High Code(s): C45.9 - MESOTHELIOMA, UNSPECIFIED SNOMED Code(s): 710141747 (2) Acute exacerbation of chronic obstructive pulmonary disease Status: Acute Priority: High Code(s): J44.1 - CHRONIC OBSTRUCTIVE PULMONARY DISEASE W (ACUTE) EXACERBATION SNOMED Code(s): 120405340 Plan: Mesothelioma: -He is currently being treated with Opdivo and received his 27th cycle on 02/20/23, and received yervoy during cycles 1 and [address] chest abdomen and pelvis on 02/24/23 which showed no evidence of disease progression. -Thyroid studies obtained 02/21/23, TSH 8.2, T4 2.0, cortisol 20 -Hemoglobin 13.1, WBC 14.8, platelets 312,000. -SOB likely related to COPD, however, pneumonitis can be associated with immun otherapy treatment, may consider CT chest wo -F/u scheduled on 03/13. Will reevaluate patient to determine when appropriate to restart treatment COPD exacerbation: -Chest x-ray revealed similar trace pleural effusions with atelectasis and/or scarring. Oxygen saturation 97% on 2 L nasal cannula. -Breathing treatments, symbicort, lasix and steroids ordered -Defer to pulmonology for management attests: I performed H&P and developed impression and plan a care for patient, discussed with dictator. I agree with dictated note, documented as a scribe
[2023-03-08] MEDS: IPRATROPIUM-ALBUTEROL 3 ML NEB INHALATION PRN (03:23)
[2023-03-08] MEDS: LEVOTHYROXINE 100 MCG TAB PO SCH (05:18)
[2023-03-08] MEDS: methylPREDNISolone SOD SUCCI 125 MG/2 ML VIAL IV SCH (05:18)
[2023-03-08 07:38] VITALS: TEMP 97.7
[2023-03-08] MEDS ORDERED: ATORVASTATIN 40 MG TAB PO SCH (09:00)
[2023-03-08] MEDS ORDERED: DAPAGLIFLOZIN PROPANEDIOL 10 MG TABLET PO SCH (09:00)
[2023-03-08] MEDS: FORMOTEROL FUMARATE 20 MCG/2 ML NEBU INHALATION SCH (09:09)
[2023-03-08] MEDS: BUDESONIDE 1 MG/2 ML NEBU INHALATION SCH (09:09)
[2023-03-08] MEDS: IPRATROPIUM-ALBUTEROL 3 ML NEB INHALATION SCH ×3 (09:09→14:57)
[2023-03-08] MEDS: ENOXAPARIN 40 MG/0.4 ML SYRINGE SQ SCH (10:03)
[2023-03-08] MEDS: FUROSEMIDE 40 MG TAB PO SCH (10:04)
[2023-03-08] MEDS: METOPROLOL TARTRATE 50 MG TAB PO SCH (10:04)
[2023-03-08] MEDS: allopurinoL 100 MG TAB PO SCH (10:04)
[2023-03-08] MEDS: metFORMIN 500 MG TAB PO SCH (10:11)
--- NOTE | 2023-03-08 12:59 | P.PN ---
Subjective Progress Note Date: 03/08/23 87-year-old male patient with known history of COPD, maintain on a combination of Spiriva and Dulera and DuoNeb nebulized treatments [id number] and the patient was also diagnosed having mesothelioma back in October 2022 and the patient is currently on immunotherapy with Opdovi every 2 weeks and his disease has been essentially stable. The patient also has previous history of aortic valve replacement for underlying. The patient presented with difficulty breathing. He is also off sputum production. No reported fever or chills. The patient is accordingly hospitalized for an acute COPD exacerbation. His Covid 19 testing was negative. No vesicles at 14.8 with hemoglobin 13.5 and a profil e. Venous blood gas was done showed a pH of 7.45 with a pCO2 of 39 and rest of the blood work in electronics are all within normal limits. Initial lactic acid level was at 2.4 dropped down to 1.4. His most recent CAT scan of the chest is from 02/24/2023 and it showed background emphysema. And there was a soft tissue between the 10th and 11th rib that has been stable and a minimal low. Left-si ded pleural effusion is small On today's evaluation of 03/07/2023, the patient is feeling better and the patient is less short of breath less bronchospastic. No new complaints. Is able to speak in longer sentences. Much improved compared to yesterday. Remains on bronchodilators and steroids. No fever. No chills. Pro-calcitonin level is at 0.1. On today's evaluation 03/08/2023, the patient is clinically much improved. He remains on room air oxygen. Lunesta or difficulties at this point in time. He does have some limited exertional dyspnea and wheeze. Overall condition is much improved and the patient has no specific complaints. Objective - Vital Signs Vital signs: Vital Signs Temp 97.7 F 03/08/23 07:00 Pulse 82 03/08/23 11:22 Resp 16 03/08/23 07:00 BP 117/61 03/08/23 07:00 Pulse Ox 94 L 03/08/23 09:10 FiO2 Intake & Output 03/07/23 03/08/23 03/08/23 18:59 06:59 18:59 Intake Total 672 500 118 Balance 672 500 118 Intake: Oral 672 500 118 Other: Voiding Method Toilet Toilet # Voids 2 - Exam Gen. appearance the patient is having mildly labored breathing especially with activity. Is quite comfortable at rest and is currently on room air oxygen Head exam was generally normal. There was no scleral icterus or corneal arcus. Mucous membranes were moist. Neck was supple and without jugular venous distension, thyromegaly, or carotid bruits. Carotids were easily palpable bilaterally. There was no adenopathy. Lungs sounds show marked diminished breath sounds bilaterally along with scattered expiratory wheezes throughout the lung field bilaterally Cardiac exam revealed the PMI to be normally situated and sized. The rhythm was regular and no extrasystoles were noted during several minutes of auscultation. The first and second heart sounds were normal and physiologic splitting of the second heart sound was noted. There were no murmurs, rubs, clicks, or gallops. Abdominal exam revealed normal bowel sounds. The abdomen was soft, non-tender, and without masses, organomegaly, or appreciable enlargement of the abdominal aorta. Examination of the extremities revealed easily palpable radial, femoral and pedal pulses. There was no cyanosis, clubbing or edema. Examination of the skin revealed no evidence of significant rashes, suspicious appearing nevi or other concerning lesions. Neurologically, the patient is awake and alert and the patient does not have any focal neurological deficit. Cranial nerves are essentially intact. - Labs CBC & Chem 7: 03/06/23 09:22 03/06/23 09:22 Assessment and Plan Plan: Acute COPD exacerbation. The patient is actively bronchospastic and wheezy. The patient has severe COPD with a baseline FEV1 of 43% of predicted, maintain on a combination of Spiriva and Dulera on outpatient basis. Shortness of breath secondary to above History of mesothelioma, currently on immunotherapy receiving Opdivo Aortic stenosis, bicuspid aortic valve status post aortic valve replacement The patient underwent also left atrial appendage clipping severe COPD with an FEV1 of 43% of predicted [id number] smoking history, the patient is an ex-smoker and he quit smoking back 5 years ago moderate degree of pulmonary hypertension Diabetes mellitus Hyperlipidemia Hypothyroidism and thin on Synthroid Previous history of Covid 19 infection, current testing is negative Plan Clinically improving, the patient seems to be related to be discharged home today. We'll continue the combination of Spiriva and Dulera on outpatient basis. Prednisone burst taper. Check pro calcitonin level was low at 0.1 Check d-dimer was low at 0.5 I reviewed the CAT scan of the chest from 02/24/2023 and is mesothelioma is currently inactive and stable and the patient has background COPD Resume all medications discharge home and pulmonary critical care services will sign off the case and we'll do an outpatient follow-up.
[2023-03-08 14:18] VITALS: BP 118/67; RESP 17
[2023-03-08 15:06] VITALS: PULSE 90
--- NOTE | 2023-03-08 15:19 | P.HPIM ---
History of Present Illness H&P Date: 03/07/23 HISTORY OF PRESENT ILLNESS: This is a 77-year-old male with a previous medical history significant for hypertension and hypertensive cardiovascular disease, hyperlipidemia, diabetes mellitus type 2, history of shoulder osteoarthritis, chronic obstructive pulmonary disease with the FEV1 46% sent of predicted, vitamin D deficiency, hypothyroidism, patient was diagnosed with mesothelioma has been under the care of Dr. Simpson from hematology oncology he did receive his 27th cycle of OPDIVO on 02/20/2023, and he did receive UREVOY on cycle 1 and 2, he did have a computed tomography scan of the chest abdomen and pelvis that was done by hematology oncology that did not show evidence of disease progression, apparently patient was sent to the ER by his upper tier because of increased s hortness breath and increased coughing that has been started about 3 weeks ago, he ended up seen in the ER and was diagnosed with acute exacerbation of COPD, he was started on Solu-Medrol 60 mg IV push every 6 hours, DuoNeb 3 mL nebulization 4 times every day, but decide 1 mg nebulization twice every day as well as Formeterol 20 g nebulization twice every day, was placed on oxygen support and he was admitted to the hospital with a oncology consultation as well as pulmonary consultation. REVIEW OF SYSTEMS: Constitutional: No documented fever, no chills, no night sweats. No weight change. No weakness, fatigue or lethargy. No daytime sleepiness. HEENT: No headache. No blurred vision or double vision, no loss of vision. No loss of Hearing, no ringing in the ears, no dizziness. No nasal drainage or congestion. No epistaxis. No sore throat. Lungs: positive for shortness of breath, positive for cough, no sputum production. positive for wheezing. Reports dyspnea with activity. Cardiovascular: No chest pain, no lower extremity edema. No palpitations. No paroxysmal nocturnal dyspnea. No orthopnea. No lightheadedness or dizziness. No syncopal episodes. Abdominal: Reports no abdominal pain. No nausea, vomiting. No diarrhea. No constipation. No bloody or tarry stools reports loss of appetite. Genitourinary: No dysuria, increased frequency, urgency. No urinary retention. Musculoskeletal: No myalgias. No muscle weakness, no gait dysfunction, no frequent falls. No back pain. No neck pain. Integumentary: No wounds, no lesions. No rash or pruritus. No unusual br uising. No change in hair or nails. Neurologic: No aphasia. No facial droop. No change in mentation. No head injury. No headache. No paralysis. No paresthesia. Psychiatric: No depression. No anxiety. No mood swings. Endocrine: No abnormal blood sugars. No weight change. PAST MEDICAL HISTORY: Hypertension and hypertensive cardiovascular disease. Hyperlipidemia. Diabetes mellitus type 2. Mesothelioma. Severe COPD. Hypothyroidism. Vitamin D deficiency. Osteoarthritis of the shoulder. PAST SURGICAL HISTORY: left hip replacement 2013 Bicuspid aortic valve post AVR with a cow valve 2018 bronchoscopy with transbronchial biopsy 11/05/2021, Colonoscopy 2019. SOCIAL HISTORY: patient smoked about a pack every day since the age of 18 and he quit at the age of 72. Patient denies any alcohol ingestion, he drinks about 4 cups of coffee every day. FAMILY HISTORY: Father at age of 85 from natural causes mother at age of 90 from old age patient had one brother who at age of 76 from Alzheimer dementia patient has one son and 3 daughters no major medical problems. PHYSICAL EXAMINATION: General: 77-year-old male laying down in bed in minimal respiratory distress. HEENT: Head is atraumatic, normocephalic, pupils were equal round reactive to light and recommendation, extraocular muscle movement were intact, sclera nonicteric, conjunctivae were pale, mucous membranes of the mouth are somewhat dry. Neck: Supple, no JVP, normal carotid upstroke bilaterally, no lymphadenopathy. Chest: Decreased breath sounds at the bases, few rhonchi, positive for expiratory wheezes, no chest wall tenderness, minimal intercostal retractions. Heart: First heart sound is normal, second heart sounds normal there is systolic ejection murmur 2/6 located in the left sternal border p Abdomen: Soft, nontender, nondistended, positive bowel sounds. Extremities: There is no edema no calf tenderness DP +2 bilaterally. Neurologic examination: Patient is awake alert and oriented x3 , cranial nerves II-12 appear grossly intact, muscle power were 5 out of 5 in upper extremities and 5 out of 5 in bilateral lower extremities, deep tendon reflexes normal bilaterally. ASSESSMENT AND PLAN: 1. Acute hypoxemic respiratory failure due to acute exacerbation of COPD in a patient with underlying mesothelioma. continue Solu-Medrol 60 mg IV push every 6 hours, continue DuoNeb 3 mL nebulization 4 times every day, continue budesonide 1 mg nebulization twice every day, continue Formoterol 20 g nebulization twice every day, continue oxygen support, Pulmicort consultation as well as oncology consultation appreciated. 2. COPD exacerbation of the patient was severe COPD with FEV1 43% of predicted. Continue treatment as in paragraph #1. 3. Mesothelioma currently and her the care of hematology oncology Dr. Simpson patient did receive the th cycle of OPDIVO along with YERVOY on cycle 1 and 2, patient did have a CT chest abdomen and pelvis that was negative for progression of disease. 4. Hypertension and hypertensive cardiovascular disease. Continue patient on m etoprolol 50 mg orally twice every day continue to monitor patient blood pressure very closely. 5. Mixed hyperlipidemia. Continue patient on atorvastatin 40 mg orally once every day, monitor lipid panel, keep LDL 55-70. 6. Hypothyroidism. Continue patient on levothyroxin 100 g orally once every day and 150 g on Friday monitor the patient TSH and free T4. 7. History of diabetes mellitus type 2. Continue patient on metformin ER 500 mg orally once every day as well as Dabagliflosin 10 mg orally once every day. 8. History of gout. Continue allopurinol 100 mg orally once every day. 9. DVT prophylaxis. Continue Lovenox 40 mg subcutaneously every 24 hours. 10. GI prophylaxis. Continue patient on PPI. 11. Admit to inpatient. Estimate a length of stay 2 midnights. 12. Full code. Past Medical History Past Medical History: Asthma, Cancer, COPD, Mitral Valve Prolapse (MVP) Additional Past Medical History / Comment(s): "stroke-like" episode 06-28-18, jerky type movements left arm & leg, mostly resolved, recent hx. pleural effusion, left shoulder pain-hasn't had evaluated yet, accidentally put screw through nose in the past, malignant mesothelioma History of Any Multi-Drug Resistant Organisms: None Reported Past Surgical History: Orthopedic Surgery, Tubal Ligation Additional Past Surgical History / Comment(s): HIP REPLACEMENT, Heart valve 2018, chest wall mass biopsy Past Anesthesia/Blood Transfusion Reactions: No Reported Reaction Past Psychological History: No Psychological Hx Reported Smoking Status: Former smoker Past Alcohol Use History: None Reported Past Drug Use History: None Reported - Past Family History Mother Family Medical History: Cancer Additional Family Medical History / Comment(s): lung cancer pass away 90 years old Medications and Allergies Home Medications Medication Instructions Recorded Confirmed Type Ipratropium-Albuterol Nebulize 3 ml INHALATION RT-QID 09/17/18 03/06/23 History [Duoneb 0.5 mg-3 mg/3 ml Soln] Metoprolol Tartrate [Lopressor] 50 mg PO BID #60 tab 10/05/18 03/06/23 Rx Furosemide [Lasix] 40 mg PO DAILY 10/21/19 03/06/23 History Mometasone/Formoterol [Dulera 200 2 puff PO RT-BID 10/08/21 03/06/23 History Mcg-5 Mcg Inhaler] Atorvastatin Calcium [Lipitor] 40 mg PO DAILY 03/06/23 03/06/23 History Azithromycin [Zithromax Z Pack] See Taper PO DIRECTED 03/06/23 03/06/23 History Dapagliflozin Propanediol [Farxiga] 10 mg PO DAILY 03/06/23 03/06/23 History Levothyroxine Sodium [Synthroid] 100 mcg PO MOTUWETHFRSA 03/06/23 03/06/23 History Levothyroxine Sodium [Synthroid] 150 mcg PO OROURKE 03/06/23 03/06/23 History Tiotropium 2.5 Mcg/Puff [Spiriva 2 puff INHALATION RT-DAILY 03/06/23 03/06/23 History Respimat 2.5 Mcg] allopurinoL [Zyloprim] 100 mg PO DAILY 03/06/23 03/06/23 History metFORMIN HCL [Glucophage] 500 mg PO DAILY 03/06/23 03/06/23 History predniSONE See Taper PO DIRECTED 03/06/23 03/06/23 History predniSONE [Deltasone] 60 mg PO DAILY #30 tab 03/08/23 Rx Allergies Allergy/AdvReac Type Severity Reaction Status Date / Time No Known Allergies Allergy Verified 03/06/23 11:37 Physical Exam Vitals: Vital Signs Temp Pulse Pulse Resp BP BP Pulse Ox 03/07/23 13:27 18 03/07/23 13:19 92 L 03/07/23 12:51 84 03/07/23 12:37 84 03/07/23 09:22 88 03/07/23 09:05 88 03/07/23 09:04 88 03/07/23 08:51 18 03/07/23 08:50 84 97 03/07/23 06:42 97.6 F 78 18 121/71 96 03/07/23 02:26 98.5 F 91 18 138/81 95 03/07/23 01:50 16 03/07/23 01:10 91 03/07/23 01:00 87 03/06/23 20:00 16 03/06/23 19:07 98 03/06/23 19:01 96 03/06/23 19:00 96 03/06/23 18:53 97.7 F 82 16 135/70 90 L 03/06/23 18:47 100 03/06/23 18:20 80 17 101/72 91 L 03/06/23 15:33 88 03/06/23 15:23 84 03/06/23 15:08 98.1 F 83 16 125/62 93 L Intake and Output 03/06/23 03/07/23 03/07/23 22:59 06:59 14:59 Intake Total 436 Balance 436 Intake: Oral 436 Other: Voiding Method Toilet Toilet # Voids 2 2 Results CBC & Chem 7: 03/06/23 09:22 03/06/23 09:22 Labs: Abnormal Lab Results - Last 24 Hours (Table) 03/06/23 Range/Units 18:45 Procalcitonin 0.10 H (0.02-0.09) ng/mL Thrombosis Risk Factor Assmnt - Choose All That Apply Each Factor Represents 1 point: Abnormal pulmonary function (COPD), Serious lung disease incl. pneumonia (< 1month) Each Risk Factor Represents 3 Points: Age 75 years or older Thrombosis Risk Factor Assessment Total Risk Factor Score: 5 Thrombosis Risk Factor Assessment Level: High Risk
--- NOTE | 2023-03-08 15:20 | P.PN ---
Subjective Progress Note Date: 03/08/23 HISTORY OF PRESENT ILLNESS: This is a 77-year-old male with a previous medical history significant for hypertension and hypertensive cardiovascular disease, hyperlipidemia, diabetes mellitus type 2, history of shoulder osteoarthritis, chronic obstructive pulmonary disease with the FEV1 46% sent of predicted, vitamin D deficiency, hypothyroidism, patient was diagnosed with mesothelioma has been under the care of Dr. Simpson from hematology oncology he did receive his 27th cycle of OPDIVO on 02/20/2023, and he did receive UREVOY on cycle 1 and 2, he did have a computed tomography scan of the chest abdomen and pelvis that was done by hematology oncology that did not show evidence of disease progression, apparently patient was sent to the ER by his hardware sales assistant because of increased shortness breath and increased coughing that has been started about 3 weeks ago, he ended up seen in the ER and was diagnosed with acute exacerbation of COPD, he was started on Solu-Medrol 60 mg IV push every 6 hours, DuoNeb 3 mL nebulization 4 times every day, but decide 1 mg nebulization twice every day as well as Formeterol 20 g nebulization twice every day, was placed on oxygen support and he was admitted to the hospital with a oncology consultation as well as pulmonary consultation. 03/08: Patient is sitting up in chair his feeling a lot better today, he was switched to Solu-Medrol 40 mg IV push every 12 hours for the next few hours, if he is tolerating the wean down very well he can be discharged home Neurontin today in follow-up with us as an outpatient in the next 1 or 2 days, patient is currently off oxygen, patient was seen early by pulmonary and it was decided for the patient to be discharged home today REVIEW OF SYSTEMS: Constitutional: No documented fever, no chills, no night sweats. No weight change. No weakness, fatigue or lethargy. No daytime sleepiness. HEENT: No headache. No blurred vision or double vision, no loss of vision. No loss of Hearing, no ringing in the ears, no dizziness. No nasal drainage or congestion. No epistaxis. No sore throat. Lungs: positive for shortness of breath, positive for cough, no sputum production. positive for wheezing. Reports dyspnea with activity. Cardiovascular: No chest pain, no lower extremity edema. No palpitations. No paroxysmal nocturnal dyspnea. No orthopnea. No lightheadedness or dizziness. No syncopal episodes. Abdominal: Reports no abdominal pain. No nausea, vomiting. No diarrhea. No constipation. No bloody or tarry stools reports loss of appetite. Genitourinary: No dysuria, increased frequency, urgency. No urinary retention. Musculoskeletal: No myalgias. No muscle weakness, no gait dysfunction, no frequent falls. No back pain. No neck pain. Integumentary: No wounds, no lesions. No rash or pruritus. No unusual bruising. No change in hair or nails. Neurologic: No aphasia. No facial droop. No change in mentation. No head injury. No headache. No paralysis. No paresthesia. Psychiatric: No depression. No anxiety. No mood swings. Endocrine: No abnormal blood sugars. No weight change. PHYSICAL EXAMINATION: General: 77-year-old male laying down in bed in minimal respiratory distress. HEENT: Head is atraumatic, normocephalic, pupils were equal round reactive to light and recommendation, extraocular muscle movement were intact, sclera nonicteric, conjunctivae were pale, mucous membranes of the mouth are somewhat dry. Neck: Supple, no JVP, normal carotid upstroke bilaterally, no lymphadenopathy. Chest: Decreased breath sounds at the bases, few rhonchi, positive for expiratory wheezes, no chest wall tenderness, minimal intercostal retractions. Heart: First heart sound is normal, second heart sounds normal there is systolic ejection murmur 2/6 located in the left sternal border p Abdomen: Soft, nontender, nondistended, positive bowel sounds. Extremities: There is no edema no calf tenderness DP +2 bilaterally. Neurologic examination: Patient is awake alert and oriented x3 , cranial nerves II-12 appear grossly intact, muscle power were 5 out of 5 in upper extremities and 5 out of 5 in bilateral lower extremities, deep tendon reflexes normal bilaterally. ASSESSMENT AND PLAN: 1. Acute hypoxemic respiratory failure due to acute exacerbation of COPD in a patient with underlying mesothelioma. continue Solu-Medrol 60 mg IV push every 6 hours, continue DuoNeb 3 mL nebulization 4 times every day, continue budesonide 1 mg nebulization twice every day, continue Formoterol 20 g nebulization twice every day, continue oxygen support, Pulmicort consultation as well as oncology consultation appreciated. 2. COPD exacerbation of the patient was severe COPD with FEV1 43% of predicted. Continue treatment as in paragraph #1. 3. Mesothelioma currently and her the care of hematology oncology Dr. Simpson patient did receive the 27th cycle of OPDIVO along with YERVOY on cycle 1 and 2, patient did have a CT chest abdomen and pelvis that was negative for progression of disease. 4. Hypertension and hypertensive cardiovascular disease. Continue patient on metoprolol 50 mg orally twice every day continue to monitor patient blood pressure very closely. 5. Mixed hyperlipidemia. Continue patient on atorvastatin 40 mg orally once every day, monitor lipid panel, keep LDL 55-70. 6. Hypothyroidism. Continue patient on levothyroxin 100 g orally once every day and 150 g on Friday monitor the patient TSH and free T4. 7. History of diabetes mellitus type 2. Continue patient on metformin ER 500 mg orally once every day as well as Dabagliflosin 10 mg orally once every day. 8. History of gout. Continue allopurinol 100 mg orally once every day. 9. DVT prophylaxis. Continue Lovenox 40 mg subcutaneously every 24 hours. 10. GI prophylaxis. Continue patient on PPI. 11. Home today with prednisone burst and taper follow-up with me as an outpatient in 1-2 days. Objective - Vital Signs Vital signs: Vital Signs Temp 97.7 F 03/08/23 07:00 Pulse 88 03/08/23 09:21 Resp 16 03/08/23 07:00 BP 117/61 03/08/23 07:00 Pulse Ox 94 L 03/08/23 09:10 FiO2 Intake & Output 03/07/23 03/08/23 03/08/23 18:59 06:59 18:59 Intake Total 672 500 118 Balance 672 500 118 Intake: Oral 672 500 118 Other: Voiding Method Toilet Toilet # Voids 2 - Labs CBC & Chem 7: 03/06/23 09:22 03/06/23 09:22
--- NOTE | 2023-03-08 15:22 | P.DS ---
Providers Date of admission: 03/06/23 13:17 Expected date of discharge: 03/08/23 Attending physician: Lesli Matta Consults: 03/06/23 13:15 Consult Physician Routine Consulting Provider: Klaus Pool Consult Reason/Comments: COPD, mesothelioma Do you want consulting provider notified?: Yes Consult Physician Routine Consulting Provider: Ezequiel Gomez Consult Reason/Comments: Mesothelioma Do you want consulting provider notified?: Yes Primary care physician: Lesli Matta Hospital Course: HISTORY OF PRESENT ILLNESS: This is a 77-year-old male with a previous medical history significant for hypertension and hypertensive cardiovascular disease, hyperlipidemia, diabetes mellitus type 2, history of shoulder osteoarthritis, chronic obstructive pulmonary disease with the FEV1 46% sent of predicted, vitamin D deficiency, hypothyroidism, patient was diagnosed with mesothelioma has been under the care of Dr. Simpson from hematology oncology he did receive his 27th cycle of OPDIVO on 02/20/2023, and he did receive UREVOY on cycle 1 and 2, he did have a computed tomography scan of the chest abdomen and pelvis that was done by hematology oncology that did not show evidence of disease progression, apparently patient was sent to the ER by his vb net programmer because of increased shortness breath and increased coughing that has been started about 3 weeks ago, he ended up seen in the ER and was diagnosed with acute exacerbation of COPD, he was started on Solu-Medrol 60 mg IV push every 6 hours, DuoNeb 3 mL nebulization 4 times every day, but decide 1 mg nebulization twice every day as well as Formeterol 20 g nebulization twice every day, was placed on oxygen support and he was admitted to the hospital with a oncology consultation as well as pulmonary consultation. 03/08: Patient is sitting up in chair his feeling a lot better today, he was switched to Solu-Medrol 40 mg IV push every 12 hours for the next few hours, if he is tolerating the wean down very well he can be discharged home Neurontin today in follow-up with us as an outpatient in the next 1 or 2 days, patient is currently off oxygen, patient was seen early by pulmonary and it was decided for the patient to be discharged home today Discharge diagnoses: 1. Acute hypoxemic respiratory failure due to acute exacerbation of COPD with SIRS. 2. Severe COPD with FEV1 43% of predicted. 3. 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 4. Hypertension and hypertensive cardio vascular disease. 5. Hyperlipidemia. 6. Diabetes mellitus type 2. 7. Bicuspid aortic valve status post aortic valve replacement with a cow valve. 8. Hypothyroidism. 9. Osteoarthritis of the shoulder. Patient Condition at Discharge: Fair Plan - Discharge Summary Discharge Rx Participant: No New Discharge Prescriptions: New predniSONE [Deltasone] 60 mg PO DAILY #30 tab Continue Ipratropium-Albuterol Nebulize [Duoneb 0.5 mg-3 mg/3 ml Soln] 3 ml INHALATION RT-QID Metoprolol Tartrate [Lopressor] 50 mg PO BID #60 tab Furosemide [Lasix] 40 mg PO DAILY Mometasone/Formoterol [Dulera 200 Mcg-5 Mcg Inhaler] 2 puff PO RT-BID Levothyroxine Sodium [Synthroid] 150 mcg PO OROURKE allopurinoL [Zyloprim] 100 mg PO DAILY Tiotropium 2.5 Mcg/Puff [Spiriva Respimat 2.5 Mcg] 2 puff INHALATION RT-DAILY Levothyroxine Sodium [Synthroid] 100 mcg PO MOTUWETHFRSA predniSONE See Taper PO DIRECTED Dapagliflozin Propanediol [Farxiga] 10 mg PO DAILY Azithromycin [Zithromax Z Pack] See Taper PO DIRECTED Atorvastatin Calcium [Lipitor] 40 mg PO DAILY metFORMIN HCL [Glucophage] 500 mg PO DAILY Discharge Medication List Ipratropium-Albuterol Nebulize [Duoneb 0.5 mg-3 mg/3 ml Soln] 3 ml INHALATION RT-QID 09/17/18 [History] Metoprolol Tartrate [Lopressor] 50 mg PO BID #60 tab 10/05/18 [Rx] Furosemide [Lasix] 40 mg PO DAILY 10/21/19 [History] Mometasone/Formoterol [Dulera 200 Mcg-5 Mcg Inhaler] 2 puff PO RT-BID 10/08/21 [History] Atorvastatin Calcium [Lipitor] 40 mg PO DAILY 03/06/23 [History] Azithromycin [Zithromax Z Pack] See Taper PO DIRECTED 03/06/23 [History] Dapagliflozin Propanediol [Farxiga] 10 mg PO DAILY 03/06/23 [History] Levothyroxine Sodium [Synthroid] 100 mcg PO MOTUWETHFRSA 03/06/23 [History] Levothyroxine Sodium [Synthroid] 150 mcg PO OROURKE 03/06/23 [History] Tiotropium 2.5 Mcg/Puff [Spiriva Respimat 2.5 Mcg] 2 puff INHALATION RT-DAILY 03/06/23 [History] allopurinoL [Zyloprim] 100 mg PO DAILY 03/06/23 [History] metFORMIN HCL [Glucophage] 500 mg PO DAILY 03/06/23 [History] predniSONE See Taper PO DIRECTED 03/06/23 [History] predniSONE [Deltasone] 60 mg PO DAILY #30 tab 03/08/23 [Rx] Follow up Appointment(s)/Referral(s): Lesli Matta MD [Primary Care Provider] - 1-2 days Myra Burkett NPC [Nurse Practitioner] - 03/13/23 2:45 pm Patient Instructions/Handouts: COPD (Chronic Obstructive Pulmonary Disease) (DC) Discharge Disposition: HOME SELF-CARE
[2023-03-08] MEDS ORDERED: methylPREDNISolone SOD SUCCI 40 MG/ML 1 ML VIAL IV SCH (21:00)
[2023-03-09] MEDS ORDERED: LEVOTHYROXINE 75 MCG TAB PO SCH (06:30)
[2023-03-09] MEDS ORDERED: predniSONE 20 MG TAB PO SCH (09:00)
== END 2023-03-08 15:25 | disposition home or self-care (01) ==
LOC: EC 09:02 → 6NMEDSUR 13:17
PROVIDERS: ADMIT Internal Medicine; ATTEND Internal Medicine
DX: J43.9 Emphysema, unspecified (principal); J96.01 Acute respiratory failure with hypoxia; C45.7 Mesothelioma of other sites; I11.9 Hypertensive heart disease without heart failure; I34.1 Nonrheumatic mitral (valve) prolapse; Q23.1 Congenital insufficiency of aortic valve; E11.9 Type 2 diabetes mellitus without complications; I27.20 Pulmonary hypertension, unspecified; E03.9 Hypothyroidism, unspecified; E78.2 Mixed hyperlipidemia; M19.019 Primary osteoarthritis, unspecified shoulder; E55.9 Vitamin D deficiency, unspecified; M10.9 Gout, unspecified; Z20.822 Contact with and (suspected) exposure to COVID-19; Z79.51 Long term (current) use of inhaled steroids; Z79.84 Long term (current) use of oral hypoglycemic drugs; Z79.890 Hormone replacement therapy; Z79.899 Other long term (current) drug therapy; Z96.642 Presence of left artificial hip joint; Z95.2 Presence of prosthetic heart valve; Z87.891 Personal history of nicotine dependence; Z80.1 Family history of malignant neoplasm of trachea, bronchus and lung; Z82.0 Family history of epilepsy and other diseases of the nervous system
CPT/HCPCS: 96376 ×4; 96372 ×2; 96374; 99285; 36415; 94640 ×6; 94760 ×2; 93005; 85379; 80053; 82803; 83605; 83735; 85025; 85610; 85730; 84145; 87635; 71046; G0378 ×3; J2930 ×3; J1650 ×2

== ENCOUNTER 2023-03-25 20:55 | Inpatient (IN) | payer MEDICARE ==
--- NOTE | 2023-03-25 21:52 | ED ---
SOB HPI - General Chief Complaint: Shortness of Breath Stated Complaint: SOB Time Seen by Provider: 03/25/23 21:07 Source: patient Mode of arrival: ambulatory Limitations: no limitations - History of Present Illness Initial Comments: This patient is a 77-year-old man with history of COPD who states that he has had a couple of days of worsening dyspnea on exertion, wheezing, and cough. The patient states she does not produce any sputum really. He has not noted fever or chills. He had a flareup of COPD about a month ago and states that he actually had just finished his steroid taper. Patient not on home oxygen, sees Dr. Adler. Complaint: shortness of breath, cough -: days(s) Severity scale (1-10): 0 Consistency: constant Improves With: nothing Worsens With: nothing Known History Of: COPD Associated Symptoms: denies other symptoms Treatments Prior to Arrival: bronchodilator - Related Data Home Oxygen Therapy: No Home Medications Medication Instructions Recorded Confirmed Ipratropium-Albuterol Nebulize 3 ml INHALATION RT-QID 09/17/18 03/26/23 [Duoneb 0.5 mg-3 mg/3 ml Soln] Furosemide [Lasix] 40 mg PO DAILY 10/21/19 03/26/23 Mometasone/Formoterol [Dulera 200 2 puff PO RT-BID 10/08/21 03/26/23 Mcg-5 Mcg Inhaler] Atorvastatin Calcium [Lipitor] 40 mg PO DAILY 03/06/23 03/26/23 Dapagliflozin Propanediol [Farxiga] 10 mg PO DAILY 03/06/23 03/26/23 Levothyroxine Sodium [Synthroid] 100 mcg PO MOTUWETHFRSA 03/06/23 03/26/23 Levothyroxine Sodium [Synthroid] 150 mcg PO OROURKE 03/06/23 03/26/23 Tiotropium 2.5 Mcg/Puff [Spiriva 2 puff INHALATION RT-DAILY 03/06/23 03/26/23 Respimat 2.5 Mcg] allopurinoL [Zyloprim] 100 mg PO DAILY 03/06/23 03/26/23 metFORMIN HCL [Glucophage] 500 mg PO DAILY 03/06/23 03/26/23 Previous Rx's Medication Instructions Recorded Metoprolol Tartrate [Lopressor] 50 mg PO BID #60 tab 10/05/18 cefUROXime axetiL [Cefuroxime] 500 mg PO BID #14 tab 03/27/23 predniSONE 0 mg PO DIRECTED #30 tab 03/27/23 Allergies Allergy/AdvReac Type Severity Reaction Status Date / Time No Known Allergies Allergy Verified 03/26/23 07:28 Review of Systems ROS Statement: Those systems with pertinent positive or pertinent negative responses have been documented in the HPI. ROS Other: All systems not noted in ROS Statement are negative. Constitutional: Denies: fever, chills, weakness Respiratory: Reports: cough, wheezes. Denies: dyspnea, hemoptysis Cardiovascular: Reports: dyspnea on exertion. Denies: chest pain, palpitations, edema, syncope Gastrointestinal: Denies: abdominal pain, nausea, vomiting, diarrhea Genitourinary: Denies: dysuria, hematuria Musculoskeletal: Denies: back pain Skin: Denies: rash Neurological: Denies: headache, weakness, numbness Past Medical History Past Medical History: Asthma, Cancer, COPD, Mitral Valve Prolapse (MVP) Additional Past Medical History / Comment(s): "stroke-like" episode 06-28-18, jerky type movements left arm & leg, mostly resolved, recent hx. pleural effusion, left shoulder pain-hasn't had evaluated yet, accidentally put screw through nose in the past, malignant mesothelioma History of Any Multi-Drug Resistant Organisms: None Reported Past Surgical History: Orthopedic Surgery, Tubal Ligation Additional Past Surgical History / Comment(s): HIP REPLACEMENT, Heart valve 2018, chest wall mass biopsy Past Anesthesia/Blood Transfusion Reactions: No Reported Reaction Past Psychological History: No Psychological Hx Reported Smoking Status: Former smoker Past Alcohol Use History: None Reported Past Drug Use History: None Reported - Past Family History Mother Family Medical History: Cancer Additional Family Medical History / Comment(s): lung cancer pass away 90 years old General Exam Limitations: no limitations General appearance: alert, in no apparent distress Head exam: Present: atraumatic, normocephalic Eye exam: Present: normal appearance. Absent: scleral icterus, conjunctival injection Neck exam: Present: normal inspection Respiratory exam: Present: normal lung sounds bilaterally, wheezes. Absent: r espiratory distress, rales, rhonchi, stridor, accessory muscle use, decreased breath sounds Cardiovascular Exam: Present: regular rate, normal rhythm, normal heart sounds. Absent: systolic murmur, diastolic murmur, rubs, gallop GI/Abdominal exam: Present: soft. Absent: distended, tenderness, guarding, rebound, rigid, mass Extremities exam: Present: normal inspection, normal capillary refill. Absent: pedal edema, calf tenderness Back exam: Present: normal inspection. Absent: CVA tenderness (R), CVA tenderness (L) Neurological exam: Present: alert Skin exam: Present: warm, dry, intact, normal color. Absent: rash Course Vital Signs 03/25/23 03/25/23 03/25/23 20:57 21:05 22:02 Temperature 97.9 F Pulse Rate 82 82 Respiratory 24 36 H Rate Blood Pressure 104/58 O2 Sat by Pulse 94 L Oximetry 03/25/23 03/25/23 03/25/23 22:11 22:36 23:30 Temperature Pulse Rate 87 96 79 Respiratory 34 H 18 Rate Blood Pressure 98/84 110/76 O2 Sat by Pulse 93 L 96 Oximetry 03/26/23 03/26/23 00:04 00:18 Temperature 98.1 F Pulse Rate 72 80 Respiratory 16 19 Rate Blood Pressure 119/64 O2 Sat by Pulse 95 95 Oximetry Medical Decision Making - Medical Decision Making Patient 77-year-old man with underlying COPD here for worsening of his breathing. The patient did have 2 view chest x-ray which I interpreted as showing left lower lobe infiltrate. Patient continues to have moderate dyspnea following treatment here. He received inhaled medications, steroids, antibiotics for COPD exacerbation/ possible pneumonia. Case is discussed with admitting physician and he will also have pulmonology consultation. Was pt. sent in by a medical professional or institution (, PA, PROCESS MANUFACTURING ENGINEER, urgent care, hospital, or care home...) When possible be specific @ -[No] Did you speak to anyone other than the patient for history (EMS, parent, family, police, friend...)? What history was obtained from this source @ -[No] Did you review nursing and triage notes (agree or disagree)? Why? @ -[I reviewed and agree with nursing and triage notes] Were old charts reviewed (outside hosp., previous admission, EMS record, old EKG, old radiological studies, urgent care reports/EKG's, care home records)? Report findings @ -old charts were reviewed] Differential Diagnosis (chest pain, altered mental status, abdominal pain women, abdominal pain men, vaginal bleeding, weakness, fever, dyspnea, syncope, headac he, dizziness, GI bleed, back pain, seizure, CVA, palpatations, mental health, musculoskeletal)? @ -Differential Dyspnea: Coronary syndrome, arrhythmia, tamponade, asthma, COPD, pulmonary embolism, pneumonia, pneumothorax, pulmonary effusion, anaphylaxis, diabetic ketoacidosis, flailed chest, pulmonary contusion, diaphragmatic rupture, anemia, neuromuscular, this is not meant to be an all-inclusive list. EKG interpreted by me (3pts min.). @ -[As above] X-rays interpreted by me (1pt min.). @ -[As above CT interpreted by me (1pt min.). @ -[None done] U/S interpreted by me (1pt. min.). @ -[None done] What testing was considered but not performed or refused? (CT, X-rays, U/S, labs)? Why? @ -[None] What meds were considered but not given or refused? Why? @ -[None] Did you discuss the management of the patient with other professionals (professionals i.e. , PA, PROCESS MANUFACTURING ENGINEER, lab, RT, psych nurse, 7th grade social studies teacher, research laboratory specialist, teacher, loan officer, case supervisor)? Give summary @ -Case discussed with admitting physician Was smoking cessation discussed for >3mins.? @ -[No] Was critical care preformed (if so, how long)? @ -[No] Were there social determinants of health that impacted care today? How? (Homelessness, low income, unemployed, alcoholism, drug addiction, transportation, low edu. Level, literacy, decrease access to med. care, detention, rehab)? @ -[No] Was there de-escalation of care discussed even if they declined (Discuss DNR or withdrawal of care, Hospice)? DNR status @ -[No] What co-morbidities impacted this encounter? (DM, HTN, Smoking, COPD, CAD, Cancer, CVA, ARF, Chemo, Hep., AIDS, mental health diagnosis, sleep apnea, morbid obesity)? @ -Underlying COPD and history of pleural effusion Was patient admitted / discharged? Hospital course, mention meds given and route, prescriptions, significant lab abnormalities, going to OR and other pertinent info. @ -[Admitted, as above Undiagnosed new problem with uncertain prognosis? @ -[No] Drug Therapy requiring intensive monitoring for toxicity (Heparin, Nitro, Insu shirin, Cardizem)? @ -[No] Were any procedures done? @ -[No] Diagnosis/symptom? @ -Acute exacerbation of COPD Possible pneumonia Acute, or Chronic, or Acute on Chronic? @ -[Acute on chronic Uncomplicated (without systemic symptoms) or Complicated (systemic symptoms)? @ -[Complicated Side effects of treatment? @ -[No] Exacerbation, Progression, or Severe Exacerbation? @ -[No] Poses a threat to life or bodily function? How? (Chest pain, [place], [place], pneumonia, PE, COPD, DKA, ARF, appy, cholecystitis, CVA, Diverticulitis, Homicidal, Suici lizzie, threat to staff... and all critical care pts) @ -Yes untreated COPD can progress respiratory failure and and this may be worsened if indeed he is found to have pneumonia - Lab Data Result diagrams: 03/25/23 22:18 03/25/23 22:18 Lab Results 03/25/23 03/25/23 03/25/23 Range/Units 22:18 22:18 22:18 WBC 15.3 H (3.8-10.6) k/uL RBC 4.24 L (4.30-5.90) m/uL Hgb 12.2 L (13.0-17.5) gm/dL Hct 38.9 L (39.0-53.0) % MCV 91.8 (80.0-100.0) fL MCH 28.9 (25.0-35.0) pg MCHC 31.4 (31.0-37.0) g/dL RDW 15.1 (11.5-15.5) % Plt Count 172 (150-450) k/uL MPV 9.2 Neutrophils % 86 % Lymphocytes % 5 % Monocytes % 6 % Eosinophils % 1 % Basophils % 0 % Neutrophils # 13.3 H (1.3-7.7) k/uL Lymphocytes # 0.8 L (1.0-4.8) k/uL Monocytes # 0.8 (0-1.0) k/uL Eosinophils # 0.2 (0-0.7) k/uL Basophils # 0.0 (0-0.2) k/uL PT 9.9 (9.0-12.0) sec INR 0.9 (<1.2) APTT 24.0 (22.0-30.0) sec Sodium 127 L (137-145) mmol/L Potassium 4.4 (3.5-5.1) mmol/L Chloride 90 L (98-107) mmol/L Carbon Dioxide 27 (22-30) mmol/L Anion Gap 10 mmol/L BUN 25 H (9-20) mg/dL Creatinine 1.21 (0.66-1.25) mg/dL Est GFR (CKD-EPI)AfAm 68 (>60 ml/min/1.73 sqM) Est GFR (CKD-EPI)NonAf 58 (>60 ml/min/1.73 sqM) Glucose 412 H (74-99) mg/dL Plasma Lactic Acid Leonid (0.7-2.0) mmol/L Calcium 8.4 (8.4-10.2) mg/dL Total Bilirubin 1.3 (0.2-1.3) mg/dL AST 15 L (17-59) U/L ALT 17 (4-49) U/L Alkaline Phosphatase 116 (38-126) U/L Troponin I (0.000-0.034) ng/mL NT-Pro-B Natriuret Pep pg/mL Total Protein 5.4 L (6.3-8.2) g/dL Albumin 3.1 L (3.5-5.0) g/dL 03/25/23 03/25/23 03/25/23 Range/Units 22:18 22:18 22:18 WBC (3.8-10.6) k/uL RBC (4.30-5.90) m/uL Hgb (13.0-17.5) gm/dL Hct (39.0-53.0) % MCV (80.0-100.0) fL MCH (25.0-35.0) pg MCHC (31.0-37.0) g/dL RDW (11.5-15.5) % Plt Count (150-450) k/uL MPV Neutrophils % % Lymphocytes % % Monocytes % % Eosinophils % % Basophils % % Neutrophils # (1.3-7.7) k/uL Lymphocytes # (1.0-4.8) k/uL Monocytes # (0-1.0) k/uL Eosinophils # (0-0.7) k/uL Basophils # (0-0.2) k/uL PT (9.0-12.0) sec INR (<1.2) APTT (22.0-30.0) sec Sodium (137-145) mmol/L Potassium (3.5-5.1) mmol/L Chloride (98-107) mmol/L Carbon Dioxide (22-30) mmol/L Anion Gap mmol/L BUN (9-20) mg/dL Creatinine (0.66-1.25) mg/dL Est GFR (CKD-EPI)AfAm (>60 ml/min/1.73 sqM) Est GFR (CKD-EPI)NonAf (>60 ml/min/1.73 sqM) Glucose (74-99) mg/dL Plasma Lactic Acid Leonid 1.8 (0.7-2.0) mmol/L Calcium (8.4-10.2) mg/dL Total Bilirubin (0.2-1.3) mg/dL AST (17-59) U/L ALT (4-49) U/L Alkaline Phosphatase (38-126) U/L Troponin I 0.012 (0.000-0.034) ng/mL NT-Pro-B Natriuret Pep 651 pg/mL Total Protein (6.3-8.2) g/dL Albumin (3.5-5.0) g/dL - EKG Data -: EKG Interpreted by Me EKG shows normal: sinus rhythm, axis (Normal), intervals (Normal), QRS complexes (Normal) Rate: normal (Rate 82 bpm) Interpretation: nonspecific ST-T wave changes Disposition Clinical Impression: COPD (chronic obstructive pulmonary disease), Pneumonia Disposition: ADMITTED IP TO THIS HOSP Condition: Fair Is patient prescribed a controlled substance at d/c from ED?: No
[2023-03-25] MEDS ORDERED: ALBUTEROL NEBULIZED 2.5 MG/3 ML INHALATION STA (21:53)
[2023-03-25 22:43] LABS: Basophils % (A) 0 %; Eosinophils # (A) 0.2 k/uL (0-0.7); Eosinophils % (A) 1 %; HCT 38.9 % (39.0-53.0); HGB 12.2 gm/dL (13.0-17.5); Lymphocytes # (A) 0.8 k/uL (1.0-4.8); Lymphocytes % (A) 5 %; MCH 28.9 pg (25.0-35.0); MCHC 31.4 g/dL (31.0-37.0); MCV 91.8 fL (80.0-100.0); Mean Platelet Volume 9.2; Monocytes # (A) 0.8 k/uL (0-1.0); Monocytes % (A) 6 %; Neutrophils # (A) 13.3 k/uL (1.3-7.7); Neutrophils % (A) 86 %; Platelet Count 172 k/uL (150-450); RBC 4.24 m/uL (4.30-5.90); RDW 15.1 % (11.5-15.5); WBC 15.3 k/uL (3.8-10.6)
--- NOTE | 2023-03-25 22:46 | XR ---
EXAM: XR Chest, 2 Views CLINICAL HISTORY: ITS.REASON XR Reason: difficulty breathing TECHNIQUE: Frontal and lateral views of the chest. COMPARISON: Chest radiographs 03/06/2023. FINDINGS: Lungs: Left lower lobe airspace disease. Pleural space: No pneumothorax. Heart: No cardiomegaly. Mediastinum: Postsurgical change of the mediastinum. Bones/joints: Degenerative changes in the spine and shoulders. Vasculature: Atherosclerotic calcification in the aorta. IMPRESSION: Left lower lobe airspace disease. This may represent pneumonia in the appropriate clinical scenario.
[2023-03-25 22:55] LABS: INR 0.9 (<1.2); Prothrombin Time 9.9 sec (9.0-12.0)
[2023-03-25] MEDS ORDERED: AZITHROMYCIN 500 MG TAB PO STA (23:00)
[2023-03-25 23:02] LABS: Albumin 3.1 g/dL (3.5-5.0); Calcium 8.4 mg/dL (8.4-10.2); Potassium 4.4 mmol/L (3.5-5.1); Total Bilirubin 1.3 mg/dL (0.2-1.3); Total Protein 5.4 g/dL (6.3-8.2)
[2023-03-25] MEDS ORDERED: PNEUMONIA PROTOCOL UTILIZED 1 EACH MISC PO PRN (23:15)
[2023-03-25] MEDS ORDERED: ALBUTEROL NEBULIZED 2.5 MG/3 ML INHALATION PRN (23:15)
[2023-03-25] MEDS ORDERED: INSULIN REGULAR 100 UNIT/ML VIAL (IV) SQ STA (23:18)
[2023-03-25] MEDS ORDERED: DEXTROSE 50% SYRINGE 50 ML IVP PRN ×2 (23:19)
[2023-03-25 23:35] LABS: Glucose,Whole Blood 502 mg/dL (70-110)
[2023-03-26 00:04] LABS: Glucose,Whole Blood 467 mg/dL (70-110)
[2023-03-26 01:15] LABS: Glucose,Whole Blood 247 mg/dL (70-110)
[2023-03-26 06:13] LABS: Glucose,Whole Blood 124 mg/dL (70-110)
[2023-03-26] MEDS: INSULIN ASPART (NovoLOG) 100 UNIT/ML VIAL SQ SCH ×5 (06:14→20:11)
[2023-03-26] MEDS: LEVOTHYROXINE 100 MCG TAB PO SCH (06:16)
--- NOTE | 2023-03-26 07:05 | XR ---
EXAMINATION TYPE: XR chest 2V DATE OF EXAM: 03/26/2023 6:46 AM COMPARISON: Chest radiographs from 03/06/2023 TECHNIQUE: XR chest 2V Frontal and lateral views of the chest. CLINICAL INDICATION:Male, 77 years old with history of pneumonia; FINDINGS: Lungs/Pleura: Chronic senescent parenchymal change. Similar blunting of the left costophrenic angle w ith associated scarring and/or atelectasis. No pneumothorax. Pulmonary vascularity: Unremarkable. Heart/mediastinum: Cardiomediastinal silhouette is prominent in size. Atherosclerotic calcifications are seen in the aorta. Left atrial appendage occlusion devices present. Musculoskeletal: No acute osseous pathology. Midline sternotomy wires are noted and stable. Degenerat kay changes of the thoracic spine and both shoulders. IMPRESSION: Similar trace left pleural effusion with associated atelectasis and/or scarring.
[2023-03-26] MEDS ORDERED: NON FORMULARY DRUG (Tiotropium 2.5 Mcg/Puff 10 PUFF Each) INHALATION SCH (08:00)
[2023-03-26] MEDS: ATORVASTATIN 40 MG TAB PO SCH (08:07)
[2023-03-26] MEDS: AZITHROMYCIN 500 MG TAB PO SCH (08:07)
[2023-03-26] MEDS: DAPAGLIFLOZIN PROPANEDIOL 10 MG TABLET PO SCH (08:07)
[2023-03-26] MEDS: METOPROLOL TARTRATE 50 MG TAB PO SCH ×2 (08:07→20:10)
[2023-03-26] MEDS ORDERED: PNEUMOCOCCAL VACC-PREVNAR-20 0.5 ML SYR IM ONE (08:26)
[2023-03-26] MEDS: IPRATROPIUM-ALBUTEROL 3 ML NEB INHALATION SCH ×4 (08:27→20:06)
[2023-03-26] MEDS: SYMBICORT 160-4.5 MCG INHALER INHALATION SCH ×2 (08:27→20:06)
[2023-03-26 11:30] LABS: Glucose,Whole Blood 312 mg/dL (70-110)
--- NOTE | 2023-03-26 11:48 | P.CNPUL ---
History of Present Illness Consult date: 03/26/23 Reason for consult: dyspnea History of present illness: 77-year-old male patient with known history of COPD, maintain on a combination of Spiriva and Dulera and DuoNeb nebulized treatments [id number] and the patient was also diagnosed having mesothelioma back in October 2022 and the patient is currently on immunotherapy with Opdovi every 2 weeks and his disease has been essentially stable. The patient also has previous history of aortic valve replacement for underlying. The patient was hospitalized back in February 2023 for an acute COPD exacerbation. He was treated and he was discharged home. During his last stay, CAT scan of the chest is from 02/24/2023 and it showed background emphysema. And there was a soft tissue between the 10th and 11th rib that has been stable and a minimal low. Left-sided pleural effusion. The guido mathew came back to the emergency department yesterday because of increased shortness of breath and is bringing up significant amounts of yellowish purulent thick mucus. He is not smoking. No chest pain. No fever. He was concerned because of those symptoms and he ended up coming into the hospital. He was told to have a limited pneumonia in the left lower lobe as evidenced on the chest x- ray. Repeat chest x-ray from this morning shows some atelectasis possibly diffusion left lung base. Otherwise no other consolidation with air space disease. Review of Systems Constitutional: Reports as per HPI Eyes: denies as per HPI, denies blurred vision, denies bulging eye, denies decreased vision, denies diplopia, denies discharge, denies dry eye, denies irritation, denies itching, denies pain, denies photophobia, denies loss of peripheral vision, denies loss of vision, denies tunnel vision/blind spots Ears: deny: decreased hearing, ear discharge, earache, tinnitus Ears, nose, mouth and throat: Reports as per HPI Breasts: absent: as per HPI, gynecomastia Cardiovascular: Reports decreased exercise tolerance, Reports dyspnea on exertion Respiratory: Reports cough, Reports cough with sputum, Reports dyspnea, Reports excessive sputum, Reports wheezing Gastrointestinal: Reports as per HPI Genitourinary: Reports as per HPI Musculoskeletal: Reports as per HPI Musculoskeletal: absent: ankle pain, ankle stiffness, ankle swelling Integumentary: Reports as per HPI Neurological: Reports as per HPI Psychiatric: Reports as per HPI Endocrine: Reports as per HPI Hematologic/Lymphatic: Reports as per HPI Allergic/Immunologic: Reports as per HPI Past Medical History Past Medical History: Asthma, Cancer, COPD, Mitral Valve Prolapse (MVP) Additional Past Medical History / Comment(s): "stroke-like" episode 06-28-18, jerky type movements left arm & leg, mostly resolved, recent hx. pleural effusion, left shoulder pain-hasn't had evaluated yet, accidentally put screw through nose in the past, malignant mesothelioma History of Any Multi-Drug Resistant Organisms: None Reported Past Surgical History: Orthopedic Surgery, Tubal Ligation Additional Past Surgical History / Comment(s): HIP REPLACEMENT, Heart valve 2018, chest wall mass biopsy Past Anesthesia/Blood Transfusion Reactions: No Reported Reaction Past Psychological History: No Psychological Hx Reported Smoking Status: Former smoker Past Alcohol Use History: None Reported Past Drug Use History: None Reported - Past Family History Mother Family Medical History: Cancer Additional Family Medical History / Comment(s): lung cancer pass away 90 years old Medications and Allergies Home Medications Medication Instructions Recorded Confirmed Type Ipratropium-Albuterol Nebulize 3 ml INHALATION RT-QID 09/17/18 03/26/23 History [Duoneb 0.5 mg-3 mg/3 ml Soln] Metoprolol Tartrate [Lopressor] 50 mg PO BID #60 tab 10/05/18 03/26/23 Rx Furosemide [Lasix] 40 mg PO DAILY 10/21/19 03/26/23 History Mometasone/Formoterol [Dulera 200 2 puff PO RT-BID 10/08/21 03/26/23 History Mcg-5 Mcg Inhaler] Atorvastatin Calcium [Lipitor] 40 mg PO DAILY 03/06/23 03/26/23 History Dapagliflozin Propanediol [Farxiga] 10 mg PO DAILY 03/06/23 03/26/23 History Levothyroxine Sodium [Synthroid] 100 mcg PO MOTUWETHFRSA 03/06/23 03/26/23 History Levothyroxine Sodium [Synthroid] 150 mcg PO OROURKE 03/06/23 03/26/23 History Tiotropium 2.5 Mcg/Puff [Spiriva 2 puff INHALATION RT-DAILY 03/06/23 03/26/23 History Respimat 2.5 Mcg] allopurinoL [Zyloprim] 100 mg PO DAILY 03/06/23 03/26/23 History metFORMIN HCL [Glucophage] 500 mg PO DAILY 03/06/23 03/26/23 History Allergies Allergy/AdvReac Type Severity Reaction Status Date / Time No Known Allergies Allergy Verified 03/26/23 07:28 Physical Exam Vitals: Vital Signs Temp Pulse Pulse Pulse Resp BP BP 03/26/23 11:35 98.5 F 87 16 112/66 03/26/23 11:22 88 03/26/23 11:11 88 03/26/23 08:41 86 03/26/23 08:28 86 03/26/23 08:00 98.3 F 110 H 91 20 129/64 03/26/23 03:52 98 F 91 14 134/80 03/26/23 00:47 97.8 F 85 14 117/65 03/26/23 00:18 80 19 03/26/23 00:04 98.1 F 72 16 119/64 03/25/23 23:30 79 18 110/76 03/25/23 22:36 96 34 H 98/84 03/25/23 22:11 87 03/25/23 22:02 82 03/25/23 21:05 36 H 03/25/23 20:57 97.9 F 82 24 104/58 Pulse Ox FiO2 03/26/23 11:35 93 L 03/26/23 11:22 03/26/23 11:11 03/26/23 08:41 03/26/23 08:28 93 L 21 03/26/23 08:00 93 L 03/26/23 03:52 95 03/26/23 00:47 96 03/26/23 00:18 95 03/26/23 00:04 95 03/25/23 23:30 96 03/25/23 22:36 93 L 03/25/23 22:11 03/25/23 22:02 03/25/23 21:05 03/25/23 20:57 94 L Intake and Output 03/25/23 03/26/23 03/26/23 22:59 06:59 14:59 Intake Total 240 Balance 240 Intake: Oral 240 Other: Voiding Method Urinal Urinal # Voids 1 Weight 72.575 kg 72.575 kg Gen. appearance the patient is having mildly labored breathing especially with activity. Is quite comfortable at rest and is currently on room air oxygen Head exam was generally normal. There was no scleral icterus or corneal arcus. Mucous membranes were moist. Neck was supple and without jugular venous distension, thyromegaly, or carotid bruits. Carotids were easily palpable bilaterally. There was no adenopathy. Lungs sounds show marked diminished breath sounds bilaterally along with scattered expiratory wheezes throughout the lung field bilaterally Cardiac exam revealed the PMI to be normally situated and sized. The rhythm was regular and no extrasystoles were noted during several minutes of auscultation. The first and second heart sounds were normal and physiologic splitting of the second heart sound was noted. There were no murmurs, rubs, clicks, or gallops. Abdominal exam revealed normal bowel sounds. The abdomen was soft, non-tender, and without masses, organomegaly, or appreciable enlargement of the abdominal aorta. Examination of the extremities revealed easily palpable radial, femoral and pedal pulses. There was no cyanosis, clubbing or edema. Examination of the skin revealed no evidence of significant rashes, suspicious appearing nevi or other concerning lesions. Neurologically, the patient is awake and alert and the patient does not have any focal neurological deficit. Cranial nerves are essentially intact. Results - Laboratory Findings CBC and BMP: 03/25/23 22:18 03/25/23 22:18 PT/INR, D-dimer PT 9.9 sec (9.0-12.0) 03/25/23 22:18 INR 0.9 (<1.2) 03/25/23 22:18 Abnormal lab findings: Abnormal Labs 03/25/23 03/25/23 03/25/23 22:18 22:18 23:32 WBC 15.3 H RBC 4.24 L Hgb 12.2 L Hct 38.9 L Neutrophils # 13.3 H Lymphocytes # 0.8 L Sodium 127 L Chloride 90 L BUN 25 H Glucose 412 H POC Glucose (mg/dL) 502 H Hemoglobin A1c AST 15 L Total Protein 5.4 L Albumin 3.1 L 03/26/23 03/26/23 03/26/23 00:02 01:13 06:11 WBC RBC Hgb Hct Neutrophils # Lymphocytes # Sodium Chloride BUN Glucose POC Glucose (mg/dL) 467 H 247 H 124 H Hemoglobin A1c AST Total Protein Albumin 03/26/23 03/26/23 07:31 11:28 WBC RBC Hgb Hct Neutrophils # Lymphocytes # Sodium Chloride BUN Glucose POC Glucose (mg/dL) 312 H Hemoglobin A1c 10.6 H AST Total Protein Albumin - Diagnostic Findings Chest x-ray: image reviewed Assessment and Plan Plan: Acute COPD exacerbation. The patient is actively bronchospastic and wheezy. The patient has severe COPD with a baseline FEV1 of 43% of predicted, maintain on a combination of Spiriva and Dulera on outpatient basis. The patient has questionable limited infiltration of the left lung base. His cough and a copious amount of purulent respiratory secretions concerning of a pneumonia. He is a nonsmoker. Shortness of breath secondary to above History of mesothelioma, currently on immunotherapy receiving Opdivo Aortic stenosis, bicuspid aortic valve status post aortic valve replacement The patient underwent also left atrial appendage clipping severe COPD with an FEV1 of 43% of predicted [id number] smoking history, the patient is an ex-smoker and he quit smoking back 5 years ago moderate degree of pulmonary hypertension Diabetes mellitus typ Hernandez I ALSO ALK e 2 Hyperlipidemia Hypothyroidism and thin on Synthroid Previous history of Covid 19 infection, current testing is negative Plan I will check a sputum from Gram stain and culture Put the patient on a combination of Rocephin and Zithromax Continue DuoNeb about she was on the clock Continue IV Solu-Medrol Check pro calcitonin level Resume all medication Sliding-scale insulin blood sugar control We'll continue to follow
[2023-03-26] MEDS: methylPREDNISolone SOD SUCCI 40 MG/ML 1 ML VIAL IV SCH ×3 (11:57→23:10)
--- NOTE | 2023-03-26 14:50 | P.HPIM ---
History of Present Illness H&P Date: 03/26/23 HISTORY OF PRESENT ILLNESS: This is a 77-year-old male with a previous medical history significant for hypertension and hypertensive cardiovascular disease, hyperlipidemia, diabetes mellitus type 2, history of shoulder osteoarthritis, chronic obstructive pulmonary disease with the FEV1 46% sent of predicted, vitamin D deficiency, hypothyroidism, patient was diagnosed with mesothelioma has been under the care of Dr. Gomez from hematology/oncology on OPDIVO every 2 weeks (on 02/20/2023), and he did receive UREVOY on cycle 1 and 2, he did have a computed tomography scan of the chest abdomen and pelvis that was done by hematology oncology that did not show evidence of disease progression. Patient was recently hospitalized in February for acute COPD exacerbation, stabilized and discharged home. Patient presents emergency center with increasing shortness of breath with yellow sputum production. No chest pain, no fever. Chest x-ray yesterday revealed left lower lobe airspace disease may represent pneumonia. Repeat chest x-ray today reveals similar trace left pleural effusion with associated atelectasis and/or scarring. Patient has been seen by pulmonary medicine for acute COPD exacerbation and questionable limited infiltration of the left lung base. Patient has been seen by pulmonary medicine, started on a azithromycin, ceftriaxone, DuoNeb treatments and IV Solu-Medrol currently at 40 mg every 6 hours. Patient presented with leukocytosis of 15.3, hemoglobin is 12.2 and platelet count 172. Sodium 127, potassium 4.4, BUN 25 creatinine 1.21. Blood sugar initially 502. Blood sugar now down to 312. Troponin was negative 1. ProBNP 651. REVIEW OF SYSTEMS: Constitutional: No documented fever, no chills, no night sweats. No weight change. No weakness, fatigue or lethargy. No daytime sleepiness. HEENT: No headache. No blurred vision or double vision, no loss of vision. No loss of Hearing, no ringing in the ears, no dizziness. No nasal drainage or congestion. No epistaxis. No sore throat. Lungs: positive for shortness of breath, positive for cough, positive for sputum production. positive for wheezing. Reports dyspnea with activity. Cardiovascular: No chest pain, no lower extremity edema. No palpitations. No paroxysmal nocturnal dyspnea. No orthopnea. No lightheadedness or dizziness. No syncopal episodes. Abdominal: Reports no abdominal pain. No nausea, vomiting. No diarrhea. No constipation. No bloody or tarry stools reports loss of appetite. Genitourinary: No dysuria, increased frequency, urgency. No urinary retention. Musculoskeletal: No myalgias. No muscle weakness, no gait dysfunction, no frequent falls. No back pain. No neck pain. Integumentary: No wounds, no lesions. No rash or pruritus. No unusual bruising. No change in hair or nails. Neurologic: No aphasia. No facial droop. No change in mentation. No head injury. No headache. No paralysis. No paresthesia. Psychiatric: No depression. No anxiety. No mood swings. Endocrine: No abnormal blood sugars. No weight change. PAST MEDICAL HISTORY: Hypertension and hypertensive cardiovascular disease. Hyperlipidemia. Diabetes mellitus type 2. Mesothelioma. Severe COPD. Hypothyroidism. Vitamin D deficiency. Osteoarthritis of the shoulder. PAST SURGICAL HISTORY: Left hip replacement 2013 Bicuspid aortic valve post AVR with a cow valve 2017 bronchoscopy with transbronchial biopsy 11/05/2021, Colonoscopy 2018. SOCIAL HISTORY: Patient smoked about a pack every day since the age of 18 and he quit at the age of 72. Patient denies any alcohol ingestion, he drinks about 4 cups of coffee every day. FAMILY HISTORY: Father at age of 85 from natural causes mother at age of 90 from old age patient had one brother who at age of 76 from Alzheimer dementia patient has one son and 3 daughters no major medical problems. PHYSICAL EXAMINATION: General: 77-year-old male laying down in bed in minimal respiratory distress. HEENT: Head is atraumatic, normocephalic, pupils were equal round reactive to light and recommendation, extraocular muscle movement were intact, sclera nonicteric, conjunctivae were pale, mucous membranes of the mouth are somewhat dry. Neck: Supple, no JVP, normal carotid upstroke bilaterally, no lymphadenopathy. Chest: Decreased breath sounds at the bases, few rhonchi, positive for expiratory wheezes, no chest wall tenderness, minimal intercostal retractions. Heart: First heart sound is normal, second heart sounds normal there is systolic ejection murmur 2/6 located in the left sternal border. Abdomen: Soft, nontender, nondistended, positive bowel sounds. Extremities: There is no edema no calf tenderness DP +2 bilaterally. Neurologic examination: Patient is awake alert and oriented x3 , cranial nerves II-12 appear grossly intact, muscle power were 5 out of 5 in upper extremities and 5 out of 5 in bilateral lower extremities, deep tendon reflexes normal bilaterally. ASSESSMENT AND PLAN: 1. Acute exacerbation of COPD in a patient with underlying mesothelioma. continue Solu-Medrol 40 mg IV push every 8 hours, continue DuoNeb 3 mL nebulization 4 times every day, continue Symbicort 2 puffs twice daily, pulmonary consultation appreciated. Legionella testing, sputum culture pending. Blood culture is status post received. 2. COPD exacerbation of the patient was severe COPD with FEV1 43% of predicted. Continue treatment as in paragraph #1. 3. Mesothelioma currently and her the care of hematology oncology Dr. Gomez. Patient has receives OPDIVO along with YERVOY, patient did have a CT chest abdomen and pelvis that was negative for progression of disease. 4. Hyponatremia. Repeat blood work tomorrow morning. 5. Diabetes mellitus type 2, uncontrolled with hyperglycemia secondary to illness and steroids. Continue patient on Farxiga 10 mg daily, resume metformin 500 mg daily, insulin scale before meals and at bedtime and add NovoLog 3 units with meals while on steroids. 6. Hypertension and hypertensive cardiovascular disease. Continue patient on metoprolol 50 mg orally twice every day continue to monitor patient blood pressure very closely. 7. Mixed hyperlipidemia. Continue patient on atorvastatin 40 mg orally once every day, monitor lipid panel, keep LDL 55-70. 8. Hypothyroidism. Continue patient on levothyroxin 100 g orally once every day and 150 g on Friday monitor the patient TSH and free T4. 9. History of gout. Continue allopurinol 100 mg orally once every day. 10. DVT prophylaxis. Continue Lovenox 40 mg subcutaneously every 24 hours. 11. GI prophylaxis. Continue patient on PPI. Admit to inpatient. Estimate a length of stay 2 midnights. Full code. Impression and plan of care have been directed as dictated by the signing physician. Viki Anderson nurse practitioner acting as scribe for signing physician. Past Medical History Past Medical History: Asthma, Cancer, COPD, Mitral Valve Prolapse (MVP) Additional Past Medical History / Comment(s): "stroke-like" episode 06-28-18, jerky type movements left arm & leg, mostly resolved, recent hx. pleural eff usion, left shoulder pain-hasn't had evaluated yet, accidentally put screw through nose in the past, malignant mesothelioma History of Any Multi-Drug Resistant Organisms: None Reported Past Surgical History: Orthopedic Surgery Additional Past Surgical History / Comment(s): HIP REPLACEMENT, Heart valve 2018, chest wall mass biopsy Past Anesthesia/Blood Transfusion Reactions: No Reported Reaction Past Psychological History: No Psychological Hx Reported Smoking Status: Former smoker Past Alcohol Use History: None Reported Additional Past Alcohol Use History / Comment(s): quit smoking June 2018, smoked 1ppd for 50 yrs., quit drinking 20 yrs. ago Past Drug Use History: None Reported - Past Family History Mother Family Medical History: Cancer Additional Family Medical History / Comment(s): lung cancer pass away 90 years old Medications and Allergies Home Medications Medication Instructions Recorded Confirmed Type Ipratropium-Albuterol Nebulize 3 ml INHALATION RT-QID 09/17/18 03/26/23 History [Duoneb 0.5 mg-3 mg/3 ml Soln] Metoprolol Tartrate [Lopressor] 50 mg PO BID #60 tab 10/05/18 03/26/23 Rx Furosemide [Lasix] 40 mg PO DAILY 10/21/19 03/26/23 History Mometasone/Formoterol [Dulera 200 2 puff PO RT-BID 10/08/21 03/26/23 History Mcg-5 Mcg Inhaler] Atorvastatin Calcium [Lipitor] 40 mg PO DAILY 03/06/23 03/26/23 History Dapagliflozin Propanediol [Farxiga] 10 mg PO DAILY 03/06/23 03/26/23 History Levothyroxine Sodium [Synthroid] 100 mcg PO MOTUWETHFRSA 03/06/23 03/26/23 History Levothyroxine Sodium [Synthroid] 150 mcg PO OROURKE 03/06/23 03/26/23 History Tiotropium 2.5 Mcg/Puff [Spiriva 2 puff INHALATION RT-DAILY 03/06/23 03/26/23 History Respimat 2.5 Mcg] allopurinoL [Zyloprim] 100 mg PO DAILY 03/06/23 03/26/23 History metFORMIN HCL [Glucophage] 500 mg PO DAILY 03/06/23 03/26/23 History Allergies Allergy/AdvReac Type Severity Reaction Status Date / Time No Known Allergies Allergy Verified 03/26/23 07:28 Physical Exam Vitals: Vital Signs Temp Pulse Pulse Resp BP BP Pulse Ox 03/26/23 03:52 98 F 91 14 134/80 95 03/26/23 00:47 97.8 F 85 14 117/65 96 03/26/23 00:18 80 19 95 03/26/23 00:04 98.1 F 72 16 119/64 95 03/25/23 23:30 79 18 110/76 96 03/25/23 22:36 96 34 H 98/84 93 L 03/25/23 22:11 87 03/25/23 22:02 82 03/25/23 21:05 36 H 03/25/23 20:57 97.9 F 82 24 104/58 94 L Intake and Output 03/25/23 03/26/23 03/26/23 22:59 06:59 14:59 Other: Voiding Method Urinal Weight 72.575 kg 72.575 kg Results CBC & Chem 7: 03/25/23 22:18 03/25/23 22:18 Labs: Abnormal Lab Results - Last 24 Hours (Table) 03/25/23 03/25/23 03/25/23 Range/Units 22:18 22:18 23:32 WBC 15.3 H (3.8-10.6) k/uL RBC 4.24 L (4.30-5.90) m/uL Hgb 12.2 L (13.0-17.5) gm/dL Hct 38.9 L (39.0-53.0) % Neutrophils # 13.3 H (1.3-7.7) k/uL Lymphocytes # 0.8 L (1.0-4.8) k/uL Sodium 127 L (137-145) mmol/L Chloride 90 L (98-107) mmol/L BUN 25 H (9-20) mg/dL Glucose 412 H (74-99) mg/dL POC Glucose (mg/dL) 502 H (70-110) mg/dL AST 15 L (17-59) U/L Total Protein 5.4 L (6.3-8.2) g/dL Albumin 3.1 L (3.5-5.0) g/dL 03/26/23 03/26/23 03/26/23 Range/Units 00:02 01:13 06:11 WBC (3.8-10.6) k/uL RBC (4.30-5.90) m/uL Hgb (13.0-17.5) gm/dL Hct (39.0-53.0) % Neutrophils # (1.3-7.7) k/uL Lymphocytes # (1.0-4.8) k/uL Sodium (137-145) mmol/L Chloride (98-107) mmol/L BUN (9-20) mg/dL Glucose (74-99) mg/dL POC Glucose (mg/dL) 467 H 247 H 124 H (70-110) mg/dL AST (17-59) U/L Total Protein (6.3-8.2) g/dL Albumin (3.5-5.0) g/dL Thrombosis Risk Factor Assmnt - Choose All That Apply Any of the Below Risk Factors Present?: Yes Each Factor Represents 1 point: Abnormal pulmonary function (COPD), Obesity (BMI >25), Serious lung disease incl. pneumonia (< 1month) Other Risk Factors: Yes Each Risk Factor Represents 3 Points: Age 75 years or older Other congenital or acquired thrombophilia - If yes, enter type in comment: No Thrombosis Risk Factor Assessment Total Risk Factor Score: 6 Thrombosis Risk Factor Assessment Level: High Risk
[2023-03-26] MEDS: metFORMIN 500 MG TAB PO SCH (16:26)
[2023-03-26 16:29] LABS: Glucose,Whole Blood 361 mg/dL (70-110)
[2023-03-26 19:56] LABS: Glucose,Whole Blood 454 mg/dL (70-110)
[2023-03-27 02:03] LABS: Glucose,Whole Blood 474 mg/dL (70-110)
[2023-03-27] MEDS ORDERED: INSULIN ASPART (NovoLOG) 100 UNIT/ML VIAL SQ ONE (02:59)
[2023-03-27 05:52] LABS: Glucose,Whole Blood 386 mg/dL (70-110)
[2023-03-27] MEDS: methylPREDNISolone SOD SUCCI 40 MG/ML 1 ML VIAL IV SCH ×2 (06:37→12:33)
[2023-03-27] MEDS: LEVOTHYROXINE 100 MCG TAB PO SCH (06:38)
[2023-03-27] MEDS: INSULIN ASPART (NovoLOG) 100 UNIT/ML VIAL SQ SCH ×4 (06:38→12:34)
[2023-03-27] MEDS ORDERED: PANTOPRAZOLE 40 MG TABLET PO SCH (07:30)
[2023-03-27] MEDS: IPRATROPIUM-ALBUTEROL 3 ML NEB INHALATION SCH ×3 (08:36→15:32)
[2023-03-27] MEDS: SYMBICORT 160-4.5 MCG INHALER INHALATION SCH (08:36)
[2023-03-27] MEDS: METOPROLOL TARTRATE 50 MG TAB PO SCH (09:00)
[2023-03-27] MEDS: ATORVASTATIN 40 MG TAB PO SCH (09:00)
[2023-03-27] MEDS: AZITHROMYCIN 500 MG TAB PO SCH (09:00)
[2023-03-27] MEDS: metFORMIN 500 MG TAB PO SCH (09:00)
[2023-03-27] MEDS ORDERED: allopurinoL 100 MG TAB PO SCH (09:00)
[2023-03-27] MEDS ORDERED: ENOXAPARIN 40 MG/0.4 ML SYRINGE SQ SCH (09:00)
[2023-03-27] MEDS ORDERED: FUROSEMIDE 40 MG TAB PO SCH (09:00)
[2023-03-27] MEDS: DAPAGLIFLOZIN PROPANEDIOL 10 MG TABLET PO SCH (09:00)
[2023-03-27 09:07] VITALS: RESP 16
[2023-03-27 11:51] VITALS: BMI 25.8
[2023-03-27 12:21] LABS: Glucose,Whole Blood 329 mg/dL (70-110)
[2023-03-27 12:42] VITALS: BP 112/63; TEMP 97.9
--- NOTE | 2023-03-27 13:28 | P.DS ---
Providers Date of admission: 03/25/23 23:15 Expected date of discharge: 03/27/23 Attending physician: Lesli Matta Consults: 03/26/23 14:42 Consult Physician Routine Consulting Provider: Klaus Pool Consult Reason/Comments: AECOPD Do you want consulting provider notified?: Already Contacted 03/27/23 12:32 Consult Physician Urgent Consulting Provider: Ezequiel Gomez Consult Reason/Comments: mesothelioma/immunotherapy Do you want consulting provider notified?: Yes Primary care physician: [facility] Course: HISTORY OF PRESENT ILLNESS: This is a 77-year-old male with a previous medical history significant for hypertension and hypertensive cardiovascular disease, hyperlipidemia, diabetes mellitus type 2, history of shoulder osteoarthritis, chronic obstructive pulmonary disease with the FEV1 46% sent of predicted, vitamin D deficiency, hypothyroidism, patient was diagnosed with mesothelioma has been under the care of Dr. Gomez from hematology/oncology on OPDIVO every 2 weeks (on 02/20/2023), and he did receive UREVOY on cycle 1 and 2, he did have a computed tomography scan of the chest abdomen and pelvis that was done by hematology onco logy that did not show evidence of disease progression. Patient was recently hospitalized in February for acute COPD exacerbation, stabilized and discharged home. Patient presents emergency center with increasing shortness of breath with yellow sputum production. No chest pain, no fever. Chest x-ray yesterday revealed left lower lobe airspace disease may represent pneumonia. Repeat chest x-ray today reveals similar trace left pleural effusion with associated atelectasis and/or scarring. Patient has been seen by pulmonary medicine for acute COPD exacerbation and questionable limited infiltration of the left lung base. Patient has been seen by pulmonary medicine, started on a azithromycin, ceftriaxone, DuoNeb treatments and IV Solu-Medrol currently at 40 mg every 6 hours. Patient presented with leukocytosis of 15.3, hemoglobin is 12.2 and platelet count 172. Sodium 127, potassium 4.4, BUN 25 creatinine 1.21. Blood sugar initially 502. Blood sugar now down to 312. Troponin was negative 1. ProBNP 651. 03/27: Patient is feeling much improvement, wheezing and respiratory status is improved and active baseline. She denies having any fever or chills. She has been on IV Solu-Medrol and IV antibiotics along with bronchodilators. Patient has been seen and followed by pulmonary medicine with recommendations for prednisone taper at discharge. Patient has also been seen and followed by oncology and plan follow-up with Dr. Gomez on 04/16 as planned. Patient will be discharged home today in stable condition. DISCHARGE DIAGNOSES 1. Acute exacerbation of COPD in a patient with underlying mesothelioma. 2. COPD exacerbation of the patient was severe COPD with FEV1 43% of predicted. 3. Mesothelioma 4. Hyponatremia. 5. Diabetes mellitus type 2, uncontrolled with hyperglycemia secondary to illness and steroids. 6. Hypertension and hypertensive cardiovascular disease. 7. Mixed hyperlipidemia. 8. Hypothyroidism. 9. History of gout. Greater than 35 minutes was utilized and coordinating patient's discharge. Impression and plan of care have been directed as dictated by the signing physician. Viki Anderson nurse practitioner acting as scribe for signing physician. Patient Condition at Discharge: Fair Plan - Discharge Summary New Discharge Prescriptions: New cefUROXime axetiL [Cefuroxime] 500 mg PO BID #14 tab predniSONE 0 mg PO DIRECTED #30 tab Continue Ipratropium-Albuterol Nebulize [Duoneb 0.5 mg-3 mg/3 ml Soln] 3 ml INHALATION RT-QID Metoprolol Tartrate [Lopressor] 50 mg PO BID #60 tab Furosemide [Lasix] 40 mg PO DAILY Mometasone/Formoterol [Dulera 200 Mcg-5 Mcg Inhaler] 2 puff PO RT-BID Levothyroxine Sodium [Synthroid] 150 mcg PO OROURKE allopurinoL [Zyloprim] 100 mg PO DAILY Tiotropium 2.5 Mcg/Puff [Spiriva Respimat 2.5 Mcg] 2 puff INHALATION RT-DAILY Levothyroxine Sodium [Synthroid] 100 mcg PO MOTUWETHFRSA Dapagliflozin Propanediol [Farxiga] 10 mg PO DAILY Atorvastatin Calcium [Lipitor] 40 mg PO DAILY metFORMIN HCL [Glucophage] 500 mg PO DAILY Discharge Medication List Ipratropium-Albuterol Nebulize [Duoneb 0.5 mg-3 mg/3 ml Soln] 3 ml INHALATION RT-QID 09/17/18 [History] Metoprolol Tartrate [Lopressor] 50 mg PO BID #60 tab 10/05/18 [Rx] Furosemide [Lasix] 40 mg PO DAILY 10/21/19 [History] Mometasone/Formoterol [Dulera 200 Mcg-5 Mcg Inhaler] 2 puff PO RT-BID 10/08/21 [History] Atorvastatin Calcium [Lipitor] 40 mg PO DAILY 03/06/23 [History] Dapagliflozin Propanediol [Farxiga] 10 mg PO DAILY 03/06/23 [History] Levothyroxine Sodium [Synthroid] 100 mcg PO MOTUWETHFRSA 03/06/23 [History] Levothyroxine Sodium [Synthroid] 150 mcg PO OROURKE 03/06/23 [History] Tiotropium 2.5 Mcg/Puff [Spiriva Respimat 2.5 Mcg] 2 puff INHALATION RT-DAILY 03/06/23 [History] allopurinoL [Zyloprim] 100 mg PO DAILY 03/06/23 [History] metFORMIN HCL [Glucophage] 500 mg PO DAILY 03/06/23 [History] cefUROXime axetiL [Cefuroxime] 500 mg PO BID #14 tab 03/27/23 [Rx] predniSONE 0 mg PO DIRECTED #30 tab 03/27/23 [Rx] Follow up Appointment(s)/Referral(s): Lesli Matta MD [STAFF PHYSICIAN] - 1 Week (Pt to call for an appointment date and time, as the office was unavailable at time of discharge. Ensure the office is aware this is an appointment following a hospital stay.) Klaus Pool MD [STAFF PHYSICIAN] - 04/11/23 9:00 am Ezequiel Gomez MD [STAFF PHYSICIAN] - 04/16/23 9:45 am Patient Instructions/Handouts: COPD (Chronic Obstructive Pulmonary Disease) (DC), Pleural Mesothelioma (DC) Activity/Diet/Wound Care/Special Instructions: Take metformin twice daily while on Prednisone and then go back to daily dosing. Discharge Disposition: HOME SELF-CARE
--- NOTE | 2023-03-27 14:14 | P.PN ---
Subjective Progress Note Date: 03/27/23 77-year-old male patient with known history of COPD, maintain on a combination of Spiriva and Dulera and DuoNeb nebulized treatments [id number] and the patient was also diagnosed having mesothelioma back in October 2022 and the patient is currently on immunotherapy with Opdovi every 2 weeks and his disease has been essentially stable. The patient also has previous history of aortic valve replacement for underlying. The patient was hospitalized back in February 2023 for an acute COPD exacerbation. He was treated and he was discharged home. During his last stay, CAT scan of the chest is from 02/24/2023 and it showed background emphysema. And there was a soft tissue between the 10th and 11th rib that has been stable and a minimal low. Left-sided pleural effusion. The patient came back to the emergency department yesterday because of increased shortness of breath and is bringing up significant amounts of yellowish purulent thick mucus. He is not smoking. No chest pain. No fever. He was concerned because of those symptoms and he ended up coming into the hospital. He was told to have a limited pneumonia in the left lower lobe as evidenced on the chest x- ray. Repeat chest x-ray from this morning shows some atelectasis possibly diffusion left lung base. Otherwise no other consolidation with air space disease. On today's evaluation of 03/27/2023, the patient is feeling much better. Less short of breath bronchospastic and wheezy and has no specific complaints. The patient states that his overall breathing status is back to his baseline. No fever. No chills. He has a spinal masses of bronchodilators and steroids. The patient was treated with Solu-Medrol 40 mg every 6 hours in addition IV Rocephin and bronchodilators. Objective - Vital Signs Vital signs: Vital Signs Temp 97.9 F 03/27/23 12:35 Pulse 77 03/27/23 12:35 Resp 16 03/27/23 12:35 BP 112/63 03/27/23 12:35 Pulse Ox 93 L 03/27/23 12:35 FiO2 21 03/26/23 08:28 Intake & Output 03/26/23 03/27/23 03/27/23 18:59 06:59 18:59 Intake Total 240 Balance 240 Weight 72.575 kg Intake: Oral 240 Other: Voiding Method Urinal Urinal Urinal # Voids 1 3 2 - Exam Gen. appearance the patient is having mildly labored breathing especially with a ctivity. Is quite comfortable at rest and is currently on room air oxygen Head exam was generally normal. There was no scleral icterus or corneal arcus. Mucous membranes were moist. Neck was supple and without jugular venous distension, thyromegaly, or carotid bruits. Carotids were easily palpable bilaterally. There was no adenopathy. Lungs sounds show marked diminished breath sounds bilaterally along with scattered expiratory wheezes throughout the lung field bilaterally Cardiac exam revealed the PMI to be normally situated and sized. The rhythm was regular and no extrasystoles were noted during several minutes of auscultation. The first and second heart sounds were normal and physiologic splitting of the second heart sound was noted. There were no murmurs, rubs, clicks, or gallops. Abdominal exam revealed normal bowel sounds. The abdomen was soft, non-tender, and without masses, organomegaly, or appreciable enlargement of the abdominal aorta. Examination of the extremities revealed easily palpable radial, femoral and pedal pulses. There was no cyanosis, clubbing or edema. Examination of the skin revealed no evidence of significant rashes, suspicious appearing nevi or other concerning lesions. Neurologically, the patient is awake and alert and the patient does not have any focal neurological deficit. Cranial nerves are essentially intact. - Labs CBC & Chem 7: 03/25/23 22:18 03/25/23 22:18 Labs: Abnormal Lab Results - Last 24 Hours (Table) 03/26/23 03/26/23 03/27/23 Range/Units 16:27 19:55 02:01 POC Glucose (mg/dL) 361 H 454 H 474 H (70-110) mg/dL 03/27/23 03/27/23 Range/Units 05:51 12:20 POC Glucose (mg/dL) 386 H 329 H (70-110) mg/dL Microbiology - Last 24 Hours (Table) 03/26/23 11:30 Gram Stain - Preliminary Sputum Sputum Culture - Preliminary Megan albicans Assessment and Plan Plan: Acute COPD exacerbation. The patient is actively bronchospastic and wheezy. The patient has severe COPD with a baseline FEV1 of 43% of predicted, maintain on a combination of Spiriva and Dulera on outpatient basis. The patient has questionable limited infiltration of the left lung base. His cough and a copious amount of purulent respiratory secretions concerning of a pneumonia. He is a nonsmoker. Shortness of breath secondary to above History of mesothelioma, currently on immunotherapy receiving Opdivo Aortic stenosis, bicuspid aortic valve status post aortic valve replacement The patient underwent also left atrial appendage clipping severe COPD with an FEV1 of 43% of predicted [id number]-[id number] smoking history, the patient is an ex-smoker and he quit smoking back 5 years ago moderate degree of pulmonary hypertension Diabetes mellitus typ Hernandez I ALSO ALK e 2 Hyperlipidemia Hypothyroidism and thin on Synthroid Previous history of Covid 19 infection, current testing is negative Plan Patient clinically improved May discharge this patient home on a prednisone burst taper Continue home respiratory medications which include a combination of Spiriva and Dulera and albuterol in about treatments [id number] as needed a follow-up at the pulmonary clinic and with a primary care physician.
--- NOTE | 2023-03-27 15:18 | P.CONS ---
History of Present Illness - Reason for Consult Consult date: 03/27/23 mesothelioma/on IO Requesting physician: Lesli Matta - Chief Complaint COPD exacerbation, PNA - History of Present Illness is a pleasant patient of Dr. Gomez diagnosed with mesothelioma 09/27/21. He presented with complaints of chest and upper abdomen discomfort 6-7 months then, left chest wall mass emerged. CT revealed abnormal pleural thickening, pleural nodularity, trace pleural effusion soft tissue extension across the 10th intercostal space into the chest wall about 4.7 cm, omental soft tissue stranding in the upper abdomen, left-sided hydronephrosis. 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 11/07/21 he was started on CTLA4/PD-L1 dual therapy. CT CAP 02/05 showed stable/slight improvement in disease. 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 Subsequent treatment follow-up CT CAP's showed improvement and then stable disease, 02/24/23 most recent, no evidence of progression, status post 27 cycles. He was admitted to [facility] 03/06-03/08-after being sent over from Onc ofc for significant SOB-he was there for treatment but, he had to be brought in via w/c because he was so SOB/ weak. He had CXR showing similar trace pl effusion on the left with assoc atelectasis/scarring. Pulm assessed him, diagnosed with acute COPD exacerbation, treated with duonebs ATC, lasix, IV steroids, no further abx. He improved almost immediately after treatment initiated. He was seen in the office almost 2 weeks ago and he was doing better, walked into appointment, he had no other respiratory complaints. He had about 12 days of steroid taper to complete so, the plan was to resume treatment today. Unfortunately, 2 days ago when he took his last steroid his respiratory symptoms exacerbated, shortness of breath at rest, cough, inability to ambulate. He denied fevers, chills, chest pain, nausea, vomiting, abdominal pain, acute changes in bowel or bladder habits, swelling in the legs. He reports he expectorated a copious amount of thick, brown sputum. He can walk short distances, does not it takes several minutes to recover. Review of Systems 10 point ROS is neg except as stated in HPI Past Medical History Past Medical History: Asthma, Cancer, COPD, Mitral Valve Prolapse (MVP) Additional Past Medical History / Comment(s): "stroke-like" episode 06-28-18, jerky type movements left arm & leg, mostly resolved, recent hx. pleural effusion, left shoulder pain-hasn't had evaluated yet, accidentally put screw through nose in the past, malignant mesothelioma History of Any Multi-Drug Resistant Organisms: None Reported Past Surgical History: Orthopedic Surgery Additional Past Surgical History / Comment(s): HIP REPLACEMENT, Heart valve 201 8, chest wall mass biopsy Past Anesthesia/Blood Transfusion Reactions: No Reported Reaction Past Psychological History: No Psychological Hx Reported Smoking Status: Former smoker Past Alcohol Use History: None Reported Additional Past Alcohol Use History / Comment(s): quit smoking June 2018, smoked 1ppd for 50 yrs., quit drinking 20 yrs. ago Past Drug Use History: None Reported - Past Family History Mother Family Medical History: Cancer Additional Family Medical History / Comment(s): lung cancer pass away 90 years old Medications and Allergies Home Medications Medication Instructions Recorded Confirmed Type Ipratropium-Albuterol Nebulize 3 ml INHALATION RT-QID 09/17/18 03/26/23 History [Duoneb 0.5 mg-3 mg/3 ml Soln] Metoprolol Tartrate [Lopressor] 50 mg PO BID #60 tab 10/05/18 03/26/23 Rx Furosemide [Lasix] 40 mg PO DAILY 10/21/19 03/26/23 History Mometasone/Formoterol [Dulera 200 2 puff PO RT-BID 10/08/21 03/26/23 History Mcg-5 Mcg Inhaler] Atorvastatin Calcium [Lipitor] 40 mg PO DAILY 03/06/23 03/26/23 History Dapagliflozin Propanediol [Farxiga] 10 mg PO DAILY 03/06/23 03/26/23 History Levothyroxine Sodium [Synthroid] 100 mcg PO MOTUWETHFRSA 03/06/23 03/26/23 History Levothyroxine Sodium [Synthroid] 150 mcg PO OROURKE 03/06/23 03/26/23 History Tiotropium 2.5 Mcg/Puff [Spiriva 2 puff INHALATION RT-DAILY 03/06/23 03/26/23 History Respimat 2.5 Mcg] allopurinoL [Zyloprim] 100 mg PO DAILY 03/06/23 03/26/23 History metFORMIN HCL [Glucophage] 500 mg PO DAILY 03/06/23 03/26/23 History cefUROXime axetiL [Cefuroxime] 500 mg PO BID #14 tab 03/27/23 Rx predniSONE 0 mg PO DIRECTED #30 tab 03/27/23 Rx Allergies Allergy/AdvReac Type Severity Reaction Status Date / Time No Known Allergies Allergy Verified 03/26/23 07:28 Physical Exam Vitals: Vital Signs Temp Pulse Pulse Pulse Resp BP Pulse Ox 03/27/23 12:35 97.9 F 77 16 112/63 93 L 03/27/23 12:03 104 H 03/27/23 11:52 100 03/27/23 08:55 97.3 F L 93 16 136/75 92 L 03/27/23 08:49 92 03/27/23 08:36 88 93 L 03/27/23 03:08 97.7 F 86 14 121/63 92 L 03/26/23 23:08 98.1 F 77 16 111/60 96 03/26/23 20:17 107 H 03/26/23 20:09 102 H 03/26/23 20:00 98 F 94 14 130/79 95 03/26/23 16:25 102 H 18 120/59 95 03/26/23 15:27 84 03/26/23 15:18 84 Intake and Output 03/26/23 03/27/23 03/27/23 22:59 06:59 14:59 Other: Voiding Method Urinal Urinal Urinal # Voids 1 3 Weight 72.575 kg - Constitutional General appearance: average body habitus, cooperative, mild distress - EENT Eyes: anicteric sclerae, EOMI ENT: hearing grossly normal, normal oropharynx - Neck Neck: no lymphadenopathy - Respiratory Respiratory: bilateral: diminished, prolonged expiration, other (Slightly labored respiratory rate) - Cardiovascular Rhythm: regular Heart sounds: normal: S1, S2 Abnormal Heart Sounds: systolic murmur leg Peripheral Edema: bilateral: None - Gastrointestinal General gastrointestinal: normal bowel sounds, soft - Integumentary Integumentary: normal - Neurologic Neurologic: CNII-XII intact - Musculoskeletal Musculoskeletal: strength equal bilaterally - Psychiatric Psychiatric: A&O x's 3, appropriate affect, intact judgment & insight Results CBC & Chem 7: 03/25/23 22:18 03/25/23 22:18 Labs: Abnormal Lab Results - Last 24 Hours (Table) 03/26/23 03/26/23 03/27/23 Range/Units 16:27 19:55 02:01 POC Glucose (mg/dL) 361 H 454 H 474 H (70-110) mg/dL 03/27/23 03/27/23 Range/Units 05:51 12:20 POC Glucose (mg/dL) 386 H 329 H (70-110) mg/dL Microbiology - Last 24 Hours (Table) 03/26/23 11:30 Gram Stain - Preliminary Sputum Sputum Culture - Preliminary Megan albicans Chest x-ray: report reviewed Assessment and Plan (1) Acute exacerbation of chronic obstructive pulmonary disease Current Visit: Yes Status: Acute Priority: High Code(s): J44.1 - CHRONIC OBSTRUCTIVE PULMONARY DISEASE W (ACUTE) EXACERBATION SNOMED Code(s): 787105001 (2) Mesothelioma Current Visit: No Status: Chronic Priority: Medium Code(s): C45.9 - MESOTHELIOMA, UNSPECIFIED SNOMED Code(s): 408764865 (3) History of pleural effusion Current Visit: No Status: Resolved Code(s): Z87.09 - PERSONAL HISTORY OF OTHER DISEASES OF THE RESPIRATORY SYSTEM SNOMED Code(s): 833506417 (4) History of thoracentesis Current Visit: No Status: Resolved Code(s): Z98.890 - OTHER SPECIFIED POSTPROCEDURAL STATES SNOMED Code(s): 350904517 Plan: COPD exacerbation -Patient completed a prednisone taper for COPD exacerbation the day he was re admitted -The patient has been seen by Pulmonary and Internal Medicine -His symptoms are better than on admission -Complete prescribed treatment outpatient per Pulmonary and IM Mesothelioma -Patient has received 27 cycles of nivolumab and done well -Treatment follow-up CT scan in February, stable disease -Immunotherapy will be held while on steroid taper -Follow up with Dr. Gomez scheduled 04/16 at 945
[2023-03-27 15:36] VITALS: PULSE 100
== END 2023-03-27 16:06 | disposition home or self-care (01) | DRG 190 ==
LOC: EC 20:55 → 3SCARD 23:15
PROVIDERS: ADMIT Internal Medicine; ATTEND Internal Medicine
DX: J43.9 Emphysema, unspecified (principal); J18.9 Pneumonia, unspecified organism; E87.1 Hypo-osmolality and hyponatremia; Q23.1 Congenital insufficiency of aortic valve; C45.0 Mesothelioma of pleura; I27.20 Pulmonary hypertension, unspecified; I11.9 Hypertensive heart disease without heart failure; I34.1 Nonrheumatic mitral (valve) prolapse; E03.9 Hypothyroidism, unspecified; E11.65 Type 2 diabetes mellitus with hyperglycemia; E78.2 Mixed hyperlipidemia; M19.019 Primary osteoarthritis, unspecified shoulder; E55.9 Vitamin D deficiency, unspecified; T38.0X5A Adverse effect of glucocorticoids and synthetic analogues, initial encounter; M10.9 Gout, unspecified; F10.91 Alcohol use, unspecified, in remission; Z20.822 Contact with and (suspected) exposure to COVID-19; Z96.642 Presence of left artificial hip joint; Z95.2 Presence of prosthetic heart valve; Z87.891 Personal history of nicotine dependence; Z79.84 Long term (current) use of oral hypoglycemic drugs; Z79.890 Hormone replacement therapy; Z79.51 Long term (current) use of inhaled steroids; Z86.16 Personal history of COVID-19; Z87.09 Personal history of other diseases of the respiratory system; Z79.899 Other long term (current) drug therapy; Z80.1 Family history of malignant neoplasm of trachea, bronchus and lung
CPT/HCPCS: 36415; 71046; 80053; 83036; 83605; 83880; 84484; 85025; 85610; 85730; 87040; 87070; 87205; 87449; 90677; 93005; 94640; 94760; 96365; 99285

== ENCOUNTER → 2023-07-02 | Outpatient (CLI) | payer MEDICARE ==
[2023-07-02 12:03] LABS: African American GFR (CKD) 85 (>60 ml/min/1.73 sqM); Blood Urea Nitrogen 17 mg/dL (9-20); Non-African American GFR(CKD) 73 (>60 ml/min/1.73 sqM)
--- NOTE | 2023-07-02 14:07 | CT ---
EXAMINATION TYPE: CT ChestAbdPelvis w con DATE OF EXAM: 07/02/2023 COMPARISON: 02/24/2023 HISTORY: Mesothelioma of pleura CT DLP: 824.4 mGycm CONTRAST: CT scan of the chest, abdomen and pelvis is performed with Oral Contrast and with IV Contrast, patien t injected with 100 mL of Isovue 300. CT Chest: LUNGS: There is stable pleural based soft tissue extending between the ribs 10 and 11 with mild rib e rosion noted. No significant interval progression is appreciated at this time. No new pleural-based m asses seen. Small left basilar loculated pleural effusion. Stable left basilar pleural thickening is unchanged. The lungs are hyperinflated compatible with COPD. No evidence of pulmonary nodule or mass. Mild upper lobe centrilobular is seen. MEDIASTINUM: Thoracic aorta is of normal caliber. The heart is mildly enlarged. No evidence for me diastinal mass or adenopathy. HILAR STRUCTURES: No evidence for mass. No hilar adenopathy is appreciated. OTHER: No significant abnormality. CONTRAST CT ABDOMEN AND PELVIS FINDINGS: LIVER/GB: No calcified gallstones. No space occupying hepatic lesion. Biliary tree is of normal ca liber. PANCREAS: No inflammation. No distinct mass. SPLEEN: No splenic enlargement. No lesion seen. ADRENALS: No nodule. No thickening. KIDNEYS/BLADDER: Again noted is a large left-sided extrarenal pelvis. Minimal cystic changes seen. No nephrolithiasis. No distinct solid renal mass. BOWEL: Normal appendix. Normal bowel caliber. No inflammation. GENITAL ORGANS: No gross abnormality. LYMPH NODES: No greater than 1cm abdominal or pelvic lymph nodes are appreciated. AORTA: No significant abnormality. OSSEOUS STRUCTURES: No significant abnormality is seen. OTHER: No significant additional abnormality is seen. IMPRESSION: 1. Stable pleural-based soft tissue extending in between ribs 10 and 11 with mild osseous erosion of left rib #10. 2 stable small loculated left-sided pleural effusion. 3. COPD with mild upper lobe centrilobular emphysema. 4. Large extrarenal pelvis on the left is unchanged.
== END | disposition home or self-care (01) ==
LOC: RADCTMAIN 11:13
PROVIDERS: ATTEND Internal Medicine Hematology & Oncology
DX: C45.0 Mesothelioma of pleura (principal); J43.2 Centrilobular emphysema; J90 Pleural effusion, not elsewhere classified; E03.9 Hypothyroidism, unspecified; M25.511 Pain in right shoulder; I10 Essential (primary) hypertension; Z71.3 Dietary counseling and surveillance
CPT/HCPCS: 82565; 84520; 71260; 74177; 36415; Q9967

== ENCOUNTER → 2023-11-27 | Outpatient (CLI) | payer MEDICARE ==
--- NOTE | 2023-11-28 14:45 | PE ---
EXAMINATION TYPE: PET CT fusion skull to thigh DATE OF EXAM: 11/27/2023 CLINICAL INDICATION:Male, 77 years old with history of C45.0 MESOTHELIOMA; TECHNIQUE: Following the intravenous administration of 8.69 mCi of F-18 FDG, whole body images are performed from the skull base to the midthigh. Images are reviewed on the computer in the coronal, a xial, and sagittal planes. Reconstructed rotating images are created on independent workstation and reviewed on the computer. A non-contrast CT is performed in conjunction with the PET scan. Glucose level 88 mg/dL CT DLP: 363.9 mGycm, Automated exposure control for dose reduction was used. COMPARISON: CT 07/02/2023, PET/CT None, FINDINGS: Mediastinal SUV mean is 2.4. Hepatic parenchyma SUV mean is 2.3. SKULL BASE AND NECK: No suspicious radiotracer activity. CHEST, MEDIASTINUM, AND HILAR REGION: Focal areas of uptake within the left thoracic cavity along the pleura. Examples include: * Adjacent to the aorta on the left lower lung Max SUV 6.5 measuring 12 mm * Left pulmonary hilum max SUV 5.4. * Anterior to the aorta max SUV 4.9. * Posterior pleural measuring Max SUV 2.3. Series 3 image 98e * Posterior pleura medially series 3 image 86 Max SUV 8.48. * Series 3 image 60 measuring 9 mm Max SUV 10.6. * Soft tissue within the left posterior chest wall inferiorly max SUV 13.2 measuring 28 x 18 mm. Ser ies 3 image 124 and more laterally series 3 image 124 max SUV 8.9 ABDOMEN AND PELVIS: No suspicious radiotracer activity. MUSCULOSKELETAL STRUCTURES: * Soft tissue mass within the posterior back muscles series 3 image 138 Max SUV 12.0 measuring 25 x 19 mm. * Abnormal uptake within the right iliac bone near the sacroiliac joint max SUV 5.5. * Abnormal uptake within the T3 and T4 vertebrae max SUV into 3 5.3 and in T4 6.4. Degeneration uptake within the right shoulder max SUV 8.1, left shoulder max SUV 7.[address]: Athero sclerosis at the carotid bifurcations and coronary arteries. Aortic valve repair changes. Sternotomy wires are present. Severe degeneration changes of the shoulder [id number] articulation. Bilateral2 dilation of the renal collecting systems. Left hip arthroplasty appears intact. Severe degeneration w ith deformity to the femoral head and acetabulum of the right hip. Large joint effusion around the le ft hip. Fat-containing umbilical hernia. IMPRESSION: Scattered metabolically active areas of pleural thickening on the left with extension into the left c hest wall and a few lesions osseous structures and left posterior back musculature. Findings compatib le with mesothelioma with metastatic disease.
== END | disposition home or self-care (01) ==
LOC: RADPETMAIN 12:24
PROVIDERS: ATTEND Internal Medicine Hematology & Oncology
DX: C45.0 Mesothelioma of pleura (principal); J92.9 Pleural plaque without asbestos
CPT/HCPCS: 78815; A9552

== ENCOUNTER → 2024-05-27 | Outpatient (CLI) | payer MEDICARE ==
--- NOTE | 2024-05-28 12:39 | PE ---
EXAMINATION TYPE: PET CT fusion skull to thigh DATE OF EXAM: 05/27/2024 COMPARISON: 01/19/2024 Prior PET/CT: 11/27/2023 HISTORY: Mesothelioma TECHNIQUE: Following the intravenous administration of 9.3 mCi of F-18 FDG, whole body images are pe rformed from the skull base to the midthigh. Images are reviewed on the computer in the coronal, axi al, and sagittal planes. Reconstructed rotating images are created on independent workstation and re viewed on the computer. A localization and attenuation correction CT is performed in conjunction wi th the PET scan. DLP: 346.56 mGycm SCAN: Subsequent Blood glucose: 102 mg/dL Average Mediastinum SUV: 2.18 Average Liver SUV: 2.19 FINDINGS: NECK: No abnormal uptake THORAX: There is a focus of intense uptake along the posterior medial left apex, image 61, SUV 7.33. There is uptake within the medial mid left pleural margin, image 87, SUV 8.26. There is some focal uptake within the mediastinum adjacent to the main pulmonary artery, image 90, OROURKE V 6.38 There is a focus of radiotracer adjacent to the descending thoracic aorta, image 99, SUV 6.85. There may be a paraesophageal lymph node with increased uptake, image 104, SUV 6.63. Punctate area of uptak e along the right dalton of the diaphragm, image 135 has an SUV of 3. There are multiple intense areas of uptake at the right costophrenic phrenic sulcus example image 134 , SUV posterior to the adjacent rib SUV 10.79. Uptake within the posterior lateral rib measures 7.44 ABDOMEN: There is a focal area of uptake within the right lobe liver, image 126, SUV 4.21 suspicious for metastatic disease. PELVIS: No abnormal uptake OSSEOUS STRUCTURES: There is some scattered uptake around the right shoulder. Consider degenerative c hanges. Metastasis could also be considered. There is a focus of radiotracer within a posterior lateral left vertebral thoracic body, image 69, OROURKE V 3.68. There is uptake within the right scapula, image 76, SUV 4.24. There is increased uptake within the right posterior rib, image 134, SUV 7.44. There is increased uptake within the posterior and lateral soft tissues, example image 145, SUV 11.6, lateral to left ribs, image 137, SUV 7.[address]: Some mild pleural thickening is present on the left corresponding to the areas of up take. Minimal effusion may be present. Right superior pole renal cyst is present. There is marked lef t hydronephrosis. COMPARISON: Right shoulder changes appear present previously. There is a focus on the prior study and there is aortopulmonic window. Additional mediastinal areas of uptake are new. Uptake within the josy er is new. There is stable appearance of the uptake in the lateral and posterior left lower ribs. IMPRESSION: 1. New areas of uptake suspicious for metastatic disease including the mediastinum and right lobe josy er. 2. Persistent uptake within pleural margins and soft tissues posterior and posterior lateral to the l eft ribs.
== END | disposition home or self-care (01) ==
LOC: RADPETMAIN 11:59
PROVIDERS: ATTEND Internal Medicine Hematology & Oncology
DX: C45.0 Mesothelioma of pleura (principal)
CPT/HCPCS: 78815; A9552

== ENCOUNTER → 2024-09-23 | Outpatient (CLI) | payer MEDICARE ==
--- NOTE | 2024-09-26 20:31 | PE ---
EXAMINATION TYPE: PET CT fusion skull to thigh DATE OF EXAM: 09/23/2024 COMPARISON: 01/19/2024 CT chest abdomen pelvis Prior PET/CT: 05/27/2024 HISTORY: Mesothelioma TECHNIQUE: Following the intravenous administration of 12.4 mCi of F-18 FDG, whole body images are p erformed from the skull base to the midthigh. Images are reviewed on the computer in the coronal, ax ial, and sagittal planes. Reconstructed rotating images are created on independent workstation and r eviewed on the computer. A localization and attenuation correction CT is performed in conjunction w ith the PET scan. DLP: 385.12 mGycm SCAN: Subsequent Blood glucose: 189 mg/dL Average Mediastinum SUV: 1.55 Average Liver SUV: 1.77 FINDINGS: NECK: No suspicious uptake THORAX: There are scattered areas of marked increased uptake within the left pleural margins compatib le with patient's reported neoplasm. Example image 56, SUV 4.73. Some medial left apical uptake is pr esent within the pleural margin, image 52. Posterior medial uptake is present image 5074, SUV 4.5. Uptake within the aortopulmonic window, image 8, SUV of 4 is suspicious for metastasis. Additional po sterior periaortic lymph node is present, image 88, SUV 4.31. ABDOMEN: There is intense uptake near the gastroesophageal junction. This is of uncertain etiology ma y be normal uptake. Metastatic lesions cannot excluded and a lymph node in this region. Small amount of increased uptake is seen along the medial spleen, image 114, SUV 2.81. There is a suspicious focal area of uptake within the right mid liver, image 122, SUV 5.1, suspicious for metastasis. An additio nal smaller area of uptake is within the anterior right lobe liver measuring 2.94 SUV, image 132 PELVIS: No intrapelvic abnormal uptake OSSEOUS STRUCTURES: There is uptake within the posterior lateral left upper thoracic vertebral body, image 59, SUV 3.32. There is some intercostal uptake bilaterally. Some intense uptake is within a ri ght posterior rib, example image 102, SUV 2.63. There is abnormal uptake within the posterior left lo wer ribs, example image 115, SUV 6.76 and slightly more lateral 4.28 There is intense uptake within t he lateral right scapula, image 70, SUV 3.18 some uptake is around the right shoulder joint space, ex ample image 60. Uptake is noted within the right posterior iliac image 176 SUV 6.09. Other: There are large areas of muscular uptake greater on the left including the left gluteal region s extending into the posterior thigh on the left paraspinal musculature, example image 125 with an OROURKE V of 6.67 soft tissue metastasis at this level should be considered. There is uptake at the bilateral shoulders musculature and left neck musculature. LOCALIZATION CT: There is some thickening the medial margin of the left apex. Some scattered pleural thickening is in the posterior left upper lung field. Left hydronephrosis is present. Right renal cys t is present COMPARISON: Uptake within the pleural margins were present previously uptake within the thoracic spin e was present previously but appears to have increased in intensity over the interval. Periaortic oli nopathy was likely present previously. Uptake in the aortopulmonic window appears increased. Uptake w ithin the left lower posterior ribs appears more intense. Uptake surrounding the left hip joint space is diminished IMPRESSION: 1. Persistent pleural margin uptake. 2. Osseous uptake areas appear to be increasing in intensity. New lesions are not identified. 3. Hepatic metastasis appears to be increased intensity and better visualized on the current exam. [facility], , 09/26/2024 8:28 PM
== END | disposition home or self-care (01) ==
LOC: RADPETMAIN 08:40
PROVIDERS: ATTEND Internal Medicine Hematology & Oncology
DX: C45.0 Mesothelioma of pleura (principal); C78.7 Secondary malignant neoplasm of liver and intrahepatic bile duct; R93.7 Abnormal findings on diagnostic imaging of other parts of musculoskeletal system
CPT/HCPCS: 78815; A9552

== ENCOUNTER → 2024-11-29 | Outpatient (CLI) | payer MEDICARE ==
[2024-11-29 11:47] LABS: African American GFR (CKD) >90 (>60 ml/min/1.73 sqM); Blood Urea Nitrogen 13 mg/dL (9-20); Non-African American GFR(CKD) 90 (>60 ml/min/1.73 sqM)
--- NOTE | 2024-11-29 13:45 | CT ---
EXAMINATION TYPE: CT ChestAbdPelvis w con CT DLP: 627.3 mGycm, Automated exposure control for dose reduction was used. 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 Technique: Multiple axial images of the chest, abdomen, and pelvis were obtained following the intrav enous administration of 100 mL Isovue-300. Oral contrast was administered. Two-dimensional coronal an d sagittal reconstructions were obtained. Findings: CHEST: LUNGS/ PLEURA: Respiratory motion degrades examination. No pneumothorax. Trace left pleural effusion. Linear scarring or atelectasis within the left lower lobe. Moderate centrilobular emphysematous desouza ges. Increasing size and number of right lung pulmonary nodules. Exams include a right lower lobe sup erior segment 1 cm pulmonary nodule (series 4, image 30), previously 0.6 cm. Right lower lobe 0.6 cm pulmonary nodule (series 4, image 35). Right lower lobe 0.5 cm pulmonary nodule (series 4, image 43). Right midlung 0.4 cm pulmonary nodule (series 4, image 32), and a right upper lobe 0.7 mm pulmonary nodule (series 4, image 19). Similar persistent left pleural soft tissue nodularity which demonstrate d FDG activity in prior PET/CT. Examples included a right medial upper pleural soft tissue lesion arian suring up to 2.2 cm (series 3, image 11). Left mid pleural medial 1.9 cm soft tissue nodule (series 3 , image 35). And a left lower lung pleural soft tissue mass measured a 3.1 cm which extends between t he posterior 10th and 11th ribs (series 3, image 52). AIRWAY: Patent and unremarkable.. HEART: Cardiomegaly is demonstrated.No pericardial effusion. Postsurgical changes from aortic valvula r repair. Coronary artery calcifications and/or stents. MEDIASTINUM: No evidence of adenopathy. VASCULATURE: No aortic aneurysm. Atherosclerotic calcification of the aorta and its branches. MUSCULOSKELETAL: No acute osseous abnormalities. Median sternotomy wires. Advanced bilateral shoulder arthropathy. Stable sclerotic lesions involving the T4 and T5 vertebral bodies. SOFT TISSUES/LYMPH NODES: Mild bilateral gynecomastia. LOWER NECK: No significant findings. ABDOMEN: ABDOMEN LIVER: Unremarkable GALLBLADDER AND BILE DUCTS: Unremarkable. PANCREAS: Unremarkable. SPLEEN: Unremarkable. ADRENAL GLANDS: Unremarkable. KIDNEYS AND URETERS: No right renal calculi. The kidneys enhance symmetrically. Unchanged right renal 5.0 cm cyst. Unchanged left-sided hydronephrosis and hyperdensity within the dependent portion of le ft renal pelvis. Likely related to chronic UPJ obstruction. PELVIS BLADDER: Unremarkable REPRODUCTIVE: Unremarkable. ABDOMEN & PELVIS STOMACH AND BOWEL: Contrast is demonstrated throughout the esophagus with regions of circumferential thickening along the mid and distal portions.Enteric contrast reaches the distal small bowel. No foca l bowel wall thickening or surrounding inflammatory changes. Distal colonic diverticulosis. The appen kindra is within normal limits. No evidence of bowel obstruction. PERITONEUM/RETROPERITONEUM: No evidence of pneumoperitoneum or free fluid. Increased omental soft tis rani mass now measuring 18.5 x 19 cm in TV by AP dimensions (series 3, image 79). More conglomerate ap pearance. VASCULATURE: Moderate atherosclerotic calcifications are present throughout the abdominal aorta and i ts branches. No abdominal aortic aneurysm. MUSCULOSKELETAL: No acute osseous abnormalities. Postsurgical changes from total left hip arthroplast y. Advanced right hip osteoarthritic change. Large anterior osteophytosis at L5-S1. LYMPH NODES: Similar periaortic conglomerate adenopathy with encasement of the bilateral renal arteri es and left renal vein (series 3, image 67). Paraesophageal adenopathy identified. SOFT TISSUE/ABDOMINAL WALL: Left lateral flank lower chest wall and left paraspinal soft tissue lesio ns are redemonstrated and demonstrates FDG activity in prior PET/CT. Examples include left lower late ral chest wall soft tissue 5.1 cm lesion (series 3, image 61). Fat filled small umbilical hernia cont aining some omental nodularity. IMPRESSION: 1. Overall progression of disease with increasing omental soft tissue nodularity which is more congl omerate appearance. Consistent with peritoneal contrast metastasis. Additional increased size and num oksana of right lung pulmonary nodules probably representing metastasis. Similar left pleural soft tissu e nodularity related to known mesothelioma. Additional similar left posterior and lower lateral chest wall soft tissue metastatic disease. Additional similar paraesophageal and periaortic conglomerate a denopathy. Similar osseous metastatic involvement involving the T4 and T5 vertebral bodies. 2. Enteric contrast is demonstrated throughout the esophagus with regions of circumferential wall th ickening which may represent esophagitis/reflux and/or metastatic disease. Consider direct visualizat ion as clinically indicated. 3. Similar trace left pleural effusion. 4. Similar left-sided hydronephrosis with probable UPJ obstruction. [facility], , 11/29/2024 1:43 PM
== END | disposition home or self-care (01) ==
LOC: RADCTMAIN 11:11
PROVIDERS: ATTEND Internal Medicine Hematology & Oncology
DX: C45.0 Mesothelioma of pleura (principal); J44.9 Chronic obstructive pulmonary disease, unspecified; E03.9 Hypothyroidism, unspecified; I10 Essential (primary) hypertension; M25.511 Pain in right shoulder; C79.89 Secondary malignant neoplasm of other specified sites; R59.9 Enlarged lymph nodes, unspecified; C79.51 Secondary malignant neoplasm of bone; J90 Pleural effusion, not elsewhere classified; N13.30 Unspecified hydronephrosis
CPT/HCPCS: 82565; 84520; 71260; 74177; 36415; Q9967

== ENCOUNTER → 2024-12-09 | Outpatient (CLI) | payer MEDICARE ==
--- NOTE | 2024-12-12 13:49 | PE ---
EXAMINATION TYPE: PET CT fusion skull to thigh DATE OF EXAM: 12/09/2024 COMPARISON: CT chest abdomen and pelvis 11/29/2024 Prior PET/CT: 09/23/2024 CLINICAL INDICATION: Male, 79 years old with history of C45, lung cancer TECHNIQUE: Following the intravenous administration of 9.8 mCi of F-18 FDG, whole body images are pe rformed from the skull base to the midthigh. Images are reviewed on the computer in the coronal, axi al, and sagittal planes. Reconstructed rotating images are created on independent workstation and re viewed on the computer. A localization and attenuation correction CT is performed in conjunction wi th the PET scan. DLP: 342.86 mGycm SCAN: Subsequent Scan Blood glucose: 95 mg/dL Average Mediastinum SUV: 1.55 Average Liver SUV: 1.95 FINDINGS: NECK: No suspicious uptake THORAX: Intercostal uptake is present greater on the right. Focal intercostal uptake is noted in the posterior right lung base image 108 SUV 4.05. There is pleural-based uptake in medial left apex, image 55, SUV 4.13. A large area of uptake posterior left pleural margin is present image 114, SUV 5.41 There is some focal uptake along the posterior medial left upper lung pleural margin, image 73, SUV 5 .66. A small pleural-based nodule has mild elevated uptake SUV 2.65, image 75. A peribronchial focus of uptake is lateral to the left main pulmonary artery, image 84, SUV 5.67 focu s of radiotracer is posterior to the aorta, image 87, SUV 5.18. Some additional focal uptake is anter ior to the aorta at the right atrium, image 94 SUV 3.34. Some additional periesophageal uptake is pre sent above the diaphragm, image 103, SUV 2.76. A punctate nodule at the right diaphragm, image 99 has intermediate signal SUV 1.35. ABDOMEN: Intense uptake in the posterior left lung base at the level spleen is present, example image 120, SUV 3.93, image 124, SUV 6.38. Additional osseous rib activity is present at these levels, exam ple image 135, SUV 4.99. Retrocaval uptake is present, image 134, SUV 4.57. Some periaortic uptake is also present, example im age 138, SUV 3.51, image 143 SUV 3.21 There is a focus of radiotracer within the anterior right lobe liver increasing in SUV, currently 5.1 . Image 122 some additional punctate hyperintensity may be within anterior right lobe liver as well. PELVIS: Suspicious intraperitoneal uptake not identified. Extensive muscular uptake is noted through the left gluteal region. OSSEOUS STRUCTURES: There is focal radiotracer uptake in the posterior lateral left upper thoracic ve rtebral with an SUV of 3.63, image 59. Focal uptake is within the lateral right scapula, image 71, OROURKE V 3.06. Focal uptake in anterior to the right bicipital groove, image 60, SUV 6.72. There is a focus radiotracer within the medial right iliac wing adjacent to the sacroiliac joint, image 178, SUV 4.05. LOCALIZATION CT: Soft tissue densities are in the left lower intercostal regions corresponding to the abnormal uptake. There is a marked left hydronephrosis. No hydroureter is evident. Scattered diverti culi within the sigmoid colon. COMPARISON: Uptake within the liver is increasing in intensity. Multiple new soft tissue foci of upta ke have developed over the interval. There is increased uptake within the musculature including inter costal regions, left gluteal region, left thigh, paraspinal musculature. The distribution through the intrathoracic chest appears similar. IMPRESSION: 1. Intrathoracic uptake appears similar to comparison study. 2. New developing intercostal, musculature, and soft tissue foci of radiotracer. 3. Increasing intensity within the right lobe liver. Additional new small foci may be along the anter ior liver. 4. Osseous metastasis including thoracic spine, right iliac wing, right scapula. 5. Increasing size and intensity of left intercostal soft tissue densities at the lung base. [facility], , 12/12/2024 1:47 PM
== END | disposition home or self-care (01) ==
LOC: RADPETMAIN 08:44
PROVIDERS: ATTEND Internal Medicine Hematology & Oncology
DX: C45.0 Mesothelioma of pleura (principal); C79.51 Secondary malignant neoplasm of bone; J98.4 Other disorders of lung
CPT/HCPCS: 78815; A9552

== ENCOUNTER 2025-02-15 11:49 | Emergency (ER) | payer MEDICARE ==
--- NOTE | 2025-02-15 12:13 | ED ---
Recheck HPI - General Chief Complaint: Recheck/Abnormal Lab/Rx Stated Complaint: abn labs Time Seen by Provider: 02/15/25 12:12 Source: patient, family, RN notes reviewed, old records reviewed Mode of arrival: ambulatory Limitations: no limitations - History of Present Illness Initial Comments: 79-year-old male with a past medical history significant of mesothelioma currently on chemotherapy, COPD, diabetes mellitus, hypertension, hyperlipid emia, MVP presenting to the ER for evaluation of abnormal laboratory studies. Patient reports he recently ended immunotherapy and started chemotherapy 6 weeks ago. He receives chemotherapy every 3 weeks and was due for an infusion today but when reporting to the infusion center he was found to have a hemoglobin of 5.9, per . Patient was sent to the emergency department for further evaluation at that time. Patient reports over the past week he has been having increasing shortness of breath for which she was started on 2 L nasal cannula oxygen at home. He denies any hematochezia or melena. No history of GI bleeds. Patient does not believe he has required a blood transfusion in the past. He denies any fevers, chills, nausea, vomiting, cough, congestion, chest pain, abdominal pain, urinary complaints of breath edema. Patient's oncologist is Dr. Gomez. - Related Data Home Medications Medication Instructions Recorded Confirmed Ipratropium-Albuterol Nebulize 3 ml INHALATION RT-QID 09/17/18 02/15/25 [Duoneb 0.5 mg-3 mg/3 ml Soln] Furosemide [Lasix] 40 mg PO DAILY 10/21/19 02/15/25 Atorvastatin Calcium [Lipitor] 40 mg PO DAILY 03/06/23 02/15/25 Levothyroxine Sodium [Synthroid] 100 mcg PO MOTUWETHFRSA 03/06/23 02/15/25 Levothyroxine Sodium [Synthroid] 150 mcg PO OROURKE 03/06/23 02/15/25 Tiotropium 2.5 Mcg/Puff [Spiriva 2 puff INHALATION RT-DAILY 03/06/23 02/15/25 Respimat 2.5 Mcg] allopurinoL [Zyloprim] 100 mg PO DAILY 03/06/23 02/15/25 metFORMIN HCL [Glucophage] 500 mg PO BID 03/06/23 02/15/25 Aspirin [Adult Low Dose Aspirin EC] 81 mg PO DAILY 12/28/24 02/15/25 Fluticasone/Umeclidin/Vilanter 1 puff INHALATION RT-DAILY 12/28/24 02/15/25 [Trelegy Ellipta 100-62.5-25] Ibuprofen [Motrin] 600 mg PO Q8HR PRN 12/28/24 02/15/25 Vit D3 (Unk) 1 tab PO DAILY 12/28/24 02/15/25 Folic Acid 1 mg PO DAILY 02/15/25 02/15/25 Megestrol [Megace] 800 mg PO DAILY PRN 02/15/25 02/15/25 Ondansetron [Zofran] 4 mg PO Q4H PRN 02/15/25 02/15/25 methylPREDNISolone [Medrol Dose See Taper PO DIRECTED 02/15/25 02/15/25 Pack] Previous Rx's Medication Instructions Recorded Metoprolol Tartrate [Lopressor] 50 mg PO BID #60 tab 10/05/18 Allergies Allergy/AdvReac Type Severity Reaction Status Date / Time No Known Allergies Allergy Verified 02/15/25 14:17 Review of Systems ROS Statement: Those systems with pertinent positive or pertinent negative responses have been documented in the HPI. ROS Other: All systems not noted in ROS Statement are negative. Past Medical History Past Medical History: Asthma, Cancer, COPD, Diabetes Mellitus, Hyperlipidemia, Hypertension, Mitral Valve Prolapse (MVP) Additional Past Medical History / Comment(s): "stroke-like" episode 06-28-18, jerky type movements left arm & leg, mostly resolved, recent hx. pleural effusion, left shoulder pain-hasn't had evaluated yet, accidentally put screw through nose in the past, malignant mesothelioma, History of Any Multi-Drug Resistant Organisms: None Reported Past Surgical History: Joint Replacement Additional Past Surgical History / Comment(s): HIP REPLACEMENT, Heart valve 2018, chest wall mass biopsy Past Anesthesia/Blood Transfusion Reactions: No Reported Reaction Past Psychological History: No Psychological Hx Reported Smoking Status: Former smoker Past Alcohol Use History: None Reported Past Drug Use History: None Reported - Past Family History Mother Family Medical History: Cancer Additional Family Medical History / Comment(s): lung cancer pass away 90 years old General Exam Limitations: no limitations General appearance: alert, in no apparent distress Respiratory exam: Present: normal lung sounds bilaterally. Absent: respiratory distress, wheezes, rales, rhonchi, stridor Cardiovascular Exam: Present: regular rate, normal rhythm, normal heart sounds. Absent: systolic murmur, diastolic murmur, rubs, gallop, clicks GI/Abdominal exam: Present: soft, normal bowel sounds. Absent: distended, tenderness, guarding, rebound, rigid Rectal exam: Present: normal inspection, normal rectal tone, other (no gross blood on exam) Neurological exam: Present: alert, oriented X3, CN II-XII intact Skin exam: Present: warm, dry, intact, normal color. Absent: rash Course Vital Signs 02/15/25 02/15/25 02/15/25 11:54 13:43 14:25 Temperature 97.6 F 97.9 F 98.1 F Pulse Rate 72 69 61 Respiratory 20 22 19 Rate Blood Pressure 106/51 121/53 116/52 O2 Sat by Pulse 96 100 99 Oximetry 02/15/25 02/15/25 02/15/25 14:33 14:53 15:52 Temperature 97.6 F 97.8 F 98.0 F Pulse Rate 73 71 70 Respiratory 22 21 20 Rate Blood Pressure 107/47 116/54 114/53 O2 Sat by Pulse 100 100 98 Oximetry - Reevaluation(s) Reevaluation #1: 02/15/25 14:[address] Matta. He advised on transfusing 1 unit of blood and to have him follow-up closely with oncology, if discharge is agreeable to oncology. 02/15/25 14:11 Case discussed with Jonah Valentine, oncology, he is agreeable with plan for transfusion 1 unit of blood and have patient discharged with close outpatient follow-up. He states patient will have follow-up later this week for repeat laboratory studies. Rectal exam chaperoned by Tatiana JAMES. Medical Decision Making - Medical Decision Making Was pt. sent in by a medical professional or institution (, PA, PLASTICS FABRICATION SUPERVISOR, urgent care, hospital, or halfway...) When possible be specific @ -Patient sent by [facility] center for evaluation of low hemoglobin. Did you speak to anyone other than the patient for history (EMS, parent, family, police, friend...)? What history was obtained from this source @ -Patient significant other, at bedside, aiding in HPI and PMhx. Did you review nursing and triage notes (agree or disagree)? Why? @ -I reviewed and agree with nursing and triage notes Were old charts reviewed (outside hosp., previous admission, EMS record, old EKG, old radiological studies, urgent care reports/EKG's, halfway records)? Report findings @ -No old charts were reviewed Differential Diagnosis (chest pain, altered mental status, abdominal pain women, abdominal pain men, vaginal bleeding, weakness, fever, dyspnea, syncope, headache, dizziness, GI bleed, back pain, seizure, CVA, palpatations, mental health, musculoskeletal)? @ -Acute blood loss anemia, GI bleed, epistaxis, cancer... This list is not meant to be all-inclusive EKG interpreted by me (3pts min.). @ -As above X-rays interpreted by me (1pt min.). @ -CXR showing interval right perihilar increase airspace opacities versus consolidations. CT interpreted by me (1pt min.). @ -None done U/S interpreted by me (1pt. min.). @ -None done What testing was considered but not performed or refused? (CT, X-rays, U/S, l abs)? Why? @ -None What meds were considered but not given or refused? Why? @ -None Did you discuss the management of the patient with other professionals (professionals i.e. , PA, PLASTICS FABRICATION SUPERVISOR, lab, RT, psych nurse, social work supervisor, chief orthoptist, teacher, appeals officer, immigration case manager)? Give summary @ -Yes, Case discussed with Dr. Matta he advised on transfusing 1 unit of blood and discharged home with close outpatient follow-up to oncology. Case also discussed with oncology, Jonah Valentine who is agreeable for transfusion of 1 unit of blood and will contact patient for repeat laboratory studies in the next 24 to 48 hours. Was smoking cessation discussed for >3mins.? @ -No Was critical care preformed (if so, how long)? @ -No Were there social determinants of health that impacted care today? How? (Homel essness, low income, unemployed, alcoholism, drug addiction, transportation, low edu. Level, literacy, decrease access to med. care, long-term, rehab)? @ -No Was there de-escalation of care discussed even if they declined (Discuss DNR or withdrawal of care, Hospice)? DNR status @ -No What co-morbidities impacted this encounter? (DM, HTN, Smoking, COPD, CAD, Cancer, CVA, ARF, Chemo, Hep., AIDS, mental health diagnosis, sleep apnea, morbid obesity)? @ -Mesothelioma Was patient admitted / discharged? Hospital course, mention meds given and route, prescriptions, significant lab abnormalities, going to OR and other pertinent info. @ -Discharge. 79-year-old male presented the ER for evaluation of abnormal laboratory studies. Upon rooming, vitals with acceptable limits. Patient in no signs of acute distress. Laboratory studies showing hemoglobin is 6.3 for which patient received 1 unit of PRBCs, this possibly due for cancer. CXR showing increased right perihilar region consolidation versus mass likely given from patient's lung cancer, less likely pneumonia as patient is afebrile and wit hout leukocytosis. Stool occult positive, patient denies melena or hematchezia or abdominal pain. Case was discussed with Dr. Matta and Jonah Valentine, oncology, who are both agreeable for 1 unit PRBC transfusion and discharged home. Jonah Valentine reported patient will be contacted for repeat laboratory studies within 24 to 48 hours. Patient is agreeable with plan. Patient discharged stable condition with follow-up to PCP and oncology. Patient and patient's verbally expressed understanding agreement with care plan. Case discussed with ED attending, Dr. Rodriguez. Undiagnosed new problem with uncertain prognosis? @ -No Drug Therapy requiring intensive monitoring for toxicity (Heparin, Nitro, Insulin, Cardizem)? @ -No Were any procedures done? @ -No Diagnosis/symptom? @ -Anemia Acute, or Chronic, or Acute on Chronic? @ -Acute Uncomplicated (without systemic symptoms) or Complicated (systemic symptoms)? @ -Complicated Side effects of treatment? @ -No Exacerbation, Progression, or Severe Exacerbation? @ -No Poses a threat to life or bodily function? How? (Chest pain, USA, IA, pneumonia, PE, COPD, DKA, ARF, appy, cholecystitis, CVA, Diverticulitis, Homicidal, Suicidal, threat to staff... and all critical care pts) @ -Possibly, malignancy is life threatening - Lab Data Result diagrams: 02/15/25 12:24 02/15/25 12:24 Lab Results 02/15/25 02/15/25 02/15/25 Range/Units 12:24 12:24 12:24 WBC 8.6 (3.8-10.6) k/uL RBC 2.50 L (4.30-5.90) m/uL Hgb 6.3 L* D (13.0-17.5) gm/dL Hct 20.1 L (39.0-53.0) % MCV 80.5 (80.0-100.0) fL MCH 25.4 (25.0-35.0) pg MCHC 31.5 (31.0-37.0) g/dL RDW 22.5 H (11.5-15.5) % Plt Count 242 (150-450) k/uL MPV 9.6 Neutrophils % (Manual) 61 % Band Neuts % (Manual) 8 % Lymphocytes % (Manual) 12 % Monocytes % (Manual) 16 % Metamyelocytes % 2 % Myelocytes % 3 % Neutrophils # (Manual) 5.90 (1.3-7.7) k/uL Lymphocytes # (Manual) 1.03 (1.0-4.8) k/uL Monocytes # (Manual) 1.38 H (0-1.0) k/uL Metamyelocytes # (Man) 0.17 H (0) k/uL Myelocytes # (Manual) 0.26 H (0) k/uL Nucleated RBCs 0 (0-0) /100 WBC Manual Slide Review Performed Anisocytosis Moderate Microcytosis Slight Sodium 139 (137-145) mmol/L Potassium 3.9 (3.5-5.1) mmol/L Chloride 103 (98-107) mmol/L Carbon Dioxide 25 (22-30) mmol/L Anion Gap 11 mmol/L BUN 19 (9-20) mg/dL Creatinine 0.98 (0.66-1.25) mg/dL Est GFR (CKD-EPI)AfAm 86 (>60 ml/min/1.73 sqM) Est GFR (CKD-EPI)NonAf 75 (>60 ml/min/1.73 sqM) Glucose 115 H (74-99) mg/dL Calcium 7.9 L (8.4-10.2) mg/dL Total Bilirubin 0.4 (0.2-1.3) mg/dL AST 20 (17-59) U/L ALT 19 (4-49) U/L Alkaline Phosphatase 117 (38-126) U/L Total Protein 5.9 L (6.3-8.2) g/dL Albumin 3.2 L (3.5-5.0) g/dL Stool Occult Blood (Negative) Blood Type O Positive Blood Type Recheck O Pos Bld Type Recheck Status No Antibody Screen NEGATIVE Crossmatch See Detail Spec Expiration Date 02/18/2025232302/15/25 Range/Units 13:36 WBC (3.8-10.6) k/uL RBC (4.30-5.90) m/uL Hgb (13.0-17.5) gm/dL Hct (39.0-53.0) % MCV (80.0-100.0) fL MCH (25.0-35.0) pg MCHC (31.0-37.0) g/dL RDW (11.5-15.5) % Plt Count (150-450) k/uL MPV Neutrophils % (Manual) % Band Neuts % (Manual) % Lymphocytes % (Manual) % Monocytes % (Manual) % Metamyelocytes % % Myelocytes % % Neutrophils # (Manual) (1.3-7.7) k/uL Lymphocytes # (Manual) (1.0-4.8) k/uL Monocytes # (Manual) (0-1.0) k/uL Metamyelocytes # (Man) (0) k/uL Myelocytes # (Manual) (0) k/uL Nucleated RBCs (0-0) /100 WBC Manual Slide Review Anisocytosis Microcytosis Sodium (137-145) mmol/L Potassium (3.5-5.1) mmol/L Chloride (98-107) mmol/L Carbon Dioxide (22-30) mmol/L Anion Gap mmol/L BUN (9-20) mg/dL Creatinine (0.66-1.25) mg/dL Est GFR (CKD-EPI)AfAm (>60 ml/min/1.73 sqM) Est GFR (CKD-EPI)NonAf (>60 ml/min/1.73 sqM) Glucose (74-99) mg/dL Calcium (8.4-10.2) mg/dL Total Bilirubin (0.2-1.3) mg/dL AST (17-59) U/L ALT (4-49) U/L Alkaline Phosphatase (38-126) U/L Total Protein (6.3-8.2) g/dL Albumin (3.5-5.0) g/dL Stool Occult Blood Positive (Negative) Blood Type Blood Type Recheck Bld Type Recheck Status Antibody Screen Crossmatch Spec Expiration Date - EKG Data -: EKG Interpreted by Me EKG Comments: EKG taken at 12: 41 showing a sinus rhythm with occasional PVC. Ventricular rate 72, WV interval 180, QRS duration 97, QT/QTc 393/417. - Radiology Data Radiology results: report reviewed, image reviewed Disposition Clinical Impression: Low hemoglobin Disposition: HOME SELF-CARE Condition: Stable Additional Instructions: Follow-up closely with Dr. Gomez. Return to ER for any new or worsening symptoms. Is patient prescribed a controlled substance at d/c from ED?: No Referrals: Lesli Matta MD [Primary Care Provider] - 1-2 days Ezequiel Gomez MD [STAFF PHYSICIAN] - 1-2 days Time of Disposition: 14:35
[2025-02-15 12:43] LABS: Anisocytosis Moderate; MCH 25.4 pg (25.0-35.0); MCHC 31.5 g/dL (31.0-37.0); MCV 80.5 fL (80.0-100.0); Mean Platelet Volume 9.6; Microcytosis Slight; Platelet Count 242 k/uL (150-450); RDW 22.5 % (11.5-15.5); WBC 8.6 k/uL (3.8-10.6)
[2025-02-15 12:53] LABS: ALT 19 U/L (4-49); AST 20 U/L (17-59); African American GFR (CKD) 86 (>60 ml/min/1.73 sqM); Albumin 3.2 g/dL (3.5-5.0); Alkaline Phosphatase 117 U/L (38-126); Anion Gap 11 mmol/L; Blood Urea Nitrogen 19 mg/dL (9-20); Calcium 7.9 mg/dL (8.4-10.2); Carbon Dioxide 25 mmol/L (22-30); Chloride 103 mmol/L (98-107); Glucose 115 mg/dL (74-99); Non-African American GFR(CKD) 75 (>60 ml/min/1.73 sqM); Potassium 3.9 mmol/L (3.5-5.1); Sodium 139 mmol/L (137-145); Total Bilirubin 0.4 mg/dL (0.2-1.3); Total Protein 5.9 g/dL (6.3-8.2)
[2025-02-15 13:06] LABS: HGB 6.3 gm/dL (13.0-17.5)
[2025-02-15 13:07] LABS: HCT 20.1 % (39.0-53.0)
--- NOTE | 2025-02-15 13:30 | XR ---
EXAMINATION TYPE: XR chest 2V DATE OF EXAM: 02/15/2025 12:53 PM COMPARISON: 12/08/2024. CLINICAL INDICATION: Male, 79 years old with history of sob hx mesothelioma; H TECHNIQUE: XR chest 2V Frontal and lateral views of the chest. FINDINGS: Lungs/Pleura: Hiatal perihilar increase opacification concerning for developing pneumonia versus prog ression of disease. There is no evidence of pleural effusion, focal consolidation, or pneumothorax. Pulmonary vascularity: Unremarkable. Heart/mediastinum: Cardiomediastinal silhouette is unremarkable. Atherosclerotic calcifications are seen in the aorta. Left atrial appendage occlusion device is present. Musculoskeletal: No acute osseous pathology. Midline sternotomy wires are noted. Severe degeneration changes of the shoulders. IMPRESSION: Interval right perihilar increase airspace opacities versus consolidation. Correlate for developing p neumonia versus mass. [facility], , 02/15/2025 1:27 PM
[2025-02-15 14:12] LABS: Band Neutrophils % 8 %; Lymphocytes # (M) 1.03 k/uL (1.0-4.8); Metamyelocytes # (M) 0.17 k/uL (0); Metamyelocytes % 2 %; Monocytes # (M) 1.38 k/uL (0-1.0); Myelocytes # (M) 0.26 k/uL (0); Myelocytes % 3 %; Neutrophils % (M) 61 %; Nucleated Red Blood Cells 0 /100 WBC (0-0); Total Cells Counted 200
[2025-02-15 15:53] VITALS: BP 114/53; PULSE 70; RESP 20; TEMP 98
== END 2025-02-15 15:59 | disposition home or self-care (01) ==
LOC: EC 11:49
DX: D64.9 Anemia, unspecified (principal); Z85.89 Personal history of malignant neoplasm of other organs and systems; Z87.891 Personal history of nicotine dependence
CPT/HCPCS: 36415; 93005; 86900; 86901; 80053; 85025; 86850; 86920; 82272; 71046; 99284; 36430; P9016